=== PATIENT | female | born 1960 | race Caucasian/White ===

== ENCOUNTER 2016-10-09 09:11 | Outpatient (RCR) | payer OTHER | END 2016-11-04 | LOC: M ONCR 09:11 | PROVIDERS: ATTEND Radiology Radiation Oncology | DX: D05.12 Intraductal carcinoma in situ of left breast (principal) ==

== ENCOUNTER → 2016-10-13 | Outpatient (CLI) | payer OTHER | LOC: M RAD 13:42 | PROVIDERS: ATTEND Radiology Radiation Oncology | DX: C50.919 Malignant neoplasm of unspecified site of unspecified female breast (principal) ==

== ENCOUNTER → 2016-11-03 | Outpatient (CLI) | payer OTHER ==
[2016-11-03 12:41] LABS: MEAN CORPUSCULAR HEMOGLOBIN 31.1 pg (27.0-33.0); MEAN CORPUSCULAR HGB CONC 33.7 g/dl (32.0-36.5); MEAN CORPUSCULAR VOLUME 92.4 fl (80.0-96.0); RED CELL DISTRIBUTION WIDTH 13.8 % (11.5-14.5); WHITE BLOOD COUNT 4.6 K/mm3 (4.0-10.0)
--- NOTE | 2016-11-04 07:33 | RADONC ---
RADIATION ONCOLOGY PROGRESS NOTE: DATE: 11/03/2016 Ms. Arzola is presently at a dose of 2403 cGy to her left breast and is tolerating treatments quite well at this point with no significant difficulties related to her radiation therapy. She has no breast or bone pain. REVIEW OF SYSTEMS: The patient's review of systems is noncontributory. Denies nausea, vomiting, fevers, chills, night sweats, diplopia, headaches, anxiety or depression, anorexia, weight loss, visual disturbances, chest pain, urinary or bowel difficulties, bone pain, or neurological problems. PHYSICAL EXAMINATION: The patient's skin is in good condition with no evidence of moist or dry desquamation. The remainder of her physical exam remains unchanged. Ms. Arzola is tolerating treatments quite well and radiation will continue as scheduled.
== END ==
LOC: M ONCR 11:36
PROVIDERS: ATTEND Radiology Radiation Oncology
DX: C50.919 Malignant neoplasm of unspecified site of unspecified female breast (principal)

== ENCOUNTER 2016-11-05 13:28 | Outpatient (RCR) | payer OTHER ==
--- NOTE | 2016-11-08 08:23 | RADONC ---
RADIATION ONCOLOGY SIMULATION NOTE: DATE: 11/07/2016 CHART No: [id number] Ms. Arzola was taken to the linear accelerator today for clinical setup of her electron beam left breast boost field. Setup was accomplished without difficulty or discomfort. Radiation treatment planning is underway and radiation treatments will begin subsequently. An immobilization device was used and will be used throughout the course of this treatment. I was physically present throughout the course of CT simulation.
--- NOTE | 2016-11-11 10:18 | RADONC ---
RADIATION ONCOLOGY PROGRESS NOTE DATE: 11/10/2016 CHART NUMBER: [id number] Ms. Arzola is presently at a dose of 3738 cGy to her left breast and is tolerating treatments quite well at this point with no complaints related to her radiation therapy. She is having no breast or bone pain. The patient's review of systems is noncontributory. She denies nausea, vomiting, fevers, chills, night sweats, diplopia, headaches, anxiety or depression, anorexia, weight loss, visual disturbances, chest pain, urinary or bowel difficulties, bone pain, or neurological problems. PHYSICAL EXAMINATION: The patient's skin is in good condition with no evidence of moist or dry desquamation. The remainder of her physical exam remains unchanged. Ms. Arzola is tolerating her treatments quite well, and radiation will continue as scheduled.
--- NOTE | 2016-11-19 13:08 | RADONC ---
RADIATION ONCOLOGY PROGRESS NOTE DATE: 11/17/2016 CHART NUMBER: [id number] Ms. Arzola is presently at a dose of 4725 cGy to her left breast primary site boost and is tolerating treatments quite well at this point with no significant difficulties related to her radiation therapy other than some tenderness of her left breast. REVIEW OF SYSTEMS: The patient's review of systems is noncontributory. She denies nausea, vomiting, fevers, chills, night sweats, diplopia, headaches, anxiety or depression, anorexia, weight loss, visual disturbances, chest pain, urinary or bowel difficulties, bone pain, or neurological problems. PHYSICAL EXAMINATION: The patient's skin shows some erythema present throughout the treatment field but is overall in good condition with no evidence of moist or dry desquamation. The remainder of her physical exam remains unchanged. Ms. Arzola is tolerating treatments quite well and is scheduled for completion tomorrow. Radiation will continue as scheduled.
--- NOTE | 2016-11-25 13:16 | RADONC ---
RADIATION ONCOLOGY TREATMENT SUMMARY DATE: 11/21/2016 CHART NUMBER: [id number] DIAGNOSIS: Left breast cancer. STAGE: 0, [id number] ECOG PERFORMANCE STATUS: 0 TREATMENT SUMMARY: Ms. 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 We treated the patient to her left breast for a total dose of 4000 cGy delivered in 15 fractions of 266.7 cGy each over 20 elapsed days from 10/22/2016 to 11/11/2016. The patient's left breast was treated on the linear accelerator utilizing 3D conformal technique with anterior and posterior lateral abraham as well as an 18X and 6X combination photon beam. Following completion of 4000 cGy in the entire left breast, the primary site was boosted for an additional 900 cGy delivered in five fractions of 180 cGy each from 11/12/2016 through 11/18/2016. Primary site boost was treated on a linear accelerator utilizing a 9 MeV electron beam prescribed to the 90% isodose line via an en face technique. This brought the primary site to a total dose of 4900 cGy delivered in 20 fractions over 27 elapsed days from 10/22/2016 through 11/18/2016. Ms. Arzola tolerated her treatments quite well with no significant difficulties related to her radiation therapy. She completed therapy as prescribed without interruption. I have scheduled the patient to see me again in 1 month for further followup. She will also continue to be followed by her other physicians as well. Thank you for allowing us to participate in the care of this very pleasant woman. If I could be of any further assistance or provide you with any information, please feel free to contact me at anytime. cc: *Lolly Barksdale MD *Giulia Carvalho MD *JOSUE Sullivan
== END 2016-12-02 ==
LOC: M ONCR 13:28
PROVIDERS: ATTEND Radiology Radiation Oncology
DX: D05.12 Intraductal carcinoma in situ of left breast (principal)

== ENCOUNTER → 2016-12-06 | Outpatient (CLI) | payer MEDICAID, OTHER ==
--- NOTE | 2016-12-06 14:12 | REP ---
LEFT FOOT: Four views of the left foot are performed. There is a comminuted fracture of the distal aspect of the first proximal phalanx. This is not significantly displaced. It extends into the interphalangeal joint. Fracture extends into the proximal medial aspect of the proximal phalanx. No other fracture or dislocation is seen. There is mild calcaneal spurring. There is moderate spurring of the anterior distal tibia which could cause anterior impingement at the ankle. IMPRESSION: Nondisplaced comminuted fracture proximal phalanx extends into the interphalangeal joint. Signed by Fabio Escudero MD 12/06/2016 08:00 P
== END ==
LOC: M LRY 12:32
PROVIDERS: ATTEND Physician Assistant
DX: S92.515A Nondisplaced fracture of proximal phalanx of left lesser toe(s), initial encounter for closed fracture (principal); X58.XXXA Exposure to other specified factors, initial encounter; Y93.9 Activity, unspecified; Y92.9 Unspecified place or not applicable; Y99.8 Other external cause status

== ENCOUNTER → 2016-12-17 | Outpatient (CLI) | payer MEDICAID ==
--- NOTE | 2016-12-17 11:51 | RADONC ---
RADIATION ONCOLOGY FOLLOWUP NOTE: DATE OF SERVICE: 12/17/2016 DIAGNOSIS: Left breast cancer. STAGE:; Stage 0, Ti [id number] ECOG PERFORMANCE STATUS: 0 Ms. 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 The patient presents today reporting that she is doing quite well with no complaints at this time related to her radiation therapy or disease. She has no breast or bone pain. REVIEW OF SYSTEMS: The patient's review of systems is noncontributory. Denies nausea, vomiting, fevers, chills, night sweats, diplopia, headaches, anxiety or depression, anorexia, weight loss, visual disturbances, chest pain, urinary or bowel difficulties, bone pain, or neurological problems. PHYSICAL EXAMINATION: The patient's skin is in good condition with no evidence of radiation change present. There is no moist or dry desquamation. The remainder of her physical exam remains unchanged. Ms. Arzola is clinically YO at this time and will be seen by us again in 6 months for further followup. She will also continue to be followed by her other physicians as well. cc: *Giulia Carvalho MD *JOSUE Sullivan
== END ==
LOC: M ONCR 10:29
PROVIDERS: ATTEND Radiology Radiation Oncology
DX: D05.12 Intraductal carcinoma in situ of left breast (principal)

== ENCOUNTER → 2017-01-28 | Outpatient (REF) | payer OTHER | LOC: M LAB REF 16:15 | PROVIDERS: ATTEND Physician Assistant | DX: N39.0 Urinary tract infection, site not specified (principal) ==

== ENCOUNTER → 2017-04-14 | Outpatient (CLI) | payer OTHER ==
[~2017-04-14] MED LIST: AMIT100TA; LEVO100T5; LISI10TA4; NAPR500T PO; OMEP40CA2; OXYB5TAB10; ROBA500T PO; TAMO20TA4; VENL75CA47
--- NOTE | 2017-04-16 08:40 | DEXA ---
AP SPINE L1 - L4 1.503 2.5 3.2 LT FEMUR TOTAL 1.267 2.1 2.7 RT FEMUR TOTAL 1.248 1.9 2.5 TOTAL BODY TOTAL OTHER DUAL FEMUR FRAX* ASSESSMENT Risk factors: Current smoker, history of adult fracture. 10 year probability of fracture Major osteoporotic fracture 7.5 % Hip fracture 0.1 % COMMENTS: Normal bone densitometry of the spine and hips. FOLLOW-UP: Recommendation for the next bone density exam: 5 years. MTDD
== END ==
LOC: M WHC 14:50
PROVIDERS: ATTEND Physician Assistant
DX: E55.9 Vitamin D deficiency, unspecified (principal)

== ENCOUNTER 2017-06-01 18:30 | Emergency (ER) | payer OTHER ==
[~2017-06-01] VITALS: Ht 162.6 cm; Wt 85.5 kg
[2017-06-01] MEDS ORDERED: OMEP40CA2 (18:46)
[2017-06-01] MEDS ORDERED: VENL75CA47 (18:46)
[2017-06-01] MEDS ORDERED: AMIT100TA (18:46)
[2017-06-01] MEDS ORDERED: LEVO100T5 (18:46)
[2017-06-01] MEDS ORDERED: LISI10TA4 (18:46)
[2017-06-01] MEDS ORDERED: OXYB5TAB10 (18:46)
[2017-06-01] MEDS ORDERED: TAMO20TA4 (18:46)
[2017-06-01] MEDS ORDERED: NAPROXEN 250 MG TAB PO ONE (20:45)
[2017-06-01] MEDS ORDERED: ACETAMINOPHEN TAB 650MG DOSE (2X325MG) PO ONE (20:45)
--- NOTE | 2017-06-01 22:20 | REPUSA ---
Clinical history: Pain, swelling. Findings: The common femoral, superficial femoral, popliteal, and other deep venous structures compre ss normally and demonstrate normal color Doppler flow. Normal venous waveforms with augmentation are seen. There is a fluid collection in the left popliteal fossa measuring 2.9 x 2.0 by 1.2 cm. Impression: No evidence of deep vein thrombosis in either femoral popliteal venous system. Left-sided Weaver cyst.
[2017-06-01] MEDS ORDERED: ROBA500T PO (22:39)
[2017-06-01] MEDS ORDERED: NAPR500T PO (22:39)
[2017-06-01 22:44] VITALS: BP 132/68
== END 2017-06-01 22:44 | disposition home or self-care (01) ==
LOC: M ED 18:30
DX: S39.012A Strain of muscle, fascia and tendon of lower back, initial encounter (principal); M62.838 Other muscle spasm; M71.22 Synovial cyst of popliteal space [Baker], left knee; X58.XXXA Exposure to other specified factors, initial encounter; Y92.9 Unspecified place or not applicable; Y93.H2 Activity, gardening and landscaping; Y99.9 Unspecified external cause status; F17.200 Nicotine dependence, unspecified, uncomplicated; Z79.899 Other long term (current) drug therapy; Z88.1 Allergy status to other antibiotic agents; Z88.2 Allergy status to sulfonamides

== ENCOUNTER → 2017-06-10 | Outpatient (REF) | payer OTHER ==
[2017-06-10 16:42] LABS: ALBUMIN 3.8 GM/DL (3.2-5.2); ALBUMIN/GLOBULIN RATIO 1.12 (1.00-1.93); ALKALINE PHOSPHATASE 56 U/L (45-117); ALT/SGPT 30 U/L (12-78); ANION GAP 9 MEQ/L (8-16); AST/SGOT 24 U/L (15-37); BILIRUBIN,TOTAL 0.6 MG/DL (0.2-1.0); BLOOD UREA NITROGEN 10 MG/DL (7-18); CALCIUM LEVEL 9.3 MG/DL (8.5-10.1); CARBON DIOXIDE LEVEL 30 MEQ/L (21-32); CHLORIDE LEVEL 104 MEQ/L (98-107); CHOLESTEROL LEVEL 184 MG/DL (<200); CREATININE FOR GFR 0.76 MG/DL (0.55-1.02); FERRITIN 102 NG/ML (8-252); GLOMERULAR FILTRATION RATE > 60.0 (>51); GLUCOSE, FASTING 86 MG/DL (70-105); MAGNESIUM LEVEL 2.2 MG/DL (1.8-2.4); PERCENT SATURATION 57.6 % (13.2-45.0); POTASSIUM SERUM 3.9 MEQ/L (3.5-5.1); SODIUM LEVEL 143 MEQ/L (136-145); TOTAL IRON BINDING CAPACITY 262 UG/DL (250-450); TOTAL PROTEIN 7.2 GM/DL (6.4-8.2); TRIGLYCERIDES LEVEL 105 MG/DL (<150)
[2017-06-10 16:45] LABS: VITAMIN B12 LEVEL 863 PG/ML (247-911)
[2017-06-10 17:00] LABS: BASO % 1.1 % (0.0-1.0); EOS # 0.1 K/mm3 (0.0-0.50); EOS % 2.6 % (0.0-3.0); LARGE UNSTAINED CELL # 0.1 K/mm3 (0.0-0.4); LARGE UNSTAINED CELL % 1.3 % (0.0-4.0); LYMPH % 20.5 % (24.0-44.0); MEAN CORPUSCULAR HEMOGLOBIN 31.5 pg (27.0-33.0); MEAN CORPUSCULAR HGB CONC 33.3 g/dl (32.0-36.5); MEAN CORPUSCULAR VOLUME 94.6 fl (80.0-96.0); MONO # 0.3 K/mm3 (0.0-0.8); MONO % 5.2 % (0.0-5.0); NEUTROPHILS # 3.3 K/mm3 (1.8-7.7); NEUTROPHILS % 69.3 % (36.0-66.0); PLATELET COUNT, AUTOMATED 194 k/mm3 (150-450); RED CELL DISTRIBUTION WIDTH 12.7 % (11.5-14.5); WHITE BLOOD COUNT 4.7 K/mm3 (4.0-10.0)
== END ==
LOC: M SFHCCLAY 09:42
PROVIDERS: ATTEND Nurse Practitioner Family
DX: Z98.84 Bariatric surgery status (principal); I10 Essential (primary) hypertension; E78.4 Other hyperlipidemia; E03.9 Hypothyroidism, unspecified; E55.9 Vitamin D deficiency, unspecified; N39.0 Urinary tract infection, site not specified

== ENCOUNTER → 2017-06-24 | Outpatient (CLI) | payer OTHER ==
--- NOTE | 2017-06-24 10:59 | RADONC ---
RADIATION ONCOLOGY FOLLOWUP NOTE DATE: 06/24/2017 CHART NUMBER: [id number]. DIAGNOSIS: Left breast cancer. STAGE: 0, [id number]. ECOG PERFORMANCE STATUS: Zero. FOLLOWUP NOTE: Ms. Arzola is a very pleasant, 56-year-old white female with the diagnosis of a stage 0, [id number] ductal carcinoma in situ of the left breast who is presenting to us today for routine followup visit 7 months post completion of external beam radiation therapy. The patient presents today reporting that she is doing quite well with no complaints at this time related to her radiation therapy or disease. She has no breast or bone pain. REVIEW OF SYSTEMS: The patient's review of systems is noncontributory. Denies nausea, vomiting, fevers, chills, night sweats, diplopia, headaches, anxiety or depression, anorexia, weight loss, visual disturbances, chest pain, urinary or bowel difficulties, bone pain, or neurological problems. PHYSICAL EXAMINATION: The patient is a well-developed, well-nourished,56-year-old white female, in no acute distress. HEENT exam is normocephalic, atraumatic. Extraocular movements are intact. There is no palpable cervical, supraclavicular, infraclavicular, axillary, or inguinal lymphadenopathy present. Lungs are clear to auscultation and percussion. Heart has a regular rate and rhythm. Abdomen is benign with no hepatosplenomegaly, masses, or tenderness. Breast examination reveals no masses or discharge bilaterally. Skeletal examination reveals no tenderness to pressure or percussion of the bony skeleton. Extremities reveal no clubbing, cyanosis, or edema. Neurologic exam is grossly intact, as is the remainder of the physical examination. ASSESSMENT: The patient is clinically YO at this time will be seen by us again in 6 months for further followup. She will also continue to be followed by her other physicians as well.
== END ==
LOC: M ONCR 10:14
PROVIDERS: ATTEND Radiology Radiation Oncology
DX: D05.12 Intraductal carcinoma in situ of left breast (principal)

== ENCOUNTER → 2017-07-17 | Outpatient (REF) | payer OTHER | LOC: M SFHCLERA 14:15 | PROVIDERS: ATTEND Nurse Practitioner Family | DX: R30.0 Dysuria (principal) ==

== ENCOUNTER → 2017-08-18 | Outpatient (CLI) | payer OTHER ==
[2017-08-18 13:32] LABS: ANION GAP 4 MEQ/L (8-16); BLOOD UREA NITROGEN 10 MG/DL (7-18); CARBON DIOXIDE LEVEL 33 MEQ/L (21-32); CHLORIDE LEVEL 105 MEQ/L (98-107); CREATININE FOR GFR 0.72 MG/DL (0.55-1.02); GLOMERULAR FILTRATION RATE > 60.0 (>51); GLUCOSE, FASTING 101 MG/DL (70-105); SODIUM LEVEL 142 MEQ/L (136-145)
== END ==
LOC: M SMT 10:12
PROVIDERS: ATTEND Nurse Practitioner Women's Health
DX: R31.29 Other microscopic hematuria (principal)

== ENCOUNTER → 2017-08-26 | Outpatient (CLI) | payer OTHER ==
[~2017-08-26] MED LIST changes: +ISOVUE-370 76% 100ML VIAL (Q9967) As Ordered ONE
--- NOTE | 2017-08-26 15:38 | REP ---
Clinical: Hematuria. Comparison: 08/13/2015. Technique: Axial precontrast, conscious enhanced, and delayed images of the abdomen and pelvis using 100 ml Isovue 370 intravenous contrast material with coronal and sagittal MIP re-formations. Findings: Moderate medullary nephrocalcinosis is appreciated bilaterally without perinephric stranding, hydroureteronephrosis, or obstructing ureteral calculi. No renal cystic changes or masses are identified. The bilateral ureters and bladder are normal. Liver, spleen, pancreas, and bilateral adrenal glands are normal. The evidence of prior gastric bypass and cholecystectomy with compensatory biliary ductal dilatation noted. The enteric system is without obstruction or acute inflammatory process. Pelvis demonstrates normal bladder and evidence for prior hysterectomy. No pelvic fluid or ascites. No free air. No adenopathy. Abdominal aorta and vasculature appears normal. Fat containing supraumbilical midline ventral hernia is identified measuring roughly 4 cm maximal transverse diameter (images 45 - 64) along with 1 cm fat containing periumbilical hernia. Musculoskeletal structures demonstrate age-related degenerative changes without focal osseous abnormality. Lung bases are clear. Impression: 1. Kidneys demonstrate moderate medullary nephrocalcinosis. No further urinary tract abnormalities are identified by CT. 2. Fat containing supraumbilical and periumbilical hernias. Signed by Randy Ponce MD 08/26/2017 03:29 P
== END ==
LOC: M RAD 14:34
PROVIDERS: ATTEND Nurse Practitioner Women's Health
DX: R31.9 Hematuria, unspecified (principal)
CPT/HCPCS: 74178; Q9967

== ENCOUNTER → 2017-09-01 | Outpatient (REF) | payer OTHER ==
[~2017-09-01] MED LIST changes: -ISOVUE-370 76% 100ML VIAL (Q9967) As Ordered ONE
== END ==
LOC: M SMT 13:11
PROVIDERS: ATTEND Nurse Practitioner Women's Health
DX: R31.9 Hematuria, unspecified (principal)

== ENCOUNTER → 2017-12-16 | Outpatient (CLI) | payer OTHER | LOC: M ONCR 10:11 | DX: D05.12 Intraductal carcinoma in situ of left breast (principal) | CPT/HCPCS: 99211 ==

== ENCOUNTER → 2018-01-01 | Outpatient (REF) | payer OTHER ==
[2018-01-01 16:33] LABS: HEMATOCRIT 40.9 % (36.0-47.0); HEMOGLOBIN 13.9 g/dl (12.0-15.5); MEAN CORPUSCULAR HEMOGLOBIN 31.4 pg (27.0-33.0); MEAN CORPUSCULAR VOLUME 92.3 fl (80.0-96.0); PLATELET COUNT, AUTOMATED 232 10^3/uL (150-450); RED BLOOD COUNT 4.43 10^6/uL (4.00-5.40); RED CELL DISTRIBUTION WIDTH 12.7 % (11.5-14.5); RETIC HEMOGLOBIN EQUIVALENT 36.3 pg (24-36); RETICULOCYTE # 63.8 10^9/L (17-77); RETICULOCYTE % 1.4 % (0.5-1.5); WHITE BLOOD COUNT 5.2 10^3/uL (4.0-10.0)
[2018-01-01 16:38] LABS: TOTAL 25(OH) VITAMIN D 41.6 NG/ML (30.0-100.0)
[2018-01-01 16:40] LABS: VITAMIN B12 LEVEL 546 PG/ML (247-911)
[2018-01-01 16:41] LABS: FOLATE 15.7 NG/ML (>5.4)
[2018-01-01 16:42] LABS: FERRITIN 79 NG/ML (8-252); IRON (FE) 118 UG/DL (50-170); PERCENT SATURATION 43.9 % (13.2-45.0); TOTAL IRON BINDING CAPACITY 269 UG/DL (250-450)
[2018-01-01 17:18] LABS: HIV 1&2 SCREEN CENTAUR NEGATIVE (NEGATIVE)
[2018-01-01 18:02] LABS: CHLAMYDIA DNA AMPLIFICATION NEGATIVE (NEGATIVE); GC DNA AMPLIFICATION NEGATIVE (NEGATIVE)
[2018-01-04 10:40] LABS: HEPATITIS B SURFACE ANTIBODY NEGATIVE (POSITIVE)
[2018-01-04 10:50] LABS: HEPATITIS B SURFACE ANTIGEN NEGATIVE (NEGATIVE)
[2018-01-04 11:18] LABS: HEPATITIS C VIRUS ABY INDEX 0.1 INDEX (<0.8)
== END ==
LOC: M SFHCCLAY 11:42
DX: R53.83 Other fatigue (principal); Z11.3 Encounter for screening for infections with a predominantly sexual mode of transmission

== ENCOUNTER → 2018-02-19 | Outpatient (REF) | payer OTHER ==
[2018-02-19 17:14] LABS: ANION GAP 4 MEQ/L (8-16); BLOOD UREA NITROGEN 10 MG/DL (7-18); CALCIUM LEVEL 8.8 MG/DL (8.5-10.1); CARBON DIOXIDE LEVEL 33 MEQ/L (21-32); CHLORIDE LEVEL 103 MEQ/L (98-107); CREATININE FOR GFR 0.65 MG/DL (0.55-1.30); GLOMERULAR FILTRATION RATE > 60.0 (>51); GLUCOSE, FASTING 93 MG/DL (70-100); POTASSIUM SERUM 3.6 MEQ/L (3.5-5.1); SODIUM LEVEL 140 MEQ/L (136-145)
== END ==
LOC: M SFHCCLAY 10:08
DX: I10 Essential (primary) hypertension (principal)
CPT/HCPCS: 80048

== ENCOUNTER → 2018-02-25 | Outpatient (CLI) | payer OTHER | LOC: M RAD 13:55 | DX: G44.221 Chronic tension-type headache, intractable (principal); G43.719 Chronic migraine without aura, intractable, without status migrainosus; M54.81 Occipital neuralgia | CPT/HCPCS: 70450 ==

== ENCOUNTER → 2018-06-09 | Outpatient (CLI) | payer OTHER | LOC: M ONCR 10:11 | DX: C50.912 Malignant neoplasm of unspecified site of left female breast (principal) | CPT/HCPCS: 99211 ==

== ENCOUNTER → 2018-06-15 | Outpatient (REF) | payer OTHER ==
[2018-06-15 11:51] LABS: BASO % 0.5 % (0.0-1.0); EOS # 0.2 10^3/uL (0.0-0.50); HEMOGLOBIN 12.4 g/dl (12.0-15.5); IMMATURE GRANULOCYTE % 0.3 % (0-3.0); LYMPH % 13.3 % (24.0-44.0); MEAN CORPUSCULAR HEMOGLOBIN 31.9 pg (27.0-33.0); MEAN CORPUSCULAR HGB CONC 34.4 g/dl (32.0-36.5); MEAN CORPUSCULAR VOLUME 92.5 fl (80.0-96.0); MONO # 0.3 10^3/uL (0.0-0.8); MONO % 4.2 % (0.0-5.0); NEUTROPHILS # 6.1 10^3/uL (1.8-7.7); NEUTROPHILS % 79.7 % (36.0-66.0); PLATELET COUNT, AUTOMATED 204 10^3/uL (150-450); RED BLOOD COUNT 3.89 10^6/uL (4.00-5.40); RED CELL DISTRIBUTION WIDTH 12.8 % (11.5-14.5); RETIC HEMOGLOBIN EQUIVALENT 36.6 pg (24-36); RETICULOCYTE # 53.7 10^9/L (17-77); RETICULOCYTE % 1.4 % (0.5-1.5); WHITE BLOOD COUNT 7.6 10^3/uL (4.0-10.0)
[2018-06-15 13:13] LABS: ALBUMIN 3.6 GM/DL (3.2-5.2); ALKALINE PHOSPHATASE 67 U/L (45-117); ALT/SGPT 40 U/L (12-78); ANION GAP 6 MEQ/L (8-16); AST/SGOT 28 U/L (7-37); BILIRUBIN,TOTAL 0.4 MG/DL (0.2-1.0); BLOOD UREA NITROGEN 14 MG/DL (7-18); CALCIUM LEVEL 8.9 MG/DL (8.5-10.1); CARBON DIOXIDE LEVEL 30 MEQ/L (21-32); CHLORIDE LEVEL 105 MEQ/L (98-107); CHOLESTEROL LEVEL 176 MG/DL (<200); CHOLESTEROL RISK RATIO 2.146 (<5); CREATININE FOR GFR 0.58 MG/DL (0.55-1.30); FERRITIN 54 NG/ML (8-252); FOLATE 22.6 NG/ML (>5.4); GLOMERULAR FILTRATION RATE > 60.0 (>51); GLUCOSE, FASTING 84 MG/DL (70-100); HDL CHOLESTEROL 82 MG/DL (>40); IRON (FE) 88 UG/DL (50-170); LDL CHOLESTEROL 84 MG/DL (<100); NON-HDL-C 94 MG/DL; POTASSIUM SERUM 4.1 MEQ/L (3.5-5.1); SODIUM LEVEL 141 MEQ/L (136-145); TOTAL 25(OH) VITAMIN D 33.9 NG/ML (30.0-100.0); TOTAL IRON BINDING CAPACITY 249 UG/DL (250-450); TOTAL PROTEIN 6.8 GM/DL (6.4-8.2); TRIGLYCERIDES LEVEL 49 MG/DL (<150); VITAMIN B12 LEVEL > 2000 PG/ML (247-911)
[2018-06-15 15:54] LABS: ALBUMIN/GLOBULIN RATIO 1.12 (1.00-1.93)
[2018-06-15 15:55] LABS: PERCENT SATURATION 35.3 % (13.2-45.0)
== END ==
LOC: M SFHCCLAY 08:48
DX: Z98.84 Bariatric surgery status (principal); E78.5 Hyperlipidemia, unspecified; E03.9 Hypothyroidism, unspecified
CPT/HCPCS: 82746

== ENCOUNTER → 2018-10-26 | Outpatient (REF) | payer OTHER ==
[~2018-10-26] MED LIST changes: +NAPR-50 PO; -NAPR500T PO; -TAMO20TA4; +TAMO20TA8
[2018-10-26 17:04] LABS: BLOOD UREA NITROGEN 14 MG/DL (7-18); CALCIUM LEVEL 8.5 MG/DL (8.5-10.1); CARBON DIOXIDE LEVEL 32 MEQ/L (21-32); CHLORIDE LEVEL 104 MEQ/L (98-107); CREATININE FOR GFR 0.62 MG/DL (0.55-1.30); GLOMERULAR FILTRATION RATE > 60.0 (>51); GLUCOSE, FASTING 87 MG/DL (70-100); MAGNESIUM LEVEL 2.2 MG/DL (1.8-2.4); POTASSIUM SERUM 4.1 MEQ/L (3.5-5.1); SODIUM LEVEL 141 MEQ/L (136-145)
[2018-10-29 08:36] LABS: VITAMIN B12 LEVEL > 2000 PG/ML (232-1245)
== END ==
LOC: M SFHCCLAY 12:25
PROVIDERS: ATTEND Nurse Practitioner Family
DX: F32.9 Major depressive disorder, single episode, unspecified (principal); Z98.84 Bariatric surgery status; E03.9 Hypothyroidism, unspecified

== ENCOUNTER → 2018-12-08 | Outpatient (CLI) | payer OTHER ==
--- NOTE | 2018-12-08 10:59 | RADONC ---
RADIATION ONCOLOGY FOLLOWUP NOTE DATE: 12/08/2018 CHART NUMBER: [id number] DIAGNOSIS: Left breast cancer STAGE: Stage 0, [id number]. ECOG PERFORMANCE STATUS: 0. FOLLOWUP NOTE: Ms. Arzola is a very pleasant 58-year-old white female with the diagnosis of a Stage 0, [id number] ductal carcinoma in situ of the left breast, who is presenting to us today for routine followup visit 2 years post completion of external beam radiation therapy. The patient presents today reporting that she is doing quite well with no complaints at this time related to her radiation therapy or disease. She has no breast or bone pain. The patient's review of systems is noncontributory. Denies nausea, vomiting, fevers, chills, night sweats, diplopia, headaches, anxiety or depression, anorexia, weight loss, visual disturbances, chest pain, urinary or bowel difficulties, bone pain, or neurological problems. PHYSICAL EXAMINATION: The patient is a well-developed, well-nourished female in no acute distress. HEENT exam is normocephalic, atraumatic. Extraocular movements are intact. There is no palpable cervical, supraclavicular, infraclavicular, axillary, or inguinal lymphadenopathy present. Lungs are clear to auscultation and percussion. Heart has a regular rate and rhythm. Abdomen is benign with no hepatosplenomegaly, masses, or tenderness. Breast examination reveals no masses or discharge bilaterally. Skeletal examination reveals no tenderness to pressure or percussion of the bony skeleton. Extremities reveal no clubbing, cyanosis, or edema. Neurologic exam is grossly intact, as is the remainder of the physical examination. ASSESSMENT: The patient is clinically YO at this time. She is being followed closely by Dr. Oden and Dr. Carvalho, as well as her other physicians. In light of this, I have discharged her from our followup except on an as needed basis. The patient has my office number and cellphone number and we are available to her at any time if I can be of any assistance or provide her with any information whatsoever. cc: BRIELLE Hopkins MD Mijung Lee, MD Sonja Pierce, ARI Barksdale MD
== END ==
LOC: M ONCR 10:20
PROVIDERS: ATTEND Radiology Radiation Oncology
DX: D05.12 Intraductal carcinoma in situ of left breast (principal)

== ENCOUNTER → 2019-01-31 | Outpatient (CLI) | payer OTHER ==
[~2019-01-31] MED LIST changes: -NAPR-50 PO; +NAPR-837 PO
[2019-01-31 17:56] LABS: BASO # 0.1 10^3/uL (0.0-0.2); BASO % 0.8 % (0.0-1.0); EOS # 0.1 10^3/uL (0.0-0.50); EOS % 2.3 % (0.0-3.0); HEMATOCRIT 39.3 % (36.0-47.0); HEMOGLOBIN 13.1 g/dl (12.0-15.5); LYMPH # 1.3 10^3/uL (1.5-4.5); LYMPH % 21.3 % (24.0-44.0); MEAN CORPUSCULAR HEMOGLOBIN 32.3 pg (27.0-33.0); MEAN CORPUSCULAR HGB CONC 33.3 g/dl (32.0-36.5); MEAN CORPUSCULAR VOLUME 96.8 fl (80.0-96.0); MONO # 0.4 10^3/uL (0.0-0.8); MONO % 5.7 % (0.0-5.0); NEUTROPHILS # 4.2 10^3/uL (1.8-7.7); NEUTROPHILS % 69.6 % (36.0-66.0); PLATELET COUNT, AUTOMATED 222 10^3/uL (150-450); RED BLOOD COUNT 4.06 10^6/uL (4.00-5.40); WHITE BLOOD COUNT 6.1 10^3/uL (4.0-10.0)
[2019-01-31 18:02] LABS: ALBUMIN 3.3 GM/DL (3.2-5.2); ALT/SGPT 17 U/L (12-78); BILIRUBIN,TOTAL 0.5 MG/DL (0.2-1.0); BLOOD UREA NITROGEN 11 MG/DL (7-18); CALCIUM LEVEL 8.1 MG/DL (8.5-10.1); CARBON DIOXIDE LEVEL 31 MEQ/L (21-32); CHLORIDE LEVEL 106 MEQ/L (98-107); CPK CREATINE PHOSPHOKINASE 86 U/L (26-192); CREATININE FOR GFR 0.74 MG/DL (0.55-1.30); FOLATE 14.6 NG/ML (>5.4); GLOMERULAR FILTRATION RATE > 60.0 (>51); GLUCOSE, FASTING 106 MG/DL (70-100); POTASSIUM SERUM 4.4 MEQ/L (3.5-5.1); RHEUMATOID FACTOR QUANT < 10.0 IU/ML (<15.0); SODIUM LEVEL 141 MEQ/L (136-145); TOTAL PROTEIN 6.6 GM/DL (6.4-8.2); VITAMIN B12 LEVEL 1131 PG/ML (247-911)
[2019-01-31 18:16] LABS: ERYTHROCYTE SEDIMENTATION RATE 7 mm/hr (0-30)
[2019-01-31 19:12] LABS: HEMOGLOBIN A1c 5.2 %
[2019-02-01 10:56] LABS: ALBUMIN 3.87 GM/DL (3.29-5.55); ALBUMIN % 58.6 % (55.8-66.1); ALPHA-1-GLOBULIN % 5.2 % (2.9-4.9); ALPHA-1-GLOBULINS 0.34 GM/DL (0.17-0.41); ALPHA-2-GLOBULINS % 7.6 % (7.1-11.8); BETA-1-GLOBULINS % 5.5 % (4.7-7.2); BETA-2-GLOBULINS % 5.6 % (3.2-6.5); GAMMA GLOBULIN % 17.5 % (11.1-18.8)
[2019-02-01 10:57] LABS: BETA-1-GLOBULINS 0.36 GM/DL (0.28-0.60); BETA-2-GLOBULINS 0.37 GM/DL (0.19-0.55); GAMMA GLOBULINS 1.16 GM/DL (0.65-1.58)
[2019-02-03 08:07] LABS: ANTINUCLEAR ANTIBODIES DIRECT Negative (Negative); COPPER PLASMA 156 ug/dL (72-166)
[2019-02-04 00:06] LABS: VITAMIN E(ALPHA TOCOPHEROL) 9.2 mg/L (7.0-25.1)
== END ==
LOC: M LRY 13:45
PROVIDERS: ATTEND Psychiatry & Neurology Neurology
DX: R51 Headache (principal); G62.9 Polyneuropathy, unspecified

== ENCOUNTER → 2019-02-04 | Outpatient (CLI) | payer OTHER ==
--- NOTE | 2019-02-04 09:20 | REP ---
CT cervical spine without contrast HISTORY: Cevicalgia COMPARISON: None There is no acute fracture or subluxation. Disc bulges with associated osteophyte formation are present at the C3-4 through C6-7 levels. There is minimal to mild narrowing of the spinal canal. Uncinate process and/or facet hypertrophy are present at the C3-4 through C7-T1 levels. These findings produce minimal to severe narrowing of the neural foramina. The C3-4 through C7-T1 intervertebral discs are decreased in height consistent with disc degeneration. IMPRESSION: 1. There is no acute fracture or subluxation. 2. There is cervical spondylosis at the C3-4 through C7-T1 levels. Electronically Signed by Alfonso Thibodeaux MD 02/04/2019 09:11 A
--- NOTE | 2019-02-04 09:39 | REP ---
CT LUMBAR SPINE WITHOUT CONTRAST: HISTORY: Back pain. A diffuse disc bulge is present at the L1-2 level. There is hypertrophy of the ligamenta flava and posterior articulating facets. These findings produce moderate central canal stenosis. There is compression of the left L1 nerve in the neural foramen. The right L1 nerve exits the neural foramen without compression. A diffuse disc bulge is present at the L2-3 level. There is hypertrophy of the ligamenta flava and posterior articulating facets. These findings produce moderate central canal stenosis. There is compression of the L2 nerves in the neural foramina. A diffuse disc bulge is present at the L3-4 level. There is hypertrophy of the ligamenta flava and posterior articulating facets. These findings produce moderate central canal stenosis. There is compression of the L3 nerves in the neural foramina. A diffuse disc bulge is present at the L4-5 level. There is hypertrophy of the ligamenta flava and posterior articulating facets. These findings produce severe central canal stenosis. There is compression of the L4 nerves in the neural foramina. A diffuse disc bulge with associated osteophyte formation is present at the L5-S1 level. There is hypertrophy of the ligamenta flava and posterior articulating facets. These findings produce less severe central canal stenosis. There is compression of the L5 nerves in the neural foramina. The lumbar intervertebral discs are decreased in height. Vacuum phenomenon is present. These findings are consistent with disc degeneration. There is scoliosis convex to the right. IMPRESSION: 1. Moderate central canal stenosis at the L1-2 through L3-4 levels secondary to disc bulge, ligamentous and facet hypertrophy. 2. Severe central canal stenosis at the L4-5 level secondary to disc bulge, ligamentous and facet hypertrophy. 3. Severe central canal stenosis at the L5-S1 level secondary to disc bulge, ligamentous and facet hypertrophy, and osteophyte formation. Electronically Signed by Alfonso Thibodeaux MD 02/04/2019 09:41 A
== END ==
LOC: M RAD 08:50
PROVIDERS: ATTEND Psychiatry & Neurology Neurology
DX: M25.78 Osteophyte, vertebrae (principal); M50.31 Other cervical disc degeneration, high cervical region; M50.321 Other cervical disc degeneration at C4-C5 level; M50.322 Other cervical disc degeneration at C5-C6 level; M50.323 Other cervical disc degeneration at C6-C7 level; M47.899 Other spondylosis, site unspecified; M51.26 Other intervertebral disc displacement, lumbar region; M51.27 Other intervertebral disc displacement, lumbosacral region; M48.061 Spinal stenosis, lumbar region without neurogenic claudication; M48.07 Spinal stenosis, lumbosacral region

== ENCOUNTER 2019-03-07 21:02 | Emergency (ER) | payer MEDICAID, OTHER ==
[~2019-03-07] VITALS: Ht 162.6 cm; Wt 84.1 kg
[2019-03-07] MEDS ORDERED: OXYB15TA (23:31)
[2019-03-07] MEDS ORDERED: PROP40TA62 (23:31)
[2019-03-07] MEDS ORDERED: ATIV1TAB10 (23:31)
[2019-03-07] MEDS ORDERED: ACET1TAB16 (23:31)
[2019-03-08 00:32] VITALS: BP 138/86
--- NOTE | 2019-03-08 03:50 | REP ---
Clinical: Trauma. Technique: AP, lateral, bilateral oblique views left foot . Findings: The osseous structures and joint spaces are intact and there is no evidence for acute fracture or dislocation. Degenerative changes are appreciated primarily involving the first toe with mild hallux valgus deformity and evidence to suggest old trauma to the proximal phalanx. Impression: Age-related degenerative changes. Evidence to suggest old injuries including old first proximal phalanx fracture and possible prior ankle injuries. Electronically Signed by Randy Ponce MD 03/08/2019 03:41 A
== END 2019-03-08 00:33 | disposition home or self-care (01) ==
LOC: M ED 21:02
DX: S06.0X9A Concussion with loss of consciousness of unspecified duration, initial encounter (principal); S16.1XXA Strain of muscle, fascia and tendon at neck level, initial encounter; S90.812A Abrasion, left foot, initial encounter; S90.32XA Contusion of left foot, initial encounter; W10.9XXA Fall (on) (from) unspecified stairs and steps, initial encounter; Y92.099 Unspecified place in other non-institutional residence as the place of occurrence of the external cause; Y93.9 Activity, unspecified; Y99.9 Unspecified external cause status; I10 Essential (primary) hypertension; Z72.0 Tobacco use; Z79.899 Other long term (current) drug therapy; Z88.2 Allergy status to sulfonamides; Z88.1 Allergy status to other antibiotic agents

== ENCOUNTER → 2019-04-06 | Outpatient (REF) | payer OTHER, MEDICAID ==
[~2019-04-06] MED LIST changes: +ACET1TAB16; +ATIV1TAB10; +OXYB15TA; +PROP40TA62
[2019-04-06 13:38] LABS: APPEARANCE, URINE CLEAR (CLEAR); BACTERIA, URINE AUTO NEGATIVE (NEGATIVE); BILIRUBIN, URINE AUTO NEGATIVE (NEGATIVE); BLOOD, URINE BLOOD NEGATIVE (NEGATIVE); COLOR, URINE YELLOW (YELLOW); GLUCOSE, URINE (UA) AUTO NEGATIVE (NEGATIVE); KETONE, URINE AUTO NEGATIVE (NEGATIVE); LEUKOCYTE ESTERASE, URINE AUTO NEGATIVE (NEGATIVE); MUCUS, URINE SMALL (NEGATIVE); NITRITE, URINE AUTO NEGATIVE (NEGATIVE); PROTEIN, URINE AUTO NEGATIVE (NEGATIVE); RBC, URINE AUTO 0 /HPF (0-3); SPECIFIC GRAVITY URINE AUTO 1.008 (1.002-1.035); SQUAMOUS EPITHELIAL CELL UR AU 1 /HPF (0-6); UROBILINOGEN, URINE AUTO 0.2 mg/dL (0.0-2.0); WBC, URINE AUTO 1 /HPF (0-3)
== END ==
LOC: M SMT 13:01
PROVIDERS: ATTEND Nurse Practitioner Family
DX: R32 Unspecified urinary incontinence (principal)

== ENCOUNTER 2019-04-20 08:45 | Outpatient (RCR) | payer OTHER, MEDICAID | END 2019-05-04 | LOC: M PT 08:45 | PROVIDERS: ATTEND Nurse Practitioner Family | DX: Z51.89 Encounter for other specified aftercare (principal); R32 Unspecified urinary incontinence ==

== ENCOUNTER 2019-06-08 14:02 | Emergency (ER) | payer MEDICAID, OTHER ==
[~2019-06-08] VITALS: Ht 162.6 cm; Wt 89.1 kg
[~2019-06-08 14:02] MED LIST changes: -CYCL10TA; -FETZ1CAP3; -GABA-1171; -KETO10TAB PO; -PROM25TA12; -TOLT4CAP3 PO
[2019-06-08] MEDS ORDERED: PROM25TA12 (14:14)
[2019-06-08] MEDS ORDERED: FETZ1CAP3 (14:14)
[2019-06-08] MEDS ORDERED: CYCL10TA (14:14)
[2019-06-08] MEDS ORDERED: GABA-1171 (14:14)
[2019-06-08] MEDS ORDERED: TOLT4CAP3 PO (14:14)
[2019-06-08] MEDS ORDERED: KETOROLAC TROMETHAMINE 10 MG TAB PO ONE (16:45)
[2019-06-08] MEDS ORDERED: KETO10TAB PO (18:47)
[2019-06-08 18:52] VITALS: BP 134/84
== END 2019-06-08 19:00 | disposition home or self-care (01) ==
LOC: M ED 14:02
DX: S22.49XA Multiple fractures of ribs, unspecified side, initial encounter for closed fracture (principal); W10.8XXA Fall (on) (from) other stairs and steps, initial encounter; Y92.89 Other specified places as the place of occurrence of the external cause; E03.9 Hypothyroidism, unspecified; F33.9 Major depressive disorder, recurrent, unspecified; F41.9 Anxiety disorder, unspecified; Z88.1 Allergy status to other antibiotic agents; Z88.2 Allergy status to sulfonamides; Z87.891 Personal history of nicotine dependence

== ENCOUNTER → 2019-06-08 | Outpatient (CLI) | payer OTHER, MEDICAID ==
[~2019-06-08] MED LIST changes: +CYCL10TA; +FETZ1CAP3; +GABA-1171; +KETO10TAB PO; +PROM25TA12; +TOLT4CAP3 PO
--- NOTE | 2019-06-08 13:03 | REP ---
Clinical: thoracic pain. Technique: AP, lateral, and swimmers views. Findings: Mild age-related degenerative changes are noted. Alignment and kyphosis is maintained. Vertebral bodies intact. No acute fracture / compression injury or subluxation. Mild age-related degenerative changes are noted. Impression: No acute fracture / compression injury or subluxation appreciated. Electronically Signed by Randy Ponce MD 06/08/2019 12:55 P
--- NOTE | 2019-06-08 13:07 | REP ---
Clinical: Trauma. Technique: Frontal view of the chest with five views of the right hemithorax. Findings: Frontal view of the chest demonstrates no acute cardiopulmonary process. Very subtle nondisplaced fracture involving the posterior aspect of the right eighth or ninth ribs cannot be excluded. Impression: Cannot exclude a very subtle nondisplaced posterior right eighth or ninth rib fracture. Electronically Signed by Randy Ponce MD 06/08/2019 12:58 P
== END ==
LOC: M LRY 12:28
PROVIDERS: ATTEND Nurse Practitioner Family
DX: S39.92XA Unspecified injury of lower back, initial encounter (principal); X58.XXXA Exposure to other specified factors, initial encounter; Y92.89 Other specified places as the place of occurrence of the external cause

== ENCOUNTER → 2019-07-01 | Outpatient (CLI) | payer OTHER ==
[~2019-07-01] MED LIST changes: +CYCL10TA; +FETZ1CAP3; +GABA-1171; +KETO10TAB PO; +PROM25TA12; +TOLT4CAP3 PO
--- NOTE | 2019-07-09 01:57 | ECWPNPC ---
PATIENT NAME: CRISTINA LAYNE : 1960 GENDER: FEMALE VISIT DATE: 07/01/2019 DISCHARGE DATE: 07/01/19 1544 VISIT LOCKED DATE TIME: PHYSICIAN: LUTHER ARRIAGA MD RESOURCE: LUTHER ARRIAGA MD REASON FOR APPOINTMENT 1. LS STENOSIS HISTORY OF PRESENT ILLNESS HISTORY OF PRESENT ILLNESS: PAIN THE PATIENT DESCRIBES THE PAIN... 59 YEAR OLD FEMALE PATIENT WITH A HISTORY OF CHRONIC LOW BACK PAIN. THE PATIENT DESCRIBES THE PAIN ACHING, DAILY, AND CONTINUOUS WITH A PAIN SCORE OF 5-10/10 DEPENDING ON PHYSICAL ACTIVITY. THE PATIENT STATES SHE HAS BEEN SUFFERING FROM HER LOW BACK PAIN FOR OVER A YEAR AND AROUND 7 MONTHS AGO SHE BEGAN EXPERIENCING PAIN DOWN HER RIGHT LEG WELL, BUT A COUPLE MONTHS AGO THE LEG PAIN STARTED TO DECREASE. THE PATIENT SAYS HER LEG PAIN IS NOT CONSTANT AND HER MAIN CONCERN IS HER LOW BACK PAIN. THE PATIENT SAYS HER LOW BACK PAIN INCREASES WITH ACTIVITIES AND AFFECTS HER ABILITY TO PERFORM HER DAILY ACTIVITIES SUCH COOKING, CLEANING, AND GROCERY SHOPPING. PATIENT DENIES UNEXPLAINABLE WEIGHT LOSS, FEVER, CHILLS, NEW CHANGES ON HER URINARY OR BOWEL CONTROL. THE PATIENT MENTIONS SHE IS BEING SEEN BY A UROLOGIST FOR URINARY ISSUES AND HAS A STIMULATOR TO HELP WITH BLADDER ISSUES. FALL RISK SCREENING: SCREENING :NO FALLS REPORTED IN THE LAST YEAR NEW PATIENT CONSULT: WHEN DID YOUR PAIN FIRST START? . BRIEFLY DESCRIBE HOW YOUR PAIN STARTED? . HOW DOES YOUR PAIN CHANGE WITH TIME? . DOES YOUR PAIN AWAKEN YOU FROM SLEEP? . HOW MANY HOURS OF SLEEP DO YOU NORMALLY GET? . ANY DIAGNOSTIC TESTING? . FACILITY WHERE TESTS WERE DONE? ____. PAIN TREATMENT TREATMENT YES CANCER HAVE YOU EVER HAD ANY TYPE OF CANCER?NO NO. PAIN SCREENING: PATIENT HAS A COMPLAINT OF ACUTE OR CHRONIC PAIN :YES FALL RISK SCREENING: SCREENING : NO FALLS IN THE PAST YEAR. SPARROW INVENTORY: QUESTIONNAIRE ASSESSEDTBD SCORE VALUE CALCULATED TBD CURRENT MEDICATIONS TAKING GABAPENTIN 100 MG CAPSULE 1 CAPSULE ORALLY THREE TIMES DAILY TAKING CYCLOBENZAPRINE HCL 10 MG TABLET 1 TABLET NEEDED ORALLY THREE TIMES A DAY, NOTES: NEEDED TAKING IMITREX 50 MG TABLET 1 TABLET NEEDED ONE TIME ORALLY ONCE A DAY, NOTES: PRN TAKING EFFEXOR XR 75 MG CAPSULE EXTENDED RELEASE 24 HOUR 2 CAPSULES WITH FOOD ORALLY ONCE A DAY TAKING PROPRANOLOL HCL 40 MG TABLET 1 TABLET ORALLY TWICE DAILY, NOTES: T TAKING PROMETHAZINE HCL 25 MG TABLET 1 TAB(S) ORALLY QID PRN TAKING OMEPRAZOLE 40MG 40GM TABLET 1 TAB(S) ORAL TWICE DAILY PRN TAKING TAMOXIFEN CITRATE 20 MG TABLET 1 TABLET ORALLY ONCE A DAY TAKING LEVOTHYROXINE SODIUM 100 MCG TABLET 1 TABLET ON AN EMPTY STOMACH IN THE MORNING ORALLY ONCE A DAY TAKING CHANTIX STARTER SOCRATES 1 TAB ORAL TAKING QUETIAPINE FUMARATE 50 MG TABLET 1 TABLET AT BEDTIME ORALLY ONCE A DAY TAKING FETZIMA 60MG ORALLY DAILY TAKING TROSPIUM CHLORIDE 20 MG TABLET 1 TABLET AT BEDTIME ON AN EMPTY STOMACH ORALLY ONCE A DAY TAKING TYLENOL WITH CODEINE #3 300-30 MG TABLET 1 TABLET NEEDED ORALLY EVERY 6 HRS PRN. 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 OTHER 2 SISTERS WITH THYROID PROBLEMS BROTHERS HEALTHY SON(S): ALIVE, OLDEST SON KIDNEY STONES 3 BROTHER(S) , 3 SISTER(S) . 2 SON(S) - HEALTHY. THYROID CA - SISTER, NO FAMILY HX OF BLADDER OR KIDNEY CANCER. ---1 SISTER FROM CORONARY PROBLEMS---ANOTHER SISTER (JAZMYN) IS IN [facility] WITH CARDIAC ISSUES CHF. SOCIAL HISTORY GENERAL: TOBACCO USE ARE YOU A:NONSMOKER 2 MONTHS, FORMER SMOKER ADDITIONAL FINDINGS: TOBACCO USERLIGHT CIGARETTE SMOKER ((1-9 CIGS/DAY) VAPORNO E-CIGARETTENO SMOKING CESSATION INFORMATION GIVEN10/26/2018 HIV / HEP-C SCREENING HIV TEST OFFERED TO PATIENT:YES DATE OFFERED:10/26/2018 TEST ACCEPTED:NO HEP-C TEST OFFERED TO PATIENT:YES DATE OFFERED:10/26/2018 REASON:PATIENT DECLINED TEST ACCEPTED:NO REASON:PATIENT DECLINED BROCHURE PROVIDED TO PATIENTNO -DECLINED OTHERS AT HOME: S.O.. EDUCATION LEVEL OF EDUCATION:FINISHED HIGH SCHOOL DIET: REDUCED PORTION SIZE FOR CALORIE CONTROL/S/P GASTRIC BYPASS.. LANGUAGE HEBREW. DOMESTIC VIOLENCE DO YOU FEEL SAFE IN YOUR ENVIRONMENT?YES NEW PATIENT PAIN DIARY FROM 0-10, WHAT LEVEL IS YOUR PAIN TODAY?5 0/10 BMI CARE GOAL FOLLOW-UP ABOVE NORMAL BMI FOLLOW-UPDIETARY MANAGEMENT EDUCATION, GUIDANCE, AND COUNSELING RECREATIONAL DRUG USE DENIES. EXERCISE: NONE. PATIENT: ____. LEARNING BARRIERS / SPECIAL NEEDS CHANGE FROM LAST VISIT?NO 03/30/19 BARRIERS TO LEARNING?NO HEARING IMPAIRED?NO VISION IMPAIRED?YES COGNITIVELY IMPAIRED?NO :CORRECTIVE LENSES READINESS TO LEARN?YES LEARNING PREFERENCES?NO LEARNING CAPABILITIES PRESENT?YES EMOTIONAL BARRIERS?NO SPECIAL DEVICES?NO MIXING PICKER TENDER NEEDED?NO PAIN CLINIC PFS, CLERGY, PUBLIC HEALTH REFERRALS HAS THE PATIENT BEEN EDUCATED REGARDING HIS/HER PLAN OF CARE?YES HAS THE PATIENT BEEN EDUCATED REGARDING PAIN, THE RISK FOR PAIN, THE IMPORTANCE OF EFFECTIVE PAIN MANAGEMENT, AND THE PAIN ASSESSMENT PROCESS?YES CLERGY REFERRAL NEEDED?NO WAS THE PROVIDER NOTIFIED OF ANY PERTINENT INFO?NO PFS REFERRAL NEEDED?NO PUBLIC HEALTH REFERRAL NEEDED?NO LATEX QUESTIONNAIRE LATEX ALLERGY : HAVE YOU EVER DEVELOPED ANY TYPE OF REACTION AFTER HANDLING LATEX PRODUCTS SUCH RUBBER GLOVES, CONDOMS, DIAPHRAGMS, BALLOONS, SOCKS, OR UNDERWEAR?NO LATEX ALLERGY : HAVE YOU EVER DEVELOPED ANY TYPE OF REACTION DURING OR AFTER DENTAL APPOINTMENT, VAGINAL/RECTAL EXAMINATION, SURGICAL PROCEDURE, OR ANY OTHER EXPOSURE?NO LATEX RISK : HAVE YOU EVER HAD ANY DIFFICULTY BREATHING OR HIVES AFTER EATING OR HANDLING ANY FRUITS, OR VEGETABLES; SUCH KIWI, BANANAS, STONE FRUITS, OR CHESTNUTSYES - PLEASE INDICATE : KIWI LATEX RISK : DO YOU HAVE A PREVIOUS PERSONAL HISTORY OF MORE THAN NINE SURGERIES, SPINA BIFIDA, OR REPEATED CATHERIZATIONS? NO LATEX RISK : ARE YOU FREQUENTLY EXPOSED TO LATEX PRODUCTS IN YOUR OCCUPATION?NO DATE ASKED : 07/01/2019 CAFFEINE CAFFEINE USE?YES HOW OFTEN AND HOW MUCH? 3 CUPS DAILY ADVANCE DIRECTIVE ADVANCE DIRECTIVE DISCUSSED WITH PATIENT:YES HCP SHANNON LAYNE SON LIVING WILL AND POA ORTHODOX NO CHRISTIANITY BELIEFS THAT WOULD IMPACT HEALTH CARE. MARITAL STATUS: .. ALCOHOL SCREENING POINTS: 1, INTERPRETATION: NEGATIVE. 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 SEXUAL HX HAD SEX IN THE LAST 12 MONTHS (VAGINAL, ORAL, OR ANAL)?: YES, WITH: MEN ONLY, HAVE YOU EVER HAD AN STD?: NO. HOSPITALIZATION/MAJOR DIAGNOSTIC PROCEDURE SURGICALY RELATED REVIEW OF SYSTEMS REVIEWED BY: PROVIDER: LUTHER ARRIAGA MD . CONSTITUTIONAL: ANY CHANGE IN YOUR MEDICAL CONDITION? NO, NO . CHILLS NO, NO . FEVER NO, NO . INFECTION: DO YOU HAVE NEW INFECTIONS? NO, NO . DO YOU HAVE HISTORY OF MRSA? NO, NO . MUSCULOSKELETAL: ANY NEW PATTERNS OF PAIN OR NUMBNESS? NO, NO . SYTEMIC LUPUS NO . GASTROENTEROLOGY: ANY NEW CHANGE IN BOWEL CONTROL? NO, NO . BARRETTS ESOPHAGUS NO . CIRRHOSIS NO . HEPATITIS NO . LIVER FAILURE NO . ACID REFLUX YES . UNEXPLAINED WEIGHT LOSS NO . GENITOURINARY: ANY NEW CHANGE IN BLADDER CONTROL? NO, NO . IS THERE A CHANCE YOU COULD BE ? NO, NO . HEMATOLOGY/LYMPH: DO YOU TAKE ANY BLOOD THINNERS? (FOR EXAMPLE- COUMADIN, PLAVIX, AGGRENOX, PLATEL, PRADAXA, OR XARELTO) NO, NO . WHEN WAS YOUR LAST DOSE? DATE: TIME: , DATE: TIME: . LOW PLATELET COUNT NO . SICKLE CELL DISEASE NO . VON WILLIEBRANDS NO . FACTOR V LEIDEN NO . THALLASEMIA NO . ANEMIA NO . EASY BRUISING NO . NEUROLOGY: HAVE YOU FALLEN IN THE PAST 12 MONTHS? YES . ANY NEW EXTREMITY NUMBNESS OR WEAKNESS? NO, NO . HEAD INJURY NO . DEMENTIA NO . CEREBRAL PALSY NO . MULTIPLE SCLEROSIS NO . DIZZINESS NO . HEADACHE NO, INTERMITTENT . STROKES NO . VERTIGO NO . CARDIOLOGY: DO YOU HAVE A PACEMAKER OR DEFIBRILLATOR? NO, NO . ANGINA NO . HEART ATTACK NO . HEART SURGERY NO . CONGESTIVE HEART FAILURE/FLUID OVERLOAD NO . CHEST PAIN NO . HIGH BLOOD PRESSURE NO . IRREGULAR HEART BEAT NO . RESPIRATORY: HAVE YOU BEEN SICK IN THE PAST WEEK? NO, NO . FEVER NO, NO . FLU LIKE SYMPTOMS? NO, NO . CPAP NO . BYPAP NO . ASTHMA NO . EMPHYSEMA NO . CHRONIC LUNG DISEASES NO . SHORTNESS OF BREATH ON EXERTION NO . DO YOU USE ANY TYPE OF TOBACCO (SMOKE, SMOKELESS, CHEW)? NO . COUGH NO, NO . SNORING NO . INTEGUMENTARY: DO YOU HAVE ANY RASHES OR OPEN SORES? NO, NO . ALLERGIC/IMMUNO: ARE YOU ALLERGIC TO IV DYE? NO, NO . ANY NEW ALLERGIES? NO, NO . PSYCHIATRIC: DO YOU HAVE THOUGHTS OF HURTING YOURSELF OR SOMEONE ELSE? NO, NO . ARE YOU ABUSED, NEGLECTED, OR IN AN UNSAFE ENVIRONMENT? NO, NO . ENDOCRINOLOGY: ARE YOU DIABETIC? NO, NO . THYROID DISORDER HYPOTHYROID . OTHER: DO YOU NEED ANY PRESCRIPTIONS? NO, NO . IF YES, PLEASE LIST: ____, ____ . ANY NEW PROBLEMS WITH YOUR MEDICATIONS? NO, NO . WHEN DID YOU LAST EAT? ____, ____ . WHEN DID YOU LAST DRINK? ____, ____ . WHAT DID YOU LAST DRINK? ____, ____ . NAME OF PERSON DRIVING YOU HOME? ____, ____ . DO YOU HAVE ANY OTHER QUESTIONS OR CONCERNS NO, NO . VITAL SIGNS WT 189.4 LBS, HT 64.5 IN, BMI 32.00 INDEX, BP 143/96 MM HG, HR 75 /MIN, RR 18 /MIN, TEMP 97.7 F, OXYGEN SAT % 98%, SAFE IN ENV? (Y/N) YES, NA INITIALS [place] 13:52, REVIEWED BY: SUKUMAR. EXAMINATION GENERAL EXAMINATION: PATIENT IS ALERT O X 3 AND COOPERATIVE. ANTALGIC WALK AND UNSTEADY GAIT. PATIENT IS LIMPING FROM THE RIGHT LEG. RIGHT LEG IS WEAKER AT EXTENSION AND FLEXION. PRESENCE OF BANDS OF TISSUE AND TRIGGER POINTS WITH RESTRICTION OF MOVEMENT OF THE LOW BACK. STRAIGHT LEG RAISE OF THE RIGHT LEG IS POSITIVE AT [address] SCAN OF THE LUMBAR SPINE DONE ON 02/04/2019 SHOWS SEVERE CANAL STENOSIS AT L4-L5 AND L5-S1 LEVELS. PATIENT IS UNABLE TO HAVE MRI DONE DUE TO BLADDER STIMULATOR. ASSESSMENTS MYALGIA, OTHER SITE - M79.18 (PRIMARY) SPINAL STENOSIS OF LUMBAR REGION, UNSPECIFIED WHETHER NEUROGENIC CLAUDICATION PRESENT - M48.061 INTERVERTEBRAL DISC DISORDERS WITH RADICULOPATHY, LUMBAR REGION - M51.16 INTERVERTEBRAL DISC DISORDERS WITH RADICULOPATHY, LUMBOSACRAL REGION - M51.17 UNSTEADY GAIT - R26.81 CERVICALGIA - M54.2 TREATMENT MYALGIA, OTHER SITE CLINICAL NOTES: WE DISCUSSED SEVERAL ISSUES WITH MS. LAYNE'S PAIN MANAGEMENT CASE. DUE TO THE TRIGGER POINTS, BANDS OF TISSUE, AND RESTRICTION OF MOVEMENT, I WOULD LIKE TO MOVE FORWARD WITH A TRIGGER POINT INJECTION AT THIS TIME. WE DISCUSSED THE BENEFITS, RISKS, AND ALTERNATIVES OF THE INJECTION AND THE PATIENT WOULD LIKE TO PROCEED. THE PATIENT WILL FOLLOW UP IN SEVERAL WEEKS AFTER THE INJECTION. INSTRUCTIONS WERE GIVEN, QUESTIONS WERE ANSWERED, PATIENT REPORTS UNDERSTANDING AND AGREES WITH THE PLAN. I, ADIEL CROW, DOCUMENTED THE ABOVE INFORMATION ACTING A SCRIBE FOR DR. ARRIAGA. I HAVE REVIEWED THE ABOVE DOCUMENT, WRITTEN BY ADIEL CROW SCRIBSuresh AND I VERIFY THAT IT IS ACCURATE. DEAR MANAN CROCKER MD: THANK YOU FOR YOUR KIND REFERRAL OF CRISTINA LAYNE. IF YOU WANT TO DISCUSS HER CASE WITH ME PLEASE CALL ME AT THE PAIN CENTER AT [phone]. SINCERELY, LUTHER ARRIAGA MD PAIN MEDICINE . OTHERS NOTES: TRIGGER POINT INJECTION MATERIAL WAS PRINTED. PROCEDURE CODES FA211 ESTABILISHED PATIENT [facility] FACILITY CHARGE G8427 CURRENT MEDS W/DOSAGES DOCUMENTED G8730 PAIN ASSESS POS TOOL F/U PLAN DOC DISPOSITION & COMMUNICATION FOLLOW UP REASON: LS TPI ELECTRONICALLY SIGNED BY LUTHER ARRIAGA MD, MD ON 07/08/2019 AT 05:53 PM EDT DISCLAIMER : THIS IS A VISIT SUMMARY EXTRACTED FROM THE [employer] CHART. IT IS NOT A COPY OF THE [employer] PROGRESS NOTE. MTDD
== END ==
LOC: M PAIN 13:30
PROVIDERS: ATTEND Anesthesiology
DX: M79.18 Myalgia, other site (principal); M48.061 Spinal stenosis, lumbar region without neurogenic claudication; M51.16 Intervertebral disc disorders with radiculopathy, lumbar region; M51.17 Intervertebral disc disorders with radiculopathy, lumbosacral region; R26.81 Unsteadiness on feet; M54.2 Cervicalgia; I10 Essential (primary) hypertension; Z86.59 Personal history of other mental and behavioral disorders; G43.909 Migraine, unspecified, not intractable, without status migrainosus; E03.9 Hypothyroidism, unspecified; Z98.84 Bariatric surgery status; F17.210 Nicotine dependence, cigarettes, uncomplicated; Z88.2 Allergy status to sulfonamides; Z91.018 Allergy to other foods; Z79.899 Other long term (current) drug therapy

== ENCOUNTER → 2019-08-19 | Outpatient (CLI) | payer OTHER ==
[~2019-08-19] MED LIST changes: +BUPIVACAINE HCL 0.25% 10 ML VIAL As Ordered ONE; +BUPIVACAINE HCL 0.25% 30 ML VIAL As Ordered ONE; +NORCO, ANEXSIA 5/325MG TABLET (HYDROcodone/ACETAMINOPHEN) As Ordered ONE; -OMEP40CA2; +OMEP40CA97; +TRIAMCINOLONE ACETONIDE SUSP 40 MG/ML VIAL (J3301) As Ordered ONE; +diazePAM 2 MG TAB As Ordered ONE
--- NOTE | 2019-08-30 03:57 | ECWPNPC ---
PATIENT NAME: CRISTINA LAYNE : 1960 GENDER: FEMALE VISIT DATE: 08/19/2019 DISCHARGE DATE: 08/19/19 1240 VISIT LOCKED DATE TIME: PHYSICIAN: LUTHER ARRIAGA MD RESOURCE: LUTHER ARRIAGA MD REASON FOR APPOINTMENT 1. TPI BILAT SHOULDER/BILAT LB HISTORY OF PRESENT ILLNESS HISTORY OF PRESENT ILLNESS: PAIN THE PATIENT DESCRIBES THE PAIN... FALL RISK SCREENING: SCREENING :NO FALLS REPORTED IN THE LAST YEAR CURRENT MEDICATIONS TAKING GABAPENTIN 100 MG CAPSULE 1 CAPSULE ORALLY THREE TIMES DAILY, NOTES: 08/18/19 1300 TAKING CYCLOBENZAPRINE HCL 10 MG TABLET 1 TABLET NEEDED ORALLY THREE TIMES A DAY, NOTES: NEEDED TAKING IMITREX 50 MG TABLET 1 TABLET NEEDED ONE TIME ORALLY ONCE A DAY, NOTES: PRN TAKING EFFEXOR XR 75 MG CAPSULE EXTENDED RELEASE 24 HOUR 2 CAPSULES WITH FOOD ORALLY ONCE A DAY, NOTES: 08/19/19899 TAKING PROPRANOLOL HCL 40 MG TABLET 1 TABLET ORALLY TWICE DAILY, NOTES: 08/19/19899 TAKING PROMETHAZINE HCL 25 MG TABLET 1 TAB(S) ORALLY QID PRN, NOTES: NONE LATELY TAKING OMEPRAZOLE 40MG 40GM TABLET 1 TAB(S) ORAL TWICE DAILY PRN, NOTES: 08/18/192099 TAKING TAMOXIFEN CITRATE 20 MG TABLET 1 TABLET ORALLY ONCE A DAY, NOTES: 08/18/192199 TAKING LEVOTHYROXINE SODIUM 100 MCG TABLET 1 TABLET ON AN EMPTY STOMACH IN THE MORNING ORALLY ONCE A DAY, NOTES: 08/19/19899 TAKING CHANTIX STARTER SOCRATES 1 TAB ORAL , NOTES: 08/19/19899 TAKING QUETIAPINE FUMARATE 50 MG TABLET 1 TABLET AT BEDTIME ORALLY ONCE A DAY, NOTES: 08/18/192099 TAKING FETZIMA 60MG ORALLY DAILY, NOTES: 08/19/19899 TAKING TROSPIUM CHLORIDE 20 MG TABLET 1 TABLET AT BEDTIME ON AN EMPTY STOMACH ORALLY ONCE A DAY, NOTES: 08/18/192099 TAKING TYLENOL WITH CODEINE #3 300-30 MG TABLET 1 TABLET NEEDED ORALLY EVERY 6 HRS PRN. MDD=4, NOTES: 08/18/19 1300 MEDICATION LIST REVIEWED AND RECONCILED WITH THE PATIENT PAST MEDICAL HISTORY HYPERTENSION ANXIETY DEPRESSION MIGRAINES HYPOTHYROID HEART MURMUR (CARDIO) LOW VITAMIN D 01/12 OBESITY HIGH 271 LOW 183 (170) KIDNEY STONES NEUROSTIMULATOR IMPLANT KIDNEY STONES LEFT AND RIGHT 05/19/2015 DUCTAL CARCINOMA LEFT BREAST 09/2016 URINARY INCONTINENCE ALLERGIES SULFA (FOR ALLERGY USE ONLY): RASH - ALLERGY KIWI: DYSPNEA - ALLERGY SURGICAL HISTORY HYSTERECTOMY 03/2002 D&C X2 GALLBLADDER GASTRIC BYPASS 06/25/2011 CYSTOSCOPY, R ESWL(URETERAL STONE) 08/2012 NEOROSTIMULATOR IMPLANT 06/19/14 PELVIC SLING 10/12/14 LEFT ESWL(LEFT SIDE) 06/06/2015 [facility]AN [facility]ASION - [facility] 07/19/2015 LUMPECTOMY LEFT BREAST 09/2016 RIGHT CARPAL TUNNEL 04/22 FAMILY HISTORY FATHER: ALIVE ABOUT 80 YRS, HTN, DM, MURRY MOTHER: 83 YRS, DM, HTN, DJD, DUE TO STROKE SIBLINGS: ALIVE, SISTER FROM CHF. OTHER 2 SISTERS WITH THYROID PROBLEMS BROTHERS HEALTHY SON(S): ALIVE, OLDEST SON KIDNEY STONES 3 BROTHER(S) , 3 SISTER(S) . 2 SON(S) - HEALTHY. THYROID CA - SISTER, NO FAMILY HX OF BLADDER OR KIDNEY CANCER. ---1 SISTER FROM CORONARY PROBLEMS---ANOTHER SISTER (JAZMYN) IS IN [facility] WITH CARDIAC ISSUES CHF. SOCIAL HISTORY GENERAL: TOBACCO USE ARE YOU A:NONSMOKER 2 MONTHS, FORMER SMOKER ADDITIONAL FINDINGS: TOBACCO USERLIGHT CIGARETTE SMOKER ((1-9 CIGS/DAY) VAPORNO E-CIGARETTENO SMOKING CESSATION INFORMATION GIVEN10/26/2018 HIV / HEP-C SCREENING HIV TEST OFFERED TO PATIENT:YES DATE OFFERED:10/26/2018 TEST ACCEPTED:NO HEP-C TEST OFFERED TO PATIENT:YES DATE OFFERED:10/26/2018 REASON:PATIENT DECLINED TEST ACCEPTED:NO REASON:PATIENT DECLINED BROCHURE PROVIDED TO PATIENTNO -DECLINED OTHERS AT HOME: S.O.. EDUCATION LEVEL OF EDUCATION:FINISHED HIGH SCHOOL DIET: REDUCED PORTION SIZE FOR CALORIE CONTROL/S/P GASTRIC BYPASS.. LANGUAGE SLOVENIAN. DOMESTIC VIOLENCE DO YOU FEEL SAFE IN YOUR ENVIRONMENT?YES NEW PATIENT PAIN DIARY FROM 0-10, WHAT LEVEL IS YOUR PAIN TODAY?5 0/10 BMI CARE GOAL FOLLOW-UP ABOVE NORMAL BMI FOLLOW-UPDIETARY MANAGEMENT EDUCATION, GUIDANCE, AND COUNSELING RECREATIONAL DRUG USE DENIES. EXERCISE: NONE. LEARNING BARRIERS / SPECIAL NEEDS CHANGE FROM LAST VISIT?NO 03/30/19 BARRIERS TO LEARNING?NO HEARING IMPAIRED?NO VISION IMPAIRED?YES COGNITIVELY IMPAIRED?NO :CORRECTIVE LENSES READINESS TO LEARN?YES LEARNING PREFERENCES?NO LEARNING CAPABILITIES PRESENT?YES EMOTIONAL BARRIERS?NO SPECIAL DEVICES?NO SAT MATH TUTOR NEEDED?NO PAIN CLINIC PFS, CLERGY, PUBLIC HEALTH REFERRALS HAS THE PATIENT BEEN EDUCATED REGARDING HIS/HER PLAN OF CARE?YES HAS THE PATIENT BEEN EDUCATED REGARDING PAIN, THE RISK FOR PAIN, THE IMPORTANCE OF EFFECTIVE PAIN MANAGEMENT, AND THE PAIN ASSESSMENT PROCESS?YES LATEX QUESTIONNAIRE LATEX ALLERGY : HAVE YOU EVER DEVELOPED ANY TYPE OF REACTION AFTER HANDLING LATEX PRODUCTS SUCH RUBBER GLOVES, CONDOMS, DIAPHRAGMS, BALLOONS, SOCKS, OR UNDERWEAR?NO LATEX ALLERGY : HAVE YOU EVER DEVELOPED ANY TYPE OF REACTION DURING OR AFTER DENTAL APPOINTMENT, VAGINAL/RECTAL EXAMINATION, SURGICAL PROCEDURE, OR ANY OTHER EXPOSURE?NO DATE ASKED : 07/01/2019 LATEX RISK : HAVE YOU EVER HAD ANY DIFFICULTY BREATHING OR HIVES AFTER EATING OR HANDLING ANY FRUITS, OR VEGETABLES; SUCH KIWI, BANANAS, STONE FRUITS, OR CHESTNUTSYES - PLEASE INDICATE : KIWI LATEX RISK : DO YOU HAVE A PREVIOUS PERSONAL HISTORY OF MORE THAN NINE SURGERIES, SPINA BIFIDA, OR REPEATED CATHERIZATIONS? NO LATEX RISK : ARE YOU FREQUENTLY EXPOSED TO LATEX PRODUCTS IN YOUR OCCUPATION?NO CAFFEINE CAFFEINE USE?YES HOW OFTEN AND HOW MUCH? 3 CUPS DAILY ADVANCE DIRECTIVE ADVANCE DIRECTIVE DISCUSSED WITH PATIENT:YES HCP SHANNON LAYNE SON LIVING WILL AND POA NONDENOMINATIONAL NO PENTECOSTALISM BELIEFS THAT WOULD IMPACT HEALTH CARE. MARITAL STATUS: .. ALCOHOL SCREENING POINTS: 1, INTERPRETATION: NEGATIVE. 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 SEXUAL HX HAD SEX IN THE LAST 12 MONTHS (VAGINAL, ORAL, OR ANAL)?: YES, WITH: MEN ONLY, HAVE YOU EVER HAD AN STD?: NO. REVIEWED WITH PATIENT 08/19/19 1123 NL. HOSPITALIZATION/MAJOR DIAGNOSTIC PROCEDURE SURGICALY RELATED REVIEW OF SYSTEMS REVIEWED BY: PROVIDER: . CONSTITUTIONAL: ANY CHANGE IN YOUR MEDICAL CONDITION? NO . CHILLS NO . FEVER NO . INFECTION: DO YOU HAVE NEW INFECTIONS? NO . DO YOU HAVE HISTORY OF MRSA? NO . MUSCULOSKELETAL: ANY NEW PATTERNS OF PAIN OR NUMBNESS? NO . GASTROENTEROLOGY: ANY NEW CHANGE IN BOWEL CONTROL? NO . GENITOURINARY: ANY NEW CHANGE IN BLADDER CONTROL? NO . IS THERE A CHANCE YOU COULD BE ? NO . HEMATOLOGY/LYMPH: DO YOU TAKE ANY BLOOD THINNERS? (FOR EXAMPLE- COUMADIN, PLAVIX, AGGRENOX, PLATEL, PRADAXA, OR XARELTO) NO . WHEN WAS YOUR LAST DOSE? DATE: TIME: . NEUROLOGY: HAVE YOU FALLEN IN THE PAST 12 MONTHS? NO . ANY NEW EXTREMITY NUMBNESS OR WEAKNESS? NO . CARDIOLOGY: DO YOU HAVE A PACEMAKER OR DEFIBRILLATOR? NO . RESPIRATORY: HAVE YOU BEEN SICK IN THE PAST WEEK? NO . FEVER NO . FLU LIKE SYMPTOMS? NO . COUGH NO . INTEGUMENTARY: DO YOU HAVE ANY RASHES OR OPEN SORES? NO . ALLERGIC/IMMUNO: ARE YOU ALLERGIC TO IV DYE? NO . ANY NEW ALLERGIES? NO . PSYCHIATRIC: DO YOU HAVE THOUGHTS OF HURTING YOURSELF OR SOMEONE ELSE? NO . ARE YOU ABUSED, NEGLECTED, OR IN AN UNSAFE ENVIRONMENT? NO . ENDOCRINOLOGY: ARE YOU DIABETIC? NO . OTHER: DO YOU NEED ANY PRESCRIPTIONS? NO . IF YES, PLEASE LIST: ____ . ANY NEW PROBLEMS WITH YOUR MEDICATIONS? NO . WHEN DID YOU LAST EAT? 08/18/19 2200 . WHEN DID YOU LAST DRINK? 08/19/19 0900 . WHAT DID YOU LAST DRINK? WATER . NAME OF PERSON DRIVING YOU HOME? EUSEBIA ORTEGA . DO YOU HAVE ANY OTHER QUESTIONS OR CONCERNS NO . VITAL SIGNS WT 183.2 LBS, HT 64.5 IN, BMI 30.96 INDEX, BP 134/93 MM HG, HR 69 /MIN, RR 18 /MIN, TEMP 98.0 F, OXYGEN SAT % 99%, SAFE IN ENV? (Y/N) YES, NA INITIALS AW 1113, REVIEWED BY: NLJ. ASSESSMENTS MYALGIA, OTHER SITE - M79.18 (PRIMARY) PROCEDURES PN TRIGGER POINT INJECTION WITH STEROIDS PRE PROCEDURE DIAGNOSIS 1. MYALGIA 2. PAIN AT BILATERAL SHOULDER AREA AND BILATERAL LOW BACK AREA. POST PROCEDURE DIAGNOSIS 1. MYALGIA 2. PAIN AT BILATERAL SHOULDER AREA AND BILATERAL LOW BACK AREA. PROCEDURE TRIGGER POINT INJECTION AT RIGHT AND LEFT SHOULDER AREA AND RIGHT AND LEFT LOW BACK AREA. SURGEON DR. LUTHER ARRIAGA TIRE VULCANIZER NONE ANESTHESIA LOCAL PRE PROCEDURE NOTE THE PATIENT HAS A HISTORY OF CHRONIC PAIN AT THE RIGHT AND LEFT SHOULDER AREA AND RIGHT AND LEFT LOW BACK AREA. I EVALUATED THE PATIENT AND REVIEWED THE CHART. THERE IS EVIDENCE OF BANDS OF TISSUE WITH RESTRICTION OF MOVEMENT AND PRESENCE OF TRIGGER POINT AT THE AFFECTED AREA. I WENT OVER THE RISKS, ALTERNATIVES, AND BENEFITS ASSOCIATED WITH THIS PROCEDURE. THE PATIENT WOULD LIKE TO PROCEED AND GIVES CONSENT TO PERFORM THE PROCEDURE. THE PATIENT DENIES UNEXPLAINABLE WEIGHT LOSS, FEVER, CHILLS, OR NEW CHANGES IN URINARY OR BOWEL CONTROL DESCRIPTION OF PROCEDURE THE PATIENT WAS BROUGHT TO THE PROCEDURE ROOM AND PLACED IN THE SITTING POSITION. THE AREA WAS CLEANED WITH ALCOHOL. THE PROCEDURE WAS DONE USING ASEPTIC STERILE TECHNIQUE. I CHECKED LATERALITY AND THE LEVEL WHERE THE PROCEDURE WAS GOING TO BE PERFORMED WITH THE PATIENT AND THE SUPPORTING STAFF AT THE MOMENT OF THE TIME OUT IN THE PROCEDURE ROOM. USING A 25-GAUGE NEEDLE, TRIGGER POINTS WERE INJECTED AT THE RIGHT AND LEFT SHOULDER AREA AND RIGHT AND LEFT LOW BACK AREA WITH A TOTAL OF 40 ML OF BUPIVACAINE 0.25% AND KENALOG 40 MG. THERE WAS NO EVIDENCE OF BLOOD, PARESTHESIA OR CEREBROSPINAL FLUID DURING THE PROCEDURE. THE PATIENT WAS SENT TO THE RECOVERY ROOM. THE PATIENT WAS MOVING THE EXTREMITIES AND DOING WELL. THERE WAS NO COMPLICATION DURING THE PROCEDURE POST PROCEDURE NOTE THE PATIENT WILL BE SEEN IN A FOLLOW UP IN THE NEXT FEW WEEKS. INSTRUCTIONS WERE GIVEN, QUESTIONS WERE ANSWERED, AND THE PATIENT EXPRESSED UNDERSTANDING AND AGREES WITH THE PLAN. I, ADIEL CROW, DOCUMENTED THE ABOVE INFORMATION ACTING A SCRIBE FOR DR. ARRIAGA. I HAVE REVIEWED THE ABOVE DOCUMENT, WRITTEN BY ADIEL STARKEY AND I VERIFY THAT IT IS ACCURATE. PROCEDURE CODES 12669 INJECT TRIGGER POINTS 3/> DISPOSITION & COMMUNICATION FOLLOW UP 3 WEEKS ELECTRONICALLY SIGNED BY LUTHER ARRIAGA MD, MD ON 08/29/2019 AT 12:40 PM EST DISCLAIMER : THIS IS A VISIT SUMMARY EXTRACTED FROM THE [employer] CHART. IT IS NOT A COPY OF THE [employer] PROGRESS NOTE. [place]
== END ==
LOC: M PAIN 11:15
PROVIDERS: ATTEND Anesthesiology
DX: M79.18 Myalgia, other site (principal); I10 Essential (primary) hypertension; Z86.59 Personal history of other mental and behavioral disorders; G43.909 Migraine, unspecified, not intractable, without status migrainosus; E03.9 Hypothyroidism, unspecified; Z98.84 Bariatric surgery status; F17.210 Nicotine dependence, cigarettes, uncomplicated; Z88.2 Allergy status to sulfonamides; Z91.018 Allergy to other foods; Z79.899 Other long term (current) drug therapy
CPT/HCPCS: 20553; J3301

== ENCOUNTER → 2019-08-26 | Outpatient (REF) | payer OTHER ==
[~2019-08-26] MED LIST changes: -BUPIVACAINE HCL 0.25% 10 ML VIAL As Ordered ONE; -BUPIVACAINE HCL 0.25% 30 ML VIAL As Ordered ONE; -NORCO, ANEXSIA 5/325MG TABLET (HYDROcodone/ACETAMINOPHEN) As Ordered ONE; -TRIAMCINOLONE ACETONIDE SUSP 40 MG/ML VIAL (J3301) As Ordered ONE; -diazePAM 2 MG TAB As Ordered ONE
== END ==
LOC: M LAB REF 17:11
PROVIDERS: ATTEND Internal Medicine Nephrology
DX: R30.0 Dysuria (principal)

== ENCOUNTER → 2019-09-09 | Outpatient (CLI) | payer OTHER ==
[~2019-09-09] MED LIST changes: -OXYB15TA; +OXYB1TAB13
--- NOTE | 2019-09-27 04:59 | ECWPNPC ---
PATIENT NAME: CRISTINA LAYNE : 1960 GENDER: FEMALE VISIT DATE: 09/09/2019 DISCHARGE DATE: 09/09/19 1127 VISIT LOCKED DATE TIME: PHYSICIAN: CLARE NOEL RESOURCE: CLARE NOEL REASON FOR APPOINTMENT 1. POST TPI HISTORY OF PRESENT ILLNESS HISTORY OF PRESENT ILLNESS: HER FOR POST PROCEDURE F/U.HAD TPI BILAT SHOULDERS AND LOW BACK ON 08/19/19.REPORTING NO IMPROVEMENT POST PROCEDURE.COMPLAINING OF LOW BACK PAIN R>L.COMPLAING OF GENERALIZED BACK PAIN WHICH HAS BEEN A CHRONIC PROBLEM FOR YEARS.RATING PAIN VAS 0-8/10. PAIN THE PATIENT DESCRIBES THE PAIN... FALL RISK SCREENING: SCREENING :NO FALLS REPORTED IN THE LAST YEAR CURRENT MEDICATIONS TAKING GABAPENTIN 100 MG CAPSULE 1 CAPSULE ORALLY THREE TIMES DAILY TAKING CYCLOBENZAPRINE HCL 10 MG TABLET 1 TABLET NEEDED ORALLY THREE TIMES A DAY, NOTES: NEEDED TAKING IMITREX 50 MG TABLET 1 TABLET NEEDED ONE TIME ORALLY ONCE A DAY, NOTES: PRN TAKING EFFEXOR XR 75 MG CAPSULE EXTENDED RELEASE 24 HOUR 2 CAPSULES WITH FOOD ORALLY ONCE A DAY TAKING PROPRANOLOL HCL 40 MG TABLET 1 TABLET ORALLY TWICE DAILY TAKING PROMETHAZINE HCL 25 MG TABLET 1 TAB(S) ORALLY QID PRN, NOTES: NONE LATELY TAKING OMEPRAZOLE 40MG 40GM TABLET 1 TAB(S) ORAL TWICE DAILY PRN TAKING TAMOXIFEN CITRATE 20 MG TABLET 1 TABLET ORALLY ONCE A DAY TAKING CHANTIX STARTER SOCRATES 1 TAB ORAL TAKING QUETIAPINE FUMARATE 50 MG TABLET 1 TABLET AT BEDTIME ORALLY ONCE A DAY, NOTES: 08/18/19 2100 TAKING FETZIMA 60MG ORALLY DAILY, NOTES: 08/19/19 0900 TAKING TROSPIUM CHLORIDE 20 MG TABLET 1 TABLET AT BEDTIME ON AN EMPTY STOMACH ORALLY ONCE A DAY, NOTES: 08/18/19 2100 TAKING LEVOTHYROXINE SODIUM 100 MCG TABLET 1 TABLET ON AN EMPTY STOMACH IN THE MORNING ORALLY ONCE A DAY, NOTES: 08/19/19 0900 TAKING TYLENOL WITH CODEINE #3 300-30 MG TABLET 1 TABLET NEEDED ORALLY EVERY 6 HRS PRN. 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 07/19/2015 LUMPECTOMY LEFT BREAST 09/2016 RIGHT CARPAL TUNNEL 04/22 FAMILY HISTORY FATHER: ALIVE ABOUT 80 YRS, HTN, DM, MURRY MOTHER: 83 YRS, DM, HTN, DJD, DUE TO STROKE SIBLINGS: ALIVE, SISTER FROM CHF. OTHER 2 SISTERS WITH THYROID PROBLEMS BROTHERS HEALTHY SON(S): ALIVE, OLDEST SON KIDNEY STONES 3 BROTHER(S) , 3 SISTER(S) . 2 SON(S) - HEALTHY. THYROID CA - SISTER, NO FAMILY HX OF BLADDER OR KIDNEY CANCER. ---1 SISTER FROM CORONARY PROBLEMS---ANOTHER SISTER (JAZMYN) IS IN [facility] WITH CARDIAC ISSUES CHF. SOCIAL HISTORY GENERAL: TOBACCO USE ARE YOU A:NONSMOKER 2 MONTHS, FORMER SMOKER ADDITIONAL FINDINGS: TOBACCO USERLIGHT CIGARETTE SMOKER ((1-9 CIGS/DAY) SMOKING CESSATION INFORMATION GIVEN10/26/2018 VAPORNO E-CIGARETTENO HIV / HEP-C SCREENING HIV TEST OFFERED TO PATIENT:YES DATE OFFERED:10/26/2018 TEST ACCEPTED:NO HEP-C TEST OFFERED TO PATIENT:YES DATE OFFERED:10/26/2018 REASON:PATIENT DECLINED TEST ACCEPTED:NO REASON:PATIENT DECLINED BROCHURE PROVIDED TO PATIENTNO -DECLINED OTHERS AT HOME: S.O.. EDUCATION LEVEL OF EDUCATION:FINISHED HIGH SCHOOL DIET: REDUCED PORTION SIZE FOR CALORIE CONTROL/S/P GASTRIC BYPASS.. LANGUAGE WOLOF. DOMESTIC VIOLENCE DO YOU FEEL SAFE IN YOUR ENVIRONMENT?YES NEW PATIENT PAIN DIARY FROM 0-10, WHAT LEVEL IS YOUR PAIN TODAY?5 0/10 BMI CARE GOAL FOLLOW-UP ABOVE NORMAL BMI FOLLOW-UPDIETARY MANAGEMENT EDUCATION, GUIDANCE, AND COUNSELING RECREATIONAL DRUG USE DENIES. EXERCISE: NONE. LEARNING BARRIERS / SPECIAL NEEDS CHANGE FROM LAST VISIT?NO 03/30/19 BARRIERS TO LEARNING?NO HEARING IMPAIRED?NO VISION IMPAIRED?YES COGNITIVELY IMPAIRED?NO :CORRECTIVE LENSES READINESS TO LEARN?YES LEARNING PREFERENCES?NO LEARNING CAPABILITIES PRESENT?YES EMOTIONAL BARRIERS?NO SPECIAL DEVICES?NO BACKHOE OPERATOR NEEDED?NO PAIN CLINIC PFS, CLERGY, PUBLIC HEALTH REFERRALS HAS THE PATIENT BEEN EDUCATED REGARDING HIS/HER PLAN OF CARE?YES HAS THE PATIENT BEEN EDUCATED REGARDING PAIN, THE RISK FOR PAIN, THE IMPORTANCE OF EFFECTIVE PAIN MANAGEMENT, AND THE PAIN ASSESSMENT PROCESS?YES LATEX QUESTIONNAIRE LATEX ALLERGY : HAVE YOU EVER DEVELOPED ANY TYPE OF REACTION AFTER HANDLING LATEX PRODUCTS SUCH RUBBER GLOVES, CONDOMS, DIAPHRAGMS, BALLOONS, SOCKS, OR UNDERWEAR?NO LATEX ALLERGY : HAVE YOU EVER DEVELOPED ANY TYPE OF REACTION DURING OR AFTER DENTAL APPOINTMENT, VAGINAL/RECTAL EXAMINATION, SURGICAL PROCEDURE, OR ANY OTHER EXPOSURE?NO DATE ASKED : 07/01/2019 LATEX RISK : HAVE YOU EVER HAD ANY DIFFICULTY BREATHING OR HIVES AFTER EATING OR HANDLING ANY FRUITS, OR VEGETABLES; SUCH KIWI, BANANAS, STONE FRUITS, OR CHESTNUTSYES - PLEASE INDICATE : KIWI LATEX RISK : DO YOU HAVE A PREVIOUS PERSONAL HISTORY OF MORE THAN NINE SURGERIES, SPINA BIFIDA, OR REPEATED CATHERIZATIONS? NO LATEX RISK : ARE YOU FREQUENTLY EXPOSED TO LATEX PRODUCTS IN YOUR OCCUPATION?NO CAFFEINE CAFFEINE USE?YES HOW OFTEN AND HOW MUCH? 3 CUPS DAILY ADVANCE DIRECTIVE ADVANCE DIRECTIVE DISCUSSED WITH PATIENT:YES HCP SHANNON LAYNE SON LIVING WILL AND POA VOODOO NO HINDUISM BELIEFS THAT WOULD IMPACT HEALTH CARE. MARITAL STATUS: .. ALCOHOL SCREENING POINTS: 1, INTERPRETATION: NEGATIVE. 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 SEXUAL HX HAD SEX IN THE LAST 12 MONTHS (VAGINAL, ORAL, OR ANAL)?: YES, WITH: MEN ONLY, HAVE YOU EVER HAD AN STD?: NO. REVIEWED WITH PATIENT 08/19/19 1123 NLJ. HOSPITALIZATION/MAJOR DIAGNOSTIC PROCEDURE SURGICALY RELATED REVIEW OF SYSTEMS REVIEWED BY: PROVIDER: CLARE SALAS . CONSTITUTIONAL: ANY CHANGE IN YOUR MEDICAL CONDITION? NO . CHILLS NO . FEVER NO . INFECTION: DO YOU HAVE NEW INFECTIONS? NO . DO YOU HAVE HISTORY OF MRSA? NO . MUSCULOSKELETAL: ANY NEW PATTERNS OF PAIN OR NUMBNESS? NO . GASTROENTEROLOGY: ANY NEW CHANGE IN BOWEL CONTROL? NO . GENITOURINARY: ANY NEW CHANGE IN BLADDER CONTROL? NO . IS THERE A CHANCE YOU COULD BE ? NO . HEMATOLOGY/LYMPH: DO YOU TAKE ANY BLOOD THINNERS? (FOR EXAMPLE- COUMADIN, PLAVIX, AGGRENOX, PLATEL, PRADAXA, OR XARELTO) NO . WHEN WAS YOUR LAST DOSE? DATE: TIME: . NEUROLOGY: HAVE YOU FALLEN IN THE PAST 12 MONTHS? NO . ANY NEW EXTREMITY NUMBNESS OR WEAKNESS? NO . CARDIOLOGY: DO YOU HAVE A PACEMAKER OR DEFIBRILLATOR? NO . RESPIRATORY: HAVE YOU BEEN SICK IN THE PAST WEEK? NO . FEVER NO . FLU LIKE SYMPTOMS? NO . COUGH NO . INTEGUMENTARY: DO YOU HAVE ANY RASHES OR OPEN SORES? NO . ALLERGIC/IMMUNO: ARE YOU ALLERGIC TO IV DYE? NO . ANY NEW ALLERGIES? NO . PSYCHIATRIC: DO YOU HAVE THOUGHTS OF HURTING YOURSELF OR SOMEONE ELSE? NO . ARE YOU ABUSED, NEGLECTED, OR IN AN UNSAFE ENVIRONMENT? NO . ENDOCRINOLOGY: ARE YOU DIABETIC? NO . OTHER: DO YOU NEED ANY PRESCRIPTIONS? NO . IF YES, PLEASE LIST: ____ . ANY NEW PROBLEMS WITH YOUR MEDICATIONS? NO . WHEN DID YOU LAST EAT? ____ . WHEN DID YOU LAST DRINK? ____ . WHAT DID YOU LAST DRINK? ____ . NAME OF PERSON DRIVING YOU HOME? ____ . DO YOU HAVE ANY OTHER QUESTIONS OR CONCERNS NO . VITAL SIGNS WT 177.2 LBS, HT 64.5 IN, BMI 29.94 INDEX, BP 136/86 MM HG, HR 74 /MIN, RR 18 /MIN, TEMP 98.2 F, OXYGEN SAT % 97%, SAFE IN ENV? (Y/N) Y, NA INITIALS AW 1007, REVIEWED BY: KG. EXAMINATION GENERAL EXAMINATION: GENERAL ALERT,NO DISTRESS . PSYCH AFFECT NORMAL . LUNGS: LUNG SOUNDS ARE CLEAR . HEART: HEART RATE REGULAR . MUSCULOSKELETAL: MST 5/5 BILAT. LOWER EXTREMITIES . FOR BILAT. SIJ TENDERNESS BILAT. SIJ . DIAGNOSTIC TESTS REVIEWED CT L/S [id number] . ASSESSMENTS SACROILIITIS - M46.1 (PRIMARY) TREATMENT SACROILIITIS NOTES: BILAT. SIJ. PROCEDURE CODES FA211 ESTABILISHED PATIENT [facility] FACILITY CHARGE DISPOSITION & COMMUNICATION FOLLOW UP POST (REASON: BILAT. SIJ) ELECTRONICALLY SIGNED BY JOSUE MORTENSEN ON 09/26/2019 AT 03:10 PM EST DISCLAIMER : THIS IS A VISIT SUMMARY EXTRACTED FROM THE [employer] CHART. IT IS NOT A COPY OF THE [employer] PROGRESS NOTE. LEWIS
== END ==
LOC: M PAIN 10:00
PROVIDERS: ATTEND Nurse Practitioner Family
DX: M46.1 Sacroiliitis, not elsewhere classified (principal); I10 Essential (primary) hypertension; Z86.59 Personal history of other mental and behavioral disorders; G43.909 Migraine, unspecified, not intractable, without status migrainosus; E03.9 Hypothyroidism, unspecified; Z98.84 Bariatric surgery status; F17.210 Nicotine dependence, cigarettes, uncomplicated; Z88.2 Allergy status to sulfonamides; Z91.018 Allergy to other foods; Z79.899 Other long term (current) drug therapy

== ENCOUNTER → 2019-10-06 | Outpatient (CLI) | payer OTHER ==
--- NOTE | 2019-10-06 12:04 | REP ---
Clinical: Medullary cystic kidney disease. Technique: Real time barber scale and color evaluation using curved array transducer. Findings: The bilateral kidneys are normal in reniform shape without hydronephrosis, significant cystic or mass lesion. Bilateral echogenic medullary pyramids consistent with the given history of medullary sponge kidney and small nonobstructing calculi cannot be excluded. Right kidney measures 9.1 x 4.8 x 3.8 cm. Left kidney measures 10.4 x 4.8 x 4.6 cm. Bladder is under distended. Impression: Findings consistent with the given history of medullary sponge kidney disease. Electronically Signed by Randy Ponce MD 10/06/2019 11:56 A
== END ==
LOC: M RAD 10:06
PROVIDERS: ATTEND Internal Medicine Nephrology
DX: Q61.5 Medullary cystic kidney (principal)

== ENCOUNTER → 2019-11-23 | Outpatient (CLI) | payer OTHER ==
[~2019-11-23] MED LIST changes: +OXYB15TA14; -OXYB1TAB13
--- NOTE | 2019-12-13 04:05 | ECWPNPC ---
PATIENT NAME: CRISTINA LAYNE : 1960 GENDER: FEMALE VISIT DATE: 11/23/2019 DISCHARGE DATE: 11/23/19 1039 VISIT LOCKED DATE TIME: PHYSICIAN: CLARE NOEL RESOURCE: CLARE NOEL REASON FOR APPOINTMENT 1. POST PROCDURE FOLLOW UP HISTORY OF PRESENT ILLNESS HISTORY OF PRESENT ILLNESS: HERE FOR POST PROCEDURE FOLLOW-UP. HAD BILATERAL SI J BLOCK ON 10/24/2019. REPORTING SIGNIFICANT REDUCTION IN BUTTOCK, THIGH, AND A BIT OF IMPROVEMENT IN LOW BACK PAIN WHICH CONTINUES TODAY. RATING BACK PAIN A 4 OUT OF 10 VAS. CONTINUES WITH GENERALIZED BACK PAIN AND NECK PAIN. CURRENTLY IN THE PROCESS OF EVALUATING AN ABNORMAL MAMMOGRAM. REVIEWED MRI AND BRIEFLY DISCUSSED TREATMENT OPTIONS. SHE IS ALSO WONDERING ABOUT A REFERRAL TO [facility] TO CONSIDER SURGICAL INTERVENTION. PAIN THE PATIENT DESCRIBES THE PAIN... FALL RISK SCREENING: SCREENING :NO FALLS REPORTED IN THE LAST YEAR CURRENT MEDICATIONS TAKING GABAPENTIN 100 MG CAPSULE 1 CAPSULE ORALLY THREE TIMES DAILY TAKING CYCLOBENZAPRINE HCL 10 MG TABLET 1 TABLET NEEDED ORALLY THREE TIMES A DAY TAKING IMITREX 50 MG TABLET 1 TABLET NEEDED ONE TIME ORALLY ONCE A DAY TAKING EFFEXOR XR 75 MG CAPSULE EXTENDED RELEASE 24 HOUR 2 CAPSULES WITH FOOD ORALLY ONCE A DAY TAKING PROPRANOLOL HCL 40 MG TABLET 1 TABLET ORALLY TWICE DAILY TAKING PROMETHAZINE HCL 25 MG TABLET 1 TAB(S) ORALLY QID PRN TAKING OMEPRAZOLE 40MG 40GM TABLET 1 TAB(S) ORAL TWICE DAILY PRN TAKING TAMOXIFEN CITRATE 20 MG TABLET 1 TABLET ORALLY ONCE A DAY TAKING TROSPIUM CHLORIDE 20 MG TABLET 1 TABLET AT BEDTIME ON AN EMPTY STOMACH ORALLY ONCE A DAY TAKING LEVOTHYROXINE SODIUM 100 MCG TABLET 1 TABLET ON AN EMPTY STOMACH IN THE MORNING ORALLY ONCE A DAY TAKING TRINTELLIX 10 MG TABLET 1 TABLET ORALLY ONCE A DAY TAKING SEROQUEL 100 MG TABLET 1 TABLET AT BEDTIME ORALLY ONCE A DAY TAKING TYLENOL WITH CODEINE #3 300-30 MG TABLET 1 TABLET NEEDED ORALLY EVERY 6 HRS PRN. 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 OTHER 2 SISTERS WITH THYROID PROBLEMS BROTHERS HEALTHY SON(S): ALIVE, OLDEST SON KIDNEY STONES 3 BROTHER(S) , 3 SISTER(S) . 2 SON(S) - HEALTHY. THYROID CA - SISTER, NO FAMILY HX OF BLADDER OR KIDNEY CANCER. ---1 SISTER FROM CORONARY PROBLEMS---ANOTHER SISTER (JAZMYN) IS IN [facility] WITH CARDIAC ISSUES CHF. SOCIAL HISTORY GENERAL: TOBACCO USE ARE YOU A:NONSMOKER 2 MONTHS, FORMER SMOKER ADDITIONAL FINDINGS: TOBACCO USERLIGHT CIGARETTE SMOKER ((1-9 CIGS/DAY) SMOKING CESSATION INFORMATION GIVEN10/26/2018 VAPORNO E-CIGARETTENO HIV / HEP-C SCREENING HIV TEST OFFERED TO PATIENT:YES DATE OFFERED:10/26/2018 TEST ACCEPTED:NO HEP-C TEST OFFERED TO PATIENT:YES DATE OFFERED:10/26/2018 REASON:PATIENT DECLINED TEST ACCEPTED:NO REASON:PATIENT DECLINED BROCHURE PROVIDED TO PATIENTNO -DECLINED OTHERS AT HOME: S.O.. EDUCATION LEVEL OF EDUCATION:FINISHED HIGH SCHOOL DIET: REDUCED PORTION SIZE FOR CALORIE CONTROL/S/P GASTRIC BYPASS.. LANGUAGE VIETNAMESE. DOMESTIC VIOLENCE DO YOU FEEL SAFE IN YOUR ENVIRONMENT?YES NEW PATIENT PAIN DIARY FROM 0-10, WHAT LEVEL IS YOUR PAIN TODAY?5 0/10 BMI CARE GOAL FOLLOW-UP ABOVE NORMAL BMI FOLLOW-UPDIETARY MANAGEMENT EDUCATION, GUIDANCE, AND COUNSELING RECREATIONAL DRUG USE DRUG USE?NO EXERCISE: NONE. LEARNING BARRIERS / SPECIAL NEEDS CHANGE FROM LAST VISIT?NO 10/21/2019 BARRIERS TO LEARNING?NO HEARING IMPAIRED?NO VISION IMPAIRED?YES COGNITIVELY IMPAIRED?NO :CORRECTIVE LENSES READINESS TO LEARN?YES LEARNING PREFERENCES?NO LEARNING CAPABILITIES PRESENT?YES EMOTIONAL BARRIERS?NO SPECIAL DEVICES?NO PATTERN HANGER NEEDED?NO PAIN CLINIC PFS, CLERGY, PUBLIC HEALTH REFERRALS HAS THE PATIENT BEEN EDUCATED REGARDING HIS/HER PLAN OF CARE?YES HAS THE PATIENT BEEN EDUCATED REGARDING PAIN, THE RISK FOR PAIN, THE IMPORTANCE OF EFFECTIVE PAIN MANAGEMENT, AND THE PAIN ASSESSMENT PROCESS?YES LATEX QUESTIONNAIRE LATEX ALLERGY : HAVE YOU EVER DEVELOPED ANY TYPE OF REACTION AFTER HANDLING LATEX PRODUCTS SUCH RUBBER GLOVES, CONDOMS, DIAPHRAGMS, BALLOONS, SOCKS, OR UNDERWEAR?NO LATEX ALLERGY : HAVE YOU EVER DEVELOPED ANY TYPE OF REACTION DURING OR AFTER DENTAL APPOINTMENT, VAGINAL/RECTAL EXAMINATION, SURGICAL PROCEDURE, OR ANY OTHER EXPOSURE?NO LATEX RISK : HAVE YOU EVER HAD ANY DIFFICULTY BREATHING OR HIVES AFTER EATING OR HANDLING ANY FRUITS, OR VEGETABLES; SUCH KIWI, BANANAS, STONE FRUITS, OR CHESTNUTSYES - PLEASE INDICATE : KIWI LATEX RISK : DO YOU HAVE A PREVIOUS PERSONAL HISTORY OF MORE THAN NINE SURGERIES, SPINA BIFIDA, OR REPEATED CATHERIZATIONS? NO LATEX RISK : ARE YOU FREQUENTLY EXPOSED TO LATEX PRODUCTS IN YOUR OCCUPATION?NO DATE ASKED : 07/01/2019 CAFFEINE CAFFEINE USE?YES HOW OFTEN AND HOW MUCH? 2/DAY ADVANCE DIRECTIVE ADVANCE DIRECTIVE DISCUSSED WITH PATIENT:YES HCP SHANNON LAYNE SON LIVING WILL AND POA SIKHISM NO QUAKER BELIEFS THAT WOULD IMPACT HEALTH CARE. MARITAL STATUS: .. 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 SEXUAL HX HAD SEX IN THE LAST 12 MONTHS (VAGINAL, ORAL, OR ANAL)?: YES, WITH: MEN ONLY, HAVE YOU EVER HAD AN STD?: NO. REVIEWED WITH PATIENT 08/19/19 1123 NLJREVIEWED WITH PATIENT 10/24/2019 LASREVIEWED WITH PATIENT 11/23/2019 1003 JS. HOSPITALIZATION/MAJOR DIAGNOSTIC PROCEDURE SURGICALY RELATED REVIEW OF SYSTEMS REVIEWED BY: PROVIDER: CLARE SALAS . CONSTITUTIONAL: ANY CHANGE IN YOUR MEDICAL CONDITION? NO . CHILLS NO . FEVER NO . INFECTION: DO YOU HAVE NEW INFECTIONS? NO . DO YOU HAVE HISTORY OF MRSA? NO . MUSCULOSKELETAL: ANY NEW PATTERNS OF PAIN OR NUMBNESS? NO . GASTROENTEROLOGY: ANY NEW CHANGE IN BOWEL CONTROL? NO . GENITOURINARY: ANY NEW CHANGE IN BLADDER CONTROL? NO . IS THERE A CHANCE YOU COULD BE ? NO . HEMATOLOGY/LYMPH: DO YOU TAKE ANY BLOOD THINNERS? (FOR EXAMPLE- COUMADIN, PLAVIX, AGGRENOX, PLATEL, PRADAXA, OR XARELTO) NO . WHEN WAS YOUR LAST DOSE? DATE: TIME: . NEUROLOGY: HAVE YOU FALLEN IN THE PAST 12 MONTHS? YES, PRIOR TO LAST VISIT, DISCUSSED PREVIOUSLY . ANY NEW EXTREMITY NUMBNESS OR WEAKNESS? NO . CARDIOLOGY: DO YOU HAVE A PACEMAKER OR DEFIBRILLATOR? NO . RESPIRATORY: HAVE YOU BEEN SICK IN THE PAST WEEK? NO . FEVER NO . FLU LIKE SYMPTOMS? NO . COUGH NO . INTEGUMENTARY: DO YOU HAVE ANY RASHES OR OPEN SORES? NO . ALLERGIC/IMMUNO: ARE YOU ALLERGIC TO IV DYE? NO . ANY NEW ALLERGIES? NO . PSYCHIATRIC: DO YOU HAVE THOUGHTS OF HURTING YOURSELF OR SOMEONE ELSE? NO . ARE YOU ABUSED, NEGLECTED, OR IN AN UNSAFE ENVIRONMENT? NO . ENDOCRINOLOGY: ARE YOU DIABETIC? NO . OTHER: DO YOU NEED ANY PRESCRIPTIONS? NO . IF YES, PLEASE LIST: ____ . ANY NEW PROBLEMS WITH YOUR MEDICATIONS? NO . WHEN DID YOU LAST EAT? ____ . WHEN DID YOU LAST DRINK? ____ . WHAT DID YOU LAST DRINK? ____ . NAME OF PERSON DRIVING YOU HOME? ____ . DO YOU HAVE ANY OTHER QUESTIONS OR CONCERNS NO . VITAL SIGNS WT 171.4 LBS, HT 64.5 IN, BMI 28.96 INDEX, BP 130/76 MM HG, HR 59 /MIN, RR 18 /MIN, TEMP 97.4 F, OXYGEN SAT % 100%, SAFE IN ENV? (Y/N) YES, NA INITIALS AW 0958, REVIEWED BY: PARAMJIT. EXAMINATION GENERAL EXAMINATION: GENERALAWAKE,ALERT ,PLEASANT . PSYCHAFFECT NORMAL . LUNGS:LUNG CORRIGAN ARE CLEAR TO AUSCULTATION BILATERALLY. GOOD MOVEMENT OF AIR . HEART:S1, S2 IN A REGULAR RATE AND RHYTHM. NO SIGNIFICANT MURMURS, RUBS OR GALLOPS NOTED . 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 IT IS NOT A COPY OF THE [employer] PROGRESS NOTE. [facility]ORAD
== END ==
LOC: M PAIN 10:00
PROVIDERS: ATTEND Nurse Practitioner Family
DX: M46.1 Sacroiliitis, not elsewhere classified (principal); M51.37 Other intervertebral disc degeneration, lumbosacral region

== ENCOUNTER → 2020-01-26 | Outpatient (CLI) | payer OTHER ==
[~2020-01-26] MED LIST changes: +ARIM1TAB5 PO; +B-12100010 PO; +CYCL-707; -CYCL10TA; +SERO1TAB PO; +[UNRECOGNIZED DRUG - CODE] PO
--- NOTE | 2020-01-27 08:50 | RADONC ---
RADIATION ONCOLOGY CONSULTATION NOTE DATE: 01/26/2020 This is a telemedicine visit. The patient was informed of the risks including security breech, technological failure, inability to perform a comprehensive physical exam which could delay or prevent an accurate diagnosis, and potential complications from treatment decisions rendered over a telemedicine platform. The patient understands and consented to the use of telehealth services phone only. CHART NUMBER: [id number] DIAGNOSIS: Right breast cancer. STAGE: 0, [id number], grade 3, ER positive, [place] positive. ECOG PERFORMANCE STATUS: 0 CONSULTATION NOTE: Ms. 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 HISTORY OF PRESENT ILLNESS: The patient is well-known to us and has been treated by us in October through November 2016 for a stage 0, [id number] ductal carcinoma in situ of the left breast. The patient has been followed and this October was found to have a suspicious area in 10 o'clock position 8 cm from the nipple on mammogram and ultrasound. On 11/30/2019, the patient underwent a biopsy of the lesion at the 10 o'clock position and was found to have a poorly differentiated ductal carcinoma in situ. The tumor was noted to be estrogen receptor positive and progesterone receptor positive. On 12/22/2019, the patient underwent lumpectomy and pathology revealed a poorly differentiated ductal carcinoma in situ measuring 2.4 cm. The closest margin of resection was less than 1 mm. In light of this, she subsequently underwent re-excision on 01/03/2020 and no residual tumor was seen. She is now presenting to me via telephone consultation for consideration of postoperative radiation therapy for conservative breast management. PAST MEDICAL HISTORY: The patient's past medical history as noted above was positive for contralateral left-sided breast cancer, which was also stage 0 and was treated by us in October and November 2016. She has done well with that. The patient also has a history of anxiety and depression. She reports having hypertension and kidney stones as well as migraines, osteoarthritis, osteoporosis, a history of pancreatitis, some thyroid problems, and a heart murmur. She reports that she has undergone a cholecystectomy, a bladder sling and gastric bypass surgery. In addition, she had a neurostimulator implant and a hysterectomy. ALLERGIES: The patient is allergic to SULFA DRUGS and reports having some reaction to some metals. SOCIAL HISTORY: The patient reports that she had smoked cigarettes but has quit smoking. She drinks alcohol socially. FAMILY HISTORY: The patient's family history is positive for a sister with thyroid cancer, a paternal grandmother with cervical cancer, a paternal uncle with prostate cancer, a paternal aunt with breast cancer, a paternal cousin with breast cancer, another cousin with kidney cancer, a maternal aunt with uterine cancer, as well as some cousins with colon cancer and kidney cancer. REVIEW OF SYSTEMS: The patient's review of systems is noncontributory. Denies nausea, vomiting, fevers, chills, night sweats, diplopia, headaches, anxiety or depression, anorexia, weight loss, visual disturbances, chest pain, urinary or bowel difficulties, bone pain, or neurological problems. PHYSICAL EXAMINATION: Physical examination was deferred as per COVID-19 precautions. This was a telephone interview. ASSESSMENT: The patient clearly is a candidate for external beam radiation therapy and I have so informed her. I have discussed with the patient in detail the potential benefits as well as possible acute and chronic sequelae of external beam radiation therapy. We discussed logistics of treatment planning, simulation and subsequent fractionated daily radiation treatments. Indeed this patient has undergone an almost identical treatment just 3 years ago in the contralateral breast. I am scheduling the patient for the next available simulation slot and radiation treatments will begin subsequently. Thank you for allowing us to participate in the care of this very pleasant woman. If I could be of any further assistance, please feel free to contact me anytime. As always, warm regards. cc: MD Yvrose Conrad MD
== END ==
LOC: M ONCR 12:59
PROVIDERS: ATTEND Radiology Radiation Oncology
DX: C50.911 Malignant neoplasm of unspecified site of right female breast (principal); I10 Essential (primary) hypertension; G43.909 Migraine, unspecified, not intractable, without status migrainosus; M81.0 Age-related osteoporosis without current pathological fracture; R01.1 Cardiac murmur, unspecified; Z87.891 Personal history of nicotine dependence; Z88.2 Allergy status to sulfonamides

== ENCOUNTER 2020-01-31 10:42 | Outpatient (RCR) | payer OTHER ==
[2020-01-31 11:26] LABS: BASO # 0.1 10^3/uL (0.0-0.2); BASO % 0.7 % (0.0-1.0); EOS # 0.7 10^3/uL (0.0-0.5); HEMATOCRIT 37.5 % (36.0-47.0); LYMPH # 1.5 10^3/uL (1.5-5.0); LYMPH % 18.5 % (24.0-44.0); MEAN CORPUSCULAR HGB CONC 34.7 g/dl (32.0-36.5); MEAN CORPUSCULAR VOLUME 95.2 fl (80.0-96.0); MONO # 0.6 10^3/uL (0.0-0.8); MONO % 6.9 % (0.0-5.0); NEUTROPHILS # 5.4 10^3/uL (1.5-8.5); NEUTROPHILS % 65.7 % (36.0-66.0); PLATELET COUNT, AUTOMATED 199 10^3/uL (150-450); RED BLOOD COUNT 3.94 10^6/uL (4.00-5.40); WHITE BLOOD COUNT 8.3 10^3/uL (4.0-10.0)
--- NOTE | 2020-02-01 16:11 | RADONC ---
RADIATION ONCOLOGY SIMULATION NOTE DATE: 01/31/2020 CHART NUMBER: [id number] SIMULATION NOTE: Ms. Arzola was taken to the CT scan for CT simulation of her right breast field. Simulation was accomplished without difficulty or discomfort. Radiation treatment planning is underway and radiation treatments will begin subsequently. An immobilization device was created without difficulty or discomfort. It will be used throughout the course of treatment. I was physically present throughout the course of CT simulation.
== END 2020-02-02 ==
LOC: M ONCR 10:42
PROVIDERS: ATTEND Radiology Radiation Oncology
DX: D05.11 Intraductal carcinoma in situ of right breast (principal)

== ENCOUNTER → 2020-03-01 | Outpatient (REF) | payer OTHER ==
[2020-03-01 19:03] LABS: BASO # 0.1 10^3/uL (0.0-0.2); EOS # 0.2 10^3/uL (0.0-0.5); EOS % 3.1 % (0.0-3.0); HEMATOCRIT 36.5 % (36.0-47.0); HEMOGLOBIN 12.2 g/dl (12.0-15.5); LYMPH # 1.7 10^3/uL (1.5-5.0); LYMPH % 32.8 % (24.0-44.0); MEAN CORPUSCULAR HEMOGLOBIN 32.8 pg (27.0-33.0); MEAN CORPUSCULAR HGB CONC 33.4 g/dl (32.0-36.5); MEAN CORPUSCULAR VOLUME 98.1 fl (80.0-96.0); MONO # 0.5 10^3/uL (0.0-0.8); MONO % 8.8 % (0.0-5.0); NEUTROPHILS # 2.8 10^3/uL (1.5-8.5); NEUTROPHILS % 53.9 % (36.0-66.0); PLATELET COUNT, AUTOMATED 208 10^3/uL (150-450); RED BLOOD COUNT 3.72 10^6/uL (4.00-5.40); WHITE BLOOD COUNT 5.2 10^3/uL (4.0-10.0)
[2020-03-01 19:45] LABS: ALBUMIN 3.3 GM/DL (3.2-5.2); ALT/SGPT 19 U/L (12-78); BILIRUBIN,TOTAL 0.4 MG/DL (0.2-1.0); BLOOD UREA NITROGEN 11 MG/DL (7-18); CALCIUM LEVEL 8.5 MG/DL (8.5-10.1); CARBON DIOXIDE LEVEL 32 MEQ/L (21-32); CHLORIDE LEVEL 108 MEQ/L (98-107); CHOLESTEROL LEVEL 183 MG/DL (<200); CHOLESTEROL RISK RATIO 3.101 (<5); CREATININE FOR GFR 0.77 MG/DL (0.55-1.30); FERRITIN 69 NG/ML (8-252); GLOMERULAR FILTRATION RATE > 60.0 (>51); GLUCOSE, FASTING 85 MG/DL (70-100); HDL CHOLESTEROL 59 MG/DL (>40); IRON (FE) 117 UG/DL (50-170); LDL CHOLESTEROL 105 MG/DL (<100); MAGNESIUM LEVEL 2.1 MG/DL (1.8-2.4); NON-HDL-C 124 MG/DL; PERCENT SATURATION 53.7 % (13.2-45.0); SODIUM LEVEL 145 MEQ/L (136-145); TOTAL IRON BINDING CAPACITY 218 UG/DL (250-450); TOTAL PROTEIN 6.2 GM/DL (6.4-8.2); TRIGLYCERIDES LEVEL 94 MG/DL (<150)
[2020-03-01 20:18] LABS: FOLATE 8.8 NG/ML (>5.4); TOTAL 25(OH) VITAMIN D 26.1 NG/ML (30.0-100.0); VITAMIN B12 LEVEL 381 PG/ML (247-911)
== END ==
LOC: M SFHCLERA 10:45
PROVIDERS: ATTEND Nurse Practitioner Family
DX: Z98.84 Bariatric surgery status (principal); E78.5 Hyperlipidemia, unspecified; E03.9 Hypothyroidism, unspecified

== ENCOUNTER 2020-03-02 09:58 | Outpatient (RCR) | payer OTHER ==
--- NOTE | 2020-02-14 16:16 | RADONC ---
RADIATION ONCOLOGY PROGRESS NOTE DATE: 02/13/2020 CHART NUMBER: [id number] PROGRESS NOTE: Ms. Arzola is presently at a dose of 540 cGy to her right breast and is tolerating treatments quite well at this point with no complaints related to her radiation therapy. She has no breast or bone pain. REVIEW OF SYSTEMS: The patient's review of systems is noncontributory. Denies nausea, vomiting, fevers, chills, night sweats, diplopia, headaches, anxiety or depression, anorexia, weight loss, visual disturbances, chest pain, urinary or bowel difficulties, bone pain, or neurological problems. PHYSICAL EXAMINATION: The patient's skin is in good condition with no evidence of radiation change present. There is no moist or dry desquamation. The remainder of physical exam remains unchanged. Ms. Arzola is tolerating treatments quite well and radiation will continue as scheduled.
--- NOTE | 2020-02-22 08:43 | RADONC ---
RADIATION ONCOLOGY PROGRESS NOTE DATE: 02/20/2020 CHART #: [id number] Ms. Arzola is presently at a dose of 1440 cGy to her right breast and is tolerating treatments quite well at this point with no complaints related to her radiation therapy. She has no breast or bone pain. REVIEW OF SYSTEMS: The patient's review of systems is noncontributory. Denies nausea, vomiting, fevers, chills, night sweats, diplopia, headaches, anxiety or depression, anorexia, weight loss, visual disturbances, chest pain, urinary or bowel difficulties, bone pain, or neurological problems. PHYSICAL EXAMINATION: The patient's skin is in good condition with no evidence of moist or dry desquamation. The remainder of her physical exam remains unchanged. Ms. Arzola is tolerating treatments quite well and radiation will continue as scheduled.
== END 2020-03-04 ==
LOC: M ONCR 09:58
PROVIDERS: ATTEND Radiology Radiation Oncology
DX: D05.11 Intraductal carcinoma in situ of right breast (principal)

== ENCOUNTER 2020-03-27 09:56 | Outpatient (RCR) | payer OTHER ==
--- NOTE | 2020-03-06 15:21 | RADONC ---
RADIATION ONCOLOGY PROGRESS NOTE DATE: 02/28/2020 CHART NUMBER: [id number] PROGRESS NOTE: Ms. Arzola is presently at a dose of 2347 cGy to her right breast and is tolerating treatments quite well at this point with no complaints related to her radiation therapy. She has no breast or bone pain. REVIEW OF SYSTEMS: The patient's review of systems is noncontributory. Denies nausea, vomiting, fevers, chills, night sweats, diplopia, headaches, anxiety or depression, anorexia, weight loss, visual disturbances, chest pain, urinary or bowel difficulties, bone pain, or neurological problems. PHYSICAL EXAMINATION: The patient's skin is in good condition with no evidence of moist or dry desquamation. The remainder of her physical exam remains unchanged. Ms. Arzola is tolerating treatment quite well and radiation will continue as scheduled.
--- NOTE | 2020-03-11 09:01 | RADONC ---
RADIATION ONCOLOGY PROGRESS NOTE DATE: 03/05/2020 CHART NUMBER: [id number] PROGRESS NOTE: Ms. Arzola is presently at a dose of 3060 cGy to her right breast and is tolerating treatments quite well at this point with no significant difficulties related to her radiation therapy. She has no significant breast or bone pain. REVIEW OF SYSTEMS: The patient's review of systems is noncontributory. Denies nausea, vomiting, fevers, chills, night sweats, diplopia, headaches, anxiety or depression, anorexia, weight loss, visual disturbances, chest pain, urinary or bowel difficulties, bone pain, or neurological problems. PHYSICAL EXAMINATION: The patient's skin is in good condition with no evidence of moist or dry desquamation. The remainder of her physical exam remains unchanged. Ms. Arzola is tolerating treatments quite well and radiation will continue as scheduled.
--- NOTE | 2020-03-14 08:10 | RADONC ---
RADIATION ONCOLOGY DATE: 03/08/2020 CHART NUMBER: [id number] Ms. rAzola was taken to the linear accelerator today for clinical setup of her right breast electron beam boost field. Setup was accomplished without difficulty or discomfort. Radiation treatment planning is underway and radiation treatments will begin subsequently. An immobilization device was created without difficulty or discomfort. It will be used throughout the course of treatment. I was physically present throughout the course of clinical setup simulation.
--- NOTE | 2020-03-15 23:25 | RADONC ---
RADIATION ONCOLOGY PROGRESS NOTE DATE: 03/12/2020 CHART NUMBER: [id number] Ms. Arzola is presently at a dose of 3960 cGy to her right breast and is tolerating treatments quite well at this point with no complaints related to her radiation therapy. She is having no significant breast or bone pain. The patient's review of systems is noncontributory. She denies nausea, vomiting, fevers, chills, night sweats, diplopia, headaches, anxiety or depression, anorexia, weight loss, visual disturbances, chest pain, urinary or bowel difficulties, bone pain, or neurological problems. PHYSICAL EXAMINATION: The patient's skin is in good condition with some erythema and tanning present but no evidence of moist or dry desquamation. The remainder of her physical exam remains unchanged. Ms. Arzola is tolerating treatments quite well and radiation will continue as scheduled.
--- NOTE | 2020-03-21 10:04 | RADONC ---
RADIATION ONCOLOGY PROGRESS NOTE DATE: 03/20/2020 CHART NUMBER: [id number] PROGRESS NOTE: Ms. Arzola is presently at a dose of 4860 cGy to her right breast and is tolerating treatments quite well at this point with no significant difficulties related to her radiation therapy. She has no significant breast or bone pain. She does have tenderness of the skin. REVIEW OF SYSTEMS: The patient's review of systems is positive for some skin tenderness but is otherwise noncontributory. Denies nausea, vomiting, fevers, chills, night sweats, diplopia, headaches, anxiety or depression, anorexia, weight loss, visual disturbances, chest pain, urinary or bowel difficulties, bone pain, or neurological problems. PHYSICAL EXAMINATION: The patient's skin shows some erythema and tanning present. There is an area of some desquamation in the inframammary region. The remainder of her physical exam remains unchanged. Ms. Arzola has completed radiation to the whole breast and the scar boost will be starting tomorrow. She is allergic to sulfa drugs. So, she has been given alternate skin care instructions since she cannot tolerate Silvadene.
--- NOTE | 2020-03-28 12:38 | RADONC ---
RADIATION ONCOLOGY DATE OF SERVICE: 03/26/2020 Ms. Arzola is a 64-year-old white woman who has history of left breast CA, DCIS grade 3 status post left partial mastectomy and sentinel lymph node biopsy in August 2016; now she has a diagnosis right breast DCIS grade 3, ER/DC positive status post partial mastectomy and re-excision to negative margin on 01/03/2020. She has received dose of 4005 cGy in 15 fractions using 6 MeV photon beams to the right breast from 02/28/2020 through 03/19/2020. The boost was started on 03/20/2020 and received a dose of 900 cGy in 5 fractions using 6 MeV electron beams from 03/20/2020 through 03/26/2020. Her treatment was uneventful. She did not have any discomfort. She developed a moderate degree of skin erythema. Further skin care instruction was given to her. She is going to start tamoxifen and she was advised to continue followup care with the physician involved, then she was also asked to return here in 1 month for a checkup. AURORAD
--- NOTE | 2020-03-28 14:14 | RADONC ---
RADIATION ONCOLOGY PROGRESS NOTE DATE OF SERVICE: 03/26/2020 CHART NUMBER: [id number]. PROGRESS NOTE: Ms. Arzola is a 59-year-old woman who carries the diagnosis of right breast CA, DCIS. She also had the history of DCIS of left breast treated 3 years ago. So far, she has received dose of 5860 cGy to the right breast. There are moderate degree of erythema, most significantly in the inframammary area and right lateral quadrant of the right breast. There are dry desquamatory reaction, and small opening, small area of moist reaction. She is allergic to SULFA. I advised apply hydrocortisone cream. REVIEW OF SYSTEMS: She denies any symptoms other than skin changes and pain related to the skin changes. Denies nausea, vomiting, fever.No , GI symptoms PHYSICAL EXAMINATION: She is in good general condition. As mentioned, there is moderate degree of the skin, erythema, and a small area of opening most significantly in the right inframammary area and right outer quadrant of the right breast. I advised to apply hydrocortisone cream. Otherwise, she is tolerating treatment well, and treatment will be completed tomorrow. LEWIS
--- NOTE | 2020-03-30 10:15 | RADONC ---
RADIATION ONCOLOGY DATE OF SERVICE: 03/27/2020 CHART #: [id number] Mrs. Arzola carries a diagnosis of right breast CA. She started radiation therapy to the right breast on 02/09/2020 and completed her radiation therapy on 03/27/2020,in 47 elapsed days. Initial treatment dose of 4860 cGy to the right breast was delivered using 6 MEV photon beams in 27 fractions, and additional 1200 cGy in 6 fractions was boosted to the tumor bed using 16 MEV electron beams. She tolerated treatment very well without any unusual side effects. She developed a moderate degree of skin erythema and area of desquamation reaction was significantly in the inframammary area. further he skin care, instructions were given to her and she was advised continuous follow up care with the physicians involved and aslo asked to return here in one month for a checkup. AURORAD
== END 2020-04-03 ==
LOC: M ONCR 09:56
PROVIDERS: ATTEND Radiology Radiation Oncology
DX: D05.11 Intraductal carcinoma in situ of right breast (principal)

== ENCOUNTER → 2020-04-16 | Outpatient (CLI) | payer OTHER ==
--- NOTE | 2020-06-05 10:14 | DEXA ---
AP SPINE L2 - L4 1.507 2.3 3.3 LT FEMUR TOTAL 1.133 1.0 1.8 LT NECK 1.071 0.2 1.4 RT FEMUR TOTAL 1.097 0.7 1.5 RT NECK 1.033 0.0 1.1 TOTAL BODY TOTAL OTHER COMMENTS: Normal Bone Densitometry of the spine and hips. The density of the spine as decreased 4.9% since 04/14/2017. The density of the spine has decreased 10.6% since 04/14/2017. The density if the spine has decreased 12.1% since 04/14/2017. The decreased density of the spine does represent a significant change. The decreased density of the left hip does represent a significant change. The decreased density of the right hip does represent a significant change. FOLLOW-UP: Recommendation for the next bone density exam: 5 years. LEWIS
== END ==
LOC: M WHC 13:55
PROVIDERS: ATTEND Internal Medicine Medical Oncology
DX: Z13.820 Encounter for screening for osteoporosis (principal); M81.0 Age-related osteoporosis without current pathological fracture

== ENCOUNTER → 2020-04-25 | Outpatient (CLI) | payer OTHER | LOC: M ONCR 10:10 | PROVIDERS: ATTEND Radiology Radiation Oncology | DX: D05.11 Intraductal carcinoma in situ of right breast (principal) ==

== ENCOUNTER → 2020-07-25 | Outpatient (CLI) | payer OTHER ==
--- NOTE | 2020-07-25 11:27 | RADONC ---
Radiation Oncology Hx/FUP Radiation Oncology Hx/FUP Date of Service: Jul 25, 2020 Pt Identifier Joann Arzola is a 60 year old female seen for a followup visit today at the department of radiation oncology for a history of BL DCIS ER+/ND- HER2-; left breast 2015 s/p lumpectomy and adjuvant RT 40 Gy in 15 fractions WBI and 9 Gy in 6 fraction boost completed 11/21/16, then right breast 2019 s/p lumpectomy and adjuvant RT 48.6 Gy in 27 fraction WBI followed by 12 Gy in 6 fraction boost completed 03/27/20. Diagnosis/Treatment History Oncologic History As above Interval History Feels well no breast complaints. Had skin reaction post RT which resolved entirely. She is taking AI, no side effects reported. Has a mammogram scheduled later this Fall. Follows with medical oncology. Current Therapy Anastrozole Stage pTisNX left (2015) and right (2019) breast Social History: Non-smoker Non-drinker Allergies / Meds Allergies: Coded Allergies: Sulfa (Sulfonamide Antibiotics) (Verified Allergy, Intermediate, HIVES AND RED SKIN LESIONS, 02/02/19) ciprofloxacin (Verified Allergy, Intermediate, CIPRO IV-ITCHING,RED SKIN, 02/02/19) Home Meds Reported Medications Anastrozole (Arimidex) 1 Mg Tablet, 1 MG PO DAILY, TAB 01/26/20 Vit27,Calcium/Iron/FA (Trinatal Rx 1 Tablet) 1 Each Tablet, 1 TAB PO DAILY, TAB 01/26/20 Quetiapine Fumarate (Seroquel) 100 Mg Tablet, 100 MG PO DAILY, TAB 01/26/20 Cyanocobalamin (Vitamin B-12) (Vitamin B-12) 1,000 Mcg Capsule, 1 CAP PO DAILY for 30 Days, #30 CAP 01/26/20 Promethazine HCl (Promethazine HCl) 25 Mg Tablet 06/08/19 Lorazepam (Ativan) 0.5 Mg Tablet 03/07/19 Acetaminophen with Codeine (Acetaminophen-Cod #3 Tablet) 1 Each Tablet 03/07/19 Oxybutynin Chloride (Oxybutynin Chloride ER) 15 Mg Tab.er.24 03/07/19 Propranolol HCl (Propranolol HCl) 40 Mg Tablet 03/07/19 Levothyroxine Sodium (LEVOTHYROXINE SODIUM) 100 Mcg Tab, #30 06/01/17 Amitriptyline HCl (Amitriptyline HCl) 100 Mg Tab, #30 06/01/17 Venlafaxine HCl (Venlafaxine HCl ER) 75 Mg Capcr, #30 06/01/17 Omeprazole (Omeprazole) 40 Mg Cap, #30 06/01/17 Review of Systems Review of Systems Constitutional: Denies: ROS Unabtainable, Chills, Fever, Malaise, Night Sweats, Weakness, Fatigue, Weight Loss, Lethargy, Normal appetite, Other symptoms Eyes: Denies: Pain, Vision change, Conjunctivae inflammation, Eyelid inflammation, Redness, Other HEENT: Denies: Head Aches, Ear Pain, Dysphagia, Sinus Congestion, Post Nasal Drip, Sore Throat, Epistaxis, Other Symptoms Skin: Denies: Rash, Lesions, Jaundice, Bruising, Other Breast: Denies: New Breast Lumps / Masses, Nipple Retraction, Nipple Discharge, Breast Skin Changes, Breast Pain or Tenderness, Other Breast Complaints Pulmonary: Denies: Dyspnea, Cough, Pleuritic Chest Pain, Other Symptoms Gastrointestinal: Denies: Nausea, Vomiting, Abdominal Pain, Diarrhea, Constipation, Melena, Hematochezia, Other Symptoms Genitourinary: Denies: Dysuria, Frequency, Incontinence, Hematuria, Retention, Other Symptoms Hematologic: Denies: Bruising, Bleeding Excessively, Petecchia, Purpura, Enlarged Lymph Nodes, Other Hematologic Endocrine: Denies: Polydipsia, Polyphagia, Polyuria, Heat Intolerance, Cold Intolerance, Other Endocrine Sx Musculoskeletal: Denies: Neck pain, Shoulder pain, Arm pain, Back pain, Hand pain, Leg pain, Foot pain, Joint pain, Muscle pain, Spasms, Gout, Joint sweling, Muscle stiffness, Midthoracic pain, Other Neurological: Denies: Weakness, Numbness, Incoordination, Change in Speech, Confusion, Seizures, Other Symptoms Psych: Denies: Mood Normal, Anxiety, Depression, Memory Issues, Thoughts of Self Harm, Anger, Thoughts of harming Other, Other Psych Physical Examination Vital Signs Wt 159 lb T 97 P 61 RR 16 BP 128/91 P 98% Pain 0 Fatigue 0 General Exam: Positive: Alert, Cooperative, No Acute Distress Eye Exam: Positive: PERRLA, EOMI ENT EXAM: Positive: Atraumatic Neck Exam: Positive: Supple; Negative: Lymphadenopathy Chest Exam: Positive: Clear to auscultation, Normal air movement Heart Exam: Positive: Rate Normal, Regular Rhythm Breast Exam: Positive: Symmetric Bilaterally; Negative: Lumps or Masses, Nipple Retraction, Nipple Discharge, Skin Changes, Other Breast Findings (No axillary lesions palpated. No palpable fibrosis, no s kin sequelae noted) Abdomen Exam: Positive: Normal bowel sounds Extremity Exam: Negative: Edema Skin Exam: Positive: Nl turgor and temperature; Negative: Rash Neuro Exam: Positive: Normal Gait, Cranial Nerves 3-12 NL Psych Exam: Positive: Mental status NL, Mood NL, Anxiety Diagnostic and Laboratory Diagnostic Review Radiologic images, relevant labs and pathology reports were personally reviewed and discussed with Ms. Arzola. Assessment and Plan Impression Assessment Ms. Arzola is a 60 year old female with a history of BL DCIS ER+/ND- HER2-; left breast 2015 s/p lumpectomy and adjuvant RT 40 Gy in 15 fractions WBI and 9 Gy in 6 fraction boost completed 11/21/16, then right breast 2019 s/p lumpectomy and adjuvant RT 48.6 Gy in 27 fraction WBI followed by 12 Gy in 6 fraction boost completed 03/27/20. Doing well. YO on exam today. No sequelae of RT discernible. She has appropriate medical oncology and mammographic follow up scheduled. Therefore I will see her annually from this point onward. Performance Status ECOG 0 Plan Follow up in 1 year Ms. Arzola was encouraged to call with questions or concerns in the interim period. FOUZIA CORREA MD Jul 25, 2020 11:26
== END ==
LOC: M ONCR 10:12
PROVIDERS: ATTEND General Practice
DX: D05.11 Intraductal carcinoma in situ of right breast (principal)

== ENCOUNTER → 2020-08-27 | Outpatient (REF) | payer OTHER, MEDICAID ==
[2020-08-27 18:13] LABS: BACTERIA, URINE AUTO 1+ (NEGATIVE); CALCIUM OXALATE CRYSTALS SMALL; MUCUS, URINE SMALL (NEGATIVE); RBC, URINE AUTO 2 /HPF (0-3); SQUAMOUS EPITHELIAL CELL UR AU 3 /HPF (0-6); WBC, URINE AUTO 131 /HPF (0-3)
== END ==
LOC: M LAB REF 16:48
PROVIDERS: ATTEND Internal Medicine Nephrology
DX: R31.9 Hematuria, unspecified (principal); N39.0 Urinary tract infection, site not specified

== ENCOUNTER → 2021-01-08 | Outpatient (REF) | payer OTHER, MEDICAID ==
[~2021-01-08] MED LIST changes: +LISI10TA22; -LISI10TA4
[2021-01-08 18:25] LABS: BACTERIA, URINE AUTO 3+ (NEGATIVE); MUCUS, URINE SMALL (NEGATIVE); RBC, URINE AUTO 7 /HPF (0-3); SQUAMOUS EPITHELIAL CELL UR AU 0 /HPF (0-6); WBC, URINE AUTO TNTC /HPF (0-3)
== END ==
LOC: M SMT 16:50
PROVIDERS: ATTEND Specialist
DX: R32 Unspecified urinary incontinence (principal); R69 Illness, unspecified; M54.5 Low back pain; N20.0 Calculus of kidney

== ENCOUNTER → 2021-02-12 | Outpatient (CLI) | payer OTHER, MEDICAID ==
[2021-02-12 16:14] LABS: ALBUMIN 3.4 GM/DL (3.2-5.2); ALT/SGPT 15 U/L (12-78); BILIRUBIN,TOTAL 0.4 MG/DL (0.2-1.0); BLOOD UREA NITROGEN 9 MG/DL (7-18); CALCIUM LEVEL 9.1 MG/DL (8.5-10.1); CARBON DIOXIDE LEVEL 32 MEQ/L (21-32); CHLORIDE LEVEL 103 MEQ/L (98-107); CREATININE FOR GFR 0.72 MG/DL (0.55-1.30); GLOMERULAR FILTRATION RATE > 60.0 (>51); GLUCOSE, FASTING 82 MG/DL (70-100); SODIUM LEVEL 136 MEQ/L (136-145); TOTAL PROTEIN 6.8 GM/DL (6.4-8.2)
== END ==
LOC: M WUC 14:36
PROVIDERS: ATTEND Nurse Practitioner Family
DX: D05.12 Intraductal carcinoma in situ of left breast (principal)

== ENCOUNTER → 2021-06-14 | Outpatient (REF) | payer OTHER, MEDICAID ==
[~2021-06-14] MED LIST changes: +OMEP40CA4; -OMEP40CA97
[2021-06-14 17:39] LABS: AMORPHOUS SEDIMENT SMALL (NEGATIVE); BACTERIA, URINE AUTO 2+ (NEGATIVE); MUCUS, URINE SMALL (NEGATIVE); RBC, URINE AUTO 3 /HPF (0-3); SQUAMOUS EPITHELIAL CELL UR AU 0 /HPF (0-6); WBC, URINE AUTO 98 /HPF (0-3)
== END ==
LOC: M SMT 16:49
PROVIDERS: ATTEND Specialist
DX: N20.1 Calculus of ureter (principal)

== ENCOUNTER → 2021-07-08 | Outpatient (CLI) | payer OTHER, MEDICAID ==
[2021-07-08 13:28] LABS: BASO # 0.1 10^3/uL (0.0-0.2); BASO % 1.1 % (0.0-1.0); EOS # 0.3 10^3/uL (0.0-0.5); EOS % 6.6 % (0.0-3.0); HEMATOCRIT 42.4 % (36.0-47.0); LYMPH # 0.9 10^3/uL (1.5-5.0); LYMPH % 21.2 % (24.0-44.0); MEAN CORPUSCULAR HEMOGLOBIN 31.2 pg (27.0-33.0); MEAN CORPUSCULAR VOLUME 94.4 fl (80.0-96.0); MONO # 0.3 10^3/uL (0.0-0.8); MONO % 7.7 % (2.0-8.0); NEUTROPHILS # 2.8 10^3/uL (1.5-8.5); NEUTROPHILS % 62.9 % (36.0-66.0); PLATELET COUNT, AUTOMATED 292 10^3/uL (150-450); RED BLOOD COUNT 4.49 10^6/uL (4.00-5.40); WHITE BLOOD COUNT 4.4 10^3/uL (4.0-10.0)
[2021-07-08 13:53] LABS: ALBUMIN 3.4 GM/DL (3.2-5.2); ALT/SGPT 13 U/L (12-78); BILIRUBIN,TOTAL 0.4 MG/DL (0.2-1.0); BLOOD UREA NITROGEN 12 MG/DL (7-18); CALCIUM LEVEL 9.1 MG/DL (8.5-10.1); CARBON DIOXIDE LEVEL 32 MEQ/L (21-32); CHLORIDE LEVEL 105 MEQ/L (98-107); CHOLESTEROL LEVEL 201 MG/DL (<200); CHOLESTEROL RISK RATIO 3.092 (<5); CREATININE FOR GFR 0.82 MG/DL (0.55-1.30); FERRITIN 25 NG/ML (8-252); FOLATE 6.7 NG/ML (>5.4); GLOMERULAR FILTRATION RATE > 60.0 (>51); GLUCOSE, FASTING 89 MG/DL (70-100); HDL CHOLESTEROL 65 MG/DL (>40); IRON (FE) 111 UG/DL (50-170); LDL CHOLESTEROL 114 MG/DL (<100); MAGNESIUM LEVEL 2.3 MG/DL (1.8-2.4); NON-HDL-C 136 MG/DL; PERCENT SATURATION 40.5 % (13.2-45.0); POTASSIUM SERUM 4.3 MEQ/L (3.5-5.1); SODIUM LEVEL 140 MEQ/L (136-145); TOTAL 25(OH) VITAMIN D 30.8 NG/ML (30.0-100.0); TOTAL IRON BINDING CAPACITY 274 UG/DL (250-450); TRIGLYCERIDES LEVEL 109 MG/DL (<150); VITAMIN B12 LEVEL 419 PG/ML (247-911)
[2021-07-10 08:35] LABS: FREE T4 1.21 NG/DL (0.76-1.46)
== END ==
LOC: M WUC 10:35
PROVIDERS: ATTEND Nurse Practitioner Family
DX: E78.5 Hyperlipidemia, unspecified (principal); E03.9 Hypothyroidism, unspecified; Z98.84 Bariatric surgery status

== ENCOUNTER → 2021-07-19 | Outpatient (CLI) | payer OTHER ==
[2021-07-19 11:05] LABS: HEMATOCRIT 41.2 % (36.0-47.0); HEMOGLOBIN 13.8 g/dl (12.0-15.5); MEAN CORPUSCULAR HEMOGLOBIN 31.5 pg (27.0-33.0); MEAN CORPUSCULAR HGB CONC 33.5 g/dl (32.0-36.5); MEAN CORPUSCULAR VOLUME 94.1 fl (80.0-96.0); PLATELET COUNT, AUTOMATED 275 10^3/uL (150-450); RED BLOOD COUNT 4.38 10^6/uL (4.00-5.40); WHITE BLOOD COUNT 6.5 10^3/uL (4.0-10.0)
[2021-07-19 11:07] LABS: BACTERIA, URINE AUTO 2+ (NEGATIVE); CALCIUM OXALATE CRYSTALS SMALL; MUCUS, URINE SMALL (NEGATIVE); RBC, URINE AUTO 3 /HPF (0-3); SQUAMOUS EPITHELIAL CELL UR AU 0 /HPF (0-6); WBC, URINE AUTO 57 /HPF (0-3)
[2021-07-19 11:30] LABS: BLOOD UREA NITROGEN 8 MG/DL (7-18); CARBON DIOXIDE LEVEL 31 MEQ/L (21-32); CHLORIDE LEVEL 104 MEQ/L (98-107); CREATININE FOR GFR 0.85 MG/DL (0.55-1.30); GLOMERULAR FILTRATION RATE > 60.0 (>51); GLUCOSE, FASTING 95 MG/DL (70-100); POTASSIUM SERUM 4.4 MEQ/L (3.5-5.1); SODIUM LEVEL 138 MEQ/L (136-145)
--- NOTE | 2021-07-21 08:30 | ECGEPIP ---
[facility] Test Date: 2021-07-19 Pat Name: CRISTINA LAYNE Department: Room: - Gender: Female Bar Examiner: rf : 1960 Requested By: EDVIN Lerner Order Number: [id number] Reading MD: Harrison Gonzales Measurements Intervals Victor Rate: 53 P: 33 WY: 136 QRS: -44 QRSD: 110 T: 43 QT: 412 QTc: 386 Interpretive Statements Sinus bradycardia Left axis deviation Delayed anterior R wave progression Rate decreased from tracing done 10-10-14 Electronically Signed on 07-21-2021 8:30:29 EDT by Harrison Gonzales
== END ==
LOC: M LAB 09:46
PROVIDERS: ATTEND Specialist
DX: Z01.818 Encounter for other preprocedural examination (principal)

== ENCOUNTER → 2021-07-24 | Outpatient (CLI) | payer OTHER, MEDICAID ==
[~2021-07-24] MED LIST changes: +BOTO10VL IM; +BUSP10TA PO; +CLON1TAB8 PO; +DESV50TA PO; +ESKE84SP NS; +LEVO50TA5 PO; -OMEP40CA4; +OMEP40CA4 PO; -PROM25TA12; +PROM25TA12 PO; -PROP40TA62; +PROP40TA62 PO; +QUET50TA4 PO; +RITA30CA PO; +SUMA100T2 PO; +TIZA4TAB4 PO; +[UNRECOGNIZED DRUG - REMARK]
== END ==
LOC: M LABSMTC 10:57
PROVIDERS: ATTEND Anesthesiology
DX: Z01.812 Encounter for preprocedural laboratory examination (principal); Z20.822 Contact with and (suspected) exposure to COVID-19

== ENCOUNTER 2021-07-29 09:35 | Day surgery (SDC) | payer OTHER ==
[~2021-07-29] VITALS: Ht 162.6 cm; Wt 81.2 kg
[~2021-07-29 09:35] MED LIST changes: +LIDOCAINE 1% MDV 20ML VIAL SQ PRN; +LR 1,000 ML IV ONE; +ceFAZolin SOD 2 GM in IV 1 EA IV ONE
--- OUTSIDE RECORDS SUMMARY | 2021-07-29 09:40 | CCD ---
Author Author [facility] Organization [facility] Address Unknown Phone Unavailable Care Team Providers Care Dermatology Physician Name Role Phone Natali Silver Unavailable PROBLEMS Type Condition ICD9-CM Code [id number] Code Onset Dates Condition S tatus W/U Status Risk SNOMED Code Notes Problem Migraine G43.909 Active confirmed 55156320 Problem Abnormal mammogram R92.8 Active confirmed 1 80941506 Problem Atrophic vaginitis N95.2 Active confirmed 5 4101553 Problem Reactive depression F32.9 Active confirmed 37883599 Problem 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 Active confirmed 632505932 Problem Balance disorder R26.89 Active confirmed 387 163112 Problem Allergic rhinitis, unspecified J30.9 Active confir med 93532811 Problem Carpal tunnel syndrome of right wrist G56.01 Ac tive confirmed 84435022 Problem Malignant neoplasm of unspecified site of left female breast C50.912 Active confirmed 265773734 Problem Carpal tunnel syndrome G56.00 Active confirmed 82452799 Problem Sacroiliitis M46.1 Active confirmed 0880375 9 Problem Bariatric surgery status Z98.84 Active confirmed 921950351 Problem Hyperlipidemia E78.5 Active confirmed 33482 004 Problem Multiple chronic diseases R69 Active confirmed 2960468451657 Problem Unsteady gait R26.81 Active confirmed 617445 008 Problem Urgency incontinence N39.41 Active confirmed 50497396 Problem Intervertebral disc disorders with radiculopathy , lumbar region M51.16 Active confirmed 458410662407794 Problem Calculus, ureteral N20.1 Active confirmed 3 1498369 Problem Intervertebral disc disorders with radiculopathy , lumbosacral region M51.17 Active confirmed 726322737723365 Problem Hematuria, unspecified R31.9 Active confirmed 30739207 Problem Spinal stenosis of lumbar re gion, unspecified whether neurogenic claudication present M48.061 Active confirmed 29213829 Problem Hidradenitis suppurativa L73.2 Active confirmed 43695153 Problem Cervicalgia M54.2 Active confirmed 38838542 Problem Cystocele, unspecified cystocele location N81.10 Active confirmed 768343545 Problem Incontinence of urine in female R32 Active confi rmed 541709851 Problem Other hyperlipidemia E78.4 Active confirmed 02782160 Problem Myalgia, other site M79.18 Active confirmed 55729636 Problem Other dorsalgia M54.89 Active confirmed 1618 72744 Problem Malignant neoplasm of unspecified site of right female breast C50.911 Active confirmed 308451771 Problem Calculus of kidney N20.0 Active confirmed 9 5954782 Problem Urinary incontinence R32 Active confirmed 769310772 Problem Vitamin D deficiency E55.9 Active confirmed 35745781 Problem Other disorders of calcium metabolism E83.59 Ac tive confirmed 55522244 Problem Essential (primary) hypertension I10 Active conf irmed 80171583 Problem Hypertensive heart disease without heart failure I 11.9 Active confirmed 40205053 Problem Dysphagia, unspecified type R13.10 Active confirmed 03821918 Problem Morbid (severe) obesity due to excess calories E66 .01 Active confirmed 385539042 Problem Nicotine dependence, unspecified, uncomplicated F1 7.200 Active confirmed 696917379 Problem Kidney stones N20.0 Active confirmed 395932 07 Problem Anxiety disorder, unspecified F41.9 Active confirm ed 575682591 Problem Urge incontinence of urine N39.41 Active confirmed 64161686 Problem History of gastric bypass Z98.84 Active confirmed 839762810 Problem Other intervertebral disc degeneration, lumbosacral region M51.37 Active confirmed 81504992 Problem Cigarette nicotine dependence, uncomplicated F17.2 10 Active confirmed 39822758 Problem Acquired hypothyroidism E03.9 Active confirmed 295443469 ALLERGIES Allergen (clinical drug ingredient) Drug/Non Drug Allergy do cumented on EMR Reaction Allergy Type Onset Date Status Sulfa (for allergy use only) Rash Drug Allergy Active kiwi Dyspnea Non Drug Allergy Active ENCOUNTERS from 1962 to 2021-07-14 Encounter Location Date Provider Diagnosis [facility] [address] [phone] [place] [phone] 06 Jul, 2021 Natali Silver Cigarette nicotine dependence, uncomplic ated F17.210 ; Acquired hypothyroidism E03.9 ; Hypertensive heart disease without heart failure I11.9 ; History of gastric bypass Z98.84 ; Vitamin D deficiency E55.9 and Encounter for immunization Z23 IMMUNIZATIONS Vaccine Route Administration Date Status COVID-19 dose #1 given elsewhere Unspecified Unknown [facility] 2020 Administered Influenza 18 yrs & older Flublok IM Intramuscular Jul 10, 2021 Administered Influenza 18 yrs & older Flublok IM Intramuscular Jul 11, 2020 Administered Influenza 18 yrs & older Flublok IM Intramuscular Jul 14, 2018 Administered TDAP 0.5mL (Boostrix) IM Intramuscular December 03, 2010 Administe red Influenza 6mo & up Fluzone IM Intramuscular Sep 02, 2016 Admi nistered COVID-19 dose #2 given elsewhere Unspecified Unknown [facility] 2020 Administered Influenza 6mo & up Fluzone Unknown Aug 09, 2015 Refus ed Influenza 6mo & up Fluzone IM Intramuscular Jul 13, 2014 Admi nistered Influenza 6mo & up Fluzone IM Intramuscular Oct 21, 2012 Admi nistered SOCIAL HISTORY Tobacco Use: Social History Observation Description Date Details (start date - stop date) Never Smoker Sex Assigned At : Social History Observation Description Sex Assigned At Unknown Education: Question Answer Notes Level of Education: Finished High School Audit Question Answer Notes Total Score: 1 Interpretation: Alcohol Education Drug and Alcohol Question Answer Notes Total Score: 0 Interpretation: No problems reported Alcohol Screening: Question Answer Notes Did you have a drink containing alcohol in the past year? Ye s Points 1 Interpretation Negative How often did you have six or more drinks on one occas ion in the past year? Never (0 points) How many drinks did you have on a typica l day when you were drinking in the past year? 1 or 2 (0 points) How often did you have a drink containing alcohol in t he past year? Monthly or less (1 point) BMI Care Goal Follow-Up Question Answer Notes Above Normal BMI Follow-Up Dietary management educatio n, guidance, and counseling Tobacco Use: Question Answer Notes Are you a: never smoker 2 months, former smo ker Additional Findings: Tobacco User Light cigarette smoker ((1 -9 cigs/day) Smoking Cessation Information Given 10/26/2018 REASON FOR REFERRAL No Information VITAL SIGNS Weight 174 lbs Jul, Height 64.5 in Jul, BMI 29.40 kg/m2 Jul, Heart Rate 77 /min Jul, Respiratory Rate 18 /min Jul, Temperature 98.2 degrees Fahrenheit Jul, Oximetry 93%RA Jul, Blood pressure systolic 128 mm Hg Jul, Blood pressure diastolic 90 mm Hg Jul, MEDICATIONS Medication SIG (Take, Route, Frequency, Duration) Notes Start Da te End Date Status Tolterodine Tartrate ER 4 MG TAKE ONE CAPSULE BY MOUTH EVERY DAY Active Imitrex 50 mg 1 tablet as needed one time Orally Once a day Active Omeprazole 40 MG TAKE ONE CAPSULE BY MOUTH TWICE A DAY NEEDED Active tiZANidine HCl 4 MG 1 tablet as needed Orally Daily Active Methylphenidate HCl 20 MG 1 tablet on an empty stomach Orally Twice a day Active Melatonin 5 MG 1 tablet in the evening Orally Once a day Active Lorazepam 0.5 MG 1 tab Orally four times daily as needed MDD=4 for 30 Days Jul, Active Cetirizine HCl 10 MG 1 tablet Orally Once a day Active Methenamine Hippurate 1 GM 1 tablet Orally Twice a day for 9 0 days Pt to start the Methenamine when Macrobid completed Jun, Active SEROquel 25 MG 1 tablet at bedtime Orally Once a day for 30 day(s) Active Effexor XR 75 MG 1 capsules with food Orally Once a day Active KlonoPIN 1 MG 1/2 tablet Orally bid Active SEROquel 50 MG 1 tablet at bedtime Orally Once a day for 30 day(s) Active Macrobid 100 MG 1 capsule with food Orally take one tabl et BID for 7 day(s) Pt to start the Methenamine when Macrobid completed Jun, Not-Taking Pristiq 50 MG 1 tablet Orally Once a day for 30 day(s) Active Promethazine HCl 25 MG 1 tab(s) Orally qid prn Oct, Active Spravato (84 MG Dose) 28 MG/DEVICE 3 sprays in each no stril Nasally twice weekly Active Chantix Starting Month Bonifacio 0.5 MG X 11 & 1 MG X 42 as directed Orally for 30 days Jul, Active Levothyroxine Sodium 100 MCG 1 tablet on an empty stom ach in the morning Orally Once a day Active Trospium Chloride 20 MG 1 tablet at bedtime on an em pty stomach Orally Once a day Active Anastrozole 1 MG 1 tablet Orally Once a day Active Acetaminophen-Codeine #3 300-30 MG 1 tablet as needed Orally every 6 hrs PRN MDD=4 for 30 Days Jun, Active Propranolol HCl 40 MG 1 tablet Orally twice daily Active Methylphenidate HCl 10 MG 1 tablet on empty stomach Orally Twice a da y Active Trintellix 20 MG 1 tablet Orally Once a day Not-Taking busPIRone HCl 10 MG 2 tablets Orally Twice a day Active PROCEDURES from 1962 to 2021-07-14 Procedure Date Ordered Result Body Site Imm: Flublok Quadrivalent 18 years & older 0.5mL IM Influenza 25-07-06 N/A RESULTS No Results REASON FOR VISIT transfer from [facility] MEDICAL (GENERAL) HISTORY Type Description Date Medical History HYPERTENSION Medical History ANXIETY Medical History DEPRESSION Medical History MIGRAINES Medical History HYPOTHYROID Medical History HEART MURMUR (CARDIO) Medical History LOW VITAMIN D 01/12 Medical History OBESITY HIGH 271 LOW 183 (170) Medical History kidney stones Medical History neurostimulator implant Medical History kidney stones left and right 05/19/2015 Medical History DUCTAL CARCINOMA LEFT BREAST 09/2016 Medical History urinary incontinence Surgical History HYSTERECTOMY 03/2002 Surgical History D&C X2 Surgical History GALLBLADDER Surgical History gastric bypass 2011 Surgical History CYSTOSCOPY, R ESWL(URETERAL STONE) 08/24 12 Surgical History neorostimulator implant 06/19/14 Surgical History pelvic sling 10/12/14 Surgical History left eswl(left side) 06/06/2015 Surgical History sosa kidney ablasion - [facility] 07/19/2015 Surgical History LUMPECTOMY LEFT BREAST 09/2016 Surgical History right carpal tunnel 04/22 Surgical History Partial mastectomy right side 12/2019 Hospitalization History Surgicaly related Goals Section No Information Health Concerns No Information MEDICAL EQUIPMENT No Information MENTAL STATUS No Information FUNCTIONAL STATUS No Information ASSESSMENTS Encounter Date Diagnosis Assessment Notes Treatment Notes Treatm ent Clinical Notes Jul, Cigarette nicotine dependence, uncomplicated (IC D-10 - F17.210) Patient Educated with: Flu Recombinant [id number] (Flu Recombinant [id number]) Patient will be started on Chantix. Patient sent in a starting dose pack. Patient was counseled that when medication starts to run out she should call our office and a continuing dose pack will be sent. Jul, Acquired hypothyroidism (ICD-10 - E03.9) Stable, continue current medication Jul, Hypertensive heart disease without heart failure (ICD-10 - I11.9) Stable, continue current medication Jul, History of gastric bypass (ICD-10 - Z98.84) Vitamin, mineral levels normal. Continue to monitor on a yearly basis Jul, Vitamin D deficiency (ICD-10 - E55.9) Stable, monitor on a yearly basis Jul, Encounter for immunization (ICD-10 - Z23) PLAN OF TREATMENT Medication Medication Name Sig Start Date Stop Date Levothyroxine Sodium 100 MCG 1 tablet on an empty stom ach in the morning Orally Once a day Propranolol HCl 40 MG 1 tablet Orally twice daily Chantix Starting Month Bonifacio 0.5 MG X 11 & 1 MG X 42 as directed Orally for 30 days Jul, Treatment Notes Assessment Notes Clinical Notes Cigarette nicotine dependence, uncomplicated Patient E ducated with: Flu Recombinant [id number] (Flu Recombinant [id number]) Patient will be started on Chantix. Patient sent in a starting dose pack. Patient was counseled that when medication starts to run out she should call our office and a continuing dose pack will be sent. 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 Continue to monitor on a yearly basis Vitamin D deficiency Stable, monitor on a yearly basis Treatment Notes Test Name Order Date FREE T4 2021-07-10 Next Appt Details 6 weeks: follow up smoking Reason: Provider Name:Mihaela Morales, 1 01:45:00 PM, [id number], , [place], [address], Provider Name:Natali Silver, 2021-08 01:45:00 PM, [address], , [place], [address], Provider Name:Jeremiah Camargo, 2021-08-06 3 11:00:00 AM, [id number], , [place], [address], Insurance Providers Payer Name Payer Address Payer Phone Insured Name Patient Relati onship to Insured Coverage Start Date Coverage End Date [facility] COMM[facility] PLAN [facility] [address] [facility] [phone] [phone] CRISTINA LAYNE self
--- OUTSIDE RECORDS SUMMARY | 2021-07-29 09:40 | CCD ---
Author Author [facility] Organization [facility] Address Unknown Phone Unavailable Care Team Providers Care Brush Maker Machine Name Role Phone NemesioNatali rivera Unavailable PROBLEMS Type Condition ICD9-CM Code [id number] Code Onset Dates Condition S tatus W/U Status Risk SNOMED Code Notes Problem Hypothyroidism, unspecified E03.9 Active confirmed 52992169 Problem Bariatric surgery status Z98.84 Active confirmed 733593222 Problem Carpal tunnel syndrome G56.00 Active confirmed 98531710 Problem Hyperlipidemia E78.5 Active confirmed 12474 004 Problem Multiple chronic diseases R69 Active confirmed 5586592176166 Problem Atrophic vaginitis N95.2 Active confirmed 5 3680640 Problem Migraine G43.909 Active confirmed 95521997 Problem Intervertebral disc disorders with radiculopathy , lumbar region M51.16 Active confirmed 444201399501024 Problem Other dorsalgia M54.89 Active confirmed 1618 19885 Problem Intervertebral disc disorders with radiculopathy , lumbosacral region M51.17 Active confirmed 205569598003573 Problem Hidradenitis suppurativa L73.2 Active confirmed 99799138 Problem Vitamin D deficiency, unspecified E55.9 Active con firmed 23253897 Problem Other hyperlipidemia E78.4 Active confirmed 98364920 Problem Balance disorder R26.89 Active confirmed 387 153554 Problem Carpal tunnel syndrome of right wrist G56.01 Ac tive confirmed 18995784 Problem Kidney stones N20.0 Active confirmed 316016 07 Problem Morbid (severe) obesity due to excess calories E66 .01 Active confirmed 867201042 Problem Dysphagia, unspecified type R13.10 Active confirmed 92163104 Problem Nicotine dependence, unspecified, uncomplicated F1 7.200 Active confirmed 062034805 Problem Other disorders of calcium metabolism E83.59 Ac tive confirmed 49370455 Problem Hematuria, unspecified R31.9 Active confirmed 24768496 Problem Urgency incontinence N39.41 Active confirmed 45806014 Problem Other intervertebral disc degeneration, lumbosacral region M51.37 Active confirmed 98171726 Problem Spinal stenosis of lumbar re gion, unspecified whether neurogenic claudication present M48.061 Active confirmed 36261744 Problem Cystocele, unspecified cystocele location N81.10 Active confirmed 376640432 Problem Myalgia, other site M79.18 Active confirmed 10963793 Problem Calculus, ureteral N20.1 Active confirmed 3 3741503 Problem Cervicalgia M54.2 Active confirmed 15369328 Problem Unsteady gait R26.81 Active confirmed 716413 008 Problem Incontinence of urine in female R32 Active confi rmed 853177779 Problem Urinary incontinence R32 Active confirmed 454320621 Problem 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 Active confirmed 896189275 Problem Calculus of kidney N20.0 Active confirmed 9 0619462 Problem Abnormal mammogram R92.8 Active confirmed 1 38983618 Problem Essential (primary) hypertension I10 Active conf irmed 64484207 Problem Reactive depression F32.9 Active confirmed 63830212 Problem Allergic rhinitis, unspecified J30.9 Active confir med 11760109 Problem Sacroiliitis M46.1 Active confirmed 4157206 9 Problem Malignant neoplasm of unspecified site of left female breast C50.912 Active confirmed 296100039 Problem Anxiety disorder, unspecified F41.9 Active confirm ed 205110214 Problem Malignant neoplasm of unspecified site of right female breast C50.911 Active confirmed 941200401 Problem Urge incontinence of urine N39.41 Active confirmed 48614463 ALLERGIES Allergen (clinical drug ingredient) Drug/Non Drug Allergy do cumented on EMR Reaction Allergy Type Onset Date Status Sulfa (for allergy use only) Rash Drug Allergy Active kiwi Dyspnea Non Drug Allergy Active ENCOUNTERS from 1962 to 2021-06-18 Encounter Location Date Provider Diagnosis [facility] Hung Jose NICHELLERASHAD [phone] [place] [address] Jun, Natali Schoeneman IMMUNIZATIONS Vaccine Route Administration Date Status Influenza 18 yrs & older Flublok IM Intramuscular Jul 11, 2020 Administered Influenza 18 yrs & older Flublok IM Intramuscular Jul 14, 2018 Administered COVID-19 dose #2 given elsewhere Unspecified Unknown [facility] 2020 Administered COVID-19 dose #1 given elsewhere Unspecified Unknown [facility] 2020 Administered TDAP 0.5mL (Boostrix) IM Intramuscular December 03, 2010 Administe red Influenza 6mo & up Fluzone IM Intramuscular Sep 02, 2016 Admi nistered Influenza 6mo & up Fluzone Unknown Aug [...] REASON FOR REFERRAL No Information VITAL SIGNS No information MEDICATIONS Medication SIG (Take, Route, Frequency, Duration) Notes Start Da te End Date Status Macrobid 100 MG 1 capsule with food Orally take one tabl et BID for 7 day(s) Pt to start the Methenamine when Macrobid completed Jun, Active Cetirizine HCl 10 MG 1 tablet Orally Once a day Active Melatonin 5 MG 1 tablet in the evening Orally Once a day Active Tolterodine Tartrate ER 4 MG TAKE ONE CAPSULE BY MOUTH EVERY DAY Active Promethazine HCl 25 MG 1 tab(s) Orally qid prn 25 Oct, Active Propranolol HCl 40 MG 1 tablet Orally twice daily Active Lorazepam 0.5 MG 1 tab Orally four times daily as needed MDD=4 for 30 Days Jul, Active Effexor XR 75 MG 1 capsules with food Orally Once a day Active SEROquel 100 MG 1 tablet at bedtime Orally Once a day Active tiZANidine HCl 4 MG 1 tablet as needed Orally Daily Active Trospium Chloride 20 MG 1 tablet at bedtime on an em pty stomach Orally Once a day Active Levothyroxine Sodium 100 MCG 1 tablet on an empty stom ach in the morning Orally Once a day for 90 day(s) Active Methenamine Hippurate 1 GM 1 tablet Orally Twice a day for 9 0 days Pt to start the Methenamine when Macrobid completed Jun, Active Omeprazole 40 MG TAKE ONE CAPSULE BY MOUTH TWICE A DAY NEEDED Active Imitrex 50 mg 1 tablet as needed one time Orally Once a day Active Trintellix 20 MG 1 tablet Orally Once a day Not-Taking Acetaminophen-Codeine #3 300-30 MG 1 tablet as needed Orally every 6 hrs PRN MDD=4 for 30 Days Jun, Active Anastrozole 1 MG 1 tablet Orally Once a day Active PROCEDURES No Information RESULTS No Results REASON FOR VISIT med refill MEDICAL (GENERAL) HISTORY Type Description Date Medical [...] 06/06/2015 Surgical History sosa kidney ablasion - [facility] 07/19/2015 Surgical History LUMPECTOMY LEFT BREAST 09/2016 Surgical History right carpal tunnel 04/22 Surgical History Partial mastectomy right side 12/2019 Hospitalization History Surgicaly related Goals Section No Information Health Concerns No Information MEDICAL EQUIPMENT No Information MENTAL STATUS No Information FUNCTIONAL STATUS No Information ASSESSMENTS No Information PLAN OF TREATMENT Medication Medication Name Sig Start Date Stop Date Methenamine Hippurate 1 GM 1 tablet Orally Twice a day for 90 da ys 12 Jun, 2021 Acetaminophen-Codeine #3 300-30 MG 1 tablet as needed Orally every 6 hrs PRN MDD=4 for 30 Days Jun, Macrobid 100 MG 1 capsule with food Orally take one tabl et BID for 7 day(s) Jun, Next Appt Details Provider Name:Natali Nadeem, 2021-07 03:30:00 PM, [address] , , [place], [address], Insurance Providers Payer Name Payer Address Payer Phone Insured Name Patient Relati onship to Insured Coverage Start Date Coverage End Date [employer] [facility] [address] [facility] [phone] CRISTINA LAYNE self
--- OUTSIDE RECORDS SUMMARY | 2021-07-29 09:40 | CCD | Continuity of Care Document ---
Author Author Joann KUO M.D. Organization Unknown Address [address] [place] [address] Phone [phone] Care Team Providers Care Finishing Machine Operator Name Role Phone Spencer Rekha Westfall AUTM [phone] Problems Active Problems Provider Date Cervico-occipital neuralgia Benedict Kuo M.D. Onset: 02/09 Chronic tension-type headache Benedict Kuo M.D. Onset: 05/2018 Chronic intractable migraine without aura Benedict Kuo M.D. Onset: 02/09/2018 Low back pain Benedict Kuo M.D. Onset: 02/09/2018 Myalgia, other site Benedict Kuo M.D. Onset: 01/26/2019 Abnormal gait Benedict Kuo M.D. Onset: 01/26/2019 Malaise and fatigue Benedict Kuo M.D. 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 Onset: 1 11/16/2018 Spondylolysis Benedict Kuo M.D. Onset: 09/15/2019 Social History Type Date Description Comments Sex Unknown Tobacco Use Start: Unknown Light tobacco smoker (10 or fewe r cigarettes/day) Allergies and adverse reactions Active Allergies Criticality Reaction | Severity Comments Date Sulfa Antibiotics Unable to assess criticality 02/09/2018 Medications Active Medications SIG Qnty Indications Ordering Provide r Date Sumatriptan Succinate 100mg Tablet s half or 1 tab by mouth onset of headache, may repeat once after 2 hrs. 9tabs Benedict Kuo M.D. 02/08/2021 Tizanidine HCL 4mg Tablets take half or 1 tablets by mouth three times a day as needed for neck & back pain 90tabs Benedict Kuo M.D. 04/18/2019 Propranolol HCL 40mg Tablets take one tablet by mouth twice a day 60tabs Benedict Kuo M.D. 11/2017 Botox 200Unit Solution Rec inject 155 units intramuscularly into the head, neck, and shoulders every 3 months for migranes, given at prescribers office 1units Benedict Kuo M.D. 02/15/2018 Immunizations Description No Information Available Vital Signs Date Vital Result Comment 02/09/2018 8:27am BP Systolic 125 mmHg BP Diastolic 75 mmHg Heart Rate 74 /min Respiratory Rate 14 /min Height 64 inches 5'4" Weight 170.00 lb BMI (Body Mass Index) 29.2 kg/m2 [place] Body Weight 120 lb Results Description No Information Available Procedures Date Code Description Status 07/24/2021 71136 [place] Muscles Inn ervated By Facial, Trigeminal, Cerv And Acces Completed 07/22/2021 37502 Injection For Nerve Block, Other Peripheral Nerve Or Branch Completed 07/22/202183317 Injection, Single Or Multiple trigger points one or two muscles Completed 03/21/2021 43985 Injection For Nerve Block, Other Peripheral Nerve Or Branch Completed 03/21/2021 29231 Injection, Single Or Multiple trigger points one or two muscles Completed 02/08/2021 87828 Office/Outpatient Established Mo d MDM 30-39 Min Completed Medical Devices Description No Information Available Encounters Type Date Location Provider Dx Diagnosis Office Visit 02/08/2021 10:45a Main office - [place] [facility] G43.719 Chronic migraine w/o aura, intractable, w/o stat migr M54.81 Occipital neuralgia G44.221 Chronic tension-type headach e, intractable M54.2 Cervicalgia M54.5 Low back pain R26.81 Unsteadiness on feet R53.1 Weakness M43.02 Spondylolysis, cervical katheryn on M43.06 Spondylolysis, lumbar region Assessments Date Code Description Provider 07/24/2021 G43.719 Chronic migraine wit hout aura, intractable, without status migrainosus Benedict Kuo M.D. 07/22/2021 M54.81 Occipital neuralgia Benedict Kuo M.D. 07/22/2021 M79.18 Myalgia, other site Benedict Kuo M.D. 03/21/2021 M54.81 Occipital neuralgia Benedict Kuo M.D. 03/21/2021 M79.18 Myalgia, other site Benedict Kuo M.D. 02/08/2021 G43.719 Chronic migraine wit hout aura, intractable, without status migrainosus Benedict Kuo M.D. 02/08/2021 M54.81 Occipital neuralgia Benedict Kuo M.D. 02/08/2021 G44.221 Chronic tension-type headache, i ntractable Benedict Kuo M.D. 02/08/2021 M54.2 Cervicalgia Benedict Kuo M.D. 02/08/2021 M54.5 Low back pain Benedict Kuo M.D. 02/08/2021 R26.81 Unsteadiness on feet Benedict Kuo M.D. 02/08/2021 R53.1 Weakness Benedict Kuo M.D. 02/08/2021 M43.02 Spondylolysis, cervical region zay Kuo M.D. 02/08/2021 M43.06 Spondylolysis, lumbar region Joe Kuo M.D. Plan of Treatment Future Appointment(s):* 09/24/2021 3:15 pm - Benedict Kuo M.D. at [facility] * 08/15/2021 10:30 am - Benedict Kuo M.D. at [facility] Functional Status Description No Information Available Mental Status Description No Information Available Referrals Refer to Dr Reason for Referral Status Appt Date Benedict Kuo M.D. Created [facility] [address] [place] [address] [phone]
--- OUTSIDE RECORDS SUMMARY | 2021-07-29 09:40 | CCD ---
Author Author [facility] Organization [facility] Address Unknown Phone Unavailable Care Team Providers Care Mechanical Product Design Engineer Name Role Phone Natali Silver Unavailable PROBLEMS Type Condition ICD9-CM Code ERP72-QD Code Onset Dates Condition S tatus W/U Status Risk SNOMED Code Notes Problem Migraine G43.909 Active confirmed 56792960 Problem Abnormal mammogram R92.8 Active confirmed 1 52882987 Problem Atrophic vaginitis N95.2 Active confirmed 5 1850049 Problem Reactive depression F32.9 Active confirmed 63143454 Problem 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 Active confirmed 300316163 Problem Balance disorder R26.89 Active confirmed 387 479599 Problem Allergic rhinitis, unspecified J30.9 Active confir med 43825193 Problem Carpal tunnel syndrome of right wrist G56.01 Ac tive confirmed 82634417 Problem Malignant neoplasm of unspecified site of left female breast C50.912 Active confirmed 664188206 Problem Carpal tunnel syndrome G56.00 Active confirmed 37804335 Problem Sacroiliitis M46.1 Active confirmed 5729692 9 Problem Bariatric surgery status Z98.84 Active confirmed 378222263 Problem Hyperlipidemia E78.5 Active confirmed 69264 004 Problem Multiple chronic diseases R69 Active confirmed 3284075783392 Problem Unsteady gait R26.81 Active confirmed 846031 008 Problem Urgency incontinence N39.41 Active confirmed 19783158 Problem Intervertebral disc disorders with radiculopathy , lumbar region M51.16 Active confirmed 463934564524218 Problem Calculus, ureteral N20.1 Active confirmed 3 5457616 Problem Intervertebral disc disorders with radiculopathy , lumbosacral region M51.17 Active confirmed 694780775178583 Problem Hematuria, unspecified R31.9 Active confirmed 76548701 Problem Spinal stenosis of lumbar re gion, unspecified whether neurogenic claudication present M48.061 Active confirmed 44696640 Problem Hidradenitis suppurativa L73.2 Active confirmed 17558017 Problem Cervicalgia M54.2 Active confirmed 64592660 Problem Cystocele, unspecified cystocele location N81.10 Active confirmed 389734980 Problem Incontinence of urine in female R32 Active confi rmed 051326667 Problem Other hyperlipidemia E78.4 Active confirmed 68694512 Problem Myalgia, other site M79.18 Active confirmed 89301181 Problem Other dorsalgia M54.89 Active confirmed 1618 52487 Problem Malignant neoplasm of unspecified site of right female breast C50.911 Active confirmed 532091848 Problem Calculus of kidney N20.0 Active confirmed 9 4686599 Problem Urinary incontinence R32 Active confirmed 931194159 Problem Vitamin D deficiency E55.9 Active confirmed 71486917 Problem Other disorders of calcium metabolism E83.59 Ac tive confirmed 81148434 Problem Essential (primary) hypertension I10 Active conf irmed 97459553 Problem Hypertensive heart disease without heart failure I 11.9 Active confirmed 76797762 Problem Dysphagia, unspecified type R13.10 Active confirmed 84539919 Problem Morbid (severe) obesity due to excess calories E66 .01 Active confirmed 266136061 Problem Nicotine dependence, unspecified, uncomplicated F1 7.200 Active confirmed 416026084 Problem Kidney stones N20.0 Active confirmed 354952 07 Problem Anxiety disorder, unspecified F41.9 Active confirm ed 444313118 Problem Urge incontinence of urine N39.41 Active confirmed 23048271 Problem History of gastric bypass Z98.84 Active confirmed 701556815 Problem Other intervertebral disc degeneration, lumbosacral region M51.37 Active confirmed 36007159 Problem Cigarette nicotine dependence, uncomplicated F17.2 10 Active confirmed 09547441 Problem Acquired hypothyroidism E03.9 Active confirmed 288374921 ALLERGIES Allergen (clinical drug ingredient) Drug/Non Drug Allergy do cumented on EMR Reaction Allergy Type Onset Date Status Sulfa (for allergy use only) Rash Drug Allergy Active kiwi Dyspnea Non Drug Allergy Active ENCOUNTERS from 1962 to 2021-07-17 Encounter Location Date Provider Diagnosis [facility] [phone] [place] [address] Jul, 2021 Natali Silver IMMUNIZATIONS Vaccine Route Administration Date Status Influenza 18 yrs & older Flublok IM Intramuscular Jul 11, 2020 Administered Influenza 18 yrs & older Flublok IM Intramuscular Jul 14, 2018 Administered COVID-19 dose #2 given elsewhere Unspecified Unknown [facility] 2020 Administered COVID-19 dose #1 given elsewhere Unspecified Unknown [facility] 2020 Administered TDAP 0.5mL (Boostrix) IM Intramuscular December 03, 2010 Administe red Influenza 6mo & up Fluzone IM Intramuscular Sep 02, 2016 Admi nistered Influenza 18 yrs & older Flublok IM Intramuscular Jul 10, 2021 Administered Influenza 6mo & up Fluzone Unknown [...] the Methenamine when Macrobid completed Jun, Active Promethazine HCl 25 MG 1 tab(s) Orally qid prn Oct, Active SEROquel 25 MG 1 tablet at bedtime Orally Once a day for 30 day(s) Active Levothyroxine Sodium 100 MCG 1 tablet on an empty stom ach in the morning Orally Once a day Active SEROquel 50 MG 1 tablet at bedtime Orally Once a day for 30 day(s) Active Macrobid 100 MG 1 capsule with food Orally take one tabl et BID for 7 day(s) Pt to start the Methenamine when Macrobid completed Jun, Not-Taking Anastrozole 1 MG 1 tablet Orally Once a day Active Acetaminophen-Codeine #3 300-30 MG 1 tablet as needed Orally every 6 hrs PRN MDD=4 for 30 Days Jul, Active Spravato (84 MG Dose) 28 MG/DEVICE 3 sprays in each no stril Nasally twice weekly Active Chantix Starting Month [place] 0.5 MG X 11 & 1 MG X 42 as directed Orally for 30 days Jul, Active Pristiq 50 MG 1 tablet Orally Once a day for 30 day(s) Active Trospium Chloride 20 MG 1 tablet at bedtime on an em pty stomach Orally Once a day Active Effexor XR 75 MG 1 capsules with food Orally Once a day Active KlonoPIN 1 MG 1/2 tablet Orally bid Active Propranolol HCl 40 MG 1 tablet Orally twice daily Active Methylphenidate HCl 10 MG 1 tablet on empty stomach Orally Twice a da y Active Trintellix 20 MG 1 tablet Orally Once a day Not-Taking busPIRone HCl 10 MG 2 tablets Orally Twice a day Active PROCEDURES No Information RESULTS [...] 06/06/2015 [facility] History [facility] Surgical History LUMPECTOMY LEFT BREAST [...] as directed Orally for 30 days Jul, Acetaminophen-Codeine #3 300-30 MG 1 tablet as needed Orally every 6 hrs PRN MDD=4 for 30 Days Jul, Next Appt Details Provider Name:Mihaela Morales, 1 01:45:00 PM, [address], , [place], [address], Provider Name:Natali Silver, 2021-08 01:45:00 PM, [address], , [place], [address], Provider Name:Jeremiah Camargo, 2021-08-06 3 11:00:00 AM, [address], , [place], [address], Insurance Providers Payer Name Payer Address Payer Phone Insured Name Patient Relati onship to Insured Coverage Start Date Coverage End Date [facility] PLAN [facility] [address] [facility] [phone] CRISTINA LAYNE self
--- OUTSIDE RECORDS SUMMARY | 2021-07-29 09:40 | CCD | Continuity of Care Document ---
Author Author Joann KUO M.D. Organization Unknown Address [address] [place] [address] Phone [phone] Care Team Providers Care Car Dumper Operator Name Role Phone Spencer Rekha Westfall AUTM [phone] Problems Active Problems Provider Date Cervico-occipital neuralgia [...] lb BMI (Body Mass Index) 29.2 kg/m2 [place] Body Weight 120 lb Results Description No Information Available Procedures Date Code Description Status 07/22/2021 42643 Injection For Nerve Block, Other Peripheral Nerve Or Branch Completed 07/22/2021 85974 Injection, Single Or Multiple trigger points one or two muscles Completed 03/21/2021 57535 Injection For Nerve Block, Other Peripheral Nerve Or Branch Completed 03/21/2021 54744 Injection, Single Or Multiple trigger points one or two muscles Completed 02/08/2021 94234 Office/Outpatient Established Mo d MDM 30-39 Min Completed Medical Devices Description No Information Available Encounters Type Date Location Provider Dx Diagnosis Office Visit 02/08/2021 10:45a Main office - [place] G43.719 Chronic migraine w/o aura, intractable, w/o stat migr M54.81 Occipital neuralgia G44.221 Chronic tension-type headach e, intractable M54.2 Cervicalgia M54.5 Low back pain R26.81 Unsteadiness on feet R53.1 Weakness M43.02 Spondylolysis, cervical katheryn on M43.06 Spondylolysis, lumbar region Assessments Date Code Description Provider 07/22/2021 M54.81 Occipital neuralgia Benedict Kuo M.D. [...] Kuo M.D. 02/08/2021 M43.02 Spondylolysis, cervical region Jessie Kuo M.D. 02/08/2021 M43.06 Spondylolysis, lumbar region Joe Kuo M.D. Plan of Treatment Future Appointment(s):* 09/24/2021 3:15 pm - eBnedict Kuo M.D. at [facility] * 08/15/2021 10:30 am - Benedict Kuo M.D. at [facility] Functional Status Description No Information Available Mental Status Description No Information Available Referrals Refer to Reason for Referral Status Appt Date Benedict Kuo M.D. Created [facility] [address] [place] [address] [phone]
--- OUTSIDE RECORDS SUMMARY | 2021-07-29 09:40 | CCD | Continuity of Care Document ---
Author Author Joann KUO M.D. Organization Unknown Address [address] [place] [address] Phone [phone] Care Team Providers Care Sales Attendant Building Materials Name Role Phone Spencer Rekha Westfall AUTM [phone] Problems Active Problems Provider Date Cervico-occipital neuralgia [...] lb BMI (Body Mass Index) 29.2 kg/m2 [place] Body Weight 120 lb Results Description No Information Available Procedures Date Code Description Status 03/21/2021 62655 Injection For Nerve Block, Other Peripheral Nerve Or Branch Completed 03/21/2021 97821 Injection, Single Or Multiple trigger points one or two muscles Completed 02/08/2021 53383 Office/Outpatient Established Mo d MDM 30-39 Min Completed 01/21/2021 52148 [place] Muscles Inn ervated By Facial, Trigeminal, Cerv And Acces Completed Medical Devices Description No Information Available Encounters Type Date Location Provider Dx Diagnosis Office Visit 02/08/2021 10:45a Main office - [place] G43.719 Chronic migraine w/o aura, intractable, w/o stat migr M54.81 Occipital neuralgia G44.221 Chronic tension-type headach e, intractable M54.2 Cervicalgia M54.5 Low back pain R26.81 Unsteadiness on feet R53.1 Weakness M43.02 Spondylolysis, cervical katheryn on M43.06 Spondylolysis, lumbar region Assessments Date Code Description Provider 03/21/2021 M54.81 Occipital neuralgia Benedict Kuo M.D. [...] M43.06 Spondylolysis, lumbar region Joe Kuo M.D. 01/21/2021 G43.719 Chronic migraine wit hout aura, intractable, without status migrainosus Benedict Kuo M.D. Plan of Treatment Future Appointment(s):* 07/24/2021 3:15 pm - Benedict Kuo M.D. at [facility] * 08/15/2021 10:30 am - Benedict Kuo M.D. at [facility] Functional Status Description No Information Available Mental Status Description No Information Available Referrals Refer to Reason for Referral Status Appt Date Benedict Kuo M.D. Created [facility] [address] [place] [address] [phone]
--- OUTSIDE RECORDS SUMMARY | 2021-07-29 09:40 | CCD ---
Author Author [facility] Organization [facility] Address Unknown Phone Unavailable Care Team Providers Care Child Care Education Coordinator Name Role Phone Caro Montague Unavailable PROBLEMS Type Condition ICD9-CM Code RRL21-OS Code Onset Dates Condition S tatus W/U Status Risk SNOMED Code Notes Problem Hypothyroidism, unspecified E03.9 Active confirmed 00905211 Problem Bariatric surgery status Z98.84 Active confirmed 779207046 Problem Carpal tunnel syndrome G56.00 Active confirmed 91912264 Problem Hyperlipidemia E78.5 Active confirmed 45276 004 Problem Multiple chronic diseases R69 Active confirmed 1111666631310 Problem Atrophic vaginitis N95.2 Active confirmed 5 0431901 Problem Migraine G43.909 Active confirmed 76726696 Problem Intervertebral disc disorders with radiculopathy , lumbar region M51.16 Active confirmed 461393101682847 Problem Other dorsalgia M54.89 Active confirmed 1618 17595 Problem Intervertebral disc disorders with radiculopathy , lumbosacral region M51.17 Active confirmed 375046720610901 Problem Hidradenitis suppurativa L73.2 Active confirmed 01372179 Problem Vitamin D deficiency, unspecified E55.9 Active con firmed 24087813 Problem Other hyperlipidemia E78.4 Active confirmed 02108674 Problem Balance disorder R26.89 Active confirmed 387 627737 Problem Carpal tunnel syndrome of right wrist G56.01 Ac tive confirmed 89594846 Problem Kidney stones N20.0 Active confirmed 941113 07 Problem Morbid (severe) obesity due to excess calories E66 .01 Active confirmed 071889077 Problem Dysphagia, unspecified type R13.10 Active confirmed 11874878 Problem Nicotine dependence, unspecified, uncomplicated F1 7.200 Active confirmed 488653433 Problem Other disorders of calcium metabolism E83.59 Ac tive confirmed 27784197 Problem Hematuria, unspecified R31.9 Active confirmed 89861540 Problem Urgency incontinence N39.41 Active confirmed 34877354 Problem Other intervertebral disc degeneration, lumbosacral region M51.37 Active confirmed 20353803 Problem Spinal stenosis of lumbar re gion, unspecified whether neurogenic claudication present M48.061 Active confirmed 49824440 Problem Cystocele, unspecified cystocele location N81.10 Active confirmed 528170450 Problem Myalgia, other site M79.18 Active confirmed 42854002 Problem Calculus, ureteral N20.1 Active confirmed 3 2683715 Problem Cervicalgia M54.2 Active confirmed 52665869 Problem Unsteady gait R26.81 Active confirmed 575610 008 Problem Incontinence of urine in female R32 Active confi rmed 657059821 Problem Urinary incontinence R32 Active confirmed 832094562 Problem 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 Active confirmed 419658370 Problem Calculus of kidney N20.0 Active confirmed 9 4313923 Problem Abnormal mammogram R92.8 Active confirmed 1 19444527 Problem Essential (primary) hypertension I10 Active conf irmed 15556760 Problem Reactive depression F32.9 Active confirmed 01707602 Problem Allergic rhinitis, unspecified J30.9 Active confir med 10181089 Problem Sacroiliitis M46.1 Active confirmed 9363556 9 Problem Malignant neoplasm of unspecified site of left female breast C50.912 Active confirmed 792104217 Problem Anxiety disorder, unspecified F41.9 Active confirm ed 505754998 Problem Malignant neoplasm of unspecified site of right female breast C50.911 Active confirmed 256217551 Problem Urge incontinence of urine N39.41 Active confirmed 96061505 ALLERGIES Allergen (clinical drug ingredient) Drug/Non Drug Allergy do cumented on EMR Reaction Allergy Type Onset Date Status Sulfa (for allergy use only) Rash Drug Allergy Active kiwi Dyspnea Non Drug Allergy Active ENCOUNTERS from 1962 to 2021-06-16 Encounter Location Date Provider Diagnosis [facility] [address] [phone] [place] [address] Jun, Caro Montague IMMUNIZATIONS Vaccine Route Administration Date Status COVID-19 dose #2 given elsewhere Unspecified Unknown [facility] 2020 Administered COVID-19 dose #1 given elsewhere Unspecified Unknown [facility] 2020 Administered Influenza 18 yrs & older [...] 1 tab(s) Orally qid prn Oct, Active Effexor XR 75 MG 1 capsules with food Orally Once a day Active SEROquel 100 MG 1 tablet at bedtime Orally Once a day Active Lorazepam 0.5 MG 1 tab Orally four times daily as needed MDD=4 for 30 Days Jul, Active Acetaminophen-Codeine #3 300-30 MG 1 tablet as needed Orally every 6 hrs PRN MDD=4 for 15 days May, Active tiZANidine HCl 4 MG 1 tablet as needed Orally Daily Active Trospium Chloride 20 MG 1 tablet at bedtime on an em pty stomach Orally Once a day Active Propranolol HCl 40 MG 1 tablet Orally twice daily Active Methenamine Hippurate 1 GM 1 tablet Orally Twice a day for 9 0 days Pt to start the Methenamine when Macrobid completed Jun, Active Omeprazole 40 MG TAKE ONE CAPSULE BY MOUTH TWICE A DAY NEEDED Active Imitrex 50 mg 1 tablet as needed one time Orally Once a day Active Trintellix 20 MG 1 tablet Orally Once a day Not-Taking Levothyroxine Sodium 100 MCG 1 tablet on an empty stom ach in the morning Orally Once a day for 90 day(s) Active Anastrozole 1 MG 1 tablet Orally Once a day Active PROCEDURES No Information RESULTS No Results REASON FOR VISIT urine MEDICAL (GENERAL) HISTORY Type Description Date Medical [...] 06/06/2015 Surgical History sosa kidney ablasion - [facility] 07/19/2015 Surgical History LUMPECTOMY LEFT BREAST 09/2016 Surgical History right carpal tunnel 04/22 Surgical History Partial mastectomy right side 12/2019 Hospitalization History Surgicaly related Goals Section No Information Health Concerns No Information MEDICAL EQUIPMENT No Information MENTAL STATUS No Information FUNCTIONAL STATUS No Information ASSESSMENTS No Information PLAN OF TREATMENT Medication Medication Name Sig Start Date Stop Date Macrobid 100 MG 1 capsule with food Orally take one tabl et BID for 7 day(s) Jun, Methenamine Hippurate 1 GM 1 tablet Orally Twice a day for 90 da ys Jun, Next Appt Details Provider Name:Natali Silver, 2021-07 03:30:00 PM, [address] , , [place], [address], Insurance Providers Payer Name Payer Address Payer Phone Insured Name Patient Relati onship to Insured Coverage Start Date Coverage End Date [facility] PLAN [facility] [address] [facility] [phone] CRISTINA LAYNE self
--- OUTSIDE RECORDS SUMMARY | 2021-07-29 09:41 | CCD ---
Author Author [facility] Organization [facility] Address Unknown Phone Unavailable Care Team Providers Care Health Information Technician Name Role Phone NemesioNatali rivera Unavailable PROBLEMS Type Condition ICD9-CM Code [id number] Code Onset Dates Condition S tatus W/U Status Risk SNOMED Code Notes Problem Hypothyroidism, unspecified E03.9 Active confirmed 50622844 Problem Bariatric surgery status Z98.84 Active confirmed 346685428 Problem Carpal tunnel syndrome G56.00 Active confirmed 63803789 Problem Hyperlipidemia E78.5 Active confirmed 74841 004 Problem Multiple chronic diseases R69 Active confirmed 0441562787832 Problem Atrophic vaginitis N95.2 Active confirmed 5 1910319 Problem Migraine G43.909 Active confirmed 37021598 Problem Intervertebral disc disorders with radiculopathy , lumbar region M51.16 Active confirmed 060914513885292 Problem Other dorsalgia M54.89 Active confirmed 1618 84484 Problem Intervertebral disc disorders with radiculopathy , lumbosacral region M51.17 Active confirmed 761414798377385 Problem Hidradenitis suppurativa L73.2 Active confirmed 32722771 Problem Vitamin D deficiency, unspecified E55.9 Active con firmed 82747371 Problem Other hyperlipidemia E78.4 Active confirmed 76380871 Problem Balance disorder R26.89 Active confirmed 387 098005 Problem Carpal tunnel syndrome of right wrist G56.01 Ac tive confirmed 52795999 Problem Kidney stones N20.0 Active confirmed 445007 07 Problem Morbid (severe) obesity due to excess calories E66 .01 Active confirmed 809214171 Problem Dysphagia, unspecified type R13.10 Active confirmed 00485013 Problem Nicotine dependence, unspecified, uncomplicated F1 7.200 Active confirmed 650938521 Problem Other disorders of calcium metabolism E83.59 Ac tive confirmed 55532852 Problem Hematuria, unspecified R31.9 Active confirmed 65420751 Problem Urgency incontinence N39.41 Active confirmed 94535403 Problem Other intervertebral disc degeneration, lumbosacral region M51.37 Active confirmed 36451229 Problem Spinal stenosis of lumbar re gion, unspecified whether neurogenic claudication present M48.061 Active confirmed 37498072 Problem Cystocele, unspecified cystocele location N81.10 Active confirmed 533575567 Problem Myalgia, other site M79.18 Active confirmed 13492488 Problem Calculus, ureteral N20.1 Active confirmed 3 1357863 Problem Cervicalgia M54.2 Active confirmed 79596182 Problem Unsteady gait R26.81 Active confirmed 295856 008 Problem Incontinence of urine in female R32 Active confi rmed 881435095 Problem Urinary incontinence R32 Active confirmed 395093238 Problem 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 Active confirmed 519476130 Problem Calculus of kidney N20.0 Active confirmed 9 2385519 Problem Abnormal mammogram R92.8 Active confirmed 1 70779624 Problem Essential (primary) hypertension I10 Active conf irmed 24718808 Problem Reactive depression F32.9 Active confirmed 74312390 Problem Allergic rhinitis, unspecified J30.9 Active confir med 99006456 Problem Sacroiliitis M46.1 Active confirmed 0978627 9 Problem Malignant neoplasm of unspecified site of left female breast C50.912 Active confirmed 210443906 Problem Anxiety disorder, unspecified F41.9 Active confirm ed 500605479 Problem Malignant neoplasm of unspecified site of right female breast C50.911 Active confirmed 054534507 Problem Urge incontinence of urine N39.41 Active confirmed 17944987 ALLERGIES Allergen (clinical drug ingredient) Drug/Non Drug Allergy do cumented on EMR Reaction Allergy Type Onset Date Status Sulfa (for allergy use only) Rash Drug Allergy Active kiwi Dyspnea Non Drug Allergy Active ENCOUNTERS from 1962 to 2021-06-07 Encounter Location Date Provider Diagnosis [facility] Hung Jose NICHELLERASHAD STACEY [phone] [place] [address] Jun, Natali Schoenemjessa IMMUNIZATIONS Vaccine Route Administration Date Status COVID-19 dose #2 given elsewhere Unspecified Unknown [facility] 2020 Administered COVID-19 dose #1 given elsewhere Unspecified Unknown [facility] 2020 Administered Influenza 18 yrs & older [...] Notes Start Da te End Date Status Melatonin 5 MG 1 tablet in the evening Orally Once a day Active Promethazine HCl 25 MG 1 tab(s) Orally qid prn 25 Oct, 7 Active Tolterodine Tartrate ER 4 MG TAKE ONE CAPSULE BY MOUTH EVERY DAY Active Effexor XR 75 MG 1 capsules [...] MG 1 tablet Orally twice daily Active Anastrozole 1 MG 1 tablet Orally Once a day Active Omeprazole 40 [...] Once a day for 90 day(s) Active Cetirizine HCl 10 MG 1 tablet [...] 06/06/2015 Surgical History sosa kidney ablasion - [facility] 07/19/2015 Surgical History LUMPECTOMY LEFT BREAST 09/2016 Surgical History right carpal tunnel 04/22 Surgical History Partial mastectomy right side 12/2019 Hospitalization History Surgicaly related Goals Section No Information Health Concerns No Information MEDICAL EQUIPMENT No Information MENTAL STATUS No Information FUNCTIONAL STATUS No Information ASSESSMENTS No Information PLAN OF TREATMENT Next Appt Details Provider Name:Natali Silver 2020-10 - 03:30:00 PM, [address], , [place], [address], Insurance Providers Payer Name Payer Address Payer Phone Insured Name Patient Relati onship to Insured Coverage Start Date Coverage End Date [facility] [employer] [facility] [address] [facility] [phone] CRISTINA LAYNE self
--- OUTSIDE RECORDS SUMMARY | 2021-07-29 09:41 | CCD ---
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 [employer] Name Role Phone Gordy Loja Unavailable PROBLEMS Type Condition ICD9-CM Code [id number]-OB Code Onset Dates Condition S tatus W/U Status Risk SNOMED Code Notes Problem Hypothyroidism, unspecified E03.9 Active confirmed 19057623 Problem Bariatric surgery status Z98.84 Active confirmed 405192785 Problem Carpal tunnel syndrome G56.00 Active confirmed 46897751 Problem Hyperlipidemia E78.5 Active confirmed 38385 004 Problem Multiple chronic diseases R69 Active confirmed 0926023213171 Problem Atrophic vaginitis N95.2 Active confirmed 5 2244466 Problem Migraine G43.909 Active confirmed 26566829 Problem Intervertebral disc disorders with radiculopathy , lumbar region M51.16 Active confirmed 770992861927970 Problem Other dorsalgia M54.89 Active confirmed 1618 30067 Problem Intervertebral disc disorders with radiculopathy , lumbosacral region M51.17 Active confirmed 507514537614148 Problem Hidradenitis suppurativa L73.2 Active confirmed 06461960 Problem Vitamin D deficiency, unspecified E55.9 Active con firmed 09432114 Problem Other hyperlipidemia E78.4 Active confirmed 79847703 Problem Balance disorder R26.89 Active confirmed 387 656921 Problem Carpal tunnel syndrome of right wrist G56.01 Ac tive confirmed 99163086 Problem Kidney stones N20.0 Active confirmed 430299 07 Problem Morbid (severe) obesity due to excess calories E66 .01 Active confirmed 566442300 Problem Dysphagia, unspecified type R13.10 Active confirmed 25462967 Problem Nicotine dependence, unspecified, uncomplicated F1 7.200 Active confirmed 673730023 Problem Other disorders of calcium metabolism E83.59 Ac tive confirmed 75860693 Problem Hematuria, unspecified R31.9 Active confirmed 52115665 Problem Urgency incontinence N39.41 Active confirmed 44004745 Problem Other intervertebral disc degeneration, lumbosacral region M51.37 Active confirmed 13506580 Problem Spinal stenosis of lumbar re gion, unspecified whether neurogenic claudication present M48.061 Active confirmed 12598734 Problem Cystocele, unspecified cystocele location N81.10 Active confirmed 449441615 Problem Myalgia, other site M79.18 Active confirmed 22452813 Problem Calculus, ureteral N20.1 Active confirmed 3 1741169 Problem Cervicalgia M54.2 Active confirmed 03372597 Problem Unsteady gait R26.81 Active confirmed 216786 008 Problem Incontinence of urine in female R32 Active confi rmed 881255393 Problem Urinary incontinence R32 Active confirmed 651867653 Problem 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 Active confirmed 692352142 Problem Calculus of kidney N20.0 Active confirmed 9 2589544 Problem Abnormal mammogram R92.8 Active confirmed 1 45217813 Problem Essential (primary) hypertension I10 Active conf irmed 56474308 Problem Reactive depression F32.9 Active confirmed 36039415 Problem Allergic rhinitis, unspecified J30.9 Active confir med 07827167 Problem Sacroiliitis M46.1 Active confirmed 4941187 9 Problem Malignant neoplasm of unspecified site of left female breast C50.912 Active confirmed 253838956 Problem Anxiety disorder, unspecified F41.9 Active confirm ed 296436684 Problem Malignant neoplasm of unspecified site of right female breast C50.911 Active confirmed 396385316 Problem Urge incontinence of urine N39.41 Active confirmed 13326990 ALLERGIES Allergen (clinical drug ingredient) Drug/Non Drug Allergy do cumented on EMR Reaction Allergy Type Onset Date Status Sulfa (for allergy use only) Rash Drug Allergy Active kiwi Dyspnea Non Drug Allergy Active ENCOUNTERS from 1960 to 2021-05-11 Encounter Location Date Provider Diagnosis [facility] Hung SHIRLEY STACEY [phone] [place] [address] May, Gordy Loja IMMUNIZATIONS Vaccine Route Administration Date Status COVID-19 dose #2 given elsewhere Unspecified Unknown [facility] 2020 Administered COVID-19 dose #1 given elsewhere Unspecified Unknown [facility] 2020 Administered Influenza 18 yrs & older [...] Notes Start Da te End Date Status Acetaminophen-Codeine #3 300-30 MG 1 tablet as needed Orally every 6 hrs PRN MDD=4 for 15 days May, Active Tolterodine Tartrate ER 4 MG TAKE ONE CAPSULE BY MOUTH EVERY DAY Active Melatonin 5 MG 1 tablet in the evening Orally Once a day Active SEROquel 100 MG 1 tablet at bedtime Orally Once a day Active Promethazine HCl 25 MG 1 tab(s) Orally qid prn 25 Oct, Active Anastrozole 1 MG 1 tablet Orally Once a day Active Imitrex 50 mg 1 tablet as needed one time Orally Once a day Active Cetirizine HCl 10 MG 1 tablet Orally Once a day Active Effexor XR 75 MG 1 capsules with food Orally Once a day Active Trintellix 20 MG 1 tablet Orally Once a day Active Levothyroxine Sodium 100 MCG 1 tablet on an empty stom ach in the morning Orally Once a day Active Propranolol HCl 40 MG 1 tablet Orally twice daily Active Omeprazole 40 MG TAKE ONE CAPSULE BY MOUTH TWICE A DAY NEEDED Active Lorazepam 0.5 MG 1 tab Orally four times daily as needed MDD=4 for 30 Days Jul, Active tiZANidine HCl 4 MG 1 tablet as needed Orally Daily Active Trospium Chloride 20 MG 1 tablet at bedtime on an em pty stomach Orally Once a day Active PROCEDURES No Information RESULTS No Results REASON FOR VISIT refill tylenol # 3 MEDICAL (GENERAL) HISTORY Type Description Date Medical [...] 06/06/2015 Surgical History sosa kidney ablasion - [facility] 07/19/2015 Surgical History LUMPECTOMY LEFT BREAST 09/2016 Surgical History right carpal tunnel 04/22 Surgical History Partial mastectomy right side 12/2019 Hospitalization History Surgicaly related Goals Section No Information Health Concerns No Information MEDICAL EQUIPMENT No Information MENTAL STATUS No Information FUNCTIONAL STATUS No Information ASSESSMENTS No Information PLAN OF TREATMENT Medication Medication Name Sig Start Date Stop Date Imitrex 50 mg 1 tablet as needed one time Orally Once a day Lorazepam 0.5 MG 1 tab Orally four times daily as needed MDD=4 for 30 Days Jul, Anastrozole 1 MG 1 tablet Orally Once a day Promethazine HCl 25 MG 1 tab(s) Orally qid prn Oct, Effexor XR 75 MG 1 capsules with food Orally Once a day Melatonin 5 MG 1 tablet in the evening Orally Once a day Acetaminophen-Codeine #3 300-30 MG 1 tablet as needed Orally every 6 hrs PRN MDD=4 for 15 days May, Trintellix 20 MG 1 tablet Orally Once a day SEROquel 100 MG 1 tablet at bedtime Orally Once a day Propranolol HCl 40 MG 1 tablet Orally twice daily tiZANidine HCl 4 MG 1 tablet as needed Orally Daily Cetirizine HCl 10 MG 1 tablet Orally Once a day Levothyroxine Sodium 100 MCG 1 tablet on an empty stom ach in the morning Orally Once a day Omeprazole 40 MG TAKE ONE CAPSULE BY MOUTH TWICE A DAY NEEDED Tolterodine Tartrate ER 4 MG TAKE ONE CAPSULE BY MOUTH EVERY DAY Trospium Chloride 20 MG 1 tablet at bedtime on an em pty stomach Orally Once a day Next Appt Details Provider Name:Natali Silver, 2021-07 03:30:00 PM, [address] , , [place], [address], Insurance Providers Payer Name Payer Address Payer Phone Insured Name Patient Relati onship to Insured Coverage Start Date Coverage End Date [facility] [employer] [facility] [address] [facility] [phone] CRISTINA LAYEN self
--- OUTSIDE RECORDS SUMMARY | 2021-07-29 09:41 | CCD | Summary of Care ---
Author Author [facility] Organization [facility] Address Unknown Phone Unavailable Care Team Providers Care Cruise Coordinator Name Role Phone Rekha Palmer ART PROFESSOR PCP Reason for Referral * Diagnostic Radiology (Routine) Referred By Contact Referred To Contact Status Reason Specialty Diagnoses / Procedures Muna Wagner NP [address] [place] [address] Email: [email or web address] Authorized Radiology Diagnoses Dense breasts P rocedures US Breast Including Axilla Complete Bilateral Electronically signed by Muna Wagner NP at * Diagnostic Radiology (Routine) Referred By Contact Referred To Contact Status Reason Specialty Diagnoses / Procedures Muna Wagner NP [address] [place] [address] Email: [email or web address] Authorized Radiology Diagnoses Screening mammogram, encounter for P rocedures Mammo Digital Screen Bilateral Electronically signed by Muna Wagner NP at Reason for Visit * Reason Comments Follow-up breast fol Encounter Details Care Team Description Date Type Department Muna Wagner NP [address] [place] [address] [phone] Screening mammogram, encounter for (Prim teresita Dx); Dense breasts; Ductal carcinoma in situ (DCIS) of right breast; Ductal carcinoma in situ (DCIS) of left breast 06/14/2021 Office Visit [facility] [address] [place] [address] Allergies Comments Active Allergy Reactions Severity Noted Date Adhesive Tape Rash Low 12/19/2019 Nickel Rash Low 12/19/2019 Kiwiberry- farr the back of her throat Metal-itching Other Other (See 08/08/2016 Comments) Sulfa Antibiotics Rash Low 08/08/2016 documented as of this encounter (statuses as of 06/14/2021) Medications End Date Status Medication Sig Dispensed Refills Start Date Active levothyroxine (SYNTHROID, TAKE ONE 1 07/05 LEVOTHROID) 100 MCG TABLET BY 6 tablet MOUTH EVERY MORNING ON AN EMPTY STOMACH Active sumatriptan (IMITREX) 50 TAKE ONE 2 07/05 MG tablet TABLET BY 6 MOUTH ONE TIME NEEDED Active promethazine (PHENERGAN) TAKE ONE 1 06/25 25 MG tablet TABLET BY 6 MOUTH FOUR TIMES A DAY NEEDED Active oxybutynin (DITROPAN) 5 takes 3 tabs 3 MG tablet daily 8 Active venlafaxine (EFFEXOR-XR) Take 75 mg by 1 03/17 150 MG 24 hr capsule mouth daily 8 Active omeprazole (PRILOSEC) 40 Take 1 3 03/18 MG capsule capsule by 8 mouth Two Times Daily Active lorazepam (ATIVAN) 2 MG Take 0.5 mg 0 tablet by mouth Four 8 times daily as needed Active propranolol (INDERAL) 40 40 mg Two 0 03/08 MG tablet Times Daily 9 Active QUEtiapine Fumarate 100 Take 100 mg 0 MG Oral Tablet (SEROQUEL) by mouth nightly Active Esketamine HCl (84 MG by Nasal 0 Dose) 28 MG/DEVICE Nasal route once Solution Therapy Pack Once a week (SPRAVATO) 06/24/2021 Active Anastrozole 1 MG Oral Take 1 tablet 90 tablet 3 Tablet by mouth 1 (ARIMIDEX)Indications: daily Ductal carcinoma in situ (DCIS) of right breast 06/14/2021 Discontinued (No longer need ed) Vortioxetine HBr Take by mouth 0 (TRINTELLIX PO) daily documented as of this encounter (statuses as of 06/14/2021) Active Problems Problem Noted Date History of left breast cancer 12/08/2019 Malignant neoplasm of upper-outer quadrant of right b reast in female, 12/08/2019 estrogen receptor positive Cancer Staging: Clinical stage from 12/07: Stage 0 (cTis (DCIS), cN0, cM0, G3, ER+, LA+) - Signed by Giulia duncan MD on 12/08/2019 Pathologic stage from 01/03/2020: Stage Unknown (pTis (DCIS), pNX, cM0, G3, ER+, LA+, HER2: Not Assessed) - Signed by Giulia Carvalho MD on 01/10/2020 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 Added automatically from request for ford [facility] [id number] Left breast mass 09/24/2017 Breast fibroadenoma, right 09/24/2017 Dense breast 03/24/2017 Encounter for smoking cessation counseling 7 Encounter for monitoring tamoxifen therapy 7 Ductal carcinoma in situ (DCIS) of left breast 08/09 Cancer Staging: Pathologic stage from 11/20/2015: Stage 0 (Tis (DCIS), N0, cM0) - Signed by Giulia Carvalho MD on 09/04 Pathologic: Unsigned Family history of breast cancer 08/09/2016 Depression 08/09/2016 HTN (hypertension) 08/09/2016 Migraine 08/09/2016 Anxiety 08/09/2016 Obesity (BMI 30.0-34.9) 08/09/2016 Tobacco abuse 08/09/2016 documented as of this encounter (statuses as of 06/14/2021) Social History Date Tobacco Use Types Packs/Day Years Used Quit: 03/05/2019 Light Tobacco Smoker Cigarettes 0 10 Smokeless Tobacco: Current User Comments Alcohol Use Standard Drinks/Week No 0 (1 standard drink = 0.6 o z pure alcohol) Sex Assigned at Date Recorded Female 03/30/2018 1:03 PM EDT Date Recorded COVID-19 Exposure Response 06/14/2021 9:22 AM EDT In the last month, have you been in contact with No / Unsure someone who was confirmed or suspected to have Coronavirus / COVID-19? documented as of this encounter Last Filed Vital Signs Reading Time Taken Comments Vital Sign 110/78 06/14/2021 10:38 AM EDT Blood Pressure 58 06/14/2021 10:38 AM EDT Pulse 36.9 C (98.4 F) 06/14/2021 10:38 AM EDT Temperature - - Respiratory Rate - - Oxygen Saturation - - Inhaled Oxygen Concentration 79.8 kg (176 lb) 06/14/2021 10:38 AM EDT Weight 162.6 cm (5' 4.02") 06/14/2021 10:38 AM EDT Height 30.2 06/14/2021 10:38 AM EDT Body Mass Index documented in this encounter Progress Notes * Muna Wagner NP - 06/14/2021 11:00 AM EDT DIAGNOSIS: August 2016 - LEFT breast DCIS, ER positive, LA negative September 2017 - Right breast fibroadenoma October 2019 - RIGHT breast DCIS, ER/LA positive HISTORY: Joann Arzola is a 60 y.o. woman with a history of left breast DCIS in 2015 who is seen in the office today for routine follow up. She has a history of left breast DCIS, ER positive and LA negative, and underwen t a lumpectomy in August 2016. This is followed by adjuvant radiation therapy in [place]. She started Tamoxifen in November 2016 and seems to tolerate this well. She also underwent a right breast biopsy in September 2017 and was found to have a fibroadenoma. She presented in October 2019 and was found to have abnormal breast imaging. Sh e underwent a 2 site breast biopsy. In the right breast at the 10 o'clock posit ion, pathology showed DCIS, grade 3, ER/LA positive. At the 1:00 location in th e right breast she was found to have a biopsy-proven fibroadenoma. She underwen t a lumpectomy with Dr. Carvalho in December 2019 and was found to have positive margins , she required reexcision with further pathology showed no evidence of further D CIS. Her tamoxifen was changed to anastrozole. She underwent adjuvant RT viraj t completed in March 2020. [facility] genetic testing negative for pathologically significant mutation. Family history of breast cancer in 2 aunts and 4 cousins Age of menarche was 14. Age of menopause was 42 when had hysterectomy but still has ovaries, so true date of menopause unknown. She admits to previous hormonal therapy. She has 2 children. Age of first live was 23. She barely breast f eed. Overall she feels well and denies any complaints. She perform routine self-breas t exam and denies noting any palpable or visual changes. She denies any nipple discharge. MEDICATIONS: Prior to Admission medications Medication Sig Start Date End Date Taking? Authorizing Provider Anastrozole 1 MG Oral Tablet (ARIMIDEX) Take 1 tablet by mouth daily 03/26/21 9/2 Yes Carol Ann Knox, ARI Esketamine HCl (84 MG Dose) 28 MG/DEVICE Nasal Solution Therapy Pack (SPRAVATO) by Nasal route once Once a week Yes Historical Provider, levothyroxine (SYNTHROID, LEVOTHROID) 100 MCG tablet TAKE ONE TABLET BY MOUTH EV LORRIE MORNING ON AN EMPTY STOMACH 07/22/16 Yes Historical Provider, lorazepam (ATIVAN) 2 MG tablet Take 0.5 mg by mouth Four times daily as needed 02/22/18 Yes Historical Provider, omeprazole (PRILOSEC) 40 MG capsule Take 1 capsule by mouth Two Times Daily 03/18 Yes Historical Provider, oxybutynin (DITROPAN) 5 MG tablet takes 3 tabs daily 01/26/18 Yes Historical Pro viderMD promethazine (PHENERGAN) 25 MG tablet TAKE ONE TABLET BY MOUTH FOUR TIMES A DAY NEEDED 06/25/16 Yes Historical Provider, propranolol (INDERAL) 40 MG tablet 40 mg Two Times Daily 03/08/19 Yes Historical Provider, QUEtiapine Fumarate 100 MG Oral Tablet (SEROQUEL) Take 100 mg by mouth nightly Yes Historical Provider, sumatriptan (IMITREX) 50 MG tablet TAKE ONE TABLET BY MOUTH ONE TIME NEEDED 1 Yes Historical Provider, venlafaxine (EFFEXOR-XR) 150 MG 24 hr capsule Take 75 mg by mouth daily 03/17/18 Yes Historical Provider, PHYSICAL EXAMINATION: Physical exam reveals a comfortable woman who appears her stated age and chats freely. Blood pressure 110/78, pulse (!) 58, temperature 36.9 C (98.4 F), height 1.626 m (5' 4.02"), weight 79.8 kg (176 lb), not currently . Breasts are relatively symmetric. Nipples are everted. There is no evident spont aneous nipple discharge. Breast tissue is overal nodular and dense without joaquin s. She has a well healed surgical scar in the right upper outer quadrant and lef t breast around the areola and in the lower inner quadrant. There eis no sign of recurrent disease. There is no asymmetric skin dimpling or retraction. There a re no suspicious skin lesions. There are no palpable axillary adenopathy RADIOGRAPHIC DATA: Right mammogram was performed in the office today and showed FINDINGS: The breasts are extremely dense, which lowers the sensitivity of mammography (ca tegory D). Post lumpectomy changes are seen in the upper breast posteriorly. Biopsy clip markers are seen in the breast. No abnormal mass, suspicious calcifications, or new architectural distortion is identified. IMPRESSION: 1. Benign right mammogram. 2. No evidence for malignancy. 3. Recommend right mammogram in 6 months for postlumpectomy surveillance, at wh ich point the patient will be due for screening left mammogram. BI-RADS 2 - BENIGN FINDINGS ASSESSMENT AND PLAN: This is a 60 y.o. woman with history of left breast DCIS, status post lumpectomy and radiation therapy in August 2016 and right breast fibroadenoma that was b iopsied in September 2017. She was found to have a right DCIS in October 2019, s tatus post lumpectomy with reexcision, radiation, and currently on anastrozole. Based on today's clinical breast exam and breast imaging, there is no overt sign of malignancy. We reviewed NCCN recommended follow up guidelines. She will be due for annual b ilateral mammogram. At the same time we will plan for complete bilateral breat u ltrasound due to her category D breast density. She will return to the office in 6 months for clinical breast exam and breast i maging. She will contact us should any problems or questions relating to her cholo ast health arise in the interim. documented in this encounter Plan of Treatment Care Team Description Date Type Specialty Yvrose Oden MD [address] [place] [address] 08/14/2021 Office Visit Hematology and Onco logy 12/05/2021 Appointment Radiology 12/05/2021 Appointment Radiology Gwendolyn Blanchard NP [address] [place] [address] 12/05/2021 Office Visit Breast Surgery Order Schedule Name Type Priority Associated Diag noses Expected: 06/14/2021, Expires: 2 Mammo Digital Screen Imaging Routine Screening mammogram, Bilateral encounter for Expected: 06/14/2021, Expires: 2 US Breast Including Imaging Routine Dense michael sts Axilla Complete Bilateral Health Maintenance Due Date Last Done Comments Hepatitis C Screening (B. 1960 [id number]) MMR Vaccines (1 of 1 - 1961 Standard series) Varicella Vaccines (1 of 1961 2 - 2-dose childhood series) Pneumococcal Vaccine: 65+ 1968 Years (1 of 4 - PCV13) Pneumococcal Vaccine: 1968 Pediatrics (0 to 5 Years) and At-Risk Patients (6 to 64 Years) (1 of 4 - PCV13) HIV Screening 1975 Cervical Cancer Screening 1983 5 years DTaP,Tdap,and Td Vaccines 12/31/2010 12/03/2010 (2 - Td or Tdap) Colon Cancer Screening 10 2012 yrs Influenza Vaccine 07/05/2021 07/11/2020, 07/14/2018, 09/02/2016, Additional history exists Breast Cancer Screening 2 06/14/2023 06/14/2021, years 06/14/2021, 12/11/2020, Additional history exists HIB Vaccines Aged Out No longer eligible based on patient's age to complete this topic Hepatitis A Vaccines Aged Out No longer eligibl e based on patient's age to complete this topic Hepatitis B Vaccines Aged Out No longer eligibl e based on patient's age to complete this topic IPV Vaccines Aged Out No longer eligible based on patient's age to complete this topic documented as of this encounter Implants Device Identifier Shelf Expiration Date Model / Serial / L ot Implanted Type Area Manufactur er 06/08/2018 [id number] / / [id number] [facility] [place] - [id number] HOLOGIC Implanted: Qty: 1 on 09/30/2017 by Padilla Stern MD at [facility] INPATIENT Description:10:00 06/01/2022 [id number] / / [id number] Kami- Heart Marker Clip-Us - Right: Breast BARD [id number] MEDICAL Implanted: Qty: 1 on 11/30/2019 by Padilla Stern MD at [facility] INPATIENT Description:10:00 8CMFN 04/20/2020 [id number] / / [id number] [employer]- S-Randy- 2s - [id number] Right: Breast HOLO GIC Implanted: Qty: 1 on 11/30/2019 by Padilla Stern MD at [facility] INPATIENT Description:1:00 3 CMFN 03/07/2020 [id number] / / [id number] [employer] 7.5cm Del Ndl Reflect - MERIT [id number] MEDICAL Implanted: Qty: 1 on 12/22/2019 by Zunilda Stack MD at [facility] INPATIENT Description:Right breast 10 oclock 8 cmfn documented as of this encounter Results Not on filedocumented in this encounter Visit Diagnoses Diagnosis Screening mammogram, encounter for - Pr imary Dense breasts Inconclusive mammogram Ductal carcinoma in situ (DCIS) of righ t breast Ductal carcinoma in situ (DCIS) of left breast documented in this encounter
--- OUTSIDE RECORDS SUMMARY | 2021-07-29 09:41 | CCD ---
Author Author [facility] Organization [facility] Address Unknown Phone Unavailable Care Team Providers Care Boilerhouse Mechanic Name Role Phone NemesioNatali rivera Unavailable PROBLEMS Type Condition ICD9-CM Code [id number] Code Onset Dates Condition S tatus W/U Status Risk SNOMED Code Notes Problem Hypothyroidism, unspecified E03.9 Active confirmed 30004499 Problem Bariatric surgery status Z98.84 Active confirmed 162765748 Problem Carpal tunnel syndrome G56.00 Active confirmed 26080455 Problem Hyperlipidemia E78.5 Active confirmed 51599 004 Problem Multiple chronic diseases R69 Active confirmed 6977306075926 Problem Atrophic vaginitis N95.2 Active confirmed 5 5904231 Problem Migraine G43.909 Active confirmed 09645045 Problem Intervertebral disc disorders with radiculopathy , lumbar region M51.16 Active confirmed 760008607751030 Problem Other dorsalgia M54.89 Active confirmed 1618 31609 Problem Intervertebral disc disorders with radiculopathy , lumbosacral region M51.17 Active confirmed 472144771052312 Problem Hidradenitis suppurativa L73.2 Active confirmed 16944488 Problem Vitamin D deficiency, unspecified E55.9 Active con firmed 31462669 Problem Other hyperlipidemia E78.4 Active confirmed 53316148 Problem Balance disorder R26.89 Active confirmed 387 808226 Problem Carpal tunnel syndrome of right wrist G56.01 Ac tive confirmed 03019444 Problem Kidney stones N20.0 Active confirmed 739008 07 Problem Morbid (severe) obesity due to excess calories E66 .01 Active confirmed 605750400 Problem Dysphagia, unspecified type R13.10 Active confirmed 35215746 Problem Nicotine dependence, unspecified, uncomplicated F1 7.200 Active confirmed 393246948 Problem Other disorders of calcium metabolism E83.59 Ac tive confirmed 00633077 Problem Hematuria, unspecified R31.9 Active confirmed 77917809 Problem Urgency incontinence N39.41 Active confirmed 82202579 Problem Other intervertebral disc degeneration, lumbosacral region M51.37 Active confirmed 81693014 Problem Spinal stenosis of lumbar re gion, unspecified whether neurogenic claudication present M48.061 Active confirmed 80344767 Problem Cystocele, unspecified cystocele location N81.10 Active confirmed 795087936 Problem Myalgia, other site M79.18 Active confirmed 74790622 Problem Calculus, ureteral N20.1 Active confirmed 3 6057037 Problem Cervicalgia M54.2 Active confirmed 97279082 Problem Unsteady gait R26.81 Active confirmed 386779 008 Problem Incontinence of urine in female R32 Active confi rmed 741315929 Problem Urinary incontinence R32 Active confirmed 527011734 Problem 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 Active confirmed 366265906 Problem Calculus of kidney N20.0 Active confirmed 9 2232770 Problem Abnormal mammogram R92.8 Active confirmed 1 58280754 Problem Essential (primary) hypertension I10 Active conf irmed 62935694 Problem Reactive depression F32.9 Active confirmed 14927573 Problem Allergic rhinitis, unspecified J30.9 Active confir med 26027437 Problem Sacroiliitis M46.1 Active confirmed 8886139 9 Problem Malignant neoplasm of unspecified site of left female breast C50.912 Active confirmed 719503440 Problem Anxiety disorder, unspecified F41.9 Active confirm ed 669554966 Problem Malignant neoplasm of unspecified site of right female breast C50.911 Active confirmed 551308580 Problem Urge incontinence of urine N39.41 Active confirmed 99761525 ALLERGIES Allergen (clinical drug ingredient) Drug/Non Drug Allergy do cumented on EMR Reaction Allergy Type Onset Date Status Sulfa (for allergy use only) Rash Drug Allergy Active kiwi Dyspnea Non Drug Allergy Active ENCOUNTERS from 1960 to 2021-05-29 Encounter Location Date Provider Diagnosis [facility] Hung Jose NICHELLERASHAD STACEY [phone] [place] [address] May, Natali Silver IMMUNIZATIONS Vaccine Route Administration Date Status COVID-19 dose #2 given elsewhere Unspecified Unknown [facility] 2020 Administered COVID-19 dose #1 given elsewhere Unspecified Unknown [facility] 2020 Administered Influenza 18 yrs & [...] Information RESULTS No Results REASON FOR VISIT script MEDICAL (GENERAL) HISTORY Type Description Date Medical [...] Surgical History sosa kidney ablasion - [facility] 07/19/2015 Surgical History LUMPECTOMY LEFT [...] Once a day Next Appt Details Provider Name:Caro Montague, 02:30:00 PM, [address], , [place], [address], Provider Name:Natali Silver, 2021-07 03:30:00 PM, [address], , [place], [address], Insurance Providers Payer Name Payer Address Payer Phone Insured Name Patient Relati onship to Insured Coverage Start Date Coverage End Date [facility] [facility] [address] [facility] [id number] CRISTINA LAYNE self
--- OUTSIDE RECORDS SUMMARY | 2021-07-29 09:41 | CCD ---
Author Author [facility] Organization [facility] Address Unknown Phone Unavailable Care Team Providers Care Head Bone Grinder Name Role Phone Caro Montague Unavailable PROBLEMS Type Condition ICD9-CM Code PQE77-DN Code Onset Dates Condition S tatus W/U Status Risk SNOMED Code Notes Problem Hypothyroidism, unspecified E03.9 Active confirmed 88790206 Problem Bariatric surgery status Z98.84 Active confirmed 141509329 Problem Carpal tunnel syndrome G56.00 Active confirmed 17240860 Problem Hyperlipidemia E78.5 Active confirmed 90886 004 Problem Multiple chronic diseases R69 Active confirmed 7792355886016 Problem Atrophic vaginitis N95.2 Active confirmed 5 3292728 Problem Migraine G43.909 Active confirmed 54101057 Problem Intervertebral disc disorders with radiculopathy , lumbar region M51.16 Active confirmed 435521658482242 Problem Other dorsalgia M54.89 Active confirmed 1618 56851 Problem Intervertebral disc disorders with radiculopathy , lumbosacral region M51.17 Active confirmed 798836556273289 Problem Hidradenitis suppurativa L73.2 Active confirmed 14050183 Problem Vitamin D deficiency, unspecified E55.9 Active con firmed 56947124 Problem Other hyperlipidemia E78.4 Active confirmed 67543202 Problem Balance disorder R26.89 Active confirmed 387 484872 Problem Carpal tunnel syndrome of right wrist G56.01 Ac tive confirmed 89964791 Problem Kidney stones N20.0 Active confirmed 210022 07 Problem Morbid (severe) obesity due to excess calories E66 .01 Active confirmed 156624566 Problem Dysphagia, unspecified type R13.10 Active confirmed 36541877 Problem Nicotine dependence, unspecified, uncomplicated F1 7.200 Active confirmed 464891019 Problem Other disorders of calcium metabolism E83.59 Ac tive confirmed 79793349 Problem Hematuria, unspecified R31.9 Active confirmed 89828228 Problem Urgency incontinence N39.41 Active confirmed 37277874 Problem Other intervertebral disc degeneration, lumbosacral region M51.37 Active confirmed 33840744 Problem Spinal stenosis of lumbar re gion, unspecified whether neurogenic claudication present M48.061 Active confirmed 47742511 Problem Cystocele, unspecified cystocele location N81.10 Active confirmed 096133003 Problem Myalgia, other site M79.18 Active confirmed 80752726 Problem Calculus, ureteral N20.1 Active confirmed 3 8706185 Problem Cervicalgia M54.2 Active confirmed 54317370 Problem Unsteady gait R26.81 Active confirmed 586343 008 Problem Incontinence of urine in female R32 Active confi rmed 625901335 Problem Urinary incontinence R32 Active confirmed 382945690 Problem 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 Active confirmed 314051709 Problem Calculus of kidney N20.0 Active confirmed 9 4918479 Problem Abnormal mammogram R92.8 Active confirmed 1 53842333 Problem Essential (primary) hypertension I10 Active conf irmed 14679369 Problem Reactive depression F32.9 Active confirmed 59802177 Problem Allergic rhinitis, unspecified J30.9 Active confir med 37475749 Problem Sacroiliitis M46.1 Active confirmed 3003169 9 Problem Malignant neoplasm of unspecified site of left female breast C50.912 Active confirmed 417644315 Problem Anxiety disorder, unspecified F41.9 Active confirm ed 612348449 Problem Malignant neoplasm of unspecified site of right female breast C50.911 Active confirmed 165596940 Problem Urge incontinence of urine N39.41 Active confirmed 57180394 ALLERGIES Allergen (clinical drug ingredient) Drug/Non Drug Allergy do cumented on EMR Reaction Allergy Type Onset Date Status Sulfa (for allergy use only) Rash Drug Allergy Active kiwi Dyspnea Non Drug Allergy Active ENCOUNTERS from 1960 to 2021-06-11 Encounter Location Date Provider Diagnosis [facility] [phone] [place] [address] Jun, Caro Montague Ureteral Stone 592.1 ; Hematuria, unspec ified R31.9 ; Incontinence of urine in female R32 ; Kidney stone 592.0 and Pre-op exam Z01.818 IMMUNIZATIONS Vaccine Route Administration Date Status Influenza 18 yrs & older Flublok IM Intramuscular Jul 11, 2020 Administered Influenza 18 yrs & older Flublok IM Intramuscular Jul 14, 2018 Administered TDAP 0.5mL (Boostrix) IM Intramuscular December 03, 2010 Administe red COVID-19 dose #2 given elsewhere Unspecified Unknown [facility] 2020 Administered COVID-19 dose #1 given elsewhere Unspecified Unknown [facility] 2020 Administered Influenza 6mo & up Fluzone IM Intramuscular [...] MG 1 tab(s) Orally qid prn Oct, 7 Active Tolterodine Tartrate ER 4 [...] Information RESULTS No Results REASON FOR VISIT discuss treatment with [facility]. MEDICAL (GENERAL) HISTORY Type Description Date Medical [...] 06/06/2015 Surgical History sosa kidney ablasion - [facility] 07/19/2015 Surgical History LUMPECTOMY LEFT BREAST 09/2016 Surgical History right carpal tunnel 04/22 Surgical History Partial mastectomy right side 12/2019 Hospitalization History Surgicaly related Goals Section No Information Health Concerns No Information MEDICAL EQUIPMENT No Information MENTAL STATUS No Information FUNCTIONAL STATUS No Information ASSESSMENTS Encounter Date Diagnosis Assessment Notes Treatment Notes Treatm ent Clinical Notes Jun, Ureteral Stone (ICD9-CM - 592.1) Plan -After discussing all different options, alternatives, risk, benefits it was decided to remove her left neurostimulator electrode and neurostimulator device and replaced these with a InterStim mini rechargeable battery. Informed consent was obtained and surgical consent was signed. Preoperative labs were ordered. -Send urine for microscopic urinalysis and culture and sensitivity and if she does have another infection consider methenamine At least 40 minutes was spent today with greater than 50% of this in gnyg-cc-hclj consultation Jun, Hematuria, unspecified (ICD-10 - R31.9) Jun, Incontinence of urine in female (ICD-10 - R32) Jun, Kidney stone (ICD9-CM - 592.0) Jun, Pre-op exam (ICD-10 - Z01.818) PLAN OF TREATMENT Treatment Notes Assessment Notes Clinical Notes Ureteral Stone Plan-After discussin g all different options, alternatives, risk, benefits it was decided to remove her left neurostimulator electrode and neurostimulator device and replaced these with a InterStim mini rechargeable battery. Informed consent was obtained and surgical consent was signed. Preoperative labs were ordered.-Send urine for microscopic urinalysis and culture and sensitivity and if she does have another infection consider methenamineAt least 40 minutes was spent today with greater than 50% of this in njlm-cc-[id number] consultation Treatment Notes Test Name Order Date URINE CULTURE 2021-06-07 Microscopic Only Urine (Auto) 2021-06-07 uro PVR (Post Voiding Residual) Bladder Scan 3 CBC - Complete Blood Count 2021-06-07 Basic Metabolic Profile (BMP) 2021-06-07 Electrocardiogram (EKG) 2021-06-07 Next Appt Details Provider Name:Natali Silver, 2021-07 03:30:00 PM, SarahPaula IBARRA, , [place], [address], Insurance Providers Payer Name Payer Address Payer Phone Insured Name Patient Relati onship to Insured Coverage Start Date Coverage End Date [facility] [address] [facility] [phone] CRISTINA LAYNE self
--- OUTSIDE RECORDS SUMMARY | 2021-07-29 09:41 | CCD | Summary of Care ---
Author Author [facility] Organization [facility] Address Unknown Phone Unavailable Care Team Providers Care Quality Control Tester Name Role Phone Rekha Palmer COUNTER CHECKER PCP Reason for Referral * Diagnostic Radiology (Routine) Referred By Contact Referred To Contact Status Reason Specialty Diagnoses / Procedures Muna Wagner NP [address] [place] [address] Email: [email or web address] Authorized Radiology Diagnoses Malignant neoplasm of upper-outer quadrant of right breast in female, estrogen receptor positive P rocedures Mammo Digital Diagnostic Right Electronically signed by Muna Wagner NP at Reason for Visit * Diagnostic Radiology (Routine) Referred By Contact Referred To Contact Status Reason Specialty Diagnoses / Procedures Muna Wagner NP [address] [place] [address] Email: [email or web address] Authorized Radiology Diagnoses Malignant neoplasm of upper-outer quadrant of right breast in female, estrogen receptor positive P rocedures Mammo Digital Diagnostic Right Encounter Details Care Team Description Date Type Department Malignant neoplasm of upper- outer quadrant of right breast in female, estrogen receptor positive 06/14/2021 [facility] Radiology Women's [facility] maging Encounter [address] [place] [address] Allergies Comments Active Allergy Reactions Severity Noted Date Adhesive Tape Rash Low 12/19/2019 Nickel Rash Low 12/19/2019 Kiwiberry- farr the back of her throat Metal-itching Other Other (See 08/08/2016 Comments) Sulfa Antibiotics Rash Low 08/08/2016 documented as of this encounter (statuses as of 06/15/2021) Medications End Date Status Medication Sig Dispensed [...] carcinoma in situ (DCIS) of right breast documented as of this encounter (statuses as of 06/15/2021) Active Problems Problem Noted Date History of left breast cancer 12/08/2019 Malignant neoplasm of upper-outer quadrant of right b reast in female, 12/08/2019 estrogen receptor positive Cancer Staging: Clinical stage from 12/07: Stage 0 (cTis (DCIS), cN0, cM0, G3, ER+, MT+) - Signed by Giulia duncan MD on 12/08/2019 Pathologic stage from 01/03/2020: Stage Unknown (pTis (DCIS), pNX, cM0, G3, ER+, MT+, HER2: Not Assessed) - Signed by Giulia Carvalho MD on 01/10/2020 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 Added automatically from request for logan geller [id number] Left breast mass 09/24/2017 Breast fibroadenoma, right [...] as of this encounter (statuses as of 06/15/2021) Social History Date Tobacco Use Types Packs/Day [...] of this encounter Last Filed Vital Signs Not on filedocumented in this encounter Plan of Treatment Care Team Description Date Type Specialty Yvrose Oden MD [address] [place] [address] [phone] 08/14/2021 Office Visit Hematology and Onco logy 12/05/2021 Appointment Radiology 12/05/2021 Appointment Radiology Gwendolyn Blanchard NP [address] [place], [place] [id number] 12/05/2021 Office Visit Breast Surgery Health Maintenance Due Date Last Done Comments Hepatitis C Screening (B. 1960 9919-3749) MMR Vaccines (1 of 1 - 1961 [...] ot Implanted Type Area Manufactur er 06/08/2018 [id number] / / [id number] [facility]- [employer] - [id number] HOLOGIC Implanted: Qty: 1 on 09/30/2017 by Padilla Stern MD at [facility] INPATIENT Description:10:00 06/01/2022 [id number] / / [id number] [facility]- Heart Marker Clip-Us - Right: Breast BARD [id number] MEDICAL Implanted: Qty: 1 on 11/30/2019 by Padilla Stern MD at [facility] INPATIENT Description:10:00 8CMFN 04/20/2020 [id number] / / [id number] [employer]- S-Randy- 2s - [id number] Right: Breast HOLO GIC Implanted: Qty: 1 on 11/30/2019 by Padilla Stern MD at [facility] INPATIENT Description:1:00 3 CMFN 03/07/2020 [id number] / / [id number] [employer] Training Manager 7.5cm Del Ndl Reflect - MERIT [id number] MEDICAL Implanted: Qty: 1 on 12/22/2019 by Zunilda Stack MD at [facility] INPATIENT Description:Right breast 10 oclock 8 cmfn documented as of this encounter Procedures Comments Procedure Name Priority Date/Time Associated Diag nosis MAMMO DIGITAL DIAGNOSTIC Routine 06/14/2021 Malig nant neoplasm of RIGHT G0206 9:43 AM EDT upper-outer quadran t of right breast in female, estrogen receptor positive documented in this encounter Results * Mammo Digital Diagnostic Right (06/14/2021 9:43 AM EDT) Specimen Impressions Performed At IMPRESSION: [facility] 1. Benign right mammogram. 2. No evidence for malignancy. 3. Recommend right mammogram in 6 months for postlumpectomy surveillance, at which point the patient will be due for scree edmundo left mammogram. BI-RADS 2 - BENIGN FINDINGS Narrative Performed At [facility] RIGHT DIGITAL MAMMOGRAM WITH COMPUTER-A IDED DETECTION HISTORY: Diagnostic exam. Post lumpecto my surveillance; the patient had a right lumpectomy 12/2019. The patient also has a history of left lumpectomy in 2015. COMPARISON: Mammograms dating back to 1 Last Reported Clinical Breast Exam: Today TECHNIQUE: Craniocaudal and mediolatera l oblique digital mammograms were obtained with tomosynthesis. Computer-a ided detection was utilized. FINDINGS: The breasts are extremely dense, which lowers the sensitivity of mammography (category D). Post lumpectomy changes are seen in the upper breast posteriorly. Biopsy clip markers are seen in the cholo ast. No abnormal mass, suspicious calcificat ions, or new architectural distortion is identified. Performing Organization Address City/State/ZIP Code P dionicio Number [facility] [address] [place] [address] documented in this encounter Visit Diagnoses Diagnosis Malignant neoplasm of upper-outer quadr ant of right breast in female, estrogen receptor positive documented in this encounter
--- OUTSIDE RECORDS SUMMARY | 2021-07-29 09:42 | CCD ---
Author Author [facility] Organization [facility] Address Unknown Phone Unavailable Care Team Providers Care Research Associate Policy Name Role Phone Jessi Carvalho MD Unavailable Unavailable Jessi Carvalho MD Unavailable Unavailable Jessi Carvalho MD Unavailable Unavailable Jessi Carvalho MD Unavailable Unavailable Jessi Carvalho MD Unavailable Unavailable Jessi Carvalho MD Unavailable Unavailable Jessi Carvalho MD Unavailable Unavailable Jessi Carvalho MD Unavailable Unavailable Jessi Carvalho MD Unavailable Unavailable Jessi Carvaloh MD Unavailable Unavailable Jessi Carvalho MD Unavailable Unavailable Jessi Carvalho MD Unavailable Unavailable Jessi Carvalho MD Unavailable Unavailable Jessi Carvalho MD Unavailable Unavailable Jessi Carvalho MD Unavailable Unavailable Jessi Carvalho MD Unavailable Unavailable Carvalho , Jessi Platt Unavailable Unavailable Carvalho , Jessi Platt Unavailable Unavailable Carvalho , Jessi Platt Unavailable Unavailable Carvalho , Jessi Platt Unavailable Unavailable Carvalho , Jessi Platt Unavailable Unavailable Carvalho , Jessi Platt Unavailable Unavailable Carvalho , Jessi Platt Unavailable Unavailable Carvalho , Jessi Platt Unavailable Unavailable Carvalho , Jessi Platt Unavailable Unavailable Carvaloh , Jessi Platt Unavailable Unavailable Carvalho , Jessi Platt Unavailable Unavailable Carvalho , Jessi Platt Unavailable Unavailable Carvalho , Jessi Platt Unavailable Unavailable Carvalho , Jessi Platt Unavailable Unavailable Carvalho , Jessi Platt Unavailable Unavailable Carvalho , Jessi Platt Unavailable Unavailable Carvalho , Jessi Platt Unavailable Unavailable Carvalho , Jessi Platt Unavailable Unavailable Carvalho , Jessi Platt Unavailable Unavailable Carvalho , Jessi Platt Unavailable Unavailable Carvalho , Jessi Platt Unavailable Unavailable Carvalho , Jessi Platt Unavailable Unavailable Carvalho , Jessi Platt Unavailable Unavailable Carvalho , Jessi Platt Unavailable Unavailable Fahsel COMPUTER SYSTEMS TECHNICIAN, COMPUTER SYSTEMS TECHNICIAN L Marlen COMPUTER SYSTEMS TECHNICIAN Unavailable + 24 Fahsel COMPUTER SYSTEMS TECHNICIAN, COMPUTER SYSTEMS TECHNICIAN L Marlen COMPUTER SYSTEMS TECHNICIAN Unavailable + 24 Fahsel COMPUTER SYSTEMS TECHNICIAN, COMPUTER SYSTEMS TECHNICIAN L Marlen COMPUTER SYSTEMS TECHNICIAN Unavailable + 24 Fahsel COMPUTER SYSTEMS TECHNICIAN, COMPUTER SYSTEMS TECHNICIAN L Marlen COMPUTER SYSTEMS TECHNICIAN Unavailable + 24 Fahsel COMPUTER SYSTEMS TECHNICIAN, COMPUTER SYSTEMS TECHNICIAN L Marlen COMPUTER SYSTEMS TECHNICIAN Unavailable + 24 Fahsel COMPUTER SYSTEMS TECHNICIAN, COMPUTER SYSTEMS TECHNICIAN L Marlen COMPUTER SYSTEMS TECHNICIAN Unavailable + 24 Fahsel COMPUTER SYSTEMS TECHNICIAN, COMPUTER SYSTEMS TECHNICIAN L Marlen COMPUTER SYSTEMS TECHNICIAN Unavailable + 24 Fahsel COMPUTER SYSTEMS TECHNICIAN, COMPUTER SYSTEMS TECHNICIAN L Marlen COMPUTER SYSTEMS TECHNICIAN Unavailable + 24 Fahsel COMPUTER SYSTEMS TECHNICIAN, COMPUTER SYSTEMS TECHNICIAN L Marlen COMPUTER SYSTEMS TECHNICIAN Unavailable + 24 Fahsel COMPUTER SYSTEMS TECHNICIAN, COMPUTER SYSTEMS TECHNICIAN L Marlen COMPUTER SYSTEMS TECHNICIAN Unavailable + 24 Fahsel COMPUTER SYSTEMS TECHNICIAN, COMPUTER SYSTEMS TECHNICIAN L Marlen COMPUTER SYSTEMS TECHNICIAN Unavailable + 24 Fahsel COMPUTER SYSTEMS TECHNICIAN, COMPUTER SYSTEMS TECHNICIAN L Marlen COMPUTER SYSTEMS TECHNICIAN Unavailable + 24 Fahsel COMPUTER SYSTEMS TECHNICIAN, COMPUTER SYSTEMS TECHNICIAN L Marlen COMPUTER SYSTEMS TECHNICIAN Unavailable + 24 Fahsel COMPUTER SYSTEMS TECHNICIAN, COMPUTER SYSTEMS TECHNICIAN L Marlen COMPUTER SYSTEMS TECHNICIAN Unavailable +-[phone] 24 Fahsel COMPUTER SYSTEMS TECHNICIAN, COMPUTER SYSTEMS TECHNICIAN L Marlen COMPUTER SYSTEMS TECHNICIAN Unavailable + 24 Fahsel COMPUTER SYSTEMS TECHNICIAN, COMPUTER SYSTEMS TECHNICIAN L Marlen COMPUTER SYSTEMS TECHNICIAN Unavailable 24 Fahsel COMPUTER SYSTEMS TECHNICIAN, COMPUTER SYSTEMS TECHNICIAN L Marlen COMPUTER SYSTEMS TECHNICIAN Unavailable 24 Fahsel COMPUTER SYSTEMS TECHNICIAN, COMPUTER SYSTEMS TECHNICIAN L Marlen COMPUTER SYSTEMS TECHNICIAN Unavailable + 24 Fahsel COMPUTER SYSTEMS TECHNICIAN, COMPUTER SYSTEMS TECHNICIAN L Marlen COMPUTER SYSTEMS TECHNICIAN Unavailable + 24 Fahsel COMPUTER SYSTEMS TECHNICIAN, COMPUTER SYSTEMS TECHNICIAN L Marlen COMPUTER SYSTEMS TECHNICIAN Unavailable + 24 Fahsel COMPUTER SYSTEMS TECHNICIAN, COMPUTER SYSTEMS TECHNICIAN L Marlen COMPUTER SYSTEMS TECHNICIAN Unavailable + 24 Fahsel COMPUTER SYSTEMS TECHNICIAN, COMPUTER SYSTEMS TECHNICIAN L Marlen COMPUTER SYSTEMS TECHNICIAN Unavailable + 24 Fahsel COMPUTER SYSTEMS TECHNICIAN, COMPUTER SYSTEMS TECHNICIAN L Marlen COMPUTER SYSTEMS TECHNICIAN Unavailable 24 Benedict Kuo MD Unavailable Unavailable Benedict Kuo MD Unavailable Unavailable Benedict Kuo MD Unavailable Unavailable Benedict Kuo MD Unavailable Unavailable Benedict Kuo MD Unavailable Unavailable Benedict Kuo MD Unavailable Unavailable Benedict Kuo MD Unavailable Unavailable Benedict Kuo MD Unavailable Unavailable Benedict Kuo MD Unavailable Unavailable Benedict Kuo MD Unavailable Unavailable Bendeict Kuo MD Unavailable Unavailable Benedict Kuo MD Unavailable Unavailable Benedict Kuo MD Unavailable Unavailable Benedict Kuo MD Unavailable Unavailable Benedict Kuo MD Unavailable Unavailable Benedict Kuo MD Unavailable Unavailable Benedict Kuo MD Unavailable Unavailable Benedict Kuo MD Unavailable Unavailable Benedict Kuo MD Unavailable Unavailable Benedict Kuo MD Unavailable Unavailable Benedict Kuo MD Unavailable Unavailable Benedict Kuo MD Unavailable Unavailable Benedict Kuo MD Unavailable Unavailable Benedict Kuo MD Unavailable Unavailable Benedict Kuo MD Unavailable Unavailable Benedict Kuo MD Unavailable Unavailable Benedict Kuo MD Unavailable Unavailable Benedict Kuo MD Unavailable Unavailable Benedict Kuo MD Unavailable Unavailable Benedict Kuo MD Unavailable Unavailable Benedict Kuo MD Unavailable Unavailable Benedict Kuo MD Unavailable Unavailable Benedict Kuo MD Unavailable Unavailable Benedict Kuo MD Unavailable Unavailable Benedict Kuo MD Unavailable Unavailable Benedict Kuo MD Unavailable Unavailable Benedict Kuo MD Unavailable Unavailable Benedict Kuo MD Unavailable Unavailable Benedict Kuo MD Unavailable Unavailable Benedict Kuo MD Unavailable Unavailable Benedict Kuo MD Unavailable Unavailable Benedict Kuo MD Unavailable Unavailable Ali, Benedict MD Unavailable Unavailable Ali, Benedict MD Unavailable Unavailable Ali, Benedict MD Unavailable Unavailable Ali, Benedict MD Unavailable Unavailable Ali, Benedict MD Unavailable Unavailable Ali, Benedict MD Unavailable Unavailable Ali, Benedict MD Unavailable Unavailable Ali, Benedict MD Unavailable Unavailable JERO, MIJUNG MD Unavailable Unavailable JERO, MIJUNG MD Unavailable Unavailable JERO, MIJUNG MD Unavailable Unavailable JERO, MIJUNG MD Unavailable Unavailable JERO, MIJUNG MD Unavailable Unavailable JERO, MIJUNG MD Unavailable Unavailable JERO, MIJUNG MD Unavailable Unavailable JERO, MIJUNG MD Unavailable Unavailable JERO, MIJUNG MD Unavailable Unavailable JERO, MIJUNG MD Unavailable Unavailable JERO, MIJUNG MD Unavailable Unavailable JERO, MIJUNG MD Unavailable Unavailable JERO, MIJUNG MD Unavailable Unavailable JERO, MIJUNG MD Unavailable Unavailable JERO, MIJUNG MD Unavailable Unavailable JERO, MIJUNG MD Unavailable Unavailable JERO, MIJUNG MD Unavailable Unavailable JERO, MIJUNG MD Unavailable Unavailable JERO, MIJUNG MD Unavailable Unavailable JERO, MIJUNG MD Unavailable Unavailable JERO, MIJUNG MD Unavailable Unavailable JERO, MIJUNG MD Unavailable Unavailable JERO, MIJUNG MD Unavailable Unavailable JERO, MIJUNG MD Unavailable Unavailable JERO, MIJUNG MD Unavailable Unavailable JERO, MIJUNG MD Unavailable Unavailable JERO, MIJUNG MD Unavailable Unavailable JERO, MIJUNG MD Unavailable Unavailable JERO, MIJUNG MD Unavailable Unavailable JERO, MIJUNG MD Unavailable Unavailable JERO, MIJUNG MD Unavailable Unavailable JERO, MIJUNG MD Unavailable Unavailable JERO, MIJUNG MD Unavailable Unavailable JERO, MIJUNG MD Unavailable Unavailable JERO, MIJUNG MD Unavailable Unavailable JERO, MIJUNG MD Unavailable Unavailable JERO, MIJUNG MD Unavailable Unavailable JERO, MIJUNG MD Unavailable Unavailable JERO, MIJUNG MD Unavailable Unavailable JERO, MIJUNG MD Unavailable Unavailable JERO, MIJUNG MD Unavailable Unavailable JERO, MIJUNG MD Unavailable Unavailable JERO, MIJUNG MD Unavailable Unavailable JERO, MIJUNG MD Unavailable Unavailable JERO, MIJUNG MD Unavailable Unavailable JERO, MIJUNG MD Unavailable Unavailable JERO, MIJUNG MD Unavailable Unavailable JERO, MIJUNG MD Unavailable Unavailable JERO, MIJUNG MD Unavailable Unavailable JERO, MIJUNG MD Unavailable Unavailable JERO, MIJUNG MD Unavailable Unavailable JERO, MIJUNG MD Unavailable Unavailable JERO, MIJUNG MD Unavailable Unavailable JERO, MIJUNG MD Unavailable Unavailable JERO, MIJUNG MD Unavailable Unavailable JERO, MIJUNG MD Unavailable Unavailable JERO, MIJUNG MD Unavailable Unavailable JERO, MIJUNG MD Unavailable Unavailable FAHSEL, L MARLEN Unavailable Unavailable Duca, A Gwendolyn COMPUTER SYSTEMS TECHNICIAN-C Unavailable Unavailable Duca, A Gwendolyn COMPUTER SYSTEMS TECHNICIAN-C Unavailable Unavailable Duca, A Gwendolyn COMPUTER SYSTEMS TECHNICIAN-C Unavailable Unavailable Duca, A Gwendolyn COMPUTER SYSTEMS TECHNICIAN-C Unavailable Unavailable Duca, A Gwendolyn COMPUTER SYSTEMS TECHNICIAN-C Unavailable Unavailable Duca, A Gwendolyn COMPUTER SYSTEMS TECHNICIAN-C Unavailable Unavailable Duca, A Gwendolyn COMPUTER SYSTEMS TECHNICIAN-C Unavailable Unavailable Duca, A Gwendolyn COMPUTER SYSTEMS TECHNICIAN-C Unavailable Unavailable Duca, A Gwendolyn COMPUTER SYSTEMS TECHNICIAN-C Unavailable Unavailable Duca, A Gwendolyn COMPUTER SYSTEMS TECHNICIAN-C Unavailable Unavailable Duca, A Gwendolyn COMPUTER SYSTEMS TECHNICIAN-C Unavailable Unavailable Duca, A Gwendolyn COMPUTER SYSTEMS TECHNICIAN-C Unavailable Unavailable Duca, A Gwendolyn COMPUTER SYSTEMS TECHNICIAN-C Unavailable Unavailable Duca, A Gwendolyn COMPUTER SYSTEMS TECHNICIAN-C Unavailable Unavailable Duca, A Gwendolyn COMPUTER SYSTEMS TECHNICIAN-C Unavailable Unavailable Duca, A Gwendolyn COMPUTER SYSTEMS TECHNICIAN-C Unavailable Unavailable Duca, A Gwendolyn COMPUTER SYSTEMS TECHNICIAN-C Unavailable Unavailable Duca, A Gwendolyn COMPUTER SYSTEMS TECHNICIAN-C Unavailable Unavailable Duca, A Gwendolyn COMPUTER SYSTEMS TECHNICIAN-C Unavailable Unavailable Duca, A Gwendolyn COMPUTER SYSTEMS TECHNICIAN-C Unavailable Unavailable Duca, A Gwendolyn COMPUTER SYSTEMS TECHNICIAN-C Unavailable Unavailable Duca, A Gwendolyn COMPUTER SYSTEMS TECHNICIAN-C Unavailable Unavailable Duca, A Gwendolyn COMPUTER SYSTEMS TECHNICIAN-C Unavailable Unavailable Duca, A Gwendolyn COMPUTER SYSTEMS TECHNICIAN-C Unavailable Unavailable Duca, A Gwenodlyn COMPUTER SYSTEMS TECHNICIAN-C Unavailable Unavailable Duca, A Gwendolyn COMPUTER SYSTEMS TECHNICIAN-C Unavailable Unavailable Duca, A Gwendolyn COMPUTER SYSTEMS TECHNICIAN-C Unavailable Unavailable Duca, A Gwendolyn COMPUTER SYSTEMS TECHNICIAN-C Unavailable Unavailable Duca, A Gwendolyn COMPUTER SYSTEMS TECHNICIAN-C Unavailable Unavailable Duca, A Gwendolyn COMPUTER SYSTEMS TECHNICIAN-C Unavailable Unavailable Duca, A Gwendolyn COMPUTER SYSTEMS TECHNICIAN-C Unavailable Unavailable Duca, A Gwendolyn COMPUTER SYSTEMS TECHNICIAN-C Unavailable Unavailable Duca, A Gwendolyn COMPUTER SYSTEMS TECHNICIAN-C Unavailable Unavailable Duca, A Gwendolyn COMPUTER SYSTEMS TECHNICIAN-C Unavailable Unavailable Duca, A Gwendolyn COMPUTER SYSTEMS TECHNICIAN-C Unavailable Unavailable Duca, A Gwendolyn COMPUTER SYSTEMS TECHNICIAN-C Unavailable Unavailable Duca, A Gwendolyn COMPUTER SYSTEMS TECHNICIAN-C Unavailable Unavailable Re-disclosure Warning The records that you are about to access may contain information from federally-assisted alcohol or drug abuse programs. If such information is present, then the following federally mandated warning applies: This information has been disclosed to you from records protected by federal confidentiality rules (42 CFR part 2). The federal rules prohibit you from making any further disclosure of this information unless further disclosure is expressly permitted by the written consent of the person to whom it pertains or as otherwise permitted by 42 CFR part 2. A general authorization for the release of medical or other information is NOT sufficient for this purpose. The Federal rules restrict any use of the information to criminally investigate or prosecute any alcohol or drug abuse patient.The records that you are about to access may contain highly sensitive health information, the redisclosure of which is protected by Article 27-F of the [facility] Public Health law. If you continue you may have access to information: Regarding HIV / AIDS; Provided by facilities licensed or operated by the [facility] Office of Mental Health; or Provided by the [facility] Office for People With Developmental Disabilities. If such information is present, then the following [facility] mandated warning applies: This information has been disclosed to you from confidential records which are protected by state law. State law prohibits you from making any further disclosure of this information without the specific written consent of the person to whom it pertains, or as otherwise permitted by law. Any unauthorized further disclosure in violation of state law may result in a fine or care home sentence or both. A general authorization for the release of medical or other information is NOT sufficient authorization for further disc losure. Family History Family Member Name Family Member Gender Family Member Status Date o f Status Description Data Source(s) Unknown Male Problem MEDENT ([facility]) Unknown Unknown Problem [facility] ([facility]) Encounters Encounter Providers Location Date Indications Data Source(s ) Outpatient Attender: Gwendolyn Blanchard COMPUTER SYSTEMS TECHNICIAN-CReferrer: MARLEN MENDOZA 12/05/2021 12:00:00 AM [facility] Outpatient Referrer: MARLEN DEWEY 12/05/2021 12:00:00 AM [facility] Outpatient Referrer: MARLEN DEWEY 12/05/2021 12:00:00 AM [facility] Outpatient Attender: GARRETT NOGUEIRA MD 08/14/2021 12:00:00 AM [facility] [place] [address] [facility] [address] 07/17/2021 12:00:00 AM EDT eCW1 ([facility] hospital[facility] [place] [address] [facility] [address] 07/10/2021 12:00:00 AM EDT eCW1 ([facility]) [place] [address] [facility] [facility] [address] 06/18/2021 12:00:00 AM EDT [facility] Outpatient Attender: ARI Dewey NPAttender: MARLEN DEWEYReferrer: MARLEN DEWEY [id number] 06/14/2021 12:00:00 AM EDT - 06/14/2021 11:15:14 AM EDT [facility] Outpatient Referrer: MARLEN DEWEY 06/14/2021 12:00 :00 AM EDT Malignant neoplasm of upper-outer quadrant of right female breast [facility] Malignant neoplasm of upper-outer quadra nt of right female breast Unknown [address] [facility] [address] [address] 06/14/2021 12:00:00 AM EDT eCW1 ([facility]) [place] [address] [facility] [address] 06/07/2021 12:00:00 AM EDT [facility] [place] [address] [facility] [address] 06/07/2021 12:00:00 AM EDT [facility] [place] [address] [facility] [address] 05/29/2021 12:00:00 AM EDT eCW1 ([facility]) [place] [address] [facility] [address] 05/10/2021 12:00:00 AM EDT [facility] [place] [address] [facility] [address] 04/22/2021 12:00:00 AM EDT [facility]CW1 [facility] [place] [address] [facility] [address] 04/05/2021 12:00:00 AM EDT eCW1 ([facility]) [place] [address] [facility] [address] 03/22/2021 12:00:00 AM EDT eCW1 ([facility]) [place] [address] [facility] [address] 03/08/2021 12:00:00 AM EDT eCW1 ([facility]) [place] [address] [facility] [address] 03/07/2021 12:00:00 AM EDT eCW1 ([facility]) [place] [address] [facility] [address] 02/22/2021 12:00:00 AM EDT eCW1 ([facility]) Outpatient Attender: GARRETT NOGUEIRA MD [id number] 02/14/20 12:00:00 AM EDT - 02/13/2021 02:15:40 PM [facility] Outpatient Attender: Benedict Kuo MD Main office - [place] 02/08/2021 10:45:00 AM EDT MEDENT ([facility], ) Unknown [address] [facility] [place] [address] 01/25/2021 12:00:00 AM EDT eCW1 ([facility]) [place] [address] [facility] [place] [address] 01/23/2021 12:00:00 AM EDT eCW1 ([facility]) [place] [address] [facility] [address] 01/11/2021 12:00:00 AM EDT eCW1 ([facility]) [place] [address] [facility] [address] 01/10/2021 12:00:00 AM EDT eCW1 ([facility]) [place] [address] [facility] [address] 01/08/2021 12:00:00 AM EDT eCW1 ([facility]) [place] [address] [facility] [address] 01/08/2021 12:00:00 AM EDT [facility]CW[facility] [place] [address] [facility] [address] 12/28/2020 12:00:00 AM EDT [facility]CW1 ([facility]) [place] [address] [facility] [address] 12/14/2020 12:00:00 AM EST [facility]CW1 [facility] Outpatient Attender: MARLEN Moraender: Giulia duncan MDReferrer: Giulia Carvalho MD [id number] 12/11/2020 12:00:00 AM EST - 12/11/2020 03:44:05 PM ES T Intraductal carcinoma in situ of left breast [facility] Intraductal carcinoma in situ of left br east Outpatient Attender: Giulia Carvalho MDReferrer: Giulia Carvalho MD 12/11/2020 12:00:00 AM EST Personal history of malignant neoplasm of breast [facility] Personal history of malignant neoplasm o f breast Outpatient Attender: Giulia Carvalho MDReferrer: Giulia Carvalho MD 12/11/2020 12:00:00 AM EST Personal history of malignant neoplasm of breast [facility] Personal history of malignant neoplasm o f breast Unknown [address] [facility] [address] 12/03/2020 12:00:00 AM EST eCW1 (Critical access hospital) [place] [address] [facility] [address] 11/20/2020 12:00:00 AM EST [facility]CW1 ([facility]) [place] [address] [facility] [address] 11/19/2020 12:00:00 AM EST [facility]CW1 [facility] [place] [address] [facility] [address] 11/05/2020 12:00:00 AM EST [facility]CW1 [facility]) [place] [address] [facility] [address] 10/23/2020 12:00:00 AM EST eCW1 ([facility]) Outpatient Attender: Giulia Carvalho MD 10/23/2020 12:00:00 AM [facility] Outpatient Attender: Giulia Carvalho MDReferrer: Giulia Carvalho MD 10/23/2020 12:00:00 AM [facility] Outpatient Attender: Giulia Carvalho MDReferrer: Giulia Carvalho MD 10/23/2020 12:00:00 AM [facility] Unknown [address] [facility] [place] [address] 10/08/2020 12:00:00 AM EST eCW1 ([facility]) Unknown [address] [facility] [place] [address] 09/25/2020 12:00:00 AM EST eCW1 ([facility]) Unknown [address] [facility] [place] [address] 09/11/2020 12:00:00 AM EST eCW1 ([facility]) Unknown [address] [facility] [place] [address] 08/28/2020 12:00:00 AM EST eCW1 ([facility]) Outpatient Attender: Benedict Kuo MD Main office - [place] 08/17/2020 09:30:00 AM EST [facility]ENT ([facility]) Unknown [address] [facility] [address] 08/14/2020 12:00:00 AM EST [facility]CW1 [facility] Outpatient Attender: GARRETT NOGUEIRA MD [id number] 08/13/20 12:00:00 AM EST - 08/17/2020 09:41:58 AM [facility] Unknown [address] [facility] [address] 08/01/2020 12:00:00 AM EDT eCW1 ([facility]) Unknown [address] [facility] [place] [address] 07/19/2020 12:00:00 AM EDT eCW1 ([facility]) Unknown [address] [facility] [place] [address] 07/19/2020 12:00:00 AM EDT eCW1 (Critical [facility] hospital) [place] [address] [facility] [address] 07/17/2020 12:00:00 AM EDT eCW1 (Critical [facility] hospital) [place] [address] [facility] [address] 07/11/2020 12:00:00 AM EDT eCW1 (Critical access hospital) Immunizations Vaccine Date Status Description Data Source(s) influenza, recombinant, quadrIvalent,injectable, prese rvative free 07/10/2021 04:21:00 PM EDT completed eCW1 ([facility]) influenza, recombinant, quadrIvalent,injectable, prese rvative free 07/10/2021 04:21:00 PM EDT completed eCW1 ([facility]) COVID-19 dose #2 given elsewhere Unspecified 01/02/2021 10:4 5:00 AM EDT completed eCW1 (Critical access hospital) COVID-19 dose #2 given elsewhere Unspecified 01/02/2021 10:4 5:00 AM EDT completed eCW1 (Critical access hospital) COVID-19 dose #2 given elsewhere Unspecified 01/02/2021 10:4 5:00 AM EDT completed eCW1 (Critical access hospital) COVID-19 dose #2 given elsewhere Unspecified 01/02/2021 10:4 5:00 AM EDT completed eCW1 (Critical access hospital) COVID-19 dose #2 given elsewhere Unspecified 01/02/2021 10:4 5:00 AM EDT completed eCW1 (Critical access hospital) COVID-19 dose #2 given elsewhere Unspecified 01/02/2021 10:4 5:00 AM EDT completed eCW1 (Critical access hospital) COVID-19 dose #2 given elsewhere Unspecified 01/02/2021 10:4 5:00 AM EDT completed eCW1 (Critical access hospital) COVID-19 dose #2 given elsewhere Unspecified 01/02/2021 10:4 5:00 AM EDT completed eCW1 (Critical access hospital) COVID-19 dose #2 given elsewhere Unspecified 01/02/2021 10:4 5:00 AM EDT completed eCW1 (Critical access hospital) COVID-19 dose #2 given elsewhere Unspecified 01/02/2021 10:4 5:00 AM EDT completed eCW1 (Critical access hospital) COVID-19 dose #2 given elsewhere Unspecified 01/02/2021 10:4 5:00 AM EDT completed eCW1 (Critical access hospital) COVID-19 dose #2 given elsewhere Unspecified 01/02/2021 10:4 5:00 AM EDT completed eCW1 (Critical access hospital) COVID-19 dose #2 given elsewhere Unspecified 01/02/2021 10:4 5:00 AM EDT completed eCW1 (Critical access hospital) COVID-19 dose #2 given elsewhere Unspecified 01/02/2021 10:4 5:00 AM EDT completed eCW1 (Critical access hospital) COVID-19 dose #2 given elsewhere Unspecified 01/02/2021 10:4 5:00 AM EDT completed eCW1 (Critical access hospital) COVID-19 VACCINE Pfizer 01/02/2021 12:00:00 AM EDT completed [employer] Vaccine Series Complete: YESThis Data wa s [facility] [employer]. COVID-19 dose #1 given elsewhere Unspecified 12/12/2020 10:4 4:00 AM EST completed eCW1 (Critical access hospital) COVID-19 dose #1 given elsewhere Unspecified 12/12/2020 10:4 4:00 AM EST completed eCW1 (Critical access hospital) COVID-19 dose #1 given elsewhere Unspecified 12/12/2020 10:4 4:00 AM EST completed eCW1 (Critical access hospital) COVID-19 dose #1 given elsewhere Unspecified 12/12/2020 10:4 4:00 AM EST completed eCW1 (Critical access hospital) COVID-19 dose #1 given elsewhere Unspecified 12/12/2020 10:4 4:00 AM EST completed eCW1 (Critical access hospital) COVID-19 dose #1 given elsewhere Unspecified 12/12/2020 10:4 4:00 AM EST completed eCW1 (Critical access hospital) COVID-19 dose #1 given elsewhere Unspecified 12/12/2020 10:4 4:00 AM EST completed eCW1 (Critical access hospital) COVID-19 dose #1 given elsewhere Unspecified 12/12/2020 10:4 4:00 AM EST completed [facility] COVID-19 dose #1 given elsewhere Unspecified 12/12/2020 10:4 4:00 AM EST completed e[facility]1 ([facility]) COVID-19 dose #1 given elsewhere Unspecified 12/12/2020 10:4 4:00 AM EST completed eCW1 ([facility]) COVID-19 dose #1 given elsewhere Unspecified 12/12/2020 10:4 4:00 AM EST completed eCW1 ([facility]) COVID-19 dose #1 given elsewhere Unspecified 12/12/2020 10:4 4:00 AM EST completed eCW1 ([facility]) COVID-19 dose #1 given elsewhere Unspecified 12/12/2020 10:4 4:00 AM EST completed eCW1 ([facility]) COVID-19 dose #1 given elsewhere Unspecified 12/12/2020 10:4 4:00 AM EST completed eCW1 ([facility]) COVID-19 dose #1 given elsewhere Unspecified 12/12/2020 10:4 4:00 AM EST completed eCW1 ([facility]) COVID-19 VACCINE Pfizer 12/12/2020 12:00:00 AM EST completed [facility] Vaccine Series Complete: NOThis Data [facility] [employer]. influenza, recombinant, quadrIvalent,injectable, prese rvative free 07/11/2020 12:27:00 PM EDT completed eCW1 ([facility]) influenza, recombinant, quadrIvalent,injectable, prese rvative free 07/11/2020 12:27:00 PM EDT completed eCW1 ([facility]) influenza, recombinant, quadrIvalent,injectable, prese rvative free 07/11/2020 12:27:00 PM EDT completed eCW1 ([facility]) influenza, recombinant, quadrIvalent,injectable, prese rvative free 07/11/2020 12:27:00 PM EDT completed eCW1 ([facility]) influenza, recombinant, quadrIvalent,injectable, prese rvative free 07/11/2020 12:27:00 PM EDT completed eCW1 ([facility]) influenza, recombinant, quadrIvalent,injectable, prese rvative free 07/11/2020 12:27:00 PM EDT completed eCW1 ([facility]) influenza, recombinant, quadrIvalent,injectable, prese rvative free 07/11/2020 12:27:00 PM EDT completed eCW1 ([facility]) influenza, recombinant, quadrIvalent,injectable, prese rvative free 07/11/2020 12:27:00 PM EDT completed eCW1 ([facility]) influenza, recombinant, quadrIvalent,injectable, prese rvative free 07/11/2020 12:27:00 PM EDT completed eCW1 ([facility]) influenza, recombinant, quadrIvalent,injectable, prese rvative free 07/11/2020 12:27:00 PM EDT completed eCW1 ([facility]) influenza, recombinant, quadrIvalent,injectable, prese rvative free 07/11/2020 12:27:00 PM EDT completed eCW1 ([facility]) influenza, recombinant, quadrIvalent,injectable, prese rvative free 07/11/2020 12:27:00 PM EDT completed eCW1 ([facility]) influenza, recombinant, quadrIvalent,injectable, prese rvative free 07/11/2020 12:27:00 PM EDT completed eCW1 ([facility]) influenza, recombinant, quadrIvalent,injectable, prese rvative free 07/11/2020 12:27:00 PM EDT completed eCW1 ([facility]) influenza, recombinant, quadrIvalent,injectable, prese rvative free 07/11/2020 12:27:00 PM EDT completed eCW1 ([facility]) influenza, recombinant, quadrIvalent,injectable, prese rvative free 07/11/2020 12:27:00 PM EDT completed eCW1 ([facility]) influenza, recombinant, quadrIvalent,injectable, prese rvative free 07/11/2020 12:27:00 PM EDT completed eCW1 ([facility]) influenza, recombinant, quadrIvalent,injectable, prese rvative free 07/11/2020 12:27:00 PM EDT completed eCW1 ([facility]) influenza, recombinant, quadrIvalent,injectable, prese rvative free 07/11/2020 12:27:00 PM EDT completed eCW1 ([facility]) influenza, recombinant, quadrIvalent,injectable, prese rvative free 07/11/2020 12:27:00 PM EDT completed eCW1 ([facility]) influenza, recombinant, quadrIvalent,injectable, prese rvative free 07/11/2020 12:27:00 PM EDT completed eCW1 ([facility]) influenza, recombinant, quadrIvalent,injectable, prese rvative free 07/11/2020 12:27:00 PM EDT completed eCW1 ([facility]) influenza, recombinant, quadrIvalent,injectable, prese rvative free 07/11/2020 12:27:00 PM EDT completed eCW1 ([facility]) influenza, recombinant, quadrIvalent,injectable, prese rvative free 07/11/2020 12:27:00 PM EDT completed eCW1 ([facility]) influenza, recombinant, quadrIvalent,injectable, prese rvative free 07/11/2020 12:27:00 PM EDT completed eCW1 ([facility]) influenza, recombinant, quadrIvalent,injectable, prese rvative free 07/11/2020 12:27:00 PM EDT completed eCW1 ([facility]) influenza, recombinant, quadrIvalent,injectable, prese rvative free 07/11/2020 12:27:00 PM EDT completed eCW1 ([facility]) influenza, recombinant, quadrIvalent,injectable, prese rvative free 07/11/2020 12:27:00 PM EDT completed eCW1 ([facility]) influenza, recombinant, quadrIvalent,injectable, prese rvative free 07/11/2020 12:27:00 PM EDT completed eCW1 ([facility]) influenza, recombinant, quadrIvalent,injectable, prese rvative free 07/11/2020 12:27:00 PM EDT completed eCW1 ([facility]) influenza, recombinant, quadrIvalent,injectable, prese rvative free 07/11/2020 12:27:00 PM EDT completed eCW1 ([facility]) influenza, recombinant, quadrIvalent,injectable, prese rvative free 07/11/2020 12:27:00 PM EDT completed eCW1 ([facility]) influenza, recombinant, quadrIvalent,injectable, prese rvative free 07/11/2020 12:27:00 PM EDT completed eCW1 ([facility]) influenza, recombinant, quadrIvalent,injectable, prese rvative free 07/11/2020 12:27:00 PM EDT completed eCW1 ([facility]) influenza, recombinant, quadrIvalent,injectable, prese rvative free 07/11/2020 12:27:00 PM EDT completed eCW1 ([facility]) influenza, recombinant, quadrIvalent,injectable, prese rvative free 07/11/2020 12:27:00 PM EDT completed eCW1 ([facility]) influenza, recombinant, quadrIvalent,injectable, prese rvative free 07/11/2020 12:27:00 PM EDT completed eCW1 ([facility]) Medications Medication Brand Name Start Date Product Form Dose Route Admi nistrative Instructions Pharmacy Instructions Status Indications Reaction Description Data Source(s) 10 mg 07/23/2021 12:00:00 AM EDT tablet 60 TAKE ONE TABLET BY MOUTH TWICE A DAY, MAXIMUM DAILY DOSE = 2 TABLETS TAKE ONE TABLET BY MOUTH TWICE A DAY, MAXIMUM DAILY DOSE = 2 TABLETS SOLD: 07/24/2021 [facility] 500 mg 07/22/2021 12:00:00 AM EDT tablet 10 TAKE ONE TABLET BY MOUTH EVERY DAY FOR 10 DAYS TAKE ONE TABLET BY MOUTH EVERY DAY FOR 10 DAYS SOLD: 021 [facility] 1 mg 07/17/2021 12:00:00 AM EDT tablet 60 TAKE ONE TABLET BY MOUTH TWICE A DAY, MAXIMUM DAILY DOSE = TWO TABLETS TAKE ONE TABLET BY MOUTH TWICE A DAY, MAXIMUM DAILY DOSE = TWO TABLETS SOLD: 07/17/2021 [facility] buspirone hydrochloride 10 MG Oral Tablet BUSPIRONE HCL 07/17/2021 12:00:00 AM EDT tablet 120 TAKE TWO TABLETS BY MOUTH TW ICE A DAY TAKE TWO TABLETS BY MOUTH TWICE A DAY SOLD: 07/18/2021 [facility] Acetaminophen 300 MG / Codeine Phosphate 30 MG Oral Tablet Acetaminophen-Codeine #3 300-30 MG Acetaminophen-Codeine #3 300-30 MG 07/17/2021 12:00:00 AM EDT 1.0 {tablet_as_needed} active Acetaminophen -Codeine #3 300-30 MG eCW1 ([facility]) Acetaminophen 300 MG / Codeine Phosphate 30 MG Oral Ta blet 300-30 mg ACETAMINOPHEN WITH CODEINE 07/17/2021 12:00:00 AM EDT tablet 120 TAKE ONE TABLET BY MOUTH EVERY 6 HOURS NEEDED MAXIMUM DAILY DOSE = FOUR TABLETS TAKE ONE TABLET BY MOUTH EVERY 6 HOURS NEEDED MAXIMUM DAILY DOSE = FOUR TABLETS SOLD: 07/18/2021 [facility] quetiapine 50 MG Oral Tablet QUETIAPINE FUMARATE 07/10/2021 12:0 0:00 AM EDT tablet 45 TAKE 1 & 1/2 TABLETS BY MOUTH AT BEDTIME TAKE 1 & 1/2 TABLETS BY MOUTH AT BEDTIME SOLD: 07/11/2021 [facility] 50 mg 07/10/2021 12:00:00 AM EDT tablet extended release 24 hr 30 TAKE ONE TABLET BY MOUTH EVERY DAY TAKE ONE TABLET BY MOUTH EVERY DAY SOLD: 07/11/2021 [facility] Chantix Starting Month Bonifacio 0.5 MG X 11 & 1 MG X 42 Adeline ntix Starting Month Bonifacio 0.5 MG X 11 & 1 MG X 42 07/10/2021 12:00:00 AM EDT active Chantix Starting Month Bonifacio 0.5 MG X 11 & 1 MG X 42 eCW1 ([facility]) Chantix Starting Month Bonifacio 0.5 MG X 11 & 1 MG X 42 Adeline ntix Starting Month Bonifacio 0.5 MG X 11 & 1 MG X 42 07/10/2021 12:00:00 AM EDT active Chantix Starting Month Bonifacio 0.5 MG X 11 & 1 MG X 42 eCW1 ([facility]) 20 mg 06/27/2021 12:00:00 AM EDT tablet 60 TAKE ONE TABLET BY MOUTH TWO TIMES A DAY ALONG WITH 10MG TABLET MAXIMUM DAILY DOSE = 2 TAKE ONE TABLET BY MOUTH TWO TIMES A DAY ALONG WITH 10MG TABLET MAXIMUM DAILY DOSE = 2 SOLD: 06/28/2021 [facility] 1 mg 06/24/2021 12:00:00 AM EDT tablet 30 TAKE ONE TABLET BY MOUTH EVERY DAY TAKE ONE TABLET BY MOUTH EVERY DAY SOLD: 06/24/2021 [facility] 1 mg 06/24/2021 12:00:00 AM EDT tablet 30 TAKE ONE TABLET BY MOUTH EVERY DAY TAKE ONE TABLET BY MOUTH EVERY DAY SOLD: 07/22/2021 [facility] 10 mg 06/18/2021 12:00:00 AM EDT tablet 60 TAKE ONE TABLET BY MOUTH TWO TIMES A DAY MAXIMUM DAILY DOSE = 2 TAKE ONE TABLET BY MOUTH TWO TIMES A DAY MAXIMUM DAILY DOSE = 2 SOLD: 06/18/2021 [facility] Acetaminophen 300 MG / Codeine Phosphate 30 MG Oral Ta blet 300-30 mg ACETAMINOPHEN WITH CODEINE 06/18/2021 12:00:00 AM EDT tablet 120 TAKE ONE TABLET BY MOUTH EVERY 6 HOURS NEEDED MAXIMUM DAILY DOSE = 4 TAKE ONE TABLET BY MOUTH EVERY 6 HOURS NEEDED MAXIMUM DAILY DOSE = 4 SOLD: 06/18/2021 [facility] Acetaminophen 300 MG / Codeine Phosphate 30 MG Oral Tablet Acetaminophen-Codeine #3 300-30 MG Acetaminophen-Codeine #3 300-30 MG 06/18/2021 12:00:00 AM EDT 1.0 {tablet_as_needed} active Acetaminophen -Codeine #3 300-30 MG eCW1 ([facility]) Acetaminophen 300 MG / Codeine Phosphate 30 MG Oral Tablet Acetaminophen-Codeine #3 300-30 MG Acetaminophen-Codeine #3 300-30 MG 06/18/2021 12:00:00 AM EDT 1.0 {tablet_as_needed} active Acetaminophen -Codeine #3 300-30 MG eCW1 ([facility]) 1 gram 06/17/2021 12:00:00 AM EDT tablet 60 TAKE ONE TABLET BY MOUTH TWICE A DAY TAKE ONE TABLET BY MOUTH TWICE A DAY SOLD: 07/21/2021 [facility] 1 gram 06/17/2021 12:00:00 AM EDT tablet 60 TAKE ONE TABLET BY MOUTH TWICE A DAY TAKE ONE TABLET BY MOUTH TWICE A DAY SOLD: 06/18/2021 [facility] NITROFURANTOIN, MACROCRYSTALS 25 MG / Ni trofurantoin, Monohydrate 75 MG Oral Capsule 100 mg NITROFURANTOIN [id number] 06/17/2021 12:00:00 AM EDT ca psule 14 TAKE ONE CAPSULE BY MOUTH TWICE A DAY WITH FOOD FOR 7 DAYS - START METHENAMINE WHEN NITROFURANTOIN IS COMPLETED TAKE ONE CAPSULE BY MOUTH TWICE A DAY WITH FOOD FOR 7 DAYS - START METHENAMINE WHEN NITROFURANTOIN IS COMPLETED SOLD: 06/17/2021 [facility] methenamine hippurate 1000 MG Oral Tablet Methenamine Hippurate 1 GM Methenamine Hippurate 1 GM 06/16/2021 12:00:00 AM EDT 1.0 {tablet} active Methenamine Hippurate 1 GM eCW1 ([facility]) NITROFURANTOIN, MACROCRYSTALS 25 MG / Ni trofurantoin, Monohydrate 75 MG Oral Capsule [Macrobid] Macrobid 100 MG Macrobid 100 MG 06/16/2021 12:00:00 AM EDT 1.0 {capsule_with_food} suspended Macrob id 100 MG eCW1 ([facility]) NITROFURANTOIN, MACROCRYSTALS 25 MG / Ni trofurantoin, Monohydrate 75 MG Oral Capsule [Macrobid] Macrobid 100 MG Macrobid 100 MG 06/16/2021 12:00:00 AM EDT 1.0 {capsule_with_food} suspended Macrob id 100 MG eCW1 ([facility]) NITROFURANTOIN, MACROCRYSTALS 25 MG / Ni trofurantoin, Monohydrate 75 MG Oral Capsule [Macrobid] Macrobid 100 MG Macrobid 100 MG 06/16/2021 12:00:00 AM EDT 1.0 {capsule_with_food} active Macrobid 100 MG eCW1 ([facility]) methenamine hippurate 1000 MG Oral Tablet Methenamine Hippurate 1 GM Methenamine Hippurate 1 GM 06/16/2021 12:00:00 AM EDT 1.0 {tablet} active Methenamine Hippurate 1 GM eCW1 ([facility]) methenamine hippurate 1000 MG Oral Tablet Methenamine Hippurate 1 GM Methenamine Hippurate 1 GM 06/16/2021 12:00:00 AM EDT 1.0 {tablet} active Methenamine Hippurate 1 GM eCW1 ([facility]) NITROFURANTOIN, MACROCRYSTALS 25 MG / Ni trofurantoin, Monohydrate 75 MG Oral Capsule [Macrobid] Macrobid 100 MG Macrobid 100 MG 06/16/2021 12:00:00 AM EDT 1.0 {capsule_with_food} active Macrobid 100 MG eCW1 ([facility]) methenamine hippurate 1000 MG Oral Tablet Methenamine Hippurate 1 GM Methenamine Hippurate 1 GM 06/16/2021 12:00:00 AM EDT 1.0 {tablet} active Methenamine Hippurate 1 GM eCW1 ([facility]) buspirone hydrochloride 10 MG Oral Tablet BUSPIRONE HCL 06/15/2021 12:00:00 AM EDT tablet 120 TAKE TWO TABLETS BY MOUTH TW O TIMES A DAY TAKE TWO TABLETS BY MOUTH TWO TIMES A DAY SOLD: 06/15/2021 [facility] 50 mg 06/12/2021 12:00:00 AM EDT tablet extended release 24 hr 30 TAKE ONE TABLET BY MOUTH EVERY DAY TAKE ONE TABLET BY MOUTH EVERY DAY SOLD: 06/12/2021 [facility] 1 mg 06/12/2021 12:00:00 AM EDT tablet 60 TAKE ONE TABLET BY MOUTH TWO TIMES A DAY MAXIMUM DAILY DOSE = 2 TAKE ONE TABLET BY MOUTH TWO TIMES A DAY MAXIMUM DAILY DOSE = 2 SOLD: 06/12/2021 [facility] 100 mcg 06/08/2021 12:00:00 AM EDT tablet 30 TAKE ONE TABLET BY MOUTH EVERY MORNING ON AN EMPTY STOMACH TAKE ONE TABLET BY MOUTH EVERY MORNING O N AN EMPTY STOMACH SOLD: 06/09/2021 [facility] 100 mcg 06/08/2021 12:00:00 AM EDT tablet 30 TAKE ONE TABLET BY MOUTH EVERY MORNING ON AN EMPTY STOMACH TAKE ONE TABLET BY MOUTH EVERY MORNING O N AN EMPTY STOMACH SOLD: 07/09/2021 [facility] quetiapine 100 MG Oral Tablet QUETIAPINE FUMARATE 05/31/2021 12: 00:00 AM EDT tablet 30 TAKE ONE TABLET BY MOUTH AT BEDT JANN TAKE ONE TABLET BY MOUTH AT BEDTIME SOLD: 07/09/2021 [facility] quetiapine 100 MG Oral Tablet QUETIAPINE FUMARATE 05/31/2021 12: 00:00 AM EDT tablet 30 TAKE ONE TABLET BY MOUTH AT BEDT JANN TAKE ONE TABLET BY MOUTH AT BEDTIME SOLD: 06/02/2021 [facility] Acetaminophen 300 MG / Codeine Phosphate 30 MG Oral Tablet Acetaminophen-Codeine #3 300-30 MG Acetaminophen-Codeine #3 300-30 MG 05/29/2021 12:00:00 AM EDT 1.0 {tablet_as_needed} active Acetamino phen-Codeine #3 300-30 MG eCW1 ([facility]) Acetaminophen 300 MG / Codeine Phosphate 30 MG Oral Tablet Acetaminophen-Codeine #3 300-30 MG Acetaminophen-Codeine #3 300-30 MG 05/29/2021 12:00:00 AM EDT 1.0 {tablet_as_needed} active Acetamino phen-Codeine #3 300-30 MG eCW1 ([facility]) Acetaminophen 300 MG / Codeine Phosphate 30 MG Oral Tablet Acetaminophen-Codeine #3 300-30 MG Acetaminophen-Codeine #3 300-30 MG 05/29/2021 12:00:00 AM EDT 1.0 {tablet_as_needed} active Acetamino phen-Codeine #3 300-30 MG eCW1 ([facility]) Acetaminophen 300 MG / Codeine Phosphate 30 MG Oral Tablet Acetaminophen-Codeine #3 300-30 MG Acetaminophen-Codeine #3 300-30 MG 05/29/2021 12:00:00 AM EDT 1.0 {tablet_as_needed} active Acetamino phen-Codeine #3 300-30 MG eCW1 ([facility]) Acetaminophen 300 MG / Codeine Phosphate 30 MG Oral Ta blet 300-30 mg ACETAMINOPHEN WITH CODEINE 05/29/2021 12:00:00 AM EDT tablet 60 TAKE ONE TABLET BY MOUTH EVERY 6 HOURS NEEDED MAXIMUM DAILY DOSE = 4 TAKE ONE TABLET BY MOUTH EVERY 6 HOURS NEEDED MAXIMUM DAILY DOSE = 4 SOLD: 05/29/2021 [facility] 20 mg 05/28/2021 12:00:00 AM EDT tablet 60 TAKE ONE TABLET BY MOUTH TWO TIMES A DAY MAXIMUM DAILY DOSE = 2 TAKE ONE TABLET BY MOUTH TWO TIMES A DAY MAXIMUM DAILY DOSE = 2 SOLD: 05/29/2021 [facility] 10 mg 05/20/2021 12:00:00 AM EDT tablet 60 TAKE ONE TABLET BY MOUTH TWICE A DAY WITH 5MG TO EQUAL 15MG TWO TIMES A DAY , MAXIMUM DAILY DOSE = 2 TABLETS TAKE ONE TABLET BY MOUTH TWICE A DAY WITH 5MG TO EQUAL 15MG TWO TIMES A DAY , MAXIMUM DAILY DOSE = 2 TABLETS SOLD: 05/20/2021 [facility] 50 mg 05/14/2021 12:00:00 AM EDT tablet extended release 24 hr 30 TAKE ONE TABLET BY MOUTH ONCE A DAY TAKE ONE TABLET BY MOUTH ONCE A DAY SOLD: 05/14/2021 [facility] buspirone hydrochloride 10 MG Oral Tablet BUSPIRONE HCL 05/13/2021 12:00:00 AM EDT tablet 120 TAKE TWO TABLETS BY MOUTH TW ICE A DAY TAKE TWO TABLETS BY MOUTH TWICE A DAY SOLD: 05/14/2021 [facility] Acetaminophen 300 MG / Codeine Phosphate 30 MG Oral Ta blet 300-30 mg ACETAMINOPHEN WITH CODEINE 05/11/2021 12:00:00 AM EDT tablet 60 TAKE ONE TABLET BY MOUTH EVERY 6 HOURS NEEDED MAXIMUM DAILY DOSE = 4 TAKE ONE TABLET BY MOUTH EVERY 6 HOURS NEEDED MAXIMUM DAILY DOSE = 4 SOLD: 05/12/2021 [facility] Acetaminophen 300 MG / Codeine Phosphate 30 MG Oral Tablet Acetaminophen-Codeine #3 300-30 MG Acetaminophen-Codeine #3 300-30 MG 05/10/2021 12:00:00 AM EDT 1.0 {tablet_as_needed} active Acetamino phen-Codeine #3 300-30 MG eCW1 ([facility]) 75 mg 05/08/2021 12:00:00 AM EDT capsule,extended releas e 24hr 30 TAKE ONE CAPSULE BY MOUTH EVERY DAY TAKE ONE CAPSULE BY MOUTH EVERY DAY SOLD: 07/09/2021 [facility] 75 mg 05/08/2021 12:00:00 AM EDT capsule,extended releas e 24hr 30 TAKE ONE CAPSULE BY MOUTH EVERY DAY TAKE ONE CAPSULE BY MOUTH EVERY DAY SOLD: 05/10/2021 [facility] 75 mg 05/08/2021 12:00:00 AM EDT capsule,extended releas e 24hr 30 TAKE ONE CAPSULE BY MOUTH EVERY DAY TAKE ONE CAPSULE BY MOUTH EVERY DAY SOLD: 06/10/2021 [facility] 5 mg 05/07/2021 12:00:00 AM EDT tablet 60 TAKE ONE TABLET BY MOUTH TWICE A DAY , MAXIMUM DAILY DOSE = 2 TABLETS TAKE ONE TABLET BY MOUTH TWICE A DAY , MAXIMUM DAILY DOSE = 2 TABLETS SOLD: 05/07/2021 [facility] 1 mg 04/24/2021 12:00:00 AM EDT tablet 60 TAKE ONE TABLET BY MOUTH TWICE A DAY MAXIMUM DAILY DOSE = TWO TABLETS TAKE ONE TABLET BY MOUTH TWICE A DAY MAXIMUM DAILY DOSE = TWO TABLETS SOLD: 04/24/2021 [facility] Acetaminophen 300 MG / Codeine Phosphate 30 MG Oral Ta blet 300-30 mg ACETAMINOPHEN WITH CODEINE 04/22/2021 12:00:00 AM EDT tablet 60 TAKE ONE TABLET BY MOUTH EVERY 6 HOURS NEEDED FOR PAIN MAXIMUM DAILY DOSE = FOUR TABLETS TAKE ONE TABLET BY MOUTH EVERY 6 HOURS A S NEEDED FOR PAIN MAXIMUM DAILY DOSE = FOUR TABLETS SOLD: 04/23/2021 [facility] buspirone hydrochloride 10 MG Oral Tablet BUSPIRONE HCL 04/17/2021 12:00:00 AM EDT tablet 120 TAKE TWO TABLETS BY MOUTH TW O TIMES A DAY TAKE TWO TABLETS BY MOUTH TWO TIMES A DAY SOLD: 04/17/2021 [facility] Acetaminophen 300 MG / Codeine Phosphate 30 MG Oral Ta blet 300-30 mg ACETAMINOPHEN WITH CODEINE 04/09/2021 12:00:00 AM EDT tablet 60 TAKE ONE TABLET BY MOUTH EVERY 6 HOURS NEEDED MAXIMUM DAILY DOSE = FOUR TABLETS TAKE ONE TABLET BY MOUTH EVERY 6 HOURS NEEDED MAXIMUM DAILY DOSE = FOUR TABLETS SOLD: 04/09/2021 [facility] 1 mg 03/27/2021 12:00:00 AM EDT tablet 30 TAKE ONE TABLET BY MOUTH EVERY DAY TAKE ONE TABLET BY MOUTH EVERY DAY SOLD: 05/25/2021 [facility] 1 mg 03/27/2021 12:00:00 AM EDT tablet 30 TAKE ONE TABLET BY MOUTH EVERY DAY TAKE ONE TABLET BY MOUTH EVERY DAY SOLD: 04/24/2021 [facility] 20 mg 03/27/2021 12:00:00 AM EDT tablet 30 TAKE ONE TABLET BY MOUTH EVERY DAY TAKE ONE TABLET BY MOUTH EVERY DAY SOLD: 03/27/2021 [facility] 1 mg 03/27/2021 12:00:00 AM EDT tablet 30 TAKE ONE TABLET BY MOUTH EVERY DAY TAKE ONE TABLET BY MOUTH EVERY DAY SOLD: 03/27/2021 [facility] 20 mg 03/27/2021 12:00:00 AM EDT tablet 30 TAKE ONE TABLET BY MOUTH EVERY DAY TAKE ONE TABLET BY MOUTH EVERY DAY SOLD: 05/06/2021 [facility] anastrozole 1 MG Oral Tablet Anastrozole 1 MG Oral Tab let (ARIMIDEX) Anastrozole 1 MG Oral Tablet (ARIMIDEX) 03/26/2021 12:00:00 AM EDT 1 mg Oral active Ductal carcinoma in situ (DCIS) of right breast Take 1 table t by mouth daily [facility] Ductal carcinoma in situ (DCIS) of right breast Acetaminophen 300 MG / Codeine Phosphate 30 MG Oral Ta blet 300-30 mg ACETAMINOPHEN WITH CODEINE 03/26/2021 12:00:00 AM EDT tablet 60 TAKE ONE TABLET BY MOUTH EVERY 6 HOURS NEEDED MAXIMUM DAILY DOSE = 4 TABLETS TAKE ONE TABLET BY MOUTH EVERY 6 HOURS NEEDED MAXIMUM DAILY DOSE = 4 TABLETS SOLD: 03/26/2021 [facility] buspirone hydrochloride 10 MG Oral Tablet BUSPIRONE HCL 03/15/2021 12:00:00 AM EDT tablet 120 TAKE TWO TABLETS BY MOUTH TW ICE A DAY TAKE TWO TABLETS BY MOUTH TWICE A DAY SOLD: 03/15/2021 [facility] Acetaminophen 300 MG / Codeine Phosphate 30 MG Oral Ta blet 300-30 mg ACETAMINOPHEN WITH CODEINE 03/12/2021 12:00:00 AM EDT tablet 60 TAKE ONE TABLET BY MOUTH EVERY 6 HOURS NEEDED, MAXIMUM DAILY DOSE = FOUR TABLETS TAKE ONE TABLET BY MOUTH EVERY 6 HOURS NEEDED, MAXIMUM DAILY DOSE = FOUR TABLETS SOLD: 03/12/2021 [facility] 0.5 mg 03/07/2021 12:00:00 AM EDT tablet 120 TAKE ONE TABLET BY MOUTH FOUR TIMES A DAY NEEDED MAXIMUM DAILY DOSE = FOUR TABLETS TAKE ONE TABLET BY MOUTH FOUR TIMES A DAY NEEDED MAXIMUM DAILY DOSE = FOUR TABLETS SOLD: 03/07/2021 [facility] 40 mg 03/02/2021 12:00:00 AM EDT tablet 60 TAKE ONE TABLET BY MOUTH TWO TIMES A DAY, MAXIMUM DAILY DOSE = 2 TABLETS TAKE ONE TABLET BY MOUTH TWO TIMES A DAY, MAXIMUM DAILY DOSE = 2 TABLETS SOLD: 05/29/2021 [facility] 40 mg 03/02/2021 12:00:00 AM EDT tablet 60 TAKE ONE TABLET BY MOUTH TWO TIMES A DAY, MAXIMUM DAILY DOSE = 2 TABLETS TAKE ONE TABLET BY MOUTH TWO TIMES A DAY, MAXIMUM DAILY DOSE = 2 TABLETS SOLD: 06/24/2021 [facility] quetiapine 100 MG Oral Tablet QUETIAPINE FUMARATE 03/02/2021 12: 00:00 AM EDT tablet 45 TAKE 1 & 1/2 TABLETS BY MOUTH AT BEDTIME TAKE 1 & 1/2 TABLETS BY MOUTH AT BEDTIME SOLD: 04/01/2021 [facility] quetiapine 100 MG Oral Tablet QUETIAPINE FUMARATE 03/02/2021 12: 00:00 AM EDT tablet 45 TAKE 1 & 1/2 TABLETS BY MOUTH AT BEDTIME TAKE 1 & 1/2 TABLETS BY MOUTH AT BEDTIME SOLD: 03/02/2021 [facility] quetiapine 100 MG Oral Tablet QUETIAPINE FUMARATE 03/02/2021 12: 00:00 AM EDT tablet 45 TAKE 1 & 1/2 TABLETS BY MOUTH AT BEDTIME TAKE 1 & 1/2 TABLETS BY MOUTH AT BEDTIME SOLD: 05/06/2021 [facility] 40 mg 03/02/2021 12:00:00 AM EDT tablet 60 TAKE ONE TABLET BY MOUTH TWO TIMES A DAY, MAXIMUM DAILY DOSE = 2 TABLETS TAKE ONE TABLET BY MOUTH TWO TIMES A DAY, MAXIMUM DAILY DOSE = 2 TABLETS SOLD: 03/02/2021 [facility] 40 mg 03/02/2021 12:00:00 AM EDT tablet 60 TAKE ONE TABLET BY MOUTH TWO TIMES A DAY, MAXIMUM DAILY DOSE = 2 TABLETS TAKE ONE TABLET BY MOUTH TWO TIMES A DAY, MAXIMUM DAILY DOSE = 2 TABLETS SOLD: 04/01/2021 [facility] 40 mg 03/02/2021 12:00:00 AM EDT tablet 60 TAKE ONE TABLET BY MOUTH TWO TIMES A DAY, MAXIMUM DAILY DOSE = 2 TABLETS TAKE ONE TABLET BY MOUTH TWO TIMES A DAY, MAXIMUM DAILY DOSE = 2 TABLETS SOLD: 07/22/2021 [facility] 40 mg 03/02/2021 12:00:00 AM EDT tablet 60 TAKE ONE TABLET BY MOUTH TWO TIMES A DAY, MAXIMUM DAILY DOSE = 2 TABLETS TAKE ONE TABLET BY MOUTH TWO TIMES A DAY, MAXIMUM DAILY DOSE = 2 TABLETS SOLD: 05/01/2021 [facility] Acetaminophen 300 MG / Codeine Phosphate 30 MG Oral Ta blet 300-30 mg ACETAMINOPHEN WITH CODEINE 02/26/2021 12:00:00 AM EDT tablet 60 TAKE ONE TABLET BY MOUTH EVERY 6 HOURS NEEDED MAXIMUM DAILY DOSE = FOUR TABLETS TAKE ONE TABLET BY MOUTH EVERY 6 HOURS NEEDED MAXIMUM DAILY DOSE = FOUR TABLETS SOLD: 02/26/2021 [facility] buspirone hydrochloride 10 MG Oral Tablet BUSPIRONE HCL 02/19/2021 12:00:00 AM EDT tablet 60 TAKE ONE TABLET BY MOUTH TWI CE A DAY TAKE ONE TABLET BY MOUTH TWICE A DAY SOLD: 02/19/2021 [facility] Acetaminophen 300 MG / Codeine Phosphate 30 MG Oral Ta blet 300-30 mg ACETAMINOPHEN WITH CODEINE 02/11/2021 12:00:00 AM EDT tablet 60 TAKE ONE TABLET BY MOUTH EVERY 6 HOURS NEEDED, MAXIMUM DAILY DOSE = FOUR TABLETS TAKE ONE TABLET BY MOUTH EVERY 6 HOURS NEEDED, MAXIMUM DAILY DOSE = FOUR TABLETS SOLD: 02/12/2021 [facility] 100 mg 02/09/2021 12:00:00 AM EDT tablet 9 TAKE 1/2 TO 1 TABLET BY MOUTH AT ONSET OF HEADACHE, MAY REPEAT ONCE AFTER 2 HOURS MAXIMUM DAILY DOSE = 2 TAKE 1/2 TO 1 TABLET BY MOUTH AT ONSET OF HEADACHE, MAY REPEAT ONCE AFTER 2 HOURS MAXIMUM DAILY DOSE = 2 SOLD: 03/30/2021 [facility] 100 mg 02/09/2021 12:00:00 AM EDT tablet 9 TAKE 1/2 TO 1 TABLET BY MOUTH AT ONSET OF HEADACHE, MAY REPEAT ONCE AFTER 2 HOURS MAXIMUM DAILY DOSE = 2 TAKE 1/2 TO 1 TABLET BY MOUTH AT ONSET OF HEADACHE, MAY REPEAT ONCE AFTER 2 HOURS MAXIMUM DAILY DOSE = 2 SOLD: 02/10/2021 [facility] Sumatriptan 100 MG Oral Tablet Sumatriptan Succinate 02/08/2021 12:00:00 AM EDT ORAL active MEDENT ( [facility], ) 75 mg 02/06/2021 12:00:00 AM EDT capsule,extended releas e 24hr 30 TAKE ONE CAPSULE BY MOUTH EVERY DAY TAKE ONE CAPSULE BY MOUTH EVERY DAY SOLD: 04/10/2021 [facility] 75 mg 02/06/2021 12:00:00 AM EDT capsule,extended releas e 24hr 30 TAKE ONE CAPSULE BY MOUTH EVERY DAY TAKE ONE CAPSULE BY MOUTH EVERY DAY SOLD: 02/06/2021 [facility] 75 mg 02/06/2021 12:00:00 AM EDT capsule,extended releas e 24hr 30 TAKE ONE CAPSULE BY MOUTH EVERY DAY TAKE ONE CAPSULE BY MOUTH EVERY DAY SOLD: 03/10/2021 [facility] Acetaminophen 300 MG / Codeine Phosphate 30 MG Oral Ta blet 300-30 mg ACETAMINOPHEN WITH CODEINE 01/28/2021 12:00:00 AM EDT tablet 60 TAKE ONE TABLET BY MOUTH EVERY 6 HOURS NEEDED, MAXIMUM DAILY DOSE = FOUR TABLETS TAKE ONE TABLET BY MOUTH EVERY 6 HOURS NEEDED, MAXIMUM DAILY DOSE = FOUR TABLETS SOLD: 01/28/2021 [facility] 300-30 mg 01/14/2021 12:00:00 AM EDT tablet 60 TAKE ONE TABLET BY MOUTH EVERY 6 HOURS NEEDED MAXIMUM DAILY DOSE = 4 TABLETS TAKE ONE TABLET BY MOUTH EVERY 6 HOURS NEEDED MAXIMUM DAILY DOSE = 4 TABLETS SOLD: 01/14/2021 [facility] Levofloxacin 500 MG Oral Tablet Levaquin 500 MG Levaquin 500 MG 01/10/2021 12:00:00 AM EDT 1.0 {tablet} active Le vaquin 500 MG eCW1 ([facility]) 500 mg 01/10/2021 12:00:00 AM EDT tablet 5 TAKE ONE TABLET BY MOUTH EVERY DAY FOR 5 DAYS TAKE ONE TABLET BY MOUTH EVERY DAY FOR 5 DAYS SOLD: 01/10/2021 [facility] Levofloxacin 500 MG Oral Tablet Levaquin 500 MG Levaquin 500 MG 01/10/2021 12:00:00 AM EDT 1.0 {tablet} active Le vaquin 500 MG eCW1 ([facility]) Levofloxacin 500 MG Oral Tablet Levaquin 500 MG Levaquin 500 MG 01/10/2021 12:00:00 AM EDT 1.0 {tablet} active Le vaquin 500 MG eCW1 ([facility]) Levofloxacin 500 MG Oral Tablet Levaquin 500 MG Levaquin 500 MG 01/10/2021 12:00:00 AM EDT 1.0 {tablet} active Le vaquin 500 MG eCW1 ([facility]) Levofloxacin 500 MG Oral Tablet Levaquin 500 MG Levaquin 500 MG 01/10/2021 12:00:00 AM EDT 1.0 {tablet} active Le vaquin 500 MG eCW1 ([facility]) 24 HR tolterodine tartrate 4 MG Extended Release Oral Capsule [Detrol] Detrol LA 4 MG Detrol LA 4 MG 01/08/2021 12:00:00 AM EDT 1.0 {capsule} active Detrol LA 4 MG eCW1 ([facility]) 24 HR tolterodine tartrate 4 MG Extended Release Oral Capsule [Detrol] Detrol LA 4 MG Detrol LA 4 MG 01/08/2021 12:00:00 AM EDT 1.0 {capsule} active Detrol LA 4 MG eCW1 ([facility]) 24 HR tolterodine tartrate 4 MG Extended Release Oral Capsule [Detrol] Detrol LA 4 MG Detrol LA 4 MG 01/08/2021 12:00:00 AM EDT 1.0 {capsule} active Detrol LA 4 MG eCW1 ([facility]) 24 HR tolterodine tartrate 4 MG Extended Release Oral Capsule [Detrol] Detrol LA 4 MG Detrol LA 4 MG 01/08/2021 12:00:00 AM EDT 1.0 {capsule} active Detrol LA 4 MG eCW1 ([facility]) 24 HR tolterodine tartrate 4 MG Extended Release Oral Capsule [Detrol] Detrol LA 4 MG Detrol LA 4 MG 01/08/2021 12:00:00 AM EDT 1.0 {capsule} active Detrol LA 4 MG [facility] (Critical access hospital) 300-30 mg 01/01/2021 12:00:00 AM EDT tablet 60 TAKE ONE TABLET BY MOUTH NEEDED EVERY 6 HOURS, MAXIMUM DAILY DOSE = 4 TABLETS TAKE ONE TABLET BY MOUTH NEEDED EVERY 6 HOURS, MAXIMUM DAILY DOSE = 4 TABLETS SOLD: 01/01/2021 [facility] 20 mg 01/01/2021 12:00:00 AM EDT tablet 30 TAKE ONE TABLET BY MOUTH EVERY DAY TAKE ONE TABLET BY MOUTH EVERY DAY SOLD: 02/03/2021 [facility] 20 mg 01/01/2021 12:00:00 AM EDT tablet 30 TAKE ONE TABLET BY MOUTH EVERY DAY TAKE ONE TABLET BY MOUTH EVERY DAY SOLD: 03/02/2021 [facility] 20 mg 01/01/2021 12:00:00 AM EDT tablet 30 TAKE ONE TABLET BY MOUTH EVERY DAY TAKE ONE TABLET BY MOUTH EVERY DAY SOLD: 01/02/2021 [facility] 0.5 mg 12/29/2020 12:00:00 AM EDT tablet 120 TAKE ONE TABLET BY MOUTH FOUR TIMES A DAY NEEDED, MAXIMUM DAILY DOSE = 4 TABLETS TAKE ONE TABLET BY MOUTH FOUR TIMES A DAY NEEDED, MAXIMUM DAILY DOSE = 4 TABLETS SOLD: 12/30/2020 [facility] 300-30 mg 12/18/2020 12:00:00 AM EDT tablet 60 TAKE ONE TABLET BY MOUTH EVERY 6 HOURS NEEDED MAXIMUM DAILY DOSE = 4 TABLETS TAKE ONE TABLET BY MOUTH EVERY 6 HOURS NEEDED MAXIMUM DAILY DOSE = 4 TABLETS SOLD: 12/18/2020 [facility] 50 mg 12/17/2020 12:00:00 AM EDT tablet 9 TAKE ONE TABLET BY MOUTH ONE TIME NEEDED TAKE ONE TABLET BY MOUTH ONE TIME NEEDED SOLD: 01/14/2021 [facility] 50 mg 12/17/2020 12:00:00 AM EDT tablet 9 TAKE ONE TABLET BY MOUTH ONE TIME NEEDED TAKE ONE TABLET BY MOUTH ONE TIME NEEDED SOLD: 12/18/2020 [facility] quetiapine 100 MG Oral Tablet QUETIAPINE FUMARATE 12/06/2020 12: 00:00 AM EST tablet 45 TAKE ONE AND ONE-HALF TABLETS BY MOUTH EVERY DAY AT BEDTIME TAKE ONE AND ONE-HALF TABLETS BY MOUTH EVERY DAY AT BEDTIME SOLD: 02/03/2021 [facility] quetiapine 100 MG Oral Tablet QUETIAPINE FUMARATE 12/06/2020 12: 00:00 AM EST tablet 45 TAKE ONE AND ONE-HALF TABLETS BY MOUTH EVERY DAY AT BEDTIME TAKE ONE AND ONE-HALF TABLETS BY MOUTH EVERY DAY AT BEDTIME SOLD: 01/07/2021 [facility] quetiapine 100 MG Oral Tablet QUETIAPINE FUMARATE 12/06/2020 12: 00:00 AM EST tablet 45 TAKE ONE AND ONE-HALF TABLETS BY MOUTH EVERY DAY AT BEDTIME TAKE ONE AND ONE-HALF TABLETS BY MOUTH EVERY DAY AT BEDTIME SOLD: 12/06/2020 [facility] 300-30 mg 12/04/2020 12:00:00 AM EST tablet 60 TAKE ONE TABLET BY MOUTH EVERY 6 HOURS NEEDED MAXIMUM DAILY DOSE = 4 TABLETS TAKE ONE TABLET BY MOUTH EVERY 6 HOURS NEEDED MAXIMUM DAILY DOSE = 4 TABLETS SOLD: 12/04/2020 [facility] 4 mg 11/20/2020 12:00:00 AM EST capsule,extended releas e 24hr 30 TAKE ONE CAPSULE BY MOUTH EVERY DAY TAKE ONE CAPSULE BY MOUTH EVERY DAY SOLD: 03/30/2021 [facility] 4 mg 11/20/2020 12:00:00 AM EST capsule,extended releas e 24hr 30 TAKE ONE CAPSULE BY MOUTH EVERY DAY TAKE ONE CAPSULE BY MOUTH EVERY DAY SOLD: 02/21/2021 [facility] 4 mg 11/20/2020 12:00:00 AM EST capsule,extended releas e 24hr 30 TAKE ONE CAPSULE BY MOUTH EVERY DAY TAKE ONE CAPSULE BY MOUTH EVERY DAY SOLD: 01/21/2021 [facility] 300-30 mg 11/20/2020 12:00:00 AM EST tablet 60 TAKE ONE TABLET BY MOUTH EVERY 6 HOURS NEEDED MAXIMUM DAILY DOSE = 4 TABLETS TAKE ONE TABLET BY MOUTH EVERY 6 HOURS NEEDED MAXIMUM DAILY DOSE = 4 TABLETS SOLD: 11/21/2020 [facility] 4 mg 11/20/2020 12:00:00 AM EST capsule,extended releas e 24hr 30 TAKE ONE CAPSULE BY MOUTH EVERY DAY TAKE ONE CAPSULE BY MOUTH EVERY DAY SOLD: 12/19/2020 [facility] 4 mg 11/20/2020 12:00:00 AM EST capsule,extended releas e 24hr 30 TAKE ONE CAPSULE BY MOUTH EVERY DAY TAKE ONE CAPSULE BY MOUTH EVERY DAY SOLD: 11/20/2020 [facility] 75 mg 11/09/2020 12:00:00 AM EST capsule,extended releas e 24hr 30 TAKE ONE CAPSULE BY MOUTH EVERY DAY TAKE ONE CAPSULE BY MOUTH EVERY DAY SOLD: 01/07/2021 [facility] 75 mg 11/09/2020 12:00:00 AM EST capsule,extended releas e 24hr 30 TAKE ONE CAPSULE BY MOUTH EVERY DAY TAKE ONE CAPSULE BY MOUTH EVERY DAY SOLD: 11/09/2020 [facility] 24 HR venlafaxine 75 MG Extended Release Oral Capsule VENLAF AXINE HCL 11/09/2020 12:00:00 AM EST capsule,extended release 24hr 30 T COREY ONE CAPSULE BY MOUTH EVERY DAY TAKE ONE CAPSULE BY MOUTH EVERY DAY SOLD: 12/06/2020 [facility] 300-30 mg 11/06/2020 12:00:00 AM EST tablet 60 TAKE ONE TABLET BY MOUTH EVERY 6 HOURS NEEDED , MAXIMUM DAILY DOSE = 4 TABLETS TAKE ONE TABLET BY MOUTH EVERY 6 HOURS NEEDED , MAXIMUM DAILY DOSE = 4 TABLETS SOLD: 11/06/2020 [facility] 300-30 mg 10/23/2020 12:00:00 AM EST tablet 60 TAKE ONE TABLET BY MOUTH EVERY 6 HOURS NEEDED MAXIMUM DAILY DOSE = 4 TABLETS TAKE ONE TABLET BY MOUTH EVERY 6 HOURS NEEDED MAXIMUM DAILY DOSE = 4 TABLETS SOLD: 10/23/2020 [facility] 50 mg 10/23/2020 12:00:00 AM EST tablet 9 TAKE 1 TABLET BY MOUTH ONE TIME ONCE DAILY NEEDED TAKE 1 TABLET BY MOUTH ONE TIME ONCE DAILY NEEDED S OLD: 10/23/2020 [facility] 300-30 mg 10/10/2020 12:00:00 AM EST tablet 60 TAKE ONE TABLET BY MOUTH EVERY 6 HOURS NEEDED MAXIMUM DAILY DOSE = 4 TAKE ONE TABLET BY MOUTH EVERY 6 HOURS NEEDED MAXIMUM DAILY DOSE = 4 SOLD: 10/10/2020 [facility] 300-30 mg 09/26/2020 12:00:00 AM EST tablet 60 TAKE ONE TABLET BY MOUTH EVERY 6 HOURS NEEDED , MAXIMUM DAILY DOSE = 4 TABLETS TAKE ONE TABLET BY MOUTH EVERY 6 HOURS NEEDED , MAXIMUM DAILY DOSE = 4 TABLETS SOLD: 09/26/2020 [facility] 50 mg 09/25/2020 12:00:00 AM EST tablet 9 TAKE ONE TABLET BY MOUTH EVERY DAY NEEDED TAKE ONE TABLET BY MOUTH EVERY DAY NEEDED SOLD: 09/25/2020 [facility] 20 mg 09/22/2020 12:00:00 AM EST tablet 30 TAKE ONE TABLET BY MOUTH EVERY DAY TAKE ONE TABLET BY MOUTH EVERY DAY SOLD: 10/22/2020 [facility] 20 mg 09/22/2020 12:00:00 AM EST tablet 30 TAKE ONE TABLET BY MOUTH EVERY DAY TAKE ONE TABLET BY MOUTH EVERY DAY SOLD: 11/20/2020 [facility] 20 mg 09/22/2020 12:00:00 AM EST tablet 30 TAKE ONE TABLET BY MOUTH EVERY DAY TAKE ONE TABLET BY MOUTH EVERY DAY SOLD: 09/24/2020 [facility] 300-30 mg 09/12/2020 12:00:00 AM EST tablet 60 TAKE ONE TABLET BY MOUTH EVERY 6 HOURS NEEDED MAXIMUM DAILY DOSE = FOUR TABLETS TAKE ONE TABLET BY MOUTH EVERY 6 HOURS NEEDED MAXIMUM DAILY DOSE = FOUR TABLETS SOLD: 09/12/2020 [facility] 40 mg 09/10/2020 12:00:00 AM EST tablet 60 TAKE ONE TABLET BY MOUTH TWICE A DAY, MAXIMUM DAILY DOSE = 2 TAKE ONE TABLET BY MOUTH TWICE A DAY, MA XIMUM DAILY DOSE = 2 SOLD: 01/07/2021 [facility] 40 mg 09/10/2020 12:00:00 AM EST tablet 60 TAKE ONE TABLET BY MOUTH TWICE A DAY, MAXIMUM DAILY DOSE = 2 TAKE ONE TABLET BY MOUTH TWICE A DAY, MA XIMUM DAILY DOSE = 2 SOLD: 02/03/2021 [facility] 40 mg 09/10/2020 12:00:00 AM EST tablet 60 TAKE ONE TABLET BY MOUTH TWICE A DAY, MAXIMUM DAILY DOSE = 2 TAKE ONE TABLET BY MOUTH TWICE A DAY, MA XIMUM DAILY DOSE = 2 SOLD: 09/10/2020 [facility] 40 mg 09/10/2020 12:00:00 AM EST tablet 60 TAKE ONE TABLET BY MOUTH TWICE A DAY, MAXIMUM DAILY DOSE = 2 TAKE ONE TABLET BY MOUTH TWICE A DAY, MA XIMUM DAILY DOSE = 2 SOLD: 10/10/2020 [facility] 40 mg 09/10/2020 12:00:00 AM EST tablet 60 TAKE ONE TABLET BY MOUTH TWICE A DAY, MAXIMUM DAILY DOSE = 2 TAKE ONE TABLET BY MOUTH TWICE A DAY, MA XIMUM DAILY DOSE = 2 SOLD: 11/06/2020 [facility] 40 mg 09/10/2020 12:00:00 AM EST tablet 60 TAKE ONE TABLET BY MOUTH TWICE A DAY, MAXIMUM DAILY DOSE = 2 TAKE ONE TABLET BY MOUTH TWICE A DAY, FIONA MACIAS DAILY DOSE = 2 SOLD: 12/06/2020 [facility] 100 mcg 09/06/2020 12:00:00 AM EST tablet 30 TAKE ONE TABLET BY MOUTH EVERY MORNING ON AN EMPTY STOMACH TAKE ONE TABLET BY MOUTH EVERY MORNING O N AN EMPTY STOMACH SOLD: 11/06/2020 [facility] 100 mcg 09/06/2020 12:00:00 AM EST tablet 30 TAKE ONE TABLET BY MOUTH EVERY MORNING ON AN EMPTY STOMACH TAKE ONE TABLET BY MOUTH EVERY MORNING O N AN EMPTY STOMACH SOLD: 04/10/2021 [facility] 100 mcg 09/06/2020 12:00:00 AM EST tablet 30 TAKE ONE TABLET BY MOUTH EVERY MORNING ON AN EMPTY STOMACH TAKE ONE TABLET BY MOUTH EVERY MORNING O N AN EMPTY STOMACH SOLD: 09/06/2020 [facility] 100 mcg 09/06/2020 12:00:00 AM EST tablet 30 TAKE ONE TABLET BY MOUTH EVERY MORNING ON AN EMPTY STOMACH TAKE ONE TABLET BY MOUTH EVERY MORNING O N AN EMPTY STOMACH SOLD: 05/06/2021 [facility] 100 mcg 09/06/2020 12:00:00 AM EST tablet 30 TAKE ONE TABLET BY MOUTH EVERY MORNING ON AN EMPTY STOMACH TAKE ONE TABLET BY MOUTH EVERY MORNING O N AN EMPTY STOMACH SOLD: 10/07/2020 [facility] 100 mcg 09/06/2020 12:00:00 AM EST tablet 30 TAKE ONE TABLET BY MOUTH EVERY MORNING ON AN EMPTY STOMACH TAKE ONE TABLET BY MOUTH EVERY MORNING O N AN EMPTY STOMACH SOLD: 02/03/2021 [facility] 100 mcg 09/06/2020 12:00:00 AM EST tablet 30 TAKE ONE TABLET BY MOUTH EVERY MORNING ON AN EMPTY STOMACH TAKE ONE TABLET BY MOUTH EVERY MORNING O N AN EMPTY STOMACH SOLD: 03/10/2021 [facility] 100 mcg 09/06/2020 12:00:00 AM EST tablet 30 TAKE ONE TABLET BY MOUTH EVERY MORNING ON AN EMPTY STOMACH TAKE ONE TABLET BY MOUTH EVERY MORNING O N AN EMPTY STOMACH SOLD: 12/06/2020 [facility] 100 mcg 09/06/2020 12:00:00 AM EST tablet 30 TAKE ONE TABLET BY MOUTH EVERY MORNING ON AN EMPTY STOMACH TAKE ONE TABLET BY MOUTH EVERY MORNING O N AN EMPTY STOMACH SOLD: 01/07/2021 [facility] 300-30 mg 08/29/2020 12:00:00 AM EST tablet 60 TAKE ONE TABLET BY MOUTH EVERY 6 HOURS NEEDED , MAXIMUM DAILY DOSE = 4 TABLETS TAKE ONE TABLET BY MOUTH EVERY 6 HOURS NEEDED , MAXIMUM DAILY DOSE = 4 TABLETS SOLD: 08/29/2020 [facility] tizanidine 4 MG Oral Tablet TIZANIDINE HCL 08/17/2020 12:00:00 AM EST tablet 90 TAKE 1/2 OR 1 TABLET BY MOUTH THREE TIME S A DAY NEEDED FOR NECK AND BACK PAIN, MAXIMUM DAILY DOSE = THREE TABLETS TAKE 1/2 OR 1 TABLET BY MOUTH THREE TIMES A DAY NEEDED FOR NECK AND BACK PAIN, MAXIMUM DAILY DOSE = THREE TABLETS SOLD: 08/21/2020 [facility] tizanidine 4 MG Oral Tablet TIZANIDINE HCL 08/17/2020 12:00:00 AM EST tablet 90 TAKE 1/2 OR 1 TABLET BY MOUTH THREE TIME S A DAY NEEDED FOR NECK AND BACK PAIN, MAXIMUM DAILY DOSE = THREE TABLETS TAKE 1/2 OR 1 TABLET BY MOUTH THREE TIMES A DAY NEEDED FOR NECK AND BACK PAIN, MAXIMUM DAILY DOSE = THREE TABLETS SOLD: 01/21/2021 [facility] tizanidine 4 MG Oral Tablet TIZANIDINE HCL 08/17/2020 12:00:00 AM EST tablet 90 TAKE 1/2 OR 1 TABLET BY MOUTH THREE TIME S A DAY NEEDED FOR NECK AND BACK PAIN, MAXIMUM DAILY DOSE = THREE TABLETS TAKE 1/2 OR 1 TABLET BY MOUTH THREE TIMES A DAY NEEDED FOR NECK AND BACK PAIN, MAXIMUM DAILY DOSE = THREE TABLETS SOLD: 04/24/2021 [facility] 300-30 mg 08/16/2020 12:00:00 AM EST tablet 60 TAKE ONE TABLET BY MOUTH EVERY 6 HOURS NEEDED , MAXIMUM DAILY DOSE = 4 TABLETS TAKE ONE TABLET BY MOUTH EVERY 6 HOURS NEEDED , MAXIMUM DAILY DOSE = 4 TABLETS SOLD: 08/16/2020 [facility] 1 mg 08/14/2020 12:00:00 AM EST tablet 30 TAKE ONE TABLET BY MOUTH EVERY DAY TAKE ONE TABLET BY MOUTH EVERY DAY SOLD: 01/21/2021 [facility] 1 mg 08/14/2020 12:00:00 AM EST tablet 30 TAKE ONE TABLET BY MOUTH EVERY DAY TAKE ONE TABLET BY MOUTH EVERY DAY SOLD: 12/19/2020 [facility] 1 mg 08/14/2020 12:00:00 AM EST tablet 30 TAKE ONE TABLET BY MOUTH EVERY DAY TAKE ONE TABLET BY MOUTH EVERY DAY SOLD: 10/18/2020 [facility] 1 mg 08/14/2020 12:00:00 AM EST tablet 30 TAKE ONE TABLET BY MOUTH EVERY DAY TAKE ONE TABLET BY MOUTH EVERY DAY SOLD: 11/20/2020 [facility] 1 mg 08/14/2020 12:00:00 AM EST tablet 30 TAKE ONE TABLET BY MOUTH EVERY DAY TAKE ONE TABLET BY MOUTH EVERY DAY SOLD: 09/19/2020 [facility] 1 mg 08/14/2020 12:00:00 AM EST tablet 30 TAKE ONE TABLET BY MOUTH EVERY DAY TAKE ONE TABLET BY MOUTH EVERY DAY SOLD: 08/16/2020 [facility] anastrozole 1 MG Oral Tablet Anastrozole 1 MG Oral Tab let (ARIMIDEX) Anastrozole 1 MG Oral Tablet (ARIMIDEX) 08/13/2020 12:00:00 AM EST 1 mg Oral active Take 1 tablet by mouth daily [facility] 75 mg 08/10/2020 12:00:00 AM EST capsule,extended releas e 24hr 30 TAKE ONE CAPSULE BY MOUTH EVERY DAY TAKE ONE CAPSULE BY MOUTH EVERY DAY SOLD: 08/10/2020 [facility] 75 mg 08/10/2020 12:00:00 AM EST capsule,extended releas e 24hr 30 TAKE ONE CAPSULE BY MOUTH EVERY DAY TAKE ONE CAPSULE BY MOUTH EVERY DAY SOLD: 09/06/2020 [facility] 75 mg 08/10/2020 12:00:00 AM EST capsule,extended releas e 24hr 30 TAKE ONE CAPSULE BY MOUTH EVERY DAY TAKE ONE CAPSULE BY MOUTH EVERY DAY SOLD: 10/07/2020 [facility] 300-30 mg 08/02/2020 12:00:00 AM EDT tablet 60 TAKE 1 TABLET BY MOUTH EVERY 6 HOURS NEEDED MAXIMUM DAILY DOSE = 4 TABLETS TAKE 1 TABLET BY MOUTH EVERY 6 HOURS NEEDED MAXIMUM DAILY DOSE = 4 TABLETS SOLD: 08/02/2020 [facility] 40 mg 07/23/2020 12:00:00 AM EDT capsule,delayed release (DR/EC) 60 TAKE ONE CAPSULE BY MOUTH TWO TIMES A DAY NEEDED TAKE ONE CAPSULE BY MOUTH TWO TIMES A DAY NEEDED SOLD: 03/10/2021 [facility] 40 mg 07/23/2020 12:00:00 AM EDT capsule,delayed release (DR/EC) 60 TAKE ONE CAPSULE BY MOUTH TWO TIMES A DAY NEEDED TAKE ONE CAPSULE BY MOUTH TWO TIMES A DAY NEEDED SOLD: 04/20/2021 [facility] 40 mg 07/23/2020 12:00:00 AM EDT capsule,delayed release (DR/EC) 60 TAKE ONE CAPSULE BY MOUTH TWO TIMES A DAY NEEDED TAKE ONE CAPSULE BY MOUTH TWO TIMES A DAY NEEDED SOLD: 07/24/2020 [facility] Acetaminophen 300 MG / Codeine Phosphate 30 MG Oral Tablet Acetaminophen-Codeine #3 300-30 MG Acetaminophen-Codeine #3 300-30 MG 07/19/2020 12:00:00 AM EDT 1.0 {tablet_as_needed} active Acetamino phen-Codeine #3 300-30 MG eCW1 ([facility]) Acetaminophen 300 MG / Codeine Phosphate 30 MG Oral Tablet Acetaminophen-Codeine #3 300-30 MG Acetaminophen-Codeine #3 300-30 MG 07/19/2020 12:00:00 AM EDT 1.0 {tablet_as_needed} active Acetamino phen-Codeine #3 300-30 MG eCW1 ([facility]) Acetaminophen 300 MG / Codeine Phosphate 30 MG Oral Tablet Acetaminophen-Codeine #3 300-30 MG Acetaminophen-Codeine #3 300-30 MG 07/19/2020 12:00:00 AM EDT 1.0 {tablet_as_needed} active Acetamino phen-Codeine #3 300-30 MG eCW1 ([facility]) Acetaminophen 300 MG / Codeine Phosphate 30 MG Oral Tablet Acetaminophen-Codeine #3 300-30 MG Acetaminophen-Codeine #3 300-30 MG 07/19/2020 12:00:00 AM EDT 1.0 {tablet_as_needed} active Acetamino phen-Codeine #3 300-30 MG eCW1 ([facility]) Acetaminophen 300 MG / Codeine Phosphate 30 MG Oral Tablet Acetaminophen-Codeine #3 300-30 MG Acetaminophen-Codeine #3 300-30 MG 07/19/2020 12:00:00 AM EDT 1.0 {tablet_as_needed} active Acetamino phen-Codeine #3 300-30 MG eCW1 ([facility]) Acetaminophen 300 MG / Codeine Phosphate 30 MG Oral Tablet Acetaminophen-Codeine #3 300-30 MG Acetaminophen-Codeine #3 300-30 MG 07/19/2020 12:00:00 AM EDT 1.0 {tablet_as_needed} active Acetamino phen-Codeine #3 300-30 MG eCW1 ([facility]) Acetaminophen 300 MG / Codeine Phosphate 30 MG Oral Tablet Acetaminophen-Codeine #3 300-30 MG Acetaminophen-Codeine #3 300-30 MG 07/19/2020 12:00:00 AM EDT 1.0 {tablet_as_needed} active Acetamino phen-Codeine #3 300-30 MG eCW1 ([facility]) Acetaminophen 300 MG / Codeine Phosphate 30 MG Oral Tablet Acetaminophen-Codeine #3 300-30 MG Acetaminophen-Codeine #3 300-30 MG 07/19/2020 12:00:00 AM EDT 1.0 {tablet_as_needed} active Acetamino phen-Codeine #3 300-30 MG eCW1 ([facility]) Acetaminophen 300 MG / Codeine Phosphate 30 MG Oral Tablet Acetaminophen-Codeine #3 300-30 MG Acetaminophen-Codeine #3 300-30 MG 07/19/2020 12:00:00 AM EDT 1.0 {tablet_as_needed} active Acetamino phen-Codeine #3 300-30 MG eCW1 ([facility]) Acetaminophen 300 MG / Codeine Phosphate 30 MG Oral Tablet Acetaminophen-Codeine #3 300-30 MG Acetaminophen-Codeine #3 300-30 MG 07/19/2020 12:00:00 AM EDT 1.0 {tablet_as_needed} active Acetamino phen-Codeine #3 300-30 MG eCW1 ([facility]) Acetaminophen 300 MG / Codeine Phosphate 30 MG Oral Tablet Acetaminophen-Codeine #3 300-30 MG Acetaminophen-Codeine #3 300-30 MG 07/19/2020 12:00:00 AM EDT 1.0 {tablet_as_needed} active Acetamino phen-Codeine #3 300-30 MG eCW1 ([facility]) Acetaminophen 300 MG / Codeine Phosphate 30 MG Oral Tablet Acetaminophen-Codeine #3 300-30 MG Acetaminophen-Codeine #3 300-30 MG 07/19/2020 12:00:00 AM EDT 1.0 {tablet_as_needed} active Acetamino phen-Codeine #3 300-30 MG eCW1 ([facility]) Acetaminophen 300 MG / Codeine Phosphate 30 MG Oral Tablet Acetaminophen-Codeine #3 300-30 MG Acetaminophen-Codeine #3 300-30 MG 07/19/2020 12:00:00 AM EDT 1.0 {tablet_as_needed} active Acetamino phen-Codeine #3 300-30 MG eCW1 ([facility]) Acetaminophen 300 MG / Codeine Phosphate 30 MG Oral Tablet Acetaminophen-Codeine #3 300-30 MG Acetaminophen-Codeine #3 300-30 MG 07/19/2020 12:00:00 AM EDT 1.0 {tablet_as_needed} active Acetamino phen-Codeine #3 300-30 MG eCW1 ([facility]) Acetaminophen 300 MG / Codeine Phosphate 30 MG Oral Tablet Acetaminophen-Codeine #3 300-30 MG Acetaminophen-Codeine #3 300-30 MG 07/19/2020 12:00:00 AM EDT 1.0 {tablet_as_needed} active Acetamino phen-Codeine #3 300-30 MG eCW1 ([facility]) Acetaminophen 300 MG / Codeine Phosphate 30 MG Oral Tablet Acetaminophen-Codeine #3 300-30 MG Acetaminophen-Codeine #3 300-30 MG 07/19/2020 12:00:00 AM EDT 1.0 {tablet_as_needed} active Acetamino phen-Codeine #3 300-30 MG eCW1 ([facility]) Acetaminophen 300 MG / Codeine Phosphate 30 MG Oral Tablet Acetaminophen-Codeine #3 300-30 MG Acetaminophen-Codeine #3 300-30 MG 07/19/2020 12:00:00 AM EDT 1.0 {tablet_as_needed} active Acetamino phen-Codeine #3 300-30 MG eCW1 ([facility]) Acetaminophen 300 MG / Codeine Phosphate 30 MG Oral Tablet Acetaminophen-Codeine #3 300-30 MG Acetaminophen-Codeine #3 300-30 MG 07/19/2020 12:00:00 AM EDT 1.0 {tablet_as_needed} active Acetamino phen-Codeine #3 300-30 MG eCW1 ([facility]) Acetaminophen 300 MG / Codeine Phosphate 30 MG Oral Tablet Acetaminophen-Codeine #3 300-30 MG Acetaminophen-Codeine #3 300-30 MG 07/19/2020 12:00:00 AM EDT 1.0 {tablet_as_needed} active Acetamino phen-Codeine #3 300-30 MG eCW1 ([facility]) Acetaminophen 300 MG / Codeine Phosphate 30 MG Oral Tablet Acetaminophen-Codeine #3 300-30 MG Acetaminophen-Codeine #3 300-30 MG 07/19/2020 12:00:00 AM EDT 1.0 {tablet_as_needed} active Acetamino phen-Codeine #3 300-30 MG eCW1 ([facility]) Acetaminophen 300 MG / Codeine Phosphate 30 MG Oral Tablet Acetaminophen-Codeine #3 300-30 MG Acetaminophen-Codeine #3 300-30 MG 07/19/2020 12:00:00 AM EDT 1.0 {tablet_as_needed} active Acetamino phen-Codeine #3 300-30 MG eCW1 ([facility]) Acetaminophen 300 MG / Codeine Phosphate 30 MG Oral Tablet Acetaminophen-Codeine #3 300-30 MG Acetaminophen-Codeine #3 300-30 MG 07/19/2020 12:00:00 AM EDT 1.0 {tablet_as_needed} active Acetamino phen-Codeine #3 300-30 MG eCW1 ([facility]) 300-30 mg 07/19/2020 12:00:00 AM EDT tablet 60 TAKE ONE TABLET BY MOUTH EVERY 6 HOURS NEEDED , MAXIMUM DAILY DOSE = 4 TABLETS TAKE ONE TABLET BY MOUTH EVERY 6 HOURS NEEDED , MAXIMUM DAILY DOSE = 4 TABLETS SOLD: 07/19/2020 [facility] Acetaminophen 300 MG / Codeine Phosphate 30 MG Oral Tablet Acetaminophen-Codeine #3 300-30 MG Acetaminophen-Codeine #3 300-30 MG 07/19/2020 12:00:00 AM EDT 1.0 {tablet_as_needed} active Acetamino phen-Codeine #3 300-30 MG eCW1 ([facility]) Acetaminophen 300 MG / Codeine Phosphate 30 MG Oral Tablet Acetaminophen-Codeine #3 300-30 MG Acetaminophen-Codeine #3 300-30 MG 07/19/2020 12:00:00 AM EDT 1.0 {tablet_as_needed} active Acetamino phen-Codeine #3 300-30 MG eCW1 ([facility]) Acetaminophen 300 MG / Codeine Phosphate 30 MG Oral Tablet Acetaminophen-Codeine #3 300-30 MG Acetaminophen-Codeine #3 300-30 MG 07/19/2020 12:00:00 AM EDT 1.0 {tablet_as_needed} active Acetamino phen-Codeine #3 300-30 MG eCW1 ([facility]) Acetaminophen 300 MG / Codeine Phosphate 30 MG Oral Tablet Acetaminophen-Codeine #3 300-30 MG Acetaminophen-Codeine #3 300-30 MG 07/19/2020 12:00:00 AM EDT 1.0 {tablet_as_needed} active Acetamino phen-Codeine #3 300-30 MG eCW1 ([facility]) Acetaminophen 300 MG / Codeine Phosphate 30 MG Oral Tablet Acetaminophen-Codeine #3 300-30 MG Acetaminophen-Codeine #3 300-30 MG 07/19/2020 12:00:00 AM EDT 1.0 {tablet_as_needed} active Acetamino phen-Codeine #3 300-30 MG eCW1 ([facility]) Acetaminophen 300 MG / Codeine Phosphate 30 MG Oral Tablet Acetaminophen-Codeine #3 300-30 MG Acetaminophen-Codeine #3 300-30 MG 07/19/2020 12:00:00 AM EDT 1.0 {tablet_as_needed} active Acetamino phen-Codeine #3 300-30 MG eCW1 ([facility]) Lorazepam 0.5 MG Oral Tablet Lorazepam 0.5 MG 07/11/2020 12:00:00 AM E DT active Lorazepam 0.5 MG eCW1 ([facility]ly [facility], [facility]) Lorazepam 0.5 MG Oral Tablet Lorazepam 0.5 MG 07/11/2020 12:00:00 AM E DT active Lorazepam 0.5 MG eCW1 ([facility]ly [facility], [facility]) 20 mg 07/11/2020 12:00:00 AM EDT tablet 30 TAKE ONE TABLET BY MOUTH AT BEDTIME ON AN EMPTY STOMACH TAKE ONE TABLET BY MOUTH AT BEDTIME ON A N EMPTY STOMACH SOLD: 10/22/2020 [facility] Lorazepam 0.5 MG Oral Tablet Lorazepam 0.5 MG 07/11/2020 12:00:00 AM E DT active Lorazepam 0.5 MG eCW1 (Formerly [facility], [facility]) trospium chloride 20 MG Oral Tablet Trospium Chloride 20 MG Trospium Chloride 20 MG 07/11/2020 12:00:00 AM EDT 1.0 {tablet_at_bedtime_on_a n_empty_stomach} active Trospium Chloride 20 MG e CW1 ([facility]) Lorazepam 0.5 MG Oral Tablet Lorazepam 0.5 MG 07/11/2020 12:00:00 AM E DT active Lorazepam 0.5 MG eCW1 (Formerly [facility], [facility]) Lorazepam 0.5 MG Oral Tablet Lorazepam 0.5 MG 07/11/2020 12:00:00 AM E DT active Lorazepam 0.5 MG eCW1 (Formerly [facility], [facility]) Lorazepam 0.5 MG Oral Tablet Lorazepam 0.5 MG 07/11/2020 12:00:00 AM E DT active Lorazepam 0.5 MG eCW1 (Formerly [facility], [facility]) Promethazine Hydrochloride 25 MG Oral Tablet PROMETHAZINE HC L 07/11/2020 12:00:00 AM EDT tablet 100 TAKE ONE TABLET BY MOUTH FOUR TIMES A DAY NEEDED TAKE ONE TABLET BY MOUTH FOUR TIMES A DAY NEEDED SOLD: 07/11/2020 [facility] Lorazepam 0.5 MG Oral Tablet Lorazepam 0.5 MG 07/11/2020 12:00:00 AM E DT active Lorazepam 0.5 MG eCW1 (Formerly [facility], [facility]) Lorazepam 0.5 MG Oral Tablet Lorazepam 0.5 MG 07/11/2020 12:00:00 AM E DT active Lorazepam 0.5 MG eCW1 (Formerly [facility], [facility]) Lorazepam 0.5 MG Oral Tablet Lorazepam 0.5 MG 07/11/2020 12:00:00 AM E DT active Lorazepam 0.5 MG eCW1 (Formerly [facility], [facility]) trospium chloride 20 MG Oral Tablet Trospium Chloride 20 MG Trospium Chloride 20 MG 07/11/2020 12:00:00 AM EDT 1.0 {tablet_at_bedtime_on_a n_empty_stomach} active Trospium Chloride 20 MG e CW1 ([facility]) Lorazepam 0.5 MG Oral Tablet Lorazepam 0.5 MG 07/11/2020 12:00:00 AM E DT active Lorazepam 0.5 MG eCW1 ([facility]ly [facility]) Lorazepam 0.5 MG Oral Tablet Lorazepam 0.5 MG 07/11/2020 12:00:00 AM E DT active Lorazepam 0.5 MG eCW1 ([facility]ly [facility]) 20 mg 07/11/2020 12:00:00 AM EDT tablet 30 TAKE ONE TABLET BY MOUTH AT BEDTIME ON AN EMPTY STOMACH TAKE ONE TABLET BY MOUTH AT BEDTIME ON A N EMPTY STOMACH SOLD: 12/14/2020 [facility] Lorazepam 0.5 MG Oral Tablet Lorazepam 0.5 MG 07/11/2020 12:00:00 AM E DT active Lorazepam 0.5 MG eCW1 ([facility]ly [facility]) 0.5 mg 07/11/2020 12:00:00 AM EDT tablet 120 TAKE ONE TABLET BY MOUTH FOUR TIMES A DAY NEEDED , MAXIMUM DAILY DOSE = 4 TABLETS TAKE ONE TABLET BY MOUTH FOUR TIMES A DAY NEEDED , MAXIMUM DAILY DOSE = 4 TABLETS SOLD: 07/11/2020 [facility] Lorazepam 0.5 MG Oral Tablet Lorazepam 0.5 MG 07/11/2020 12:00:00 AM E DT active Lorazepam 0.5 MG eCW1 ([facility]ly [facility]) Lorazepam 0.5 MG Oral Tablet Lorazepam 0.5 MG 07/11/2020 12:00:00 AM E DT active Lorazepam 0.5 MG eCW1 ([facility]ly [facility]) Lorazepam 0.5 MG Oral Tablet Lorazepam 0.5 MG 07/11/2020 12:00:00 AM E DT active Lorazepam 0.5 MG eCW1 ([facility]ly [facility]) Lorazepam 0.5 MG Oral Tablet Lorazepam 0.5 MG 07/11/2020 12:00:00 AM E DT active Lorazepam 0.5 MG eCW1 ([facility]ly [facility]) Lorazepam 0.5 MG Oral Tablet Lorazepam 0.5 MG 07/11/2020 12:00:00 AM E DT active Lorazepam 0.5 MG eCW1 ([facility]ly [facility]) Lorazepam 0.5 MG Oral Tablet Lorazepam 0.5 MG 07/11/2020 12:00:00 AM E DT active Lorazepam 0.5 MG eCW1 ([facility]ly [facility], [facility]) Promethazine Hydrochloride 25 MG Oral Tablet PROMETHAZINE HC L 07/11/2020 12:00:00 AM EDT tablet 100 TAKE ONE TABLET BY MOUTH FOUR TIMES A DAY NEEDED TAKE ONE TABLET BY MOUTH FOUR TIMES A DAY NEEDED SOLD: 04/20/2021 [facility] 20 mg 07/11/2020 12:00:00 AM EDT tablet 30 TAKE ONE TABLET BY MOUTH AT BEDTIME ON AN EMPTY STOMACH TAKE ONE TABLET BY MOUTH AT BEDTIME ON A N EMPTY STOMACH SOLD: 07/11/2020 [facility] Lorazepam 0.5 MG Oral Tablet Lorazepam 0.5 MG 07/11/2020 12:00:00 AM E DT active Lorazepam 0.5 MG eCW1 ([facility]ly [facility]) 20 mg 07/11/2020 12:00:00 AM EDT tablet 30 TAKE ONE TABLET BY MOUTH AT BEDTIME ON AN EMPTY STOMACH TAKE ONE TABLET BY MOUTH AT BEDTIME ON A N EMPTY STOMACH SOLD: 02/21/2021 [facility] Lorazepam 0.5 MG Oral Tablet Lorazepam 0.5 MG 07/11/2020 12:00:00 AM E DT active Lorazepam 0.5 MG eCW1 ([facility]ly [facility]) Lorazepam 0.5 MG Oral Tablet Lorazepam 0.5 MG 07/11/2020 12:00:00 AM E DT active Lorazepam 0.5 MG eCW1 ([facility]ly [facility], [facility]) Lorazepam 0.5 MG Oral Tablet Lorazepam 0.5 MG 07/11/2020 12:00:00 AM E DT active Lorazepam 0.5 MG eCW1 ([facility]ly [facility], [facility]) Lorazepam 0.5 MG Oral Tablet Lorazepam 0.5 MG 07/11/2020 12:00:00 AM E DT active Lorazepam 0.5 MG eCW1 ([facility]ly [facility], [facility]) trospium chloride 20 MG Oral Tablet Trospium Chloride 20 MG Trospium Chloride 20 MG 07/11/2020 12:00:00 AM EDT 1.0 {tablet_at_bedtime_on_a n_empty_stomach} active Trospium Chloride 20 MG e CW1 ([facility]) Lorazepam 0.5 MG Oral Tablet Lorazepam 0.5 MG 07/11/2020 12:00:00 AM E DT active Lorazepam 0.5 MG eCW1 ([facility]ly [facility]) Lorazepam 0.5 MG Oral Tablet Lorazepam 0.5 MG 07/11/2020 12:00:00 AM E DT active Lorazepam 0.5 MG eCW1 ([facility]ly [facility], [facility]) Lorazepam 0.5 MG Oral Tablet Lorazepam 0.5 MG 07/11/2020 12:00:00 AM E DT active Lorazepam 0.5 MG eCW1 ([facility]ly [facility], [facility]) Lorazepam 0.5 MG Oral Tablet Lorazepam 0.5 MG 07/11/2020 12:00:00 AM E DT active Lorazepam 0.5 MG eCW1 ([facility]ly [facility]) Lorazepam 0.5 MG Oral Tablet Lorazepam 0.5 MG 07/11/2020 12:00:00 AM E DT active Lorazepam 0.5 MG eCW1 ([facility]ly [facility]) Lorazepam 0.5 MG Oral Tablet Lorazepam 0.5 MG 07/11/2020 12:00:00 AM E DT active Lorazepam 0.5 MG eCW1 ([facility]ly [facility], [facility]) Lorazepam 0.5 MG Oral Tablet Lorazepam 0.5 MG 07/11/2020 12:00:00 AM E DT active Lorazepam 0.5 MG eCW1 ([facility]ly [facility], [facility]) Lorazepam 0.5 MG Oral Tablet Lorazepam 0.5 MG 07/11/2020 12:00:00 AM E DT active Lorazepam 0.5 MG eCW1 ([facility]ly [facility]) 20 mg 07/11/2020 12:00:00 AM EDT tablet 30 TAKE ONE TABLET BY MOUTH AT BEDTIME ON AN EMPTY STOMACH TAKE ONE TABLET BY MOUTH AT BEDTIME ON A N EMPTY STOMACH SOLD: 04/10/2021 [facility] Lorazepam 0.5 MG Oral Tablet Lorazepam 0.5 MG 07/11/2020 12:00:00 AM E DT active Lorazepam 0.5 MG eCW1 ([facility]ly [facility]) Lorazepam 0.5 MG Oral Tablet Lorazepam 0.5 MG 07/11/2020 12:00:00 AM E DT active Lorazepam 0.5 MG eCW1 ([facility]ly [facility]) Lorazepam 0.5 MG Oral Tablet Lorazepam 0.5 MG 07/11/2020 12:00:00 AM E DT active Lorazepam 0.5 MG eCW1 ([facility]ly [facility], [facility]) Lorazepam 0.5 MG Oral Tablet Lorazepam 0.5 MG 07/11/2020 12:00:00 AM E DT active Lorazepam 0.5 MG eCW1 ([facility]) Lorazepam 0.5 MG Oral Tablet Lorazepam 0.5 MG 07/11/2020 12:00:00 AM E DT active Lorazepam 0.5 MG eCW1 ([facility]) Lorazepam 0.5 MG Oral Tablet Lorazepam 0.5 MG 07/11/2020 12:00:00 AM E DT active Lorazepam 0.5 MG eCW1 ([facility]) trospium chloride 20 MG Oral Tablet Trospium Chloride 20 MG Trospium Chloride 20 MG 07/11/2020 12:00:00 AM EDT 1.0 {tablet_at_bedtime_on_a n_empty_stomach} active Trospium Chloride 20 MG e CW1 ([facility]) 20 mg 06/18/2020 12:00:00 AM EDT tablet 30 TAKE ONE TABLET BY MOUTH EVERY DAY TAKE ONE TABLET BY MOUTH EVERY DAY SOLD: 06/19/2020 [facility] 20 mg 06/18/2020 12:00:00 AM EDT tablet 30 TAKE ONE TABLET BY MOUTH EVERY DAY TAKE ONE TABLET BY MOUTH EVERY DAY SOLD: 07/19/2020 [facility] 20 mg 06/18/2020 12:00:00 AM EDT tablet 30 TAKE ONE TABLET BY MOUTH EVERY DAY TAKE ONE TABLET BY MOUTH EVERY DAY SOLD: 08/16/2020 [facility] 300-30 mg 06/05/2020 12:00:00 AM EDT tablet 60 TAKE ONE TABLET BY MOUTH FOUR TIMES A DAY NEEDED, MAXIMUM DAILY DOSE = FOUR TABLETS TAKE ONE TABLET BY MOUTH FOUR TIMES A DAY NEEDED, MAXIMUM DAILY DOSE = FOUR TABLETS SOLD: 06/05/2020 [facility] quetiapine 100 MG Oral Tablet QUETIAPINE FUMARATE 05/29/2020 12: 00:00 AM EDT tablet 45 TAKE 1 & 1/2 TABLETS BY MOUTH ON CE DAILY AT BEDTIME TAKE 1 & 1/2 TABLETS BY MOUTH ONCE DAILY AT BEDTIME SOLD: 11/06/2020 [facility] venlafaxine 75 MG Oral Tablet VENLAFAXINE HCL 05/29/2020 12:00:00 A M EDT tablet 30 TAKE ONE TABLET BY MOUTH EVERY DAY TAKE ONE TABL ET BY MOUTH EVERY DAY SOLD: 05/29/2020 [facility] venlafaxine 75 MG Oral Tablet VENLAFAXINE HCL 05/29/2020 12:00:00 A M EDT tablet 30 TAKE ONE TABLET BY MOUTH EVERY DAY TAKE ONE TABL ET BY MOUTH EVERY DAY SOLD: 06/28/2020 [facility] quetiapine 100 MG Oral Tablet QUETIAPINE FUMARATE 05/29/2020 12: 00:00 AM EDT tablet 45 TAKE 1 & 1/2 TABLETS BY MOUTH ON CE DAILY AT BEDTIME TAKE 1 & 1/2 TABLETS BY MOUTH ONCE DAILY AT BEDTIME SOLD: 07/26/2020 [facility] quetiapine 100 MG Oral Tablet QUETIAPINE FUMARATE 05/29/2020 12: 00:00 AM EDT tablet 45 TAKE 1 & 1/2 TABLETS BY MOUTH ON CE DAILY AT BEDTIME TAKE 1 & 1/2 TABLETS BY MOUTH ONCE DAILY AT BEDTIME SOLD: 05/29/2020 [facility] quetiapine 100 MG Oral Tablet QUETIAPINE FUMARATE 05/29/2020 12: 00:00 AM EDT tablet 45 TAKE 1 & 1/2 TABLETS BY MOUTH ON CE DAILY AT BEDTIME TAKE 1 & 1/2 TABLETS BY MOUTH ONCE DAILY AT BEDTIME SOLD: 08/29/2020 [facility] quetiapine 100 MG Oral Tablet QUETIAPINE FUMARATE 05/29/2020 12: 00:00 AM EDT tablet 45 TAKE 1 & 1/2 TABLETS BY MOUTH ON CE DAILY AT BEDTIME TAKE 1 & 1/2 TABLETS BY MOUTH ONCE DAILY AT BEDTIME SOLD: 10/07/2020 [facility] quetiapine 100 MG Oral Tablet QUETIAPINE FUMARATE 05/29/2020 12: 00:00 AM EDT tablet 45 TAKE 1 & 1/2 TABLETS BY MOUTH ON CE DAILY AT BEDTIME TAKE 1 & 1/2 TABLETS BY MOUTH ONCE DAILY AT BEDTIME SOLD: 06/28/2020 [facility] 4 mg 05/26/2020 12:00:00 AM EDT capsule,extended releas e 24hr 30 TAKE ONE CAPSULE BY MOUTH EVERY DAY TAKE ONE CAPSULE BY MOUTH EVERY DAY SOLD: 07/26/2020 [facility] 4 mg 05/26/2020 12:00:00 AM EDT capsule,extended releas e 24hr 30 TAKE ONE CAPSULE BY MOUTH EVERY DAY TAKE ONE CAPSULE BY MOUTH EVERY DAY SOLD: 08/21/2020 [facility] 4 mg 05/26/2020 12:00:00 AM EDT capsule,extended releas e 24hr 30 TAKE ONE CAPSULE BY MOUTH EVERY DAY TAKE ONE CAPSULE BY MOUTH EVERY DAY SOLD: 09/19/2020 [facility] 4 mg 05/26/2020 12:00:00 AM EDT capsule,extended releas e 24hr 30 TAKE ONE CAPSULE BY MOUTH EVERY DAY TAKE ONE CAPSULE BY MOUTH EVERY DAY SOLD: 06/24/2020 [facility] 4 mg 05/26/2020 12:00:00 AM EDT capsule,extended releas e 24hr 30 TAKE ONE CAPSULE BY MOUTH EVERY DAY TAKE ONE CAPSULE BY MOUTH EVERY DAY SOLD: 10/18/2020 [facility] 1 mg 05/16/2020 12:00:00 AM EDT tablet 30 TAKE ONE TABLET BY MOUTH EVERY DAY TAKE ONE TABLET BY MOUTH EVERY DAY SOLD: 06/17/2020 [facility] 1 mg 05/16/2020 12:00:00 AM EDT tablet 30 TAKE ONE TABLET BY MOUTH EVERY DAY TAKE ONE TABLET BY MOUTH EVERY DAY SOLD: 07/19/2020 [facility] 1 mg 05/16/2020 12:00:00 AM EDT tablet 30 TAKE ONE TABLET BY MOUTH EVERY DAY TAKE ONE TABLET BY MOUTH EVERY DAY SOLD: 02/21/2021 [facility] anastrozole 1 MG Oral Tablet Anastrozole 1 MG Oral Tab let (Arimidex) Anastrozole 1 MG Oral Tablet (Arimidex) 04/16/2020 12:00:00 AM EDT 1 mg Oral completed Take 1 tablet by mouth daily [facility] 40 mg 03/03/2020 12:00:00 AM EDT tablet 60 TAKE ONE TABLET BY MOUTH TWICE A DAY TAKE ONE TABLET BY MOUTH TWICE A DAY SOLD: 06/07/2020 [facility] 40 mg 03/03/2020 12:00:00 AM EDT tablet 60 TAKE ONE TABLET BY MOUTH TWICE A DAY TAKE ONE TABLET BY MOUTH TWICE A DAY SOLD: 08/06/2020 [facility] 40 mg 03/03/2020 12:00:00 AM EDT tablet 60 TAKE ONE TABLET BY MOUTH TWICE A DAY TAKE ONE TABLET BY MOUTH TWICE A DAY SOLD: 07/08/2020 [facility] 50 mg 02/13/2020 12:00:00 AM EDT tablet 9 TAKE ONE TABLET BY MOUTH EVERY DAY NEEDED TAKE ONE TABLET BY MOUTH EVERY DAY NEEDED SOLD: 07/13/2020 [facility] 50 mg 02/13/2020 12:00:00 AM EDT tablet 9 TAKE ONE TABLET BY MOUTH EVERY DAY NEEDED TAKE ONE TABLET BY MOUTH EVERY DAY NEEDED SOLD: 06/04/2020 [facility] 100 mcg 08/23/2019 12:00:00 AM EST tablet 30 TAKE ONE TABLET BY MOUTH EVERY MORNING ON AN EMPTY STOMACH TAKE ONE TABLET BY MOUTH EVERY MORNING O N AN EMPTY STOMACH SOLD: 06/07/2020 [facility] 100 mcg 08/23/2019 12:00:00 AM EST tablet 30 TAKE ONE TABLET BY MOUTH EVERY MORNING ON AN EMPTY STOMACH TAKE ONE TABLET BY MOUTH EVERY MORNING O N AN EMPTY STOMACH SOLD: 07/08/2020 [facility] 100 mcg 08/23/2019 12:00:00 AM EST tablet 30 TAKE ONE TABLET BY MOUTH EVERY MORNING ON AN EMPTY STOMACH TAKE ONE TABLET BY MOUTH EVERY MORNING O N AN EMPTY STOMACH SOLD: 08/06/2020 [facility] anastrozole 1 MG Oral Tablet Anastrozole 1 MG Oral Tab let (ARIMIDEX) Anastrozole 1 MG Oral Tablet (ARIMIDEX) 1 mg Oral aborted Take 1 mg by mouth daily [facility] Vortioxetine HBr (TRINTELLIX PO) Oral aborted Take by mouth daily [facility] Insurance Providers Payer name Policy type / Coverage type Policy ID Covered constitution party ID Covered constitution party's relationship to gallego Policy Gal[place]o Plan Information [facility] Medigap Part B [id number] Self [id number] [employer] Medigap Part B [id number] Self [id number] [employer] Medigap Part B [id number] Self [id number] [employer] Medigap Part B [id number] Self [id number] [employer] Medigap Part B [id number] Self [id number] UHC UNITED MEDICARE COMPLETE G [id number] Self [id number] [facility] U [id number] Self [id number] UN COMMUNITY PLAN MCDO [id number] SP [id number] Medicaid [place] Medig[place] Part B [id number] Self [id number] Medicaid [place] [id number] [id number] [id number] Self [id number] [place] Medig[place] Part B [id number] Self [id number] [facility] Community Plan Commercial [id number] Self [id number] [facility] I [id number] Self [id number] [facility] COMMUNITY PLAN MCDO [id number] SP [id number] [facility] Comm Plan Medicaid F [id number] SELF [id number] [facility] [id number] SP [id number] [facility] U [id number] Self [id number] [facility] U [id number] [facility] [id number] [facility] [id number] ANSI-Medicaid [id number] ANSI-Medicaid [id number] ANSI-Medicaid [id number] ANSI-Medicaid [id number] ANSI-Medicaid [id number] ANSI-Medicaid [id number] ANSI-Medicaid [id number] ANSI-Medicaid [id number] ANSI-Medicaid [id number] ANSI-Medicaid [id number] ANSI-Medicaid [id number] ANSI-Medicaid [id number] ANSI-Medicaid [id number] ANSI-Medicaid [id number] ANSI-Medicaid [id number] ANSI-Medicaid [id number] ANSI-Medicaid [id number] ANSI-Medicaid [id number] ANSI-Medicaid [id number] ANSI-Medicaid [id number] ANSI-Medicaid [id number] ANSI-Medicaid [id number] [facility] COMMUNITY PLAN [facility] [id number] SP [id number] ANSI-Medicaid [id number] ANSI-Medicaid [id number] ANSI-Medicaid [id number] ANSI-Medicaid [id number] [facility] -O [id number] 18 [id number] [facility] COMMUNITY [facility] [id number] SP [id number] [facility] O [id number] S [id number] BS [place] Medigap Part B [id number] Family Dependent Y [id number] [facility] [id number] Self [id number] BS [place] Medigap Part B [id number] Family Dependent Y [id number] MEDICAID [id number] SP [id number] BS [place] Medigap Part B [id number] Family Dependent Y [id number] [facility]) O [id number] S [id number] SELF PAY ONLY [id number] SP [id number] [employer] COMMUNITY PLAN MCDO [id number] SP [id number] Replaced By [facility] Part B [id number] Self [employer] Commercial [id number] Self [facility] [id number] SP [id number] ANSI-Medicaid [id number] [facility] [id number] SP [id number] UNHC COMMUNITY PLAN MCDO [id number] SP [id number] [facility] [id number] SP [id number] [facility]) O [id number] S [id number] [employer] COMMUNITY PLAN MCDO [id number] SP [id number] [facility] COMMUNITY PLAN MCDO [id number] SP [id number] [facility] COMMUNITY PLAN MCDO [id number] SP [id number] [facility]) O [id number] S [id number] [facility] Part B [id number] Family Dependent [id number] Replaced By [facility] Part B [id number] Self [id number] ANSI-Medicaid [id number] ANSI-Medicaid [id number] ANSI-Medicaid [id number] ANSI-Medicaid [id number] [facility]-Medicaid [id number] ANSI-Medicaid [id number] ANSI-Medicaid [id number] ANSI-Medicaid [id number] Problems, Conditions, and Diagnoses Code Display Name Description Problem Type Effective Dates Data Source(s) E03.9 [id number] Acquired hypothyroidism Problem 07/10/2021 1 2:00:00 AM EDT eCW1 ([facility]) F17.210 [id number] Cigarette nicotine dependence, uncomplica belkys Problem 07/10/2021 12:00:00 AM EDT eCW1 ([facility]) Z98.84 [id number] History of gastric bypass Problem 07/10/2021 12:00:00 AM EDT eCW1 ([facility]) I11.9 [id number] Hypertensive heart disease without heart failure Problem 07/10/2021 12:00:00 AM EDT eCW1 ([facility]) E55.9 [id number] Vitamin D deficiency Problem 07/10/2021 12:0 0:00 AM EDT eCW1 ([facility]) N39.41 Urge incontinence of urine Urge incontinence of urine Problem 01/08/2021 12:00:00 AM EDT eCW1 ([facility]) R32 Urinary incontinence Urinary incontinence Problem 01/08/2021 12:00:00 AM EDT eCW1 ([facility]) N20.0 Kidney stone Calculus of kidney Problem 01/08/2021 12:0 0:00 AM EDT eCW1 ([facility]) Surgeries/Procedures Procedure Description Date Indications Data Source(s) CHEMODNRVTJ [facility] INNERVATED FACIAL NRV 07/24/2021 12:00:00 AM EDT MEDENT ([facility]) Injection, Single Or Multiple trigger points one or two [facility] 07/22/2021 12:00:00 AM EDT MEDENT ([facility]) INJECTION ANES OTHER PERIPHERAL NERVE/BRANCH 12:00:00 AM EDT MEDENT ([facility]) Imm: Flublok Quadrivalent 18 years & older 0.5mL IM Influenz a 07/10/2021 12:00:00 AM EDT eCW1 ([facility]) MAMMO DIGITAL DIAGNOSTIC RIGHT G0206 <td>MAMMO DIGITAL DIAGNOSTIC RIGHT G0206</td><td>Routine</td><td>06/14/2021 9:43 AM EDT</td><td> Malignant neoplasm of upper-outer quadrant of right breast in female, estrogen receptor positive</td><td> </td> 06/14/2021 09:43:00 AM EDT Malignant neoplasm of upper-outer quadra nt of right breast in female, estrogen receptor positive [facility] Malignant neoplasm of upper-outer quadra nt of right breast in female, estrogen receptor positive Injection, Single Or Multiple trigger points one or two [facility] 03/21/2021 12:00:00 AM EDT MEDENT ([facility]) INJECTION ANES OTHER PERIPHERAL NERVE/BRANCH 12:00:00 AM EDT MEDENT ([facility]) OFFICE OUTPATIENT VISIT 25 MINUTES 02/08/2021 12:00:00 AM EDT MEDENT ([facility]) CHEMODNRVTJ [facility] INNERVATED FACIAL NRV 01/21/2021 12:00:00 AM EDT MEDENT ([facility]) Injection, Single Or Multiple trigger points one or two musc les 01/14/2021 12:00:00 AM EDT MEDENT ([facility]) INJECTION ANES OTHER PERIPHERAL NERVE/BRANCH 1 12:00:00 AM EDT MEDENT ([facility]) Injection, Single Or Multiple trigger points one or two musc les 11/12/2020 12:00:00 AM EST MEDENT ([facility]) INJECTION ANES OTHER PERIPHERAL NERVE/BRANCH 1 12:00:00 AM EST MEDENT ([facility]) Injection, Single Or Multiple trigger points one or two musc les 09/10/2020 12:00:00 AM EST [facility] ([facility]) INJECTION ANES OTHER PERIPHERAL NERVE/BRANCH 0 12:00:00 AM EST [facility] ([facility]) Injection, Single Or Multiple trigger points one or two musc les 07/10/2020 12:00:00 AM EDT [facility] ([facility]) INJECTION ANES OTHER PERIPHERAL NERVE/BRANCH 0 12:00:00 AM EDT [facility] ([facility]) [facility] INNERV[facility] FACIAL NRV 07/09/2020 12:00:00 AM EDT [facility] ([facility]) Results ID Date Data Source [id number] 07/11/2021 12:00:00 AM EDT [facility] Name Value Range Interpretation Code Description Data Juliette rce(s) Supporting Document(s) SARS-CoV-2 (COVID-19) RNA [Presence] in Respiratory specimen by CARYN with probe detection Not detected [facility] This lab was ordered by [employer] and r eported by [employer]. ID Date Data Source [id number] 07/11/2021 12:00:00 AM EDT [facility] Name Value Range Interpretation Code Description Data Juliette rce(s) Supporting Document(s) SARS-COV 2 PCR NEGATIVE [facility] This lab was ordered by [id number] and reported by [facility]. ID Date Data Source [id number] 06/14/2021 11:24:06 AM EDT [facility] Name Value Range Interpretation Code Description Data Juliette rce(s) Supporting Document(s) Progress Note [facility] SQICPk5jUkOFDqDy72/LDLpfNHEgs5YyFAtjNTu4DJexMAViI4MjKFM0wR8kDQB9CIoECpQsLlIpWJZu lbm [file] EzHeMZItNAC6CpJ9YQ3xPVMYTk1+PVdixFDaqSsyFFKATgY7RvX3PWffESIHAd4Q ID Date Data Source [id number] 06/14/2021 10:35:47 AM EDT [facility] MAMMO DIGITAL DIAGNOSTIC RIGHT [id number] L RESULTInterpreted by:KENROY Pleitez DIGITAL MAMMOGRAM WITH COMPUTER-AIDED DETECTIONHISTORY: Diagnostic exam. Post lumpectomy surveillance; the patient had a right lumpectomy 12/2019. The patient also has a history of left lumpectomy in 2015.COMPARISON: Mammograms dating back to 07/14/2016Last Reported Clinical Breast Exam: TodayTECHNIQUE: Craniocaudal and mediolateral oblique digital mammograms were obtained with tomosynthesis. Computer-aided detection was utilized.FINDINGS:The breasts are extremely dense, which lowers the sensitivity of mammography (category D).Post lumpectomy changes are seen in the upper breast posteriorly. Biopsy clip markers are seen in the breast.No abnormal mass, suspicious calcifications, or new architectural distortion is identified.IMPRESSION: 1. Benign right mammogram. 2. No evidence for malignancy. 3. Recommend right mammogram in 6 months for postlumpectomy surveillance, at which point the patient will be due for screening left mammogram. BI-RADS 2 - BENIGN FINDINGSThis document has been electronically signed by Padilla Stern MD on 06/14/2021 10:33 AM Name Value Range Interpretation Code Description Data Juliette rce(s) Supporting Document(s) ID Date Data Source [id number] 03/04/2021 10:18:05 PM EDT [facility] Name Value Range Interpretation Code Description Data Juliette rce(s) Supporting Document(s) Progress Note [facility] ZUNXSi4xKbINHxNz12/YZKnpBVGua3ArKBgjOAn7MQdrCRPeC8SwODM7qK2hPTO6CPoCVgEbPbDrKYPc lbm [file] DQo= ID Date Data Source [id number] 03/04/2021 10:18:[address] [facility] Name Value Range Interpretation Code Description Data Juliette rce(s) Supporting Document(s) Progress Note [facility] NYWOZm0aLmDRYbGy93/ODHdzRNNuf3LrFDefRKw7SBvpVNPjM4BsQVB1kZ7iBIM0JMvMOtRfQjGdXINf lbm [file] ICAgICAgICAgICAgICAgICAgICAgICAgICAgICAgIC AgICAgICAgICAgICAgICAgICAgICAgICAgICAgICAgICAgICAgICAgICAgICAgICAgICAgDQogICAgIC AgICAgICAgICAgICAgICAgICAgICAgICAgICAgICAgICAgICAgICAgICAgICAgICAgICAgICAgICAgIC AgICAgICAgICAgICAgICAgICAgICAgICAgICAgICAg ICAgDQogICAgICAgICAgICAgICAgICAgICAgICAgICAgICAgICAgICAgICAgICAgICAgICAgICAgICAg ICAgICAgICAgICAgICAgICAgICAgICAgICAgICAgICAgICAgICAgICAgICAgDQogICAgICAgICAgICAg ICAgICAgICAgICAgICAgICAgICAgICAgICAgICAgIC AgICAgICAgICAgICAgICAgICAgICAgICAgICAgICAgICAgICAgICAgICAgICAgICAgICAgICAgDQogIC AgICAgICAgICAgICAgICAgICAgICAgICAgICAgICAgICAgICAgICAgICAgICAgICAgICAgICAgICAgIC AgICAgICAgICAgICAgICAgICAgICAgICAgICAgICAg ICAgICAgDQogICAgICAgICAgICAgICAgICAgICAgICAgICAgICAgICAgICAgICAgICAgICAgICAgICAg ICAgICAgICAgICAgICAgICAgICAgICAgICAgICAgICAgICAgICAgICAgICAgICAgDQogICAgICAgICAg ICAgICAgICAgICAgICAgICAgICAgICAgICAgICAgIC AgICAgICAgICAgICAgICAgICAgICAgICAgICAgICAgICAgICAgICAgICAgICAgICAgICAgICAgICAgDQ ogICAgICAgICAgICAgICAgICAgICAgICAgICAgICAgICAgICAgICAgICAgICAgICAgICAgICAgICAgIC AgICAgICAgICAgICAgICAgICAgICAgICAgICAgICAg ICAgICAgICAgDQogICAgICAgICAgICAgICAgICAgICAgICAgICAgICAgICAgICAgICAgICAgICAgICAg ICAgICAgICAgICAgICAgICAgICAgICAgICAgICAgICAgICAgICAgICAgICAgICAgICAgDQogICAgICAg ICAgICAgICAgICAgICAgICAgICAgICAgICAgICAgIC AgICAgICAgICAgICAgICAgICAgICAgICAgICAgICAgICAgICAgICAgICAgICAgICAgICAgICAgICAgIC BuJPv2M9qrPVDdADLsOT4hLPl1Tq3+HKiHMeGoCMZ4wbSdiB2LXP0nc9WjUFdbAQQld9VqTRh1BG9JFQ IvPTbjUZ6HYRpgtz0SMSOtXFRlnTNCz8etDeSzBRT5 WENwVdnsAD8IMBUzX5knbnTiJPLvDJKQXWgmVXZJMHDrQYFpUvQzJbUbARSwFEXbLSFGUWS2NLOhRlWh MBbnZR3Xs9IzqLY7XQb+Yw8MPC3mi1JiKFktWcPeJV6ivw0CWExWDwOdP7WbjvR4VOO0BTWnSm7HLYBn PCDjxHWmMNWbABZVXqRlU0XxaN13GZESLl9+DQplbm CcUyrJZwU1XEQxn1WoUTa9QW9YVWXdEZg3wUMmGDQeJ5Lqu2TkBu30UPPeIsqtFQNtlO5mEkMMoL6nyO Pfs0EsNW0OPXG9VOKtNJTiLcXaJANyNIosMEBRUInBLeCbX3Snj1QpLzZ1BNUqHnWsAZheZLRlEpM1FH 84rGjwGS7SPKKoIVThSM32PZFsWVCqAm0SMn1RHjZc DW1blf8TZgNyFS6tkn4YKXaXXqVuR9N9xGQcH2Rsls33UF8WbGI6hGOjVA4BwH7vSP5Xd1ZgVONwBpZj MXQaVFDhPADxVEOqDsTeWW8NEAXjRlCueIJjTQZkPSNpVUUhDzW6NoxxFY3LJZAgUMP5CT5IRL4DEoge S8IUOOckxLsbQfVHEUV/PERNKEAOKHacDGPtU58QP8 LDASkQMhyiDMkOCibqMa4xXMk+Xa6BXH7vb2XmPZywETCuZJ5lji3ABOhGDlYlZ8B1gNRhX0E3PYtdJc 6FUEAqMFXjBmPtDWLVPRniHB3UWH3dfiR0YK0DsRDzUNKsQMGhjYWgOSi8B18cjCJnCMkeZO2ONZA+Pi A+Tb1AXJPrODJlANTdYrFxPQEDVfQeW1KkK4YKk9Qh W5BuAQ40kDkusvSwPDcnPQ2UDY2fYPOzURUFTM9QmIWvyE4gdkPjWxXvBVSHNuYxD18zdHElOMMuVXHa FKSrSg8SDCYjW2WlijMdlThqtgFbCYRxWUJDJF0AHCcqfqZhcSGouDuvYU30nFtcIR2AIs4NVeAlMZ7k mw6MyCUeBb9IKYJdJt8KSSRtFNZhMVCuCHS4LDAzVe NuLHmkMBVpSAAhCSG2ZNXfPNBlBZ9IYeTiOWCdSdu3KTYeSCIiJIKdcp1BCGLkVUVzBLA4PmBoQZGnOX RlBBvrMYJfEPNkKGB4PRTpQWPrQU6ABzZoMGDaZZQoJnLhKMYmQLRvid5BFJLdVTQ2ZLEiOqLoOPVeRV PwBMowGOSxRZC1NRDtQICeMMBqBK1SCbLdGFGvHAl2 CYztLSObIMTnxa6PGZBcMTErZWr8AuKoGRXmGFZtEQhiOIKwNHXfOOpkPUGbGTGjVX4GInEvHQCwNUXl LZrcMXJcXTPlry8UJGKoHTJlMnHlQACvRSThELBoCEhuWGJdLWL8RgP8JHFoFWUcRQ4WDvMgPRTwVuWx YCXjBGOqDPHccp8GEMXgTGSuJKC6NDJuHLBnRSNiSX yvTCVrBAWuIjA9FRAtQLItLL5YNjQkBXPkUgN6VxVhWTVgSFNnyc5IALEhJPYsGcY7CXZbQDZhAYHqQZ luMZYlWUQmHvs4PZQsCCJvDR7JUhWlDTHyLeX6RbPxCUEcHAWvpv8QRVIjUPOjCaxjQOMzTOEzQRZtDD hxQZHwYUC5PCWeGJDjDSBtQK6XVnUtWOZpGaHjGhHf FJMhIVJjlx7ABHDaJFKrTQV9WWEkHQPrAUWqSZsiAIPuGHQ1QJv6UWPuIEAhGA7SPzMnHUIwCnQbTCMe SVRuBVNkio5PQBIlGUXbHeFuVLVnZNEqIRGtCRrjGPKoQLM3NRgzHERiQDWyKA7EKkRpOFUlNbe6LsIa RKXjYHRmgw3SDLUsKWJlVgwvUsIxVERzONNqDBvxHH ZiQPK1DFlzDCLwWEXdPG8CRaPvTLKiZmegQOboIFTdFFIgas4QMVMqPZCxRTb6BRZbHAKgTVBdJVodID JtNGV4AKHzPRWxDUVvNT7YWlZlDJPrUSSxQzrmPPHsWHOlee4IeSNrzAsejh3TLPeJNy4FkOlaKSB8UF fpOk5qjJNnPNJdVAFKBs6LblXpFMVcQUTRSGwkWRIr LTP9NjqmZHZ1BTrxE6IvXXW3OOYcH4KvGGUxPEM3IVNdXuB4OFPdApGfRFi6W3CrWKT1WauqVJI4GtMo FlDxByk2DRI+TZ7kGGd+Yr1Ig5McmnM3ppOpBWk3KJCvRe6NVKRRO2NOQv== ID Date Data Source Microscopic Only Urine (Auto) 01/08/2021 12:00:00 AM EDT eCW 1 ([facility]) Name Value Range Interpretation Code Description Data Juliette rce(s) Supporting Document(s) 7 0-3 RBC, URINE AUTO eCW1 ([facility]) TNTC 0-3 WBC, URINE AUTO eCW1 ([facility]) SMALL NEGATIVE MUCUS, URINE eCW1 ([facility]) 0 0-1 HYALINE CAST, URINE AUTO eCW1 ([facility]) 3+ NEGATIVE BACTERIA, URINE AUTO eCW1 ([facility]) 0 0-6 SQUAMOUS EPITHELIAL CELL UR AU eCW1 ([facility]) ID Date Data Source URINE CULTURE 01/08/2021 12:00:00 AM EDT eCW1 ([facility]) Name Value Range Interpretation Code Description Data Juliette rce(s) Supporting Document(s) Laboratory studies (set) URINE CULTU RE eCW1 ([facility]) ID Date Data Source [id number] 12/17/2020 04:12:06 PM EDT [facility] Name Value Range Interpretation Code Description Data Juliette rce(s) Supporting Document(s) Progress Note [facility] FATGQj2rAqWUThUp65/THVqiKYUqi9RdGIsiXGf7NZsrKEDuW9BxCFI9oR5yDPH3MBrWRgKsHtQjSlL1 lbm [file] ICAgICAgICAgICAgICAgICAgICAgICAgICAgICAgIC AgICAgICAgICAgICAgICAgICAgICAgICAgICAgICAgICAgICAgICAgICAgICAgICAgICAgICAgICAgIC ANCiAgICAgICAgICAgICAgICAgICAgICAgICAgICAgICAgICAgICAgICAgICAgICAgICAgICAgICAgIC AgICAgICAgICAgICAgICAgICAgICAgICAgICAgICAg ICAgICAgICAgICANCiAgICAgICAgICAgICAgICAgICAgICAgICAgICAgICAgICAgICAgICAgICAgICAg ICAgICAgICAgICAgICAgICAgICAgICAgICAgICAgICAgICAgICAgICAgICAgICAgICAgICANCiAgICAg ICAgICAgICAgICAgICAgICAgICAgICAgICAgICAgIC AgICAgICAgICAgICAgICAgICAgICAgICAgICAgICAgICAgICAgICAgICAgICAgICAgICAgICAgICAgIC AgICANCiAgICAgICAgICAgICAgICAgICAgICAgICAgICAgICAgICAgICAgICAgICAgICAgICAgICAgIC AgICAgICAgICAgICAgICAgICAgICAgICAgICAgICAg ICAgICAgICAgICAgICANCiAgICAgICAgICAgICAgICAgICAgICAgICAgICAgICAgICAgICAgICAgICAg ICAgICAgICAgICAgICAgICAgICAgICAgICAgICAgICAgICAgICAgICAgICAgICAgICAgICAgICANCiAg ICAgICAgICAgICAgICAgICAgICAgICAgICAgICAgIC AgICAgICAgICAgICAgICAgICAgICAgICAgICAgICAgICAgICAgICAgICAgICAgICAgICAgICAgICAgIC AgICAgICANCiAgICAgICAgICAgICAgICAgICAgICAgICAgICAgICAgICAgICAgICAgICAgICAgICAgIC AgICAgICAgICAgICAgICAgICAgICAgICAgICAgICAg ICAgICAgICAgICAgICAgICANCiAgICAgICAgICAgICAgICAgICAgICAgICAgICAgICAgICAgICAgICAg ICAgICAgICAgICAgICAgICAgICAgICAgICAgICAgICAgICAgICAgICAgICAgICAgICAgICAgICAgICAN CiAgICAgICAgICAgICAgICAgICAgICAgICAgICAgIC AgICAgICAgICAgICAgICAgICAgICAgICAgICAgICAgICAgICAgICAgICAgICAgICAgICAgICAgICAgIC AgICAgICAgICANCjw/pNRbS7erfMFdclP8A7ryUo7GLr9JSL2bd0SqUQGvAPgeehHdYakFJgAkJRRkSo ePAiy7VBmqXF8MeCEgS9UrE9BcEKskMY9YIQVrPTYi qXXxYXYdVPPkObM1FEUkRKtbUS7WwFScMBzjPHXyILLvPwXtDJXlCNNmCGWiLO6DVYVyR786cbEnVs1T Dr7ONwHfUU5ela2JBvDmAZTvKpsYRze9XPcvYR7RmWFtyCVpHOUqLRJNCdMdO2guk2SyFvDlXOWUPYek ZI5Eb7XyqVDhTCr+Hm8JXI2va6XeWMxuUAUvBL7com 8SNPjURuPnT3JvtHhcDOOls5ixWTSxMZ7cjAGpCCN2TErzlTP8rF1yLVBCMHigFFbjNV6EUWA3YRJiKD 2oCSFzNLQdLpV8NXXIMA7PWXOgARTyhDIiWHEqEBTRSP7GZQwoIHB7AMVpsuXqvSFjATjtBA8MJQRknn QgMjMgMCBSDQo+Bg1CGQ4ng1BtWCxwWRIaKD2vmy7X PHgMWxLeY8A6aBCjQ4V7TNpoMz0IPJZxQXWhNqQnOJUPHVxxDU5KUQ4tujY6RF2EdFVsLMLtJEVwdVJk OTu7D09qtZVmKEruRN4NEYE+Susan+Io4AHTDrNCOyCFOlWsNqZDJMUxTfP9TnD7OVp5EnB9SzCU74eUrm opGxPTqcOR7YWJ1nMKRaCTKRRD4TiNZmrV8fiuMiTi QoGNLEBsJnQ62iaWUkGZTcQGObNMMnQu0FVVLvC8KdbnCcpKjmtnZjOWAgXLDBVM4XSBerwuArtDCqbW xpOU90dAdfWC1IZs7RVoWkAD0heu5MaNFeAt0WDOQjJf9COSRpQATtHANiSCH4DBVeEdYoNKywTECpJX JmAXV4SMGrCUBxJP3QBpNuRDFgZeM9MAVsGROvGMOy je7PIHZyMXIuSmBiBwRpUTQzCZVuYAvxXARpQDHzHFL5QJKbKGDkQA4EFfUvMODlSLS9OMcbFHKqWPEh jh4OKBZcJCGjTWCkOAJcNSQbFODyQCbbWJMlUBX4GVz5YPQrUUHfYN9JOfKsTBJxFUotKPAhCQHdLPLk sh4DMNVcTDBnYKUzRyIzLBVsJXEaYQnwMOYeLCL6Hp P9IPOfLFQoZI5LZhKlAOIzPJL8VKyvTUCsIWTqug4RPGIhNSWkQGc1HRWeJLYtQEQaPBxwFXZuEHQtVD O3GHBoFRMcMU6MIaJlVBYcHYF7ZqJnJBYsNOXjrh4BKPWaPJNtAaYbQGHcNGIzSCQfDFrfETJkUJZfSl J7CWAlVBLbDK9OHqTjDHRaKiF9CgPvOBBrGBTkqs6Q XPQqEQKrVex2JpLcCJNeBSEqTXzsMKPzSAQ2EQc2IQHlQLXmHV5ICxHkUXOmQkT3VrBnLHOnYWLqyq3T DXVnEVOyTEP4DxUdKFGyVIClWBqeGKSqRYE1YLqrTTBaZMZhWR6KLjFsICHxAyY0GkNvSHXlELErdm6Q PQLoRQWmTvVfZXSkQJItUVZiAUtjKMFjUZG1BzT3BT MsFKIhAE9ABgEnGMusUJGURhc5SLasH6e4MNMlMw7ZO5Hrr7SmCjQfMMBKUSgcAZ5ajxYkGFFnFc1GR8 rRMamxPGH6FzPoVTW1LTG4DVCfREIjEOHsRZvdZZFnXwLzQY8rPOL5MqttG1C5Ihc4UQCgDsFuOWB1SY UfUAM8DHX4WEFqAjVgBA5DGe4SUaQ0AUI8iMOsSk2HRrZ3KYpQVlByEA1YHZh= ID Date Data Source [id number] 12/17/2020 04:07:29 PM EDT [facility] MAMMO DIGITAL DIAGNOSTIC BILATERAL [id number] FINAL RESULTInterpreted by:Padilla Stern MDBILATERAL DIGITAL MAMMOGRAM WITH COMPUTER-AIDED DETECTION and BILATERAL COMPLETE BREAST ULTRASOUNDHISTORY: The patient has a history of right lumpectomy 12/2019. The patient had a left lumpectomy in 2015.COMPARISON: Mammograms dating back to 07/14/2016; breast ultrasound 10/28/2019Last Reported Clinical Breast Exam: UnknownTECHNIQUE: Craniocaudal and mediolateral oblique digital mammograms were obtained with tomosynthesis. Computer-aided detection was utilized. Ultrasound of all four quadrants and the retroareolar region of both breasts was performed. FINDINGS:The breasts are extremely dense, which lowers the sensitivity of mammography (category D).On mammogram, post lumpectomy changes are seen in the upper right breast posteriorly and lower left breast posteriorly.On bilateral complete breast ultrasound, a 0.9 x 0.4 x 1.1 cm hypoechoic mass in the right breast at 1:00, representing benign biopsied lesion. Postsurgical changes with fluid is seen in the upper outer right breast. Mildly distended ducts are seen behind right nipple. Similar appearance of multiple hypoechoic masses left breast. Postsurgical scarring is seen in the lower inner left breast. No left axillary lymphadenopathy. IMPRESSION: 1. Benign bilateral mammogram and bilateral complete breast ultrasound. 2. No evidence for malignancy. 3. Recommend right mammogram in 6 months for postlumpectomy surveillance. BI-RADS 2 - BENIGN FINDINGSThis document has been electronically signed by Padilla Stern MD on 12/17/2020 4:05 PM Name Value Range Interpretation Code Description Data Juliette rce(s) Supporting Document(s) ID Date Data Source [id number] 12/17/2020 04:07:29 PM EDT [facility] US BREAST INCLUDING AXILLA COMPLETE BILA TERAL [id number] RESULTInterpreted by:Padilla Stern MDBILATERAL DIGITAL MAMMOGRAM WITH COMPUTER-AIDED DETECTION and BILATERAL COMPLETE BREAST ULTRASOUNDHISTORY: The patient has a history of right lumpectomy 12/2019. The patient had a left lumpectomy in 2015.COMPARISON: Mammograms dating back to 07/14/2016; breast ultrasound 10/28/2019Last Reported Clinical Breast Exam: UnknownTECHNIQUE: Craniocaudal and mediolateral oblique digital mammograms were obtained with tomosynthesis. Computer-aided detection was utilized. Ultrasound of all four quadrants and the retroareolar region of both breasts was performed. FINDINGS:The breasts are extremely dense, which lowers the sensitivity of mammography (category D).On mammogram, post lumpectomy changes are seen in the upper right breast posteriorly and lower left breast posteriorly.On bilateral complete breast ultrasound, a 0.9 x 0.4 x 1.1 cm hypoechoic mass in the right breast at 1:00, representing benign biopsied lesi on. Postsurgical changes with fluid is seen in the upper outer right breast. Mildly distended ducts are seen behind right nipple. Similar appearance of multiple hypoechoic masses left breast. Postsurgical scarring is seen in the lower inner left breast. No left axillary lymphadenopathy. IMPRESSION: 1. Benign bilateral mammogram and bilateral complete breast ultrasound. 2. No evidence for malignancy. 3. Recommend right mammogram in 6 months for postlumpectomy surveillance. BI-RADS 2 - BENIGN FINDINGSThis document has been electronically signed by Padilla Stern MD on 12/17/2020 4:05 PM Name Value Range Interpretation Code Description Data Juliette rce(s) Supporting Document(s) ID Date Data Source [id number] 09/02/2020 09:04:32 PM EST [facility] Name Value Range Interpretation Code Description Data Juliette rce(s) Supporting Document(s) Progress Note [facility] WTJABm8nOqJBPeHo65/LNNdjRHSjt8XwBAlaKKp8EFesAOOzE3OvSDD0pS8uSUA0EKtFKnTaMbWkQKP4 lbm EoIagHEjJdJUZoXseOZkAkCKvlEnxlmYDuHV4FgZK1JEFeS83gKWKtBNKkP7DhETI5Jxa+Iz3ITGRigQ TtIW5VTtgE8Q0sgam4Wo0zqO+TPHEuq0TcBVQgjdPR9jpoGRsH0Gd3mSxDbcjMbdqjG8xA/O+53zuFC8 Vel3vmEEQ0xxZgkU8rd/NvmKl5LsE48o/YQL1QjsEt 3/9cYEaF4Fz3+D1fFIxH+9ICE8kb6hQ3UjkhAmh+We5UR19csL2WG3IWfSM46dbCTrNK06TUrOofg/Ph 6HY6Ge+Laquita+232Arz5puK3iqXNOVwENH+/lINfPgo3xjGm064bv8ctpu1R2s1FSdy8hxMhmba8bJxc0M4 [file] AgICAgICAgICAgICAgICAgICAgICAgICAgICAgICAgICAgICAgICAgICAgICAgICAgICAgICAgICAgIC AgICAgICAgDQogICAgICAgICAgICAgICAgICAgICAg ICAgICAgICAgICAgICAgICAgICAgICAgICAgICAgICAgICAgICAgICAgICAgICAgICAgICAgICAgICAg ICAgICAgICAgICAgICAgICAgDQogICAgICAgICAgICAgICAgICAgICAgICAgICAgICAgICAgICAgICAg ICAgICAgICAgICAgICAgICAgICAgICAgICAgICAgIC AgICAgICAgICAgICAgICAgICAgICAgICAgICAgDQogICAgICAgICAgICAgICAgICAgICAgICAgICAgIC AgICAgICAgICAgICAgICAgICAgICAgICAgICAgICAgICAgICAgICAgICAgICAgICAgICAgICAgICAgIC AgICAgICAgICAgDQogICAgICAgICAgICAgICAgICAg ICAgICAgICAgICAgICAgICAgICAgICAgICAgICAgICAgICAgICAgICAgICAgICAgICAgICAgICAgICAg ICAgICAgICAgICAgICAgICAgICAgDQogICAgICAgICAgICAgICAgICAgICAgICAgICAgICAgICAgICAg ICAgICAgICAgICAgICAgICAgICAgICAgICAgICAgIC AgICAgICAgICAgICAgICAgICAgICAgICAgICAgICAgDQogICAgICAgICAgICAgICAgICAgICAgICAgIC AgICAgICAgICAgICAgICAgICAgICAgICAgICAgICAgICAgICAgICAgICAgICAgICAgICAgICAgICAgIC AgICAgICAgICAgICAgDQogICAgICAgICAgICAgICAg ICAgICAgICAgICAgICAgICAgICAgICAgICAgICAgICAgICAgICAgICAgICAgICAgICAgICAgICAgICAg ICAgICAgICAgICAgICAgICAgICAgICAgDQogICAgICAgICAgICAgICAgICAgICAgICAgICAgICAgICAg ICAgICAgICAgICAgICAgICAgICAgICAgICAgICAgIC AgICAgICAgICAgICAgICAgICAgICAgICAgICAgICAgICAgDQogICAgICAgICAgICAgICAgICAgICAgIC AgICAgICAgICAgICAgICAgICAgICAgICAgICAgICAgICAgICAgICAgICAgICAgICAgICAgICAgICAgIC ZmUFLdVARhZHVfYNAlRNAgZSv9N1saZNZmEETmSX7p OVi7Qc4+XQlQJeDtJZG5xoHnuT3WMX8tm5UoSDjwITUlz3KnTHe9KF6DTEBwDQbdKQ7MAKusrc2JVZNc YLVrtJYVs0rwUqKjDUK6KAIkDljtEX5NEHOfV8lmteVkGNIiEYMQKWfmDBRFMFHmMVGsTbZeZiHqESEc RNLjDZPUOFS7VGBiXjNxENWyKCCfBV7FOHPpM923hm PyUd0ZOj3YBcUxBH6abq3NCeflIUBjUziVTwi3WXrvQX3TdTZfpWHhTKJpCFMMClAeE9qxm1IrYqclVC NSMFkdFU5Ul4YwlJTdTDr+Mj4VQV6qb8WqHHhaSGCbGQ5aac2MWIgXFwKrC6CxmVfrEQEsj3lbVTRiXY 1vyLIgZXB4IW1kgkEtUtPRTDDgPC9QLFF5JSOiOojh HcZbXIGzAgdzJWMNNQwJRmLuT3Saw2BwQtO3UEBuHgMgCOroKBDwAiJ0DV66wEvtUR7FGVToAXWpDY44 XLW9GSYmBt3QAi1SMxEdHW5sgp7XKmAnSD8kes9JBMrTExEwA2Q9fVTgJ9Mrjw52DJ3YaLP0zXSfMB5N wQ2eQV8Ag2EhXPKeMoVxCYRuJOWeKGHoPSTxTsHtNV 2QOGJuVqSpwUYqVBOzEIqmWASkZeK1EeVmKG1UBBQvCYE0YY8LRK1KAetqL3FYCOijyOuwAqDXRRR/QU XQHMOYWXbhUUZeQ20RF0XXEJhIDrslCAgDXepaCw6iOHb+By6HRB0fd1PpZYw7WPBzVP7yqo2ZKEoEGr BrB9N4pXTjT3G6TVrsWa4NVSVwKXHbUsAcHHBEAYmd NG4QPS8ewyA2RX8YdXEaHWWvEQAuuBVwRDk9A65kfHArOTalZF7WGOU+Susan+Zi3OAXIbHRRdDNTcIqWo DYXZMhKxU4QuF4OKd0VsG9YnTS89sKqfnuJcWFqlKJ5MGK1wOSNrUUDXLA0UuUMirG2xkpPyJEHbIPJH PeJjK52aeBHqFSLlWEF4WJRqKr7ZDCAqR6McjcIoaX aoeeWdRUDpXMROTS3YBUrmvgFjqQUxbSxwGG86sMhfZN3DWf6VAzIrYQ8cxf7DdKJxSi7NRXW1NS2NNU EuEAJrDCQtVZG9IFZcSbNxPZbpKVUmRWMxYHM0ORNnNUUuMP2PFrXeWTMrGfyqHMSsQQZePVZfgo1BWO JmNRK6FIcnEVLpQJPqQCWwYZysXTGyVAKnEIW7KZLt KROwWF3VXjSyISKmGLO9SRruMJQyTHXzvf8GBBNpDOY6GKM6ZKUbOEGjLPAgOMdoGUFvSDE7GQO0TYJu ZSZxAN3IUeTyJQBcNIfvHtDwHVWqUGPely3GJJZsDPMvAgUvZuAwUECwEOZeONpeBTPxNRVdVFX1ZWIi XXLuZW9OXyErRHMjKJQ2FTYwENHcPEPhxg5CCGLkGL TaNlS6AmNbYJXuRQIeMRrxHHKtUYTdMth4THZeKMXwRW7LGxItNMFcCRZoEGPoONMnRPAmjc0MVIHfVL VbYhW5BBAjSHXwIDWbQJdhMEBuFDB1ZSa1YNCkCEOkXB7TRnRyZAScYAloEQJyUQPoUUOpfr9MLYTtZJ LiPJRyKOCjKCUhJZSyYNseFSYeBZIhWEO2ZLBeCEKz PR4SBeEaDXVqKcM5RxbkBRAfHBPnkg0FXAXmWYKnGzM0EZZeMXImLUMxPOrqWFUdMEQfLRB2LFKvTVCu QG2FOzWmMXUlTbI4ZJUlKFUkIEDmjf5JVUFxRTXfPCSzNIBzUFJzCLEkYOdcMLOgGSJ7TUx2IHPqHZFb GK1CPiFdJQLxRrU3RyKvHDOuKYZlcm8TXSOhRHGpDD f9JJApVEUaHLCcGCmmDAZvKGU0EFRlLIFgZOSuHY4AXyLtNOVpIiY5MEOwLXWwZFVrnj4WAMLkCBDaKw O2YzCiCERjRGPpVKanDQAxNDS9AHd9ERMcNKFeUM4IMvVnCYPyAlh7HGYhZCVvGWCirb2FVLAtSJRrWz s2IYZeDPEdFEPxNKrgUPNoHRR1Lbc0RBHjGASeIN1M MaWgYHInMcb3VREyGPJoBGGpnm9WBCVaBEZnXES6KLZfKESnGWUwAMtgVWSbTNY8DAi6CQKnZTBqWV6J UdFwLKZiPLEwVdUjFVKnBUSqdq0ZHEMmIGH5BRG3NNQwJVAvQWYdPJvjNJMhZPByKQA6CKGkFXInMJ6Q JbSxBCdiWAROZyp9ULhhA1r0PIR4NE1GQ5Sdh8WsEO HfEDOGOWwzAC7pwrPuANGrPk6XJ0yGAjebVBA3KPS5O2T7IvTjXnDdLQM9IDX0FQMyO9HsWTXaWP1uEX EuXNHvRCitRgq9VoNdEMQ4Kxz0ZOA8SgWyVfR3LaPxIrCmLW1IXk1DPeK1LJE0hWViKi7SHUT9VMkTGi [id number]= Procedure Social History Code Duration Value Status Description Data Source(s ) Smoking 07/10/2021 12:00:00 AM EDT Never Smoker completed Never S moker eCW1 ([facility]) Smoking 07/10/2021 12:00:00 AM EDT Never Smoker completed Never S moker eCW1 ([facility]) Alcohol intake 06/14/2021 12:00:00 AM EDT Current non-d love of alcohol (finding) completed Current non-drinker of alcohol (finding) [facility] Tobacco use and exposure 06/14/2021 12:00:00 AM EDT Current user co mpleted Current user [facility] Smoking 06/14/2021 12:00:00 AM EDT Light tobacco smoker comple bel[facility] Light tobacco smoker [facility] Smoking 06/07/2021 12:00:00 AM EDT Never Smoker completed Never S moker eCW1 ([facility]) Smoking 06/07/2021 12:00:00 AM EDT Never Smoker completed Never S moker eCW1 ([facility]) Smoking 06/07/2021 12:00:00 AM EDT Never Smoker completed Never S moker eCW1 ([facility]) Smoking 06/07/2021 12:00:00 AM EDT Never Smoker completed Never S moker eCW1 ([facility]) Alcohol intake 02/13/2021 12:00:00 AM EDT Current non-d love of alcohol (finding) completed Current non-drinker of alcohol (finding) [facility] Smoking 02/07/2021 12:00:00 AM EDT Never Smoker completed Never S moker eCW1 ([facility]) Smoking 02/07/2021 12:00:00 AM EDT Never Smoker completed Never S moker eCW1 ([facility]) Smoking 02/07/2021 12:00:00 AM EDT Never Smoker completed Never S moker eCW1 ([facility]) Smoking 02/07/2021 12:00:00 AM EDT Never Smoker completed Never S moker eCW1 ([facility]) Smoking 02/07/2021 12:00:00 AM EDT Never Smoker completed Never S moker eCW1 ([facility]) Smoking 02/07/2021 12:00:00 AM EDT Never Smoker completed Never S moker eCW1 ([facility]) Smoking 02/07/2021 12:00:00 AM EDT Never Smoker completed Never S moker eCW1 ([facility]) Smoking 02/07/2021 12:00:00 AM EDT Never Smoker completed Never S moker eCW1 ([facility]) Smoking 02/07/2021 12:00:00 AM EDT Never Smoker completed Never S moker eCW1 ([facility]) Smoking 01/08/2021 12:00:00 AM EDT Never Smoker completed Never S moker eCW1 ([facility]) Smoking 01/08/2021 12:00:00 AM EDT Never Smoker completed Never S moker eCW1 ([facility]) Smoking 01/08/2021 12:00:00 AM EDT Never Smoker completed Never S moker eCW1 ([facility]) Smoking 01/08/2021 12:00:00 AM EDT Never Smoker completed Never S moker eCW1 ([facility]) Smoking 01/08/2021 12:00:00 AM EDT Never Smoker completed Never S moker eCW1 ([facility]) Alcohol intake 12/11/2020 12:00:00 AM EST Current non-d love of alcohol (finding) completed Current non-drinker of alcohol (finding) [facility] Alcohol intake 08/13/2020 12:00:00 AM EST Current non-d love of alcohol (finding) completed Current non-drinker of alcohol (finding) [facility] Smoking 07/11/2020 12:00:00 AM EDT Never Smoker completed Never S moker eCW1 ([facility]) Smoking 07/11/2020 12:00:00 AM EDT Never Smoker completed Never S moker eCW1 ([facility]) Smoking 07/11/2020 12:00:00 AM EDT Never Smoker completed Never S moker eCW1 ([facility]) Smoking 07/11/2020 12:00:00 AM EDT Never Smoker completed Never S moker eCW1 ([facility]) Smoking 07/11/2020 12:00:00 AM EDT Never Smoker completed Never S moker eCW1 ([facility]) Smoking 07/11/2020 12:00:00 AM EDT Never Smoker completed Never S moker eCW1 ([facility]) Smoking 07/11/2020 12:00:00 AM EDT Never Smoker completed Never S moker eCW1 ([facility]) Smoking 07/11/2020 12:00:00 AM EDT Never Smoker completed Never S moker eCW1 ([facility]) Smoking 07/11/2020 12:00:00 AM EDT Never Smoker completed Never S moker eCW1 ([facility]) Smoking 07/11/2020 12:00:00 AM EDT Never Smoker completed Never S moker eCW1 ([facility]) Smoking 07/11/2020 12:00:00 AM EDT Never Smoker completed Never S moker eCW1 ([facility]) Smoking 07/11/2020 12:00:00 AM EDT Never Smoker completed Never S moker eCW1 ([facility]) Smoking 07/11/2020 12:00:00 AM EDT Never Smoker completed Never S moker eCW1 ([facility]) Smoking 07/11/2020 12:00:00 AM EDT Never Smoker completed Never S moker eCW1 ([facility]) Smoking 07/11/2020 12:00:00 AM EDT Never Smoker completed Never S moker eCW1 ([facility]) Smoking 07/11/2020 12:00:00 AM EDT Never Smoker completed Never S moker eCW1 ([facility]) Smoking 07/11/2020 12:00:00 AM EDT Never Smoker completed Never S moker eCW1 ([facility]) Vital Signs ID Date Data Source UNK Name Value Range Interpretation Code Description Data Source(s) Body weight 174 [lb_av] 174 [lb_av] eCW1 ([facility]) Body height 64.5 [in_i] 64.5 [in_i] eCW1 ([facility]) Body mass index (BMI) [Ratio] 29.40 kg/m2 29.40 kg/m2 W1 ([facility]) Heart rate 77 /min 77 /min eCW1 ([facility]) Respiratory rate 18 /min 18 /min eCW1 ([facility]) Body temperature 98.2 [degF] 98.2 [degF] eCW1 ( [facility]) Systolic blood pressure 128 mm[Hg] 128 mm[Hg] e CW1 ([facility]) Diastolic blood pressure 90 mm[Hg] 90 mm[Hg] eCW1 ([facility]) Body weight 166 [lb_av] 166 [lb_av] eCW1 ([facility]) Body height 64.5 [in_i] 64.5 [in_i] eCW1 ([facility]) Body mass index (BMI) [Ratio] 28.05 kg/m2 28.05 kg/m2 eCW1 ([facility]) Heart rate 65 /min 65 /min eCW1 ([facility]) Respiratory rate 18 /min 18 /min eCW1 ([facility]) Body temperature 98.0 [degF] 98.0 [degF] eCW1 ( [facility]) Systolic blood pressure 118 mm[Hg] 118 mm[Hg] e CW1 ([facility]) Diastolic blood pressure 68 mm[Hg] 68 mm[Hg] eCW1 ([facility]) Body temperature 98.7 [degF] 98.7 [degF] eCW1 ( [facility]) Body weight [lb_av] eCW1 ([facility]) Systolic blood pressure 145 mm[Hg] 145 mm[Hg] e CW1 ([facility]) Diastolic blood pressure 89 mm[Hg] 89 mm[Hg] eCW1 ([facility]) Body height 64.5 [in_i] 64.5 [in_i] eCW1 ([facility]) Body mass index (BMI) [Ratio] 26.87 kg/m2 26.87 kg/m2 eCW1 ([facility]) Heart rate 64 /min 64 /min eCW1 ([facility]) Respiratory rate 16 /min 16 /min eCW1 ([facility]) ID Date Data Source [id number] 03/04/2021 10:18:05 PM [facility] Name Value Range Interpretation Code Description Data Source(s) WEIGHT RECORDED 165 lb 165 lb [facility] ID Date Data Source [id number] 12/17/2020 04:12:06 PM [facility] Value Range Interpretation Code Description Data Source(s) WEIGHT RECORDED 165 lb 165 lb [facility] Body height Measured [address] [facility] ID Date Data Source [id number] 09/02/2020 09:04:32 PM [facility] Value Range Interpretation Code Description Data Source(s) WEIGHT RECORDED 155 lb 155 lb [facility] Patient Treatment Plan of Care Planned Activity Planned Date Details Description Data Source (s) Acetaminophen 300 MG / Codeine Phosphate 30 MG Oral Ta blet 07/17/2021 12:00:00 AM EDT eCW1 ([facility]) Chantix Starting Month Bonifacio 0.5 MG X 11 & 1 MG X 42 07/10/2021 12 :00:00 AM EDT eCW1 ([facility]) Chantix Starting Month Bonifacio 0.5 MG X 11 & 1 MG X 42 07/10/2021 12 :00:00 AM EDT eCW1 ([facility]) Acetaminophen 300 MG / Codeine Phosphate 30 MG Oral Ta blet 06/18/2021 12:00:00 AM EDT eCW1 ([facility]) methenamine hippurate 1000 MG Oral Tablet 06/16/2021 12:00:00 AM ED T eCW1 ([facility]) NITROFURANTOIN, MACROCRYSTALS 25 MG / Ni trofurantoin, Monohydrate 75 MG Oral Capsule [Macrobid] 06/16/2021 12:00:00 AM EDT eC W1 ([facility]) NITROFURANTOIN, MACROCRYSTALS 25 MG / Ni trofurantoin, Monohydrate 75 MG Oral Capsule [Macrobid] 06/16/2021 12:00:00 AM EDT eC W1 ([facility]) methenamine hippurate 1000 MG Oral Tablet 06/16/2021 12:00:00 AM ED T eCW1 ([facility]) Acetaminophen 300 MG / Codeine Phosphate 30 MG Oral Ta blet 05/29/2021 12:00:00 AM EDT eCW1 ([facility]) Acetaminophen 300 MG / Codeine Phosphate 30 MG Oral Ta blet 05/10/2021 12:00:00 AM EDT eCW1 ([facility]) anastrozole 1 MG Oral Tablet 03/26/2021 12:00:00 AM [facility] Levofloxacin 500 MG Oral Tablet 01/10/2021 12:00:00 AM EDT eCW1 ([facility]) Levofloxacin 500 MG Oral Tablet 01/10/2021 12:00:00 AM EDT eCW1 ([facility]) Levofloxacin 500 MG Oral Tablet 01/10/2021 12:00:00 AM EDT eCW1 ([facility]) Levofloxacin 500 MG Oral Tablet 01/10/2021 12:00:00 AM EDT eCW1 ([facility]) Levofloxacin 500 MG Oral Tablet 01/10/2021 12:00:00 AM EDT eCW1 ([facility]) 24 HR tolterodine tartrate 4 MG Extended Release Oral Capsule [Detrol] 01/08/2021 12:00:00 AM EDT eCW1 ([facility]) 24 HR tolterodine tartrate 4 MG Extended Release Oral Capsule [Detrol] 01/08/2021 12:00:00 AM EDT eCW1 ([facility]) 24 HR tolterodine tartrate 4 MG Extended Release Oral Capsule [Detrol] 01/08/2021 12:00:00 AM EDT eCW1 ([facility]) 24 HR tolterodine tartrate 4 MG Extended Release Oral Capsule [Detrol] 01/08/2021 12:00:00 AM EDT eCW1 ([facility]) 24 HR tolterodine tartrate 4 MG Extended Release Oral Capsule [Detrol] 01/08/2021 12:00:00 AM EDT eCW1 ([facility]) anastrozole 1 MG Oral Tablet 08/13/2020 12:00:00 AM [facility] Acetaminophen 300 MG / Codeine Phosphate 30 MG Oral Ta blet 07/19/2020 12:00:00 AM EDT eCW1 ([facility]) Acetaminophen 300 MG / Codeine Phosphate 30 MG Oral Ta blet 07/19/2020 12:00:00 AM EDT eCW1 ([facility]) Acetaminophen 300 MG / Codeine Phosphate 30 MG Oral Ta blet 07/19/2020 12:00:00 AM EDT eCW1 ([facility]) Acetaminophen 300 MG / Codeine Phosphate 30 MG Oral Ta blet 07/19/2020 12:00:00 AM EDT eCW1 ([facility]) Acetaminophen 300 MG / Codeine Phosphate 30 MG Oral Ta blet 07/19/2020 12:00:00 AM EDT eCW1 ([facility]) Acetaminophen 300 MG / Codeine Phosphate 30 MG Oral Ta blet 07/19/2020 12:00:00 AM EDT eCW1 ([facility]) Acetaminophen 300 MG / Codeine Phosphate 30 MG Oral Ta blet 07/19/2020 12:00:00 AM EDT eCW1 ([facility]) Acetaminophen 300 MG / Codeine Phosphate 30 MG Oral Ta blet 07/19/2020 12:00:00 AM EDT eCW1 ([facility]) Acetaminophen 300 MG / Codeine Phosphate 30 MG Oral Ta blet 07/19/2020 12:00:00 AM EDT eCW1 ([facility]) Acetaminophen 300 MG / Codeine Phosphate 30 MG Oral Ta blet 07/19/2020 12:00:00 AM EDT eCW1 ([facility]) Acetaminophen 300 MG / Codeine Phosphate 30 MG Oral Ta blet 07/19/2020 12:00:00 AM EDT eCW1 ([facility]) Acetaminophen 300 MG / Codeine Phosphate 30 MG Oral Ta blet 07/19/2020 12:00:00 AM EDT eCW1 ([facility]) Acetaminophen 300 MG / Codeine Phosphate 30 MG Oral Ta blet 07/19/2020 12:00:00 AM EDT eCW1 ([facility]) Acetaminophen 300 MG / Codeine Phosphate 30 MG Oral Ta blet 07/19/2020 12:00:00 AM EDT eCW1 ([facility]) Acetaminophen 300 MG / Codeine Phosphate 30 MG Oral Ta blet 07/19/2020 12:00:00 AM EDT eCW1 ([facility]) Acetaminophen 300 MG / Codeine Phosphate 30 MG Oral Ta blet 07/19/2020 12:00:00 AM EDT eCW1 ([facility]) Acetaminophen 300 MG / Codeine Phosphate 30 MG Oral Ta blet 07/19/2020 12:00:00 AM EDT eCW1 ([facility]) Acetaminophen 300 MG / Codeine Phosphate 30 MG Oral Ta blet 07/19/2020 12:00:00 AM EDT eCW1 ([facility]) Acetaminophen 300 MG / Codeine Phosphate 30 MG Oral Ta blet 07/19/2020 12:00:00 AM EDT eCW1 ([facility]) Acetaminophen 300 MG / Codeine Phosphate 30 MG Oral Ta blet 07/19/2020 12:00:00 AM EDT eCW1 ([facility]) Acetaminophen 300 MG / Codeine Phosphate 30 MG Oral Ta blet 07/19/2020 12:00:00 AM EDT eCW1 ([facility]) Acetaminophen 300 MG / Codeine Phosphate 30 MG Oral Ta blet 07/19/2020 12:00:00 AM EDT eCW1 ([facility]) Acetaminophen 300 MG / Codeine Phosphate 30 MG Oral Ta blet 07/19/2020 12:00:00 AM EDT eCW1 ([facility]) Acetaminophen 300 MG / Codeine Phosphate 30 MG Oral Ta blet 07/19/2020 12:00:00 AM EDT eCW1 ([facility]) Acetaminophen 300 MG / Codeine Phosphate 30 MG Oral Ta blet 07/19/2020 12:00:00 AM EDT eCW1 ([facility]) Acetaminophen 300 MG / Codeine Phosphate 30 MG Oral Ta blet 07/19/2020 12:00:00 AM EDT eCW1 ([facility]) Acetaminophen 300 MG / Codeine Phosphate 30 MG Oral Ta blet 07/19/2020 12:00:00 AM EDT eCW1 ([facility]) Lorazepam 0.5 MG Oral Tablet 07/11/2020 12:00:00 AM EDT eCW1 ([facility]) Lorazepam 0.5 MG Oral Tablet 07/11/2020 12:00:00 AM EDT eCW1 ([facility]) Lorazepam 0.5 MG Oral Tablet 07/11/2020 12:00:00 AM EDT eCW1 ([facility]) Lorazepam 0.5 MG Oral Tablet 07/11/2020 12:00:00 AM EDT eCW1 ([facility]) Lorazepam 0.5 MG Oral Tablet 07/11/2020 12:00:00 AM EDT eCW1 ([facility]) Lorazepam 0.5 MG Oral Tablet 07/11/2020 12:00:00 AM EDT eCW1 ([facility]) Lorazepam 0.5 MG Oral Tablet 07/11/2020 12:00:00 AM EDT eCW1 ([facility]) Lorazepam 0.5 MG Oral Tablet 07/11/2020 12:00:00 AM EDT eCW1 ([facility]) Lorazepam 0.5 MG Oral Tablet 07/11/2020 12:00:00 AM EDT eCW1 ([facility]) Lorazepam 0.5 MG Oral Tablet 07/11/2020 12:00:00 AM EDT eCW1 ([facility]) Lorazepam 0.5 MG Oral Tablet 07/11/2020 12:00:00 AM EDT eCW1 ([facility]) Lorazepam 0.5 MG Oral Tablet 07/11/2020 12:00:00 AM EDT eCW1 ([facility]) Lorazepam 0.5 MG Oral Tablet 07/11/2020 12:00:00 AM EDT eCW1 ([facility]) Lorazepam 0.5 MG Oral Tablet 07/11/2020 12:00:00 AM EDT eCW1 ([facility]) Lorazepam 0.5 MG Oral Tablet 07/11/2020 12:00:00 AM EDT eCW1 ([facility]) Lorazepam 0.5 MG Oral Tablet 07/11/2020 12:00:00 AM EDT eCW1 ([facility]) Lorazepam 0.5 MG Oral Tablet 07/11/2020 12:00:00 AM EDT eCW1 ([facility]) Lorazepam 0.5 MG Oral Tablet 07/11/2020 12:00:00 AM EDT eCW1 ([facility]) trospium chloride 20 MG Oral Tablet 07/11/2020 12:00:00 AM EDT eCW1 ([facility]) Lorazepam 0.5 MG Oral Tablet 07/11/2020 12:00:00 AM EDT eCW1 ([facility]) trospium chloride 20 MG Oral Tablet 07/11/2020 12:00:00 AM EDT eCW1 ([facility]) Lorazepam 0.5 MG Oral Tablet 07/11/2020 12:00:00 AM EDT eCW1 ([facility]) trospium chloride 20 MG Oral Tablet 07/11/2020 12:00:00 AM EDT eCW1 ([facility]) Lorazepam 0.5 MG Oral Tablet 07/11/2020 12:00:00 AM EDT eCW1 ([facility]) trospium chloride 20 MG Oral Tablet 07/11/2020 12:00:00 AM EDT eCW1 ([facility]) Lorazepam 0.5 MG Oral Tablet 07/11/2020 12:00:00 AM EDT eCW1 ([facility]) Lorazepam 0.5 MG Oral Tablet 07/11/2020 12:00:00 AM EDT eCW1 ([facility]) Lorazepam 0.5 MG Oral Tablet 07/11/2020 12:00:00 AM EDT eCW1 ([facility]) Lorazepam 0.5 MG Oral Tablet 07/11/2020 12:00:00 AM EDT eCW1 ([facility]) Lorazepam 0.5 MG Oral Tablet 07/11/2020 12:00:00 AM EDT eCW1 ([facility]) anastrozole 1 MG Oral Tablet 04/16/2020 12:00:00 AM [facility] anastrozole 1 MG Oral Tablet [facility] Vortioxetine HBr (TRINTELLIX PO) [facility]
[2021-07-29] MEDS ORDERED: LIDOCAINE 2% 100MG/5ML SDV (FOR ANES.) As Ordered ONE (09:48)
[2021-07-29] MEDS ORDERED: propofoL 200 MG/20 ML VIAL As Ordered ONE (09:48)
[2021-07-29] MEDS ORDERED: fentaNYL 100 MCG/2 ML INJECTION (J3010) As Ordered ONE (09:48)
[2021-07-29] MEDS ORDERED: MIDAZOLAM INJ 2MG/2ML VIAL (J2250 PER 1MG) As Ordered ONE (09:48)
[2021-07-29] MEDS ORDERED: LIDOCAINE 1% SDV 30ML VIAL As Ordered ONE (12:12)
[2021-07-29] MEDS ORDERED: ceFAZolin 1GM VIAL (J0690 PER 500MG) As Ordered ONE (12:44)
--- NOTE | 2021-07-29 13:49 | ROOPDOC ---
[facility] Report Of Operation Report of Operation DATE OF PROCEDURE: 07/29/21 PREPROCEDURE DIAGNOSES: [malfunctioning Interstim, overactive bladder]. POSTPROCEDURE DIAGNOSES: [same]. PROCEDURE PERFORMED: [removal (battery/generator and left lead) and placement (battery/generator and new right lead) Interstim, fluoroscopy]. SURGEON: [Renato Sim, WELL LOGGING MUD ANALYSIS CAPTAIN: [none], MD ANESTHESIA: [mac and local]. ESTIMATED BLOOD LOSS: Approximately [3] mL. COMPLICATIONS: [none]. REMARKS: [61yo wf with oab. Interstim placed in the past no longer working. Pt and Dr. Montague decided on plan - removal of malfunctioning Interstim and placement of new Interstim. Informed consent obtained. Risks discussed including infection, pain, bleeding, scarring, failure of surgery, need for more surgery, injury to normal tissue and others. No guarantees given. Because of availability Dr. Montague asked that I do the surgery.]. FINDINGS: SPECIMENS REMOVED: [Old Interstim battery/generator and left lead] PROCEDURE NOTE: . DESCRIPTION OF PROCEDURE: [I met with the patient before surgery in the preop area. Surgery discussed. Questions answered. Patient wished to proceed. Patient brought to the OR room. MAC anesthesia secured. MAC anesthesia with local worked well. Patient positioning was prone. Well-padded. Much care taken in positioning. Surgery done under coverage of an IV antibiotic. Patient was started on Levaquin preoperatively because of a positive urine culture. Prepped and draped in the usual sterile fashion. Timeout performed. Attention first directed to the old battery/generator. It was on the patient's left. Skin and deeper tissues over the device were infiltrated with local. A transverse incision was made about an inch in length. It was carried down using cautery. The device was encountered and delivered after sharp and blunt disse ction. The attached lead was cut with scissors. By pulling on the lead, I was able to determine where it led and where to make the next incision. A small vertical incision was made in the midline over the spine. Again, local was used. The incision was carried down using cautery. I was able to palpate the lead where it entered the spinal column. With a right angle clamp it was delivered. With a bit of blunt and sharp dissection the lead was removed in its entirety. Antibiotic-containing irrigation was used to irrigate the 2 incisions. At this point the old device was completely out. A new device was then placed. Fluoroscopy was used to locate the midline. The S3 foramina were identified as were the sciatic notches. A decision was made to place the new lead on the right side. The lead removed was on the left side. Under fluoroscopic guidance and after using local, the needle was advanced into the right S3 foramen. Positioning was confirmed using fluoroscopy and testing. Ultimately, after the usual steps, a lead was placed in the right S3 foramen. Again, positioning was confirmed using fluoroscopy and testing. The visualized responses to testing were excellent. The lead was tunneled to the old device site on the left and was then connected to the new device. The new device was tested. Fluoroscopy was used intermittently. Some images were saved. Once satisfied, the incisions were closed using 3-0 Vicryl for the deeper tissue and 4-0 Vicryl for the skin. Skin was closed with a subcuticular stitch. Before closing, the incisions were irrigated with antibiotic-containing irrigation. Hemostasis was secured. There were 3 incisions. The surgical field was cleaned and dried. Steri-Strips were placed. Patient tolerated everything well left the room in satisfactory condition. Counts were correct. Patient left the room with a new Interstim battery/generator on the left and a new lead on the right.]. OTIS SIM MD Jul 29, 2021 13:49
[2021-07-29] MEDS ORDERED: CEPH750C PO (13:53)
[2021-07-29] MEDS ORDERED: HYDR-3713 PO (13:53)
--- NOTE | 2021-07-29 14:44 | REP ---
INDICATION: INTERSTIM DEVICE REMOVAL AND REPLACEMENT. COMPARISON: None. TECHNIQUE: Two C-arm views pelvis. FINDINGS: A radiopaque lead is seen in the right pelvis. IMPRESSION: 28 seconds fluoroscopy time utilized. <Electronically signed by Fabio Escudero > 07/29/21 [id number]
[2021-07-29 14:55] VITALS: BP 159/84
== END 2021-07-29 15:08 | disposition home or self-care (01) ==
LOC: M SDC 09:35
PROVIDERS: ATTEND Urology
DX: R32 Unspecified urinary incontinence (principal); T85.193A Other mechanical complication of implanted electronic neurostimulator, generator, initial encounter; G43.909 Migraine, unspecified, not intractable, without status migrainosus; I10 Essential (primary) hypertension; E03.9 Hypothyroidism, unspecified; F17.218 Nicotine dependence, cigarettes, with other nicotine-induced disorders; F32.9 Major depressive disorder, single episode, unspecified; F41.9 Anxiety disorder, unspecified; Z85.3 Personal history of malignant neoplasm of breast; Z92.3 Personal history of irradiation; Z92.21 Personal history of antineoplastic chemotherapy; Z79.899 Other long term (current) drug therapy; Z88.2 Allergy status to sulfonamides; Z88.1 Allergy status to other antibiotic agents; Z91.018 Allergy to other foods
CPT/HCPCS: 64581; 64590; 76000; C1897; J0690; J2250; J3010

== ENCOUNTER → 2021-07-31 | Outpatient (CLI) | payer OTHER ==
[~2021-07-31] MED LIST changes: +CEPH750C PO; +HYDR-3713 PO; -LIDOCAINE 1% MDV 20ML VIAL SQ PRN; -LR 1,000 ML IV ONE; -ceFAZolin SOD 2 GM in IV 1 EA IV ONE
--- NOTE | 2021-07-31 12:18 | RADONC ---
Radiation Oncology Hx/FUP Radiation Oncology Hx/FUP Date of Service: Jul 31, 2021 Pt Identifier Joann Arzola is a 61 year old female seen for a followup visit today at the department of radiation oncology for a history of BL DCIS ER+/NH- HER2-; left breast 2015 s/p lumpectomy and adjuvant RT 40 Gy in 15 fractions WBI and 9 Gy in 6 fraction boost completed 11/21/16, then right breast 2019 s/p lumpectomy and adjuvant RT 48.6 Gy in 27 fraction WBI followed by 12 Gy in 6 fraction boost completed 03/27/20. Diagnosis/Treatment History Oncologic History As above Survivorship Test Due Next Last result Notes TSH, T4* 6m post-tx, then q1y N/A Carotid US* q10 y post-tx N/A Smoking cessation Assess annually if applicable N/A Screening CT chest q1y if eligible per USPSTF N/A Mammograms Min q1y, if breast conservation December negative CBC,CMP, Lipids q1y 2021 DEXA q2y if on AI 2021 Interval History Recently had an interstim placed for incontinence. Very sore from the surgery. Taking tylenol without much improvement. Reticent to take oxycodone. No breast complaints. No skin concerns. Having mammograms in December 2021. Tolerating anastrozole with mild hot flashes and mild joint pains. Current Therapy Anastrozole Stage pTisNX left (2015) and right (2019) breast stage 0 Social History: Non-smoker Non-drinker Allergies / Meds Allergies: Coded Allergies: Sulfa (Sulfonamide Antibiotics) (Verified Allergy, Intermediate, HIVES AND RED SKIN LESIONS, 07/25/21) ciprofloxacin (Verified Allergy, Intermediate, CIPRO IV-ITCHING,RED SKIN, 07/25/21) Kiwi (Verified Allergy, Unknown, THROAT BURNING, 07/25/21) Home Meds Active Scripts Cephalexin (Cephalexin) 750 Mg Capsule, 1 CAP PO BID for 7 Days, #14 CAP 0 Refills Prov:OTIS SIM MD 07/29/21 Hydrocodone/Acetaminophen (Hydrocodone-Acetamin 5-325 mg) 1 Each Tablet, 1 TAB PO Q6H PRN for pain MDD 12 Tablet(s), #10 TAB Prov:OTIS SIM MD 07/29/21 Reported Medications Esketamine HCl (Spravato) 84 Mg [place], 84 MG NS 1XWK, CONTAINER 07/25/21 [Nerve Blocks] No Conflict Check 07/25/21 Botulinum Toxin Type A (Botox) 100 Unit Vial, IM, INJ 07/25/21 Sumatriptan Succinate (Sumatriptan Succinate) 100 Mg Tablet, 100 MG PO PRN PRN for HEADACHE 07/25/21 Tizanidine HCl (Tizanidine HCl) 4 Mg Tablet, 4 MG PO TIDP PRN for MUSCLE SPASMS 07/25/21 Levothyroxine Sodium (LEVOTHYROXINE SODIUM) 50 Mcg Tablet, 100 MCG PO DAILY, TAB 07/25/21 Methylphenidate HCl (Ritalin LA) 30 Mg Cpbp.50.50, 30 MG PO BID 07/25/21 Buspirone HCl (Buspirone HCl) 10 Mg Tablet, 20 MG PO BID 07/25/21 Desvenlafaxine (Desvenlafaxine ER) 50 Mg Tab.er.24h, 50 MG PO DAILY, TAB 07/25/21 Clonazepam (Clonazepam) 1 Mg Tablet, 1 MG PO BID 1/2 TAB IN AM, 1 TAB AT NIGHT 07/25/21 Quetiapine Fumarate (Quetiapine Fumarate) 50 Mg Tablet, 75 MG PO DAILY 07/25/21 Anastrozole (Arimidex) 1 Mg Tablet, 1 MG PO DAILY, TAB 01/26/20 Promethazine HCl (Promethazine HCl) 25 Mg Tablet, 25 MG PO QIDP 06/08/19 Acetaminophen with Codeine (Acetaminophen-Cod #3 Tablet) 1 Each Tablet 03/07/19 Propranolol HCl (Propranolol HCl) 40 Mg Tablet, 40 MG PO BID 03/07/19 Levothyroxine Sodium (LEVOTHYROXINE SODIUM) 100 Mcg Tab, #30 06/01/17 Venlafaxine HCl (Venlafaxine HCl ER) 75 Mg Capcr, #30 06/01/17 Omeprazole (Omeprazole) 40 Mg Cap, 40 MG PO DAILYPRN PRN for HEARTBURN, #30 06/01/17 Discontinued Reported Medications Vit27,Calcium/Iron/FA (Trinatal Rx 1 Tablet) 1 Each Tablet, 1 TAB PO DAILY, TAB 01/26/20 Quetiapine Fumarate (Seroquel) 100 Mg Tablet, 100 MG PO DAILY, TAB 01/26/20 Cyanocobalamin (Vitamin B-12) (Vitamin B-12) 1,000 Mcg Capsule, 1 CAP PO DAILY for 30 Days, #30 CAP 01/26/20 Lorazepam (Ativan) 0.5 Mg Tablet 03/07/19 Oxybutynin Chloride (Oxybutynin Chloride ER) 15 Mg Tab.er.24 03/07/19 Amitriptyline HCl (Amitriptyline HCl) 100 Mg Tab, #30 06/01/17 Review of Systems Review of Systems Constitutional: Denies: Fatigue Eyes: Denies: Pain HEENT: Denies: Head Aches Breast: Denies: New Breast Lumps / Masses, Nipple Retraction, Breast Pain or Tenderness Gastrointestinal: Reports: Abdominal Pain Musculoskeletal: Reports: Joint pain Neurological: Denies: Weakness, Numbness Psych: Reports: Mood Normal Physical Examination Vital Signs Wt 180 lbs T 96.7 P 58 RR 16 BP 160/109 O2 95% Pain 4 Fatigue 0 General Exam: Alert, Cooperative, No Acute Distress Eye Exam: PERRLA, EOMI ENT EXAM: Atraumatic Chest Exam: Clear to auscultation Heart Exam: Rate Normal Breast Exam: Symmetric Bilaterally; Negative: Lumps or Masses, Nipple Retraction, Nipple Discharge, Skin Changes, Other Breast Findings Extremity Exam: Negative: Edema Skin Exam: Nl turgor and temperature Neuro Exam: Normal Gait, Normal Speech, Cranial Nerves 3-12 NL Psych Exam: Mental status NL Diagnostic and Laboratory Diagnostic Review Radiologic images, relevant labs and pathology reports were personally reviewed and discussed with Ms. Arzola. Assessment and Plan Impression Assessment Ms. Arzola is a 61 year old female with a history of BL DCIS ER+/NH- HER2-; left breast 2016 s/p lumpectomy and adjuvant RT 40 Gy in 15 fractions WBI and 9 Gy in 6 fraction boost completed 11/21/16, then right breast 2020 s/p lumpectomy and adjuvant RT 48.6 Gy in 27 fraction WBI followed by 12 Gy in 6 fraction boost completed 03/27/20. She is doing well from a breast health standpoint. She is current on her mammograms. She has no late sequelae of RT evident and she has YO on exam today. I will see her in 1 year. In the meantime I reminded her that she would be due for a DEXA next year due to being on an AI. She will raise this with her medical oncologist. Performance Status ECOG 0 Plan Follow up in 12 months Ms. Arzola was encouraged to call with questions or concerns in the interim period. Billing Statement Total time of [22] minutes was spent preparing for the visit [1], obtaining HPI [5], examining the patient [3], reviewing diagnostic tests [2], discussing management options [4], coordinating care [1], and writing this note [6]. FOUZIA CORREA MD Jul 31, 2021 12:18
== END ==
LOC: M ONCR 11:01
PROVIDERS: ATTEND General Practice
DX: D05.11 Intraductal carcinoma in situ of right breast (principal); D05.12 Intraductal carcinoma in situ of left breast; Z79.890 Hormone replacement therapy; Z79.891 Long term (current) use of opiate analgesic; Z79.899 Other long term (current) drug therapy; Z88.1 Allergy status to other antibiotic agents; Z88.2 Allergy status to sulfonamides; Z91.018 Allergy to other foods; Z92.3 Personal history of irradiation

== ENCOUNTER → 2021-11-27 | Outpatient (CLI) | payer OTHER ==
[~2021-11-27] MED LIST changes: +TIZA10TA PO; -TIZA4TAB4 PO
== END ==
LOC: M PAIN 10:30
PROVIDERS: ATTEND Anesthesiology
DX: M54.50 Low back pain, unspecified (principal); G89.29 Other chronic pain; R26.89 Other abnormalities of gait and mobility; G43.909 Migraine, unspecified, not intractable, without status migrainosus; E03.9 Hypothyroidism, unspecified; F17.210 Nicotine dependence, cigarettes, uncomplicated; Z86.59 Personal history of other mental and behavioral disorders; Z98.84 Bariatric surgery status; Z88.2 Allergy status to sulfonamides; Z91.018 Allergy to other foods; Z79.899 Other long term (current) drug therapy

== ENCOUNTER → 2021-12-30 | Outpatient (CLI) | payer OTHER | LOC: M PLAIMG 12:56 | PROVIDERS: ATTEND Psychiatry & Neurology Neurology | DX: R26.81 Unsteadiness on feet (principal); R53.1 Weakness ==

== ENCOUNTER → 2022-03-12 | Outpatient (REF) | payer OTHER ==
[~2022-03-12] MED LIST changes: -ACET1TAB16; +ACET300T48
[2022-03-12 16:25] LABS: HEMATOCRIT 41.7 % (36.0-47.0); HEMOGLOBIN 14.2 g/dl (12.0-15.5); MEAN CORPUSCULAR HEMOGLOBIN 32.1 pg (27.0-33.0); MEAN CORPUSCULAR HGB CONC 34.1 g/dl (32.0-36.5); MEAN CORPUSCULAR VOLUME 94.1 fl (80.0-96.0); PLATELET COUNT, AUTOMATED 233 10^3/uL (150-450); RED BLOOD COUNT 4.43 10^6/uL (4.00-5.40); WHITE BLOOD COUNT 4.8 10^3/uL (4.0-10.0)
[2022-03-12 16:46] LABS: FREE T4 1.39 NG/DL (0.76-1.46); THYROID STIMULATING HORMONE 2.39 uIU/ML (0.358-3.740)
== END ==
LOC: M SFHCCLAY 13:21
PROVIDERS: ATTEND Family Medicine
DX: R53.83 Other fatigue (principal); E03.9 Hypothyroidism, unspecified

== ENCOUNTER 2022-03-30 14:45 | Inpatient (IN) | payer OTHER, MEDICAID ==
[~2022-03-30] VITALS: Ht 162.6 cm; Wt 77.5 kg
[~2022-03-30 14:45] MED LIST changes: -ACET300T48; +ACET300T48 PO; -LEVO100T5; +LEVO100T5 PO
[2022-03-30] MEDS ORDERED: AMLO1TAB24 PO (15:04)
[2022-03-30] MEDS ORDERED: VENL37.598 PO (15:04)
[2022-03-30] MEDS ORDERED: VARE1TAB2 PO (15:04)
[2022-03-30] MEDS ORDERED: KETOROLAC 30 MG/ML 1ML VIAL IV ONE (15:50)
[2022-03-30] MEDS ORDERED: diazePAM 5MG TABLET PO ONE (16:30)
[2022-03-30] MEDS ORDERED: LIDOCAINE 5% (LIDODERM) PATCH TD ONE (16:30)
[2022-03-30] MEDS ORDERED: NORCO, ANEXSIA 5/325MG TABLET (HYDROcodone/ACETAMINOPHEN) PO ONE (18:30)
[2022-03-30] MEDS ORDERED: PREGABALIN 25 MG CAP (LYRICA) PO ONE (18:45)
[2022-03-30] MEDS ORDERED: **NOTE PATIENT COMMENT** MISC XX SCH (21:00)
[2022-03-30] MEDS ORDERED: MORPHINE 10 MG/ML 1ML VIAL IV ONE (21:15)
[2022-03-30 21:20] LABS: BASO % 0.8 % (0.0-1.0); EOS # 0.2 10^3/uL (0.0-0.5); EOS % 4.3 % (0.0-3.0); HEMATOCRIT 39.2 % (36.0-47.0); HEMOGLOBIN 13.3 g/dl (12.0-15.5); LYMPH # 1.2 10^3/uL (1.5-5.0); LYMPH % 23.3 % (24.0-44.0); MEAN CORPUSCULAR HEMOGLOBIN 32.1 pg (27.0-33.0); MEAN CORPUSCULAR HGB CONC 33.9 g/dl (32.0-36.5); MEAN CORPUSCULAR VOLUME 94.7 fl (80.0-96.0); MONO # 0.3 10^3/uL (0.0-0.8); MONO % 6.2 % (2.0-8.0); NEUTROPHILS # 3.4 10^3/uL (1.5-8.5); NEUTROPHILS % 65.2 % (36.0-66.0); PLATELET COUNT, AUTOMATED 228 10^3/uL (150-450); RED BLOOD COUNT 4.14 10^6/uL (4.00-5.40); WHITE BLOOD COUNT 5.1 10^3/uL (4.0-10.0)
[2022-03-30 21:39] LABS: ERYTHROCYTE SEDIMENTATION RATE 18 mm/hr (0-30)
[2022-03-30 21:42] LABS: BLOOD UREA NITROGEN 11 MG/DL (7-18); CALCIUM LEVEL 8.6 MG/DL (8.5-10.1); CARBON DIOXIDE LEVEL 30 MEQ/L (21-32); CHLORIDE LEVEL 106 MEQ/L (98-107); CREATININE FOR GFR 0.62 MG/DL (0.55-1.30); GLOMERULAR FILTRATION RATE > 60.0 (>51); GLUCOSE, FASTING 88 MG/DL (70-100); POTASSIUM SERUM 3.5 MEQ/L (3.5-5.1); SODIUM LEVEL 141 MEQ/L (136-145)
[2022-03-30] MEDS ORDERED: MAALOX 30 ML SUSP *UDC PO PRN (23:45)
[2022-03-30] MEDS ORDERED: MOM 30ML SUSPENSION UDC PO PRN (23:45)
[2022-03-31] MEDS ORDERED: METH20TA29 PO (00:18)
[2022-03-31] MEDS ORDERED: CLON1TAB8 PO (00:18)
[2022-03-31] MEDS ORDERED: METH-1103 PO (00:18)
[2022-03-31] MEDS ORDERED: MELA1TAB9 PO (00:22)
[2022-03-31] MEDS ORDERED: METH-855 PO (00:22)
[2022-03-31] MEDS ORDERED: SERO50TA PO (00:22)
[2022-03-31] MEDS ORDERED: FLON1SPR (00:23)
[2022-03-31] MEDS ORDERED: TUMERIC PO (00:23)
[2022-03-31] MEDS ORDERED: ZYRT10TA12 PO (00:23)
[2022-03-31] MEDS ORDERED: HOME MED LIST COMPLETE! XX SCH (00:25)
[2022-03-31] MEDS ORDERED: CETIRIZINE (ZyrTEC) 10 MG TAB PO PRN (01:00)
[2022-03-31] MEDS ORDERED: OMEPRAZOLE 20MG CAP PO PRN (01:00)
[2022-03-31] MEDS ORDERED: clonazePAM 0.5 MG TAB PO PRN (01:00)
[2022-03-31] MEDS: ACETAMINOPHEN TAB 650MG DOSE (2X325MG) PO PRN ×2 (02:06→05:32)
[2022-03-31] MEDS: QUEtiapine FUMARATE 25 MG TAB PO PRN (02:06)
[2022-03-31 02:15] VITALS: BP 148/82
[2022-03-31] MEDS ORDERED: **NOTE PATIENT COMMENT** MISC XX ONE (05:00)
[2022-03-31] MEDS: LEVOTHYROXINE 100MCG TABLET (0.1MG) PO SCH (05:31)
[2022-03-31] MEDS: PROMETHAZINE 25 MG TAB PO PRN ×3 (05:31→15:33)
[2022-03-31 05:52] LABS: BASO % 0.4 % (0.0-1.0); EOS # 0.3 10^3/uL (0.0-0.5); EOS % 5.5 % (0.0-3.0); HEMATOCRIT 38.7 % (36.0-47.0); HEMOGLOBIN 13.1 g/dl (12.0-15.5); LYMPH # 1.1 10^3/uL (1.5-5.0); LYMPH % 23.2 % (24.0-44.0); MEAN CORPUSCULAR HEMOGLOBIN 32.1 pg (27.0-33.0); MEAN CORPUSCULAR HGB CONC 33.9 g/dl (32.0-36.5); MEAN CORPUSCULAR VOLUME 94.9 fl (80.0-96.0); MONO # 0.3 10^3/uL (0.0-0.8); MONO % 7.1 % (2.0-8.0); NEUTROPHILS # 2.9 10^3/uL (1.5-8.5); NEUTROPHILS % 63.6 % (36.0-66.0); PLATELET COUNT, AUTOMATED 210 10^3/uL (150-450); RED BLOOD COUNT 4.08 10^6/uL (4.00-5.40); WHITE BLOOD COUNT 4.5 10^3/uL (4.0-10.0)
[2022-03-31 06:09] LABS: ALBUMIN 3.3 GM/DL (3.2-5.2); ALT/SGPT 16 U/L (12-78); BILIRUBIN,TOTAL 0.5 MG/DL (0.2-1.0); BLOOD UREA NITROGEN 11 MG/DL (7-18); CALCIUM LEVEL 8.5 MG/DL (8.5-10.1); CARBON DIOXIDE LEVEL 30 MEQ/L (21-32); CHLORIDE LEVEL 105 MEQ/L (98-107); CREATININE FOR GFR 0.65 MG/DL (0.55-1.30); GLOMERULAR FILTRATION RATE > 60.0 (>51); GLUCOSE, FASTING 90 MG/DL (70-100); POTASSIUM SERUM 3.4 MEQ/L (3.5-5.1); SODIUM LEVEL 141 MEQ/L (136-145); TOTAL PROTEIN 6.7 GM/DL (6.4-8.2)
[2022-03-31] MEDS ORDERED: POTASSIUM CHLORIDE 10MEQ SR TABLET PO ONE (06:50)
[2022-03-31] MEDS ORDERED: MORPHINE 2 MG/ML 1ML VIAL IV PRN (06:50)
[2022-03-31 07:47] VITALS: BP 147/89
[2022-03-31] MEDS: METHYLPHENIDATE 5 MG TAB PO SCH ×2 (08:00→14:00)
[2022-03-31] MEDS: PROPRANOLOL 20 MG TAB PO SCH ×2 (08:09→21:35)
[2022-03-31] MEDS: busPIRone 10 MG TAB PO SCH ×2 (08:09→21:35)
[2022-03-31] MEDS: DESVENLAFAXINE ER 50 MG TABLET (PRISTIQ) PO SCH (08:10)
[2022-03-31] MEDS: ENOXAPARIN 40MG/0.4ML SYRINGE (J1650 PER 10MG) SC SCH (08:10)
[2022-03-31] MEDS: amLODIPine 5 MG TAB PO SCH (08:10)
[2022-03-31] MEDS: VENLAFAXINE **XR** 37.5 MG CAPSULE PO SCH (08:10)
[2022-03-31] MEDS ORDERED: ANASTRAZOLE 1MG TABLET (PATIENT'S OWN MED) PO SCH (09:00)
[2022-03-31] MEDS: CEPHALEXIN 250MG CAPSULE PO SCH ×3 (12:20→21:34)
[2022-03-31] MEDS: VARENICLINE 1MG TABLET PO SCH ×2 (12:20→21:35)
[2022-03-31] MEDS ORDERED: SUMAtriptan SUCCINATE 25 MG TAB PO PRN (13:45)
[2022-03-31] MEDS ORDERED: FLUTICASONE PROP 0.05% NASAL SPRAY 16 GM (FLONASE) PRN (13:45)
[2022-03-31] MEDS ORDERED: ACETAMINOPH W/CODEINE #3 TAB UD PO PRN (13:45)
[2022-03-31 16:00] VITALS: BP 132/71
[2022-03-31] MEDS: traMADol 50 MG TAB PO PRN (18:45)
[2022-03-31 20:00] VITALS: BP 132/78
[2022-03-31] MEDS: clonazePAM 1 MG TAB PO SCH (21:34)
[2022-03-31] MEDS: PERCOCET 5MG/325MG TAB PO PRN (21:35)
[2022-04-01] VITALS (7 sets, daily range): BP systolic 98–118; BP diastolic 58–80
[2022-04-01] MEDS: QUEtiapine FUMARATE 25 MG TAB PO PRN ×2 (00:07→21:35)
[2022-04-01] MEDS: tiZANidine 4 MG TAB PO PRN ×2 (00:07→09:03)
[2022-04-01] MEDS: LEVOTHYROXINE 100MCG TABLET (0.1MG) PO SCH (06:59)
[2022-04-01] MEDS: METHYLPHENIDATE 5 MG TAB PO SCH ×2 (08:00→14:00)
[2022-04-01] MEDS: amLODIPine 5 MG TAB PO SCH (09:03)
[2022-04-01] MEDS: VARENICLINE 1MG TABLET PO SCH ×2 (09:03→21:36)
[2022-04-01] MEDS: DESVENLAFAXINE ER 50 MG TABLET (PRISTIQ) PO SCH (09:03)
[2022-04-01] MEDS: PROPRANOLOL 20 MG TAB PO SCH ×2 (09:04→21:36)
[2022-04-01] MEDS: CEPHALEXIN 250MG CAPSULE PO SCH ×4 (09:04→21:35)
[2022-04-01] MEDS: VENLAFAXINE **XR** 37.5 MG CAPSULE PO SCH (09:04)
[2022-04-01] MEDS: busPIRone 10 MG TAB PO SCH ×2 (09:04→21:36)
[2022-04-01] MEDS: traMADol 50 MG TAB PO PRN ×3 (09:05→21:36)
[2022-04-01] MEDS: ENOXAPARIN 40MG/0.4ML SYRINGE (J1650 PER 10MG) SC SCH (09:05)
[2022-04-01] MEDS: PERCOCET 5MG/325MG TAB PO PRN (10:51)
[2022-04-01] MEDS: clonazePAM 1 MG TAB PO SCH (21:37)
[2022-04-02 04:00] VITALS: BP 122/72
[2022-04-02] MEDS: traMADol 50 MG TAB PO PRN ×2 (04:18→10:59)
[2022-04-02] MEDS: LEVOTHYROXINE 100MCG TABLET (0.1MG) PO SCH (06:33)
[2022-04-02] MEDS: PERCOCET 5MG/325MG TAB PO PRN ×2 (07:05→21:11)
[2022-04-02] MEDS: METHYLPHENIDATE 5 MG TAB PO SCH ×2 (07:22→13:20)
[2022-04-02 07:50] VITALS: BP 110/95
[2022-04-02] MEDS: amLODIPine 5 MG TAB PO SCH (08:08)
[2022-04-02] MEDS: DESVENLAFAXINE ER 50 MG TABLET (PRISTIQ) PO SCH (08:08)
[2022-04-02] MEDS: busPIRone 10 MG TAB PO SCH ×2 (08:08→20:17)
[2022-04-02] MEDS: VARENICLINE 1MG TABLET PO SCH ×2 (08:08→20:17)
[2022-04-02] MEDS: CEPHALEXIN 250MG CAPSULE PO SCH ×4 (08:08→20:17)
[2022-04-02] MEDS: VENLAFAXINE **XR** 37.5 MG CAPSULE PO SCH (08:08)
[2022-04-02] MEDS: ENOXAPARIN 40MG/0.4ML SYRINGE (J1650 PER 10MG) SC SCH (08:09)
[2022-04-02] MEDS: PROPRANOLOL 20 MG TAB PO SCH ×2 (08:18→20:19)
[2022-04-02 16:21] VITALS: BP 122/74
[2022-04-02 20:11] VITALS: BP 134/85
[2022-04-02] MEDS: clonazePAM 1 MG TAB PO SCH (20:18)
[2022-04-02 22:30] VITALS: BP 130/79
[2022-04-02] MEDS: tiZANidine 4 MG TAB PO PRN (22:55)
[2022-04-03] MEDS: QUEtiapine FUMARATE 25 MG TAB PO PRN (01:24)
[2022-04-03] MEDS: LEVOTHYROXINE 100MCG TABLET (0.1MG) PO SCH (05:52)
[2022-04-03 06:00] VITALS: BP 129/72
[2022-04-03] MEDS: PERCOCET 5MG/325MG TAB PO PRN (06:08)
[2022-04-03] MEDS: busPIRone 10 MG TAB PO SCH (08:01)
[2022-04-03] MEDS: ENOXAPARIN 40MG/0.4ML SYRINGE (J1650 PER 10MG) SC SCH (08:01)
[2022-04-03] MEDS: CEPHALEXIN 250MG CAPSULE PO SCH (08:01)
[2022-04-03] MEDS: VARENICLINE 1MG TABLET PO SCH (08:02)
[2022-04-03] MEDS: PROPRANOLOL 20 MG TAB PO SCH ×2 (08:04→08:52)
[2022-04-03] MEDS: amLODIPine 5 MG TAB PO SCH (08:04)
[2022-04-03] MEDS: METHYLPHENIDATE 5 MG TAB PO SCH (08:05)
[2022-04-03] MEDS ORDERED: TRAM50TA2 PO (08:25)
[2022-04-03] MEDS ORDERED: PERCOCET PO (08:25)
[2022-04-03] MEDS: VENLAFAXINE **XR** 37.5 MG CAPSULE PO SCH (08:48)
[2022-04-03] MEDS: DESVENLAFAXINE ER 50 MG TABLET (PRISTIQ) PO SCH (08:48)
[2022-04-03 08:52] VITALS: BP 125/65
[2022-04-03] MEDS: traMADol 50 MG TAB PO PRN (10:43)
== END 2022-04-03 13:45 | disposition home health service (06) | DRG 347 ==
LOC: M ED 14:45 → EDBD 14:45 → M ED INP 23:42 → M PCU 03-31 01:16 → M MS5PR 04-02 22:24
PROVIDERS: ADMIT Family Medicine; ATTEND Family Medicine
DX: M51.36 Other intervertebral disc degeneration, lumbar region (principal); F32.9 Major depressive disorder, single episode, unspecified; I10 Essential (primary) hypertension; F41.9 Anxiety disorder, unspecified; M54.59 Other low back pain; R32 Unspecified urinary incontinence; Z79.899 Other long term (current) drug therapy; Z88.2 Allergy status to sulfonamides; Z91.018 Allergy to other foods; Z88.8 Allergy status to other drugs, medicaments and biological substances; G43.909 Migraine, unspecified, not intractable, without status migrainosus; Z87.442 Personal history of urinary calculi; Z90.49 Acquired absence of other specified parts of digestive tract; F17.200 Nicotine dependence, unspecified, uncomplicated; Z85.3 Personal history of malignant neoplasm of breast; Z92.3 Personal history of irradiation; K21.9 Gastro-esophageal reflux disease without esophagitis; M99.73 Connective tissue and disc stenosis of intervertebral foramina of lumbar region; M25.551 Pain in right hip; M25.552 Pain in left hip

== ENCOUNTER → 2022-04-30 | Outpatient (CLI) | payer OTHER ==
[~2022-04-30] MED LIST changes: +AMLO1TAB24 PO; +FLON1SPR; +MELA1TAB9 PO; +METH-1103 PO; +METH-855 PO; +METH20TA29 PO; +PERCOCET PO; +SERO50TA PO; +TRAM50TA2 PO; +TUMERIC PO; +VARE1TAB2 PO; +VENL37.598 PO; +ZYRT10TA12 PO
== END ==
LOC: M PAIN 09:30
PROVIDERS: ATTEND Nurse Practitioner Family
DX: M51.16 Intervertebral disc disorders with radiculopathy, lumbar region (principal); M48.061 Spinal stenosis, lumbar region without neurogenic claudication; G89.29 Other chronic pain; I10 Essential (primary) hypertension; G43.909 Migraine, unspecified, not intractable, without status migrainosus; E03.9 Hypothyroidism, unspecified; F17.210 Nicotine dependence, cigarettes, uncomplicated; Z85.9 Personal history of malignant neoplasm, unspecified; Z98.84 Bariatric surgery status; Z88.2 Allergy status to sulfonamides; Z91.018 Allergy to other foods; Z79.890 Hormone replacement therapy; Z79.899 Other long term (current) drug therapy

== ENCOUNTER → 2022-05-23 | Outpatient (CLI) | payer OTHER | LOC: M WHC 10:45 | PROVIDERS: ATTEND Nurse Practitioner Family | DX: M85.89 Other specified disorders of bone density and structure, multiple sites (principal) ==

== ENCOUNTER 2022-06-18 17:39 | Emergency (ER) | payer OTHER ==
[2022-06-18] MEDS ORDERED: NS 1,000 ML IV ONE (17:50)
[2022-06-18 18:34] LABS: BASO % 0.6 % (0.0-1.0); EOS # 0.1 10^3/uL (0.0-0.5); HEMATOCRIT 38.4 % (36.0-47.0); HEMOGLOBIN 13.5 g/dl (12.0-15.5); LYMPH # 1.2 10^3/uL (1.5-5.0); LYMPH % 34.6 % (24.0-44.0); MEAN CORPUSCULAR HEMOGLOBIN 32.4 pg (27.0-33.0); MEAN CORPUSCULAR HGB CONC 35.2 g/dl (32.0-36.5); MEAN CORPUSCULAR VOLUME 92.1 fl (80.0-96.0); MONO # 0.5 10^3/uL (0.0-0.8); MONO % 13.9 % (2.0-8.0); NEUTROPHILS # 1.6 10^3/uL (1.5-8.5); NEUTROPHILS % 47.6 % (36.0-66.0); PLATELET COUNT, AUTOMATED 221 10^3/uL (150-450); RED BLOOD COUNT 4.17 10^6/uL (4.00-5.40); WHITE BLOOD COUNT 3.3 10^3/uL (4.0-10.0)
[2022-06-18 18:57] LABS: RSV AMPLIFICATION NEGATIVE (NEGATIVE)
[2022-06-18 19:22] LABS: ALBUMIN 3.4 GM/DL (3.2-5.2); ALT/SGPT 15 U/L (12-78); BILIRUBIN,TOTAL 0.4 MG/DL (0.2-1.0); BLOOD UREA NITROGEN 11 MG/DL (7-18); CALCIUM LEVEL 9.2 MG/DL (8.5-10.1); CARBON DIOXIDE LEVEL 25 MEQ/L (21-32); CHLORIDE LEVEL 108 MEQ/L (98-107); CREATININE FOR GFR 0.59 MG/DL (0.55-1.30); GLOMERULAR FILTRATION RATE > 60.0 (>51); GLUCOSE, FASTING 101 MG/DL (70-100); POTASSIUM SERUM 3.4 MEQ/L (3.5-5.1); SODIUM LEVEL 140 MEQ/L (136-145)
[2022-06-18 20:30] VITALS: BP 139/85
== END 2022-06-18 20:50 | disposition home or self-care (01) ==
LOC: M ED 17:39 → EDBD 17:39 → M ED 20:50
DX: R53.81 Other malaise (principal); M54.50 Low back pain, unspecified; I10 Essential (primary) hypertension; I44.4 Left anterior fascicular block; F32.A Depression, unspecified; E03.9 Hypothyroidism, unspecified; F41.9 Anxiety disorder, unspecified; Z98.84 Bariatric surgery status; Z91.02 Food additives allergy status; Z88.1 Allergy status to other antibiotic agents; Z88.2 Allergy status to sulfonamides; Z87.891 Personal history of nicotine dependence; Z79.811 Long term (current) use of aromatase inhibitors; Z79.899 Other long term (current) drug therapy

== ENCOUNTER → 2022-07-27 | Outpatient (CLI) | payer OTHER | LOC: M LABSMTC 11:52 | PROVIDERS: ATTEND Anesthesiology | DX: Z01.812 Encounter for preprocedural laboratory examination (principal); Z20.822 Contact with and (suspected) exposure to COVID-19 ==

== ENCOUNTER → 2022-07-29 | Outpatient (CLI) | payer OTHER | LOC: M ONCR 13:03 | PROVIDERS: ATTEND General Practice | DX: Z08 Encounter for follow-up examination after completed treatment for malignant neoplasm (principal); Z85.3 Personal history of malignant neoplasm of breast; Z79.811 Long term (current) use of aromatase inhibitors; Z79.891 Long term (current) use of opiate analgesic; Z79.899 Other long term (current) drug therapy; Z88.1 Allergy status to other antibiotic agents; Z88.2 Allergy status to sulfonamides; Z91.014 Allergy to mammalian meats; Z92.3 Personal history of irradiation ==

== ENCOUNTER → 2022-07-31 | Outpatient (CLI) | payer OTHER ==
[~2022-07-31] MED LIST changes: +ISOVUE-M 300 61% 15ML VIAL As Ordered ONE; +LIDOCAINE 1% SDV 30ML VIAL As Ordered ONE; +NORCO, ANEXSIA 5/325MG TABLET (HYDROcodone/ACETAMINOPHEN) As Ordered ONE; +diazePAM 5MG TABLET As Ordered ONE; +methylPREDNISolone SUSP 40MG/ML 1ML VIAL (DEPO MEDROL) As Ordered ONE
== END ==
LOC: M PAIN 12:00
PROVIDERS: ATTEND Anesthesiology
DX: M51.16 Intervertebral disc disorders with radiculopathy, lumbar region (principal); G89.29 Other chronic pain; I10 Essential (primary) hypertension; G43.909 Migraine, unspecified, not intractable, without status migrainosus; E03.9 Hypothyroidism, unspecified; F17.210 Nicotine dependence, cigarettes, uncomplicated; Z86.59 Personal history of other mental and behavioral disorders; Z98.84 Bariatric surgery status; Z88.2 Allergy status to sulfonamides; Z91.018 Allergy to other foods; Z79.899 Other long term (current) drug therapy
CPT/HCPCS: 62323; J1030; Q9967

== ENCOUNTER → 2022-08-08 | Outpatient (REF) | payer OTHER ==
[~2022-08-08] MED LIST changes: -ISOVUE-M 300 61% 15ML VIAL As Ordered ONE; -LIDOCAINE 1% SDV 30ML VIAL As Ordered ONE; -NORCO, ANEXSIA 5/325MG TABLET (HYDROcodone/ACETAMINOPHEN) As Ordered ONE; -diazePAM 5MG TABLET As Ordered ONE; -methylPREDNISolone SUSP 40MG/ML 1ML VIAL (DEPO MEDROL) As Ordered ONE
[2022-08-08 17:25] LABS: HEMATOCRIT 42.4 % (36.0-47.0); HEMOGLOBIN 13.8 g/dl (12.0-15.5); MEAN CORPUSCULAR HEMOGLOBIN 32.1 pg (27.0-33.0); MEAN CORPUSCULAR HGB CONC 32.5 g/dl (32.0-36.5); MEAN CORPUSCULAR VOLUME 98.6 fl (80.0-96.0); PLATELET COUNT, AUTOMATED 259 10^3/uL (150-450); WHITE BLOOD COUNT 6.4 10^3/uL (4.0-10.0)
[2022-08-08 18:39] LABS: ALBUMIN 3.7 GM/DL (3.2-5.2); ALT/SGPT 17 U/L (12-78); BILIRUBIN,TOTAL 0.4 MG/DL (0.2-1.0); BLOOD UREA NITROGEN 11 MG/DL (7-18); CALCIUM LEVEL 9.7 MG/DL (8.8-10.2); CARBON DIOXIDE LEVEL 30 MEQ/L (21-32); CHLORIDE LEVEL 103 MEQ/L (98-107); CHOLESTEROL LEVEL 196 MG/DL (<200); CHOLESTEROL RISK RATIO 2.613 (<5); CREATININE FOR GFR 0.81 MG/DL (0.55-1.30); FREE T4 1.22 NG/DL (0.76-1.46); GLOMERULAR FILTRATION RATE > 60.0 (>45); GLUCOSE, FASTING 93 MG/DL (70-100); HDL CHOLESTEROL 75 MG/DL (>40); LDL CHOLESTEROL 100 MG/DL (<100); NON-HDL-C 121 MG/DL; POTASSIUM SERUM 4.6 MEQ/L (3.5-5.1); SODIUM LEVEL 138 MEQ/L (136-145); TOTAL PROTEIN 7.5 GM/DL (6.4-8.2); TRIGLYCERIDES LEVEL 103 MG/DL (<150)
== END ==
LOC: M SFHCCLAY 13:53
PROVIDERS: ATTEND Nurse Practitioner Family
DX: F17.210 Nicotine dependence, cigarettes, uncomplicated (principal); M48.061 Spinal stenosis, lumbar region without neurogenic claudication; E03.9 Hypothyroidism, unspecified; I11.9 Hypertensive heart disease without heart failure; R00.2 Palpitations

== ENCOUNTER → 2022-08-25 | Outpatient (CLI) | payer OTHER | LOC: M PAIN 13:15 | PROVIDERS: ATTEND Anesthesiology | DX: M48.061 Spinal stenosis, lumbar region without neurogenic claudication (principal); M51.16 Intervertebral disc disorders with radiculopathy, lumbar region; G89.29 Other chronic pain; I10 Essential (primary) hypertension; G43.909 Migraine, unspecified, not intractable, without status migrainosus; E03.9 Hypothyroidism, unspecified; F17.210 Nicotine dependence, cigarettes, uncomplicated; Z86.59 Personal history of other mental and behavioral disorders; Z98.84 Bariatric surgery status; Z88.2 Allergy status to sulfonamides; Z91.018 Allergy to other foods; Z79.890 Hormone replacement therapy; Z79.899 Other long term (current) drug therapy ==

== ENCOUNTER → 2022-10-27 | Outpatient (CLI) | payer OTHER | LOC: M CARPUL 10:15 | PROVIDERS: ATTEND Nurse Practitioner Family | DX: R00.2 Palpitations (principal) ==

== ENCOUNTER → 2022-11-06 | Outpatient (CLI) | payer OTHER | LOC: M LABSMTC 11:32 | PROVIDERS: ATTEND Anesthesiology | DX: Z01.812 Encounter for preprocedural laboratory examination (principal); Z20.822 Contact with and (suspected) exposure to COVID-19 ==

== ENCOUNTER → 2022-11-06 | Outpatient (CLI) | payer OTHER | LOC: M RAD 12:34 | PROVIDERS: ATTEND Nurse Practitioner Family | DX: Z12.2 Encounter for screening for malignant neoplasm of respiratory organs (principal); F17.210 Nicotine dependence, cigarettes, uncomplicated ==

== ENCOUNTER → 2022-11-10 | Outpatient (CLI) | payer OTHER ==
[~2022-11-10] MED LIST changes: +BUPIVACAINE HCL 0.25% 30ML VIAL As Ordered ONE; +ISOVUE-M 300 61% 15ML VIAL As Ordered ONE; +LIDOCAINE 1% SDV 30ML VIAL As Ordered ONE; +NORCO, ANEXSIA 5/325MG TABLET (HYDROcodone/ACETAMINOPHEN) As Ordered ONE; +diazePAM 5MG TABLET As Ordered ONE
== END ==
LOC: M PAIN 11:00
PROVIDERS: ATTEND Anesthesiology
DX: M51.16 Intervertebral disc disorders with radiculopathy, lumbar region (principal); G89.29 Other chronic pain; I10 Essential (primary) hypertension; G43.909 Migraine, unspecified, not intractable, without status migrainosus; E03.9 Hypothyroidism, unspecified; F17.210 Nicotine dependence, cigarettes, uncomplicated; Z86.59 Personal history of other mental and behavioral disorders; Z98.84 Bariatric surgery status; Z88.2 Allergy status to sulfonamides; Z91.018 Allergy to other foods; Z79.890 Hormone replacement therapy; Z79.899 Other long term (current) drug therapy
CPT/HCPCS: 64483; 64484; J1100; S0020

== ENCOUNTER 2022-11-22 16:17 | Emergency (ER) | payer OTHER ==
[~2022-11-22] VITALS: Ht 162.6 cm; Wt 75.9 kg
[~2022-11-22 16:17] MED LIST changes: -BUPIVACAINE HCL 0.25% 30ML VIAL As Ordered ONE; -ISOVUE-M 300 61% 15ML VIAL As Ordered ONE; -LIDOCAINE 1% SDV 30ML VIAL As Ordered ONE; -NORCO, ANEXSIA 5/325MG TABLET (HYDROcodone/ACETAMINOPHEN) As Ordered ONE; -diazePAM 5MG TABLET As Ordered ONE
[2022-11-22] MEDS ORDERED: PERCOCET 5MG/325MG TAB PO ONE (16:40)
[2022-11-22 19:00] VITALS: BP 156/85
[2022-11-22] MEDS ORDERED: OXYCODONE/APAP 5MG/325MG(HOME DOSE PACK) PO ONE (19:20)
[2022-11-22] MEDS ORDERED: PERC5TAB12 PO (19:24)
== END 2022-11-22 20:00 | disposition home or self-care (01) ==
LOC: EDBD 16:17 → M ED 16:17
DX: M51.36 Other intervertebral disc degeneration, lumbar region (principal); M16.12 Unilateral primary osteoarthritis, left hip; I10 Essential (primary) hypertension; Z87.442 Personal history of urinary calculi; F41.9 Anxiety disorder, unspecified; E03.9 Hypothyroidism, unspecified; Z98.84 Bariatric surgery status; Z88.1 Allergy status to other antibiotic agents; Z88.2 Allergy status to sulfonamides; Z91.018 Allergy to other foods; Z79.890 Hormone replacement therapy; Z79.83 Long term (current) use of bisphosphonates; Z79.899 Other long term (current) drug therapy

== ENCOUNTER → 2022-11-25 | Outpatient (CLI) | payer OTHER ==
[~2022-11-25] MED LIST changes: +PERC5TAB12 PO
== END ==
LOC: M PAIN 13:15
PROVIDERS: ATTEND Anesthesiology
DX: M51.16 Intervertebral disc disorders with radiculopathy, lumbar region (principal); M25.559 Pain in unspecified hip; G89.29 Other chronic pain; I10 Essential (primary) hypertension; G43.909 Migraine, unspecified, not intractable, without status migrainosus; E03.9 Hypothyroidism, unspecified; F17.210 Nicotine dependence, cigarettes, uncomplicated; Z86.59 Personal history of other mental and behavioral disorders; Z98.84 Bariatric surgery status; Z88.2 Allergy status to sulfonamides; Z91.018 Allergy to other foods; Z79.890 Hormone replacement therapy; Z79.899 Other long term (current) drug therapy

== ENCOUNTER → 2022-12-08 | Outpatient (CLI) | payer OTHER | LOC: M WHC 13:15 | PROVIDERS: ATTEND General Practice | DX: Z12.31 Encounter for screening mammogram for malignant neoplasm of breast (principal) ==

== ENCOUNTER → 2022-12-09 | Outpatient (CLI) | payer OTHER | LOC: M PAIN 15:15 | PROVIDERS: ATTEND Nurse Practitioner Family | DX: M70.62 Trochanteric bursitis, left hip (principal); G89.29 Other chronic pain; I10 Essential (primary) hypertension; G43.909 Migraine, unspecified, not intractable, without status migrainosus; E03.9 Hypothyroidism, unspecified; F17.210 Nicotine dependence, cigarettes, uncomplicated; Z86.59 Personal history of other mental and behavioral disorders; Z88.2 Allergy status to sulfonamides; Z91.018 Allergy to other foods; Z79.890 Hormone replacement therapy; Z79.899 Other long term (current) drug therapy ==

== ENCOUNTER → 2022-12-16 | Outpatient (CLI) | payer OTHER | LOC: M PAIN 14:45 | PROVIDERS: ATTEND Nurse Practitioner Family | DX: M70.62 Trochanteric bursitis, left hip (principal); G89.29 Other chronic pain; I10 Essential (primary) hypertension; G43.909 Migraine, unspecified, not intractable, without status migrainosus; E03.9 Hypothyroidism, unspecified; F17.210 Nicotine dependence, cigarettes, uncomplicated; Z86.59 Personal history of other mental and behavioral disorders; Z88.2 Allergy status to sulfonamides; Z91.018 Allergy to other foods; Z79.890 Hormone replacement therapy; Z79.899 Other long term (current) drug therapy ==

== ENCOUNTER → 2022-12-23 | Outpatient (CLI) | payer OTHER ==
[~2022-12-23] MED LIST changes: +BUPIVACAINE HCL 0.25% 30ML VIAL As Ordered ONE; +ISOVUE-M 300 61% 15ML VIAL As Ordered ONE; +LIDOCAINE 1% SDV 30ML VIAL As Ordered ONE; +TRIAMCINOLONE ACETONIDE SUSP 40MG/ML 1ML VIAL As Ordered ONE
== END ==
LOC: M PAIN 12:45
PROVIDERS: ATTEND Anesthesiology
DX: M70.62 Trochanteric bursitis, left hip (principal); I10 Essential (primary) hypertension; G43.909 Migraine, unspecified, not intractable, without status migrainosus; E03.9 Hypothyroidism, unspecified; F17.210 Nicotine dependence, cigarettes, uncomplicated; Z96.89 Presence of other specified functional implants; Z86.59 Personal history of other mental and behavioral disorders; Z88.2 Allergy status to sulfonamides; Z91.018 Allergy to other foods; Z79.890 Hormone replacement therapy; Z79.899 Other long term (current) drug therapy
CPT/HCPCS: 20610; 77002; J3301; Q9967; S0020

== ENCOUNTER → 2022-12-23 | Outpatient (CLI) | payer OTHER, MEDICAID ==
[~2022-12-23] MED LIST changes: -BUPIVACAINE HCL 0.25% 30ML VIAL As Ordered ONE; -ISOVUE-M 300 61% 15ML VIAL As Ordered ONE; -LIDOCAINE 1% SDV 30ML VIAL As Ordered ONE; -TRIAMCINOLONE ACETONIDE SUSP 40MG/ML 1ML VIAL As Ordered ONE
== END ==
LOC: M LABSMTC 12:00
PROVIDERS: ATTEND Anesthesiology
DX: Z01.812 Encounter for preprocedural laboratory examination (principal)

== ENCOUNTER → 2023-01-15 | Outpatient (CLI) | payer OTHER | LOC: M PAIN 14:30 | PROVIDERS: ATTEND Nurse Practitioner Family | DX: M70.62 Trochanteric bursitis, left hip (principal); G89.29 Other chronic pain; I10 Essential (primary) hypertension; G43.909 Migraine, unspecified, not intractable, without status migrainosus; E03.9 Hypothyroidism, unspecified; F17.210 Nicotine dependence, cigarettes, uncomplicated; Z86.59 Personal history of other mental and behavioral disorders; Z88.2 Allergy status to sulfonamides; Z91.018 Allergy to other foods; Z79.890 Hormone replacement therapy; Z79.899 Other long term (current) drug therapy ==

== ENCOUNTER → 2023-01-28 | Outpatient (REF) | payer OTHER ==
[2023-01-28 18:05] LABS: CHOLESTEROL RISK RATIO 2.67 (<5); HDL CHOLESTEROL 85.9 MG/DL (>40); LDL CHOLESTEROL 129.3 MG/DL (<100); NON-HDL-C 144.1 MG/DL
[2023-01-28 18:07] LABS: THYROID STIMULATING HORMONE 7.473 uIU/ML (0.55-4.78); TOTAL 25(OH) VITAMIN D 20.1 NG/ML (20.0-100.0)
== END ==
LOC: M SFHCCLAY 10:07
PROVIDERS: ATTEND Nurse Practitioner Family
DX: E78.5 Hyperlipidemia, unspecified (principal); E55.9 Vitamin D deficiency, unspecified; E03.9 Hypothyroidism, unspecified

== ENCOUNTER → 2023-02-19 | Outpatient (CLI) | payer OTHER ==
[~2023-02-19] MED LIST changes: +ABIL1TAB13 PO; +CARV6.25 PO; +DEXT1TAB19 PO
== END ==
LOC: M PAIN 11:15
PROVIDERS: ATTEND Nurse Practitioner Family
DX: M48.00 Spinal stenosis, site unspecified (principal); M51.16 Intervertebral disc disorders with radiculopathy, lumbar region; G89.29 Other chronic pain; I10 Essential (primary) hypertension; G43.909 Migraine, unspecified, not intractable, without status migrainosus; E03.9 Hypothyroidism, unspecified; F17.210 Nicotine dependence, cigarettes, uncomplicated; Z86.59 Personal history of other mental and behavioral disorders; Z88.2 Allergy status to sulfonamides; Z91.018 Allergy to other foods; Z79.890 Hormone replacement therapy; Z79.899 Other long term (current) drug therapy

== ENCOUNTER → 2023-03-05 | Outpatient (REF) | payer OTHER, MEDICAID | LOC: M SFHCWAGY 09:52 | PROVIDERS: ATTEND Nurse Practitioner Family | DX: Z12.4 Encounter for screening for malignant neoplasm of cervix (principal) ==

== ENCOUNTER 2023-03-11 12:15 | Day surgery (SDC) | payer OTHER ==
[~2023-03-11] VITALS: Ht 162.6 cm; Wt 72.8 kg
[~2023-03-11 12:15] MED LIST changes: +NS 1,000 ML IV ONE
[2023-03-11] MEDS ORDERED: propofoL 200 MG/20 ML VIAL As Ordered ONE ×2 (13:39→14:12)
[2023-03-11 14:36] VITALS: BP 119/64; TEMP 97.7; O2SAT 95
== END 2023-03-11 14:39 | disposition home or self-care (01) ==
LOC: M OPP 12:15
PROVIDERS: ATTEND Surgery
DX: R19.5 Other fecal abnormalities (principal); Z85.3 Personal history of malignant neoplasm of breast; K57.30 Diverticulosis of large intestine without perforation or abscess without bleeding; K64.0 First degree hemorrhoids; I10 Essential (primary) hypertension; E03.9 Hypothyroidism, unspecified; F41.9 Anxiety disorder, unspecified; F32.A Depression, unspecified; G43.909 Migraine, unspecified, not intractable, without status migrainosus; F17.210 Nicotine dependence, cigarettes, uncomplicated; Z92.21 Personal history of antineoplastic chemotherapy; Z92.3 Personal history of irradiation; Z98.84 Bariatric surgery status; Z88.1 Allergy status to other antibiotic agents; Z88.2 Allergy status to sulfonamides; Z91.018 Allergy to other foods; Z79.890 Hormone replacement therapy; Z79.899 Other long term (current) drug therapy

== ENCOUNTER → 2023-04-28 | Outpatient (CLI) | payer OTHER ==
[~2023-04-28] MED LIST changes: +ISOVUE-M 300 61% 15ML VIAL As Ordered ONE; +LIDOCAINE 1% SDV 30ML VIAL As Ordered ONE; +NORCO, ANEXSIA 5/325MG TABLET (HYDROcodone/ACETAMINOPHEN) As Ordered ONE; -NS 1,000 ML IV ONE; +diazePAM 5MG TABLET As Ordered ONE; +methylPREDNISolone SUSP 40MG/ML 1ML VIAL (DEPO MEDROL) As Ordered ONE
== END ==
LOC: M PAIN 13:00
PROVIDERS: ATTEND Anesthesiology
DX: M51.16 Intervertebral disc disorders with radiculopathy, lumbar region (principal); I10 Essential (primary) hypertension; F41.9 Anxiety disorder, unspecified; F32.A Depression, unspecified; G43.909 Migraine, unspecified, not intractable, without status migrainosus; E03.9 Hypothyroidism, unspecified; E55.9 Vitamin D deficiency, unspecified; N32.81 Overactive bladder; R32 Unspecified urinary incontinence; Z85.3 Personal history of malignant neoplasm of breast; Z87.442 Personal history of urinary calculi; F17.210 Nicotine dependence, cigarettes, uncomplicated; Z79.890 Hormone replacement therapy; Z79.899 Other long term (current) drug therapy; Z79.891 Long term (current) use of opiate analgesic; Z88.2 Allergy status to sulfonamides; Z91.018 Allergy to other foods
CPT/HCPCS: 62323; J1030; Q9967

== ENCOUNTER → 2023-04-29 | Outpatient (REF) | payer OTHER ==
[~2023-04-29] MED LIST changes: -ISOVUE-M 300 61% 15ML VIAL As Ordered ONE; -LIDOCAINE 1% SDV 30ML VIAL As Ordered ONE; -NORCO, ANEXSIA 5/325MG TABLET (HYDROcodone/ACETAMINOPHEN) As Ordered ONE; -diazePAM 5MG TABLET As Ordered ONE; -methylPREDNISolone SUSP 40MG/ML 1ML VIAL (DEPO MEDROL) As Ordered ONE
== END ==
LOC: M SFHCCLAY 15:36
PROVIDERS: ATTEND Nurse Practitioner Family
DX: Z53.9 Procedure and treatment not carried out, unspecified reason (principal)

== ENCOUNTER → 2023-05-29 | Outpatient (CLI) | payer OTHER | LOC: M PAIN 11:30 | PROVIDERS: ATTEND Nurse Practitioner Family | DX: M51.16 Intervertebral disc disorders with radiculopathy, lumbar region (principal); G89.29 Other chronic pain; I10 Essential (primary) hypertension; G43.909 Migraine, unspecified, not intractable, without status migrainosus; E03.9 Hypothyroidism, unspecified; F17.210 Nicotine dependence, cigarettes, uncomplicated; Z86.59 Personal history of other mental and behavioral disorders; Z88.2 Allergy status to sulfonamides; Z91.018 Allergy to other foods; Z79.890 Hormone replacement therapy; Z79.899 Other long term (current) drug therapy ==

== ENCOUNTER → 2023-06-12 | Outpatient (CLI) | payer OTHER, MEDICAID ==
[2023-06-12 18:28] LABS: BASO # 0.1 10^3/uL (0.0-0.2); BASO % 1.3 % (0.0-1.0); EOS # 0.3 10^3/uL (0.0-0.5); EOS % 5.3 % (0.0-3.0); HEMATOCRIT 37.2 % (36.0-47.0); HEMOGLOBIN 11.7 g/dl (12.0-15.5); LYMPH # 1.2 10^3/uL (1.5-5.0); LYMPH % 26.1 % (24.0-44.0); MEAN CORPUSCULAR HGB CONC 31.5 g/dl (32.0-36.5); MEAN CORPUSCULAR VOLUME 92.3 fl (80.0-96.0); MONO # 0.4 10^3/uL (0.0-0.8); MONO % 9.1 % (2.0-8.0); NEUTROPHILS # 2.8 10^3/uL (1.5-8.5); PLATELET COUNT, AUTOMATED 284 10^3/uL (150-450); RED BLOOD COUNT 4.03 10^6/uL (4.00-5.40); WHITE BLOOD COUNT 4.8 10^3/uL (4.0-10.0)
[2023-06-12 18:41] LABS: BLOOD UREA NITROGEN 10 MG/DL (9-23); CALCIUM LEVEL 8.6 MG/DL (8.3-10.6); CARBON DIOXIDE LEVEL 30 MMOL/L (20-31); CHLORIDE LEVEL 106 MMOL/L (98-107); CREATININE FOR GFR 0.69 MG/DL (0.55-1.30); GLOMERULAR FILTRATION RATE > 60.0 (>45); GLUCOSE, FASTING 81 MG/DL (74-106); SODIUM LEVEL 142 MMOL/L (136-145)
[2023-06-12 18:53] LABS: INR 0.94; PROTHROMBIN TIME 12.3 SECONDS (12.5-14.5)
== END ==
LOC: M WUC 15:26
PROVIDERS: ATTEND Nurse Practitioner Family
DX: M48.02 Spinal stenosis, cervical region (principal); G99.2 Myelopathy in diseases classified elsewhere

== ENCOUNTER → 2023-06-12 | Outpatient (CLI) | payer OTHER, MEDICAID ==
[2023-06-12 18:25] LABS: BASO # 0.1 10^3/uL (0.0-0.2); BASO % 1.5 % (0.0-1.0); EOS # 0.2 10^3/uL (0.0-0.5); EOS % 4.8 % (0.0-3.0); HEMOGLOBIN 11.7 g/dl (12.0-15.5); LYMPH # 1.2 10^3/uL (1.5-5.0); LYMPH % 25.7 % (24.0-44.0); MEAN CORPUSCULAR HEMOGLOBIN 29.1 pg (27.0-33.0); MEAN CORPUSCULAR HGB CONC 31.6 g/dl (32.0-36.5); MONO # 0.5 10^3/uL (0.0-0.8); MONO % 9.6 % (2.0-8.0); NEUTROPHILS # 2.8 10^3/uL (1.5-8.5); NEUTROPHILS % 58.4 % (36.0-66.0); PLATELET COUNT, AUTOMATED 285 10^3/uL (150-450); RED BLOOD COUNT 4.02 10^6/uL (4.00-5.40); WHITE BLOOD COUNT 4.8 10^3/uL (4.0-10.0)
[2023-06-12 18:42] LABS: BLOOD UREA NITROGEN 10 MG/DL (9-23); CALCIUM LEVEL 8.3 MG/DL (8.3-10.6); CARBON DIOXIDE LEVEL 30 MMOL/L (20-31); CHLORIDE LEVEL 105 MMOL/L (98-107); GLOMERULAR FILTRATION RATE > 60.0 (>45); GLUCOSE, FASTING 79 MG/DL (74-106); POTASSIUM SERUM 3.8 MMOL/L (3.5-5.1); SODIUM LEVEL 138 MMOL/L (136-145)
[2023-06-12 18:45] LABS: FREE T4 1.03 NG/DL (0.89-1.76)
== END ==
LOC: M WUC 15:23
PROVIDERS: ATTEND Nurse Practitioner Family
DX: E03.9 Hypothyroidism, unspecified (principal); I10 Essential (primary) hypertension; E78.5 Hyperlipidemia, unspecified; E55.9 Vitamin D deficiency, unspecified

== ENCOUNTER → 2023-06-15 | Outpatient (REF) | payer OTHER, MEDICAID ==
[2023-06-15 22:49] LABS: APPEARANCE, URINE CLEAR (CLEAR); BACTERIA, URINE AUTO NEGATIVE (NEGATIVE); BILIRUBIN, URINE AUTO NEGATIVE (NEGATIVE); BLOOD, URINE BLOOD NEGATIVE (NEGATIVE); COLOR, URINE STRAW (YELLOW); GLUCOSE, URINE (UA) AUTO NEGATIVE (NEGATIVE); KETONE, URINE AUTO NEGATIVE (NEGATIVE); LEUKOCYTE ESTERASE, URINE AUTO TRACE (NEGATIVE); MUCUS, URINE SMALL (NEGATIVE); NITRITE, URINE AUTO NEGATIVE (NEGATIVE); PROTEIN, URINE AUTO NEGATIVE (NEGATIVE); RBC, URINE AUTO 1 /HPF (0-3); SPECIFIC GRAVITY URINE AUTO 1.003 (1.002-1.035); SQUAMOUS EPITHELIAL CELL UR AU 0 /HPF (0-6); UROBILINOGEN, URINE AUTO 0.2 mg/dL (0.0-2.0); WBC, URINE AUTO 1 /HPF (0-3)
== END ==
LOC: M LAB REF 21:46
PROVIDERS: ATTEND Nurse Practitioner Family
DX: M48.02 Spinal stenosis, cervical region (principal); G99.2 Myelopathy in diseases classified elsewhere

== ENCOUNTER → 2023-07-31 | Outpatient (CLI) | payer OTHER ==
[~2023-07-31] MED LIST changes: -OXYB5TAB10; +OXYB5TAB11
== END ==
LOC: M ONCR 13:02
PROVIDERS: ATTEND General Practice
DX: Z08 Encounter for follow-up examination after completed treatment for malignant neoplasm (principal); Z85.3 Personal history of malignant neoplasm of breast; R92.30 Dense breasts, unspecified; Z71.2 Person consulting for explanation of examination or test findings; Z79.51 Long term (current) use of inhaled steroids; Z79.811 Long term (current) use of aromatase inhibitors; Z79.899 Other long term (current) drug therapy; Z88.1 Allergy status to other antibiotic agents; Z88.2 Allergy status to sulfonamides; Z91.018 Allergy to other foods; Z92.3 Personal history of irradiation; Z98.890 Other specified postprocedural states

== ENCOUNTER → 2023-08-24 | Outpatient (CLI) | payer OTHER | LOC: M PAIN 11:30 | PROVIDERS: ATTEND Nurse Practitioner Family | DX: M48.061 Spinal stenosis, lumbar region without neurogenic claudication (principal); G89.29 Other chronic pain; F17.210 Nicotine dependence, cigarettes, uncomplicated; Z98.84 Bariatric surgery status; Z88.2 Allergy status to sulfonamides; Z91.018 Allergy to other foods; Z79.899 Other long term (current) drug therapy ==

== ENCOUNTER → 2023-09-01 | Outpatient (CLI) | payer OTHER | LOC: M PAIN 12:15 | PROVIDERS: ATTEND Nurse Practitioner Family | DX: Z79.891 Long term (current) use of opiate analgesic (principal) ==

== ENCOUNTER → 2023-10-29 | Outpatient (REF) | payer OTHER ==
[2023-10-29 17:37] LABS: BASO # 0.1 10^3/uL (0.0-0.2); BASO % 0.9 % (0.0-1.0); EOS # 0.2 10^3/uL (0.0-0.5); EOS % 2.9 % (0.0-3.0); HEMATOCRIT 40.2 % (36.0-47.0); HEMOGLOBIN 13.6 g/dl (12.0-15.5); LYMPH # 1.1 10^3/uL (1.5-5.0); LYMPH % 19.4 % (24.0-44.0); MEAN CORPUSCULAR HEMOGLOBIN 31.3 pg (27.0-33.0); MEAN CORPUSCULAR HGB CONC 33.8 g/dl (32.0-36.5); MEAN CORPUSCULAR VOLUME 92.4 fl (80.0-96.0); MONO # 0.5 10^3/uL (0.0-0.8); MONO % 9.1 % (2.0-8.0); NEUTROPHILS # 3.7 10^3/uL (1.5-8.5); NEUTROPHILS % 67.5 % (36.0-66.0); PLATELET COUNT, AUTOMATED 239 10^3/uL (150-450); RED BLOOD COUNT 4.35 10^6/uL (4.00-5.40); WHITE BLOOD COUNT 5.5 10^3/uL (4.0-10.0)
[2023-10-29 18:09] LABS: FERRITIN 29.3 NG/ML (7.3-270.7)
[2023-10-29 18:10] LABS: THYROID STIMULATING HORMONE 0.799 uIU/ML (0.55-4.78)
[2023-10-29 18:11] LABS: BLOOD UREA NITROGEN 14 MG/DL (9-23); CALCIUM LEVEL 8.9 MG/DL (8.3-10.6); CARBON DIOXIDE LEVEL 31 MMOL/L (20-31); CHLORIDE LEVEL 108 MMOL/L (98-107); CHOLESTEROL LEVEL 205 MG/DL (<200); CHOLESTEROL RISK RATIO 2.38 (<5); CREATININE FOR GFR 0.66 MG/DL (0.55-1.30); FREE T4 1.33 NG/DL (0.89-1.76); GLOMERULAR FILTRATION RATE > 60.0 (>45); GLUCOSE, FASTING 87 MG/DL (74-106); HDL CHOLESTEROL 85.9 MG/DL (>40); IRON (FE) 120 UG/DL (50-170); LDL CHOLESTEROL 106.1 MG/DL (<100); NON-HDL-C 119.1 MG/DL; PERCENT SATURATION 43.3 % (13.2-45.0); POTASSIUM SERUM 4.2 MMOL/L (3.5-5.1); SODIUM LEVEL 143 MMOL/L (136-145); TOTAL IRON BINDING CAPACITY 277 UG/DL (250-425); TRIGLYCERIDES LEVEL 65 MG/DL (<150)
[2023-10-29 18:13] LABS: VITAMIN B12 LEVEL 562 PG/ML (211-911)
[2023-10-29 18:14] LABS: FOLATE > 24.00 NG/ML (>5.4)
== END ==
LOC: M SFHCCLAY 14:38
PROVIDERS: ATTEND Nurse Practitioner Family
DX: D64.9 Anemia, unspecified (principal); E78.5 Hyperlipidemia, unspecified; I10 Essential (primary) hypertension; E03.9 Hypothyroidism, unspecified

== ENCOUNTER → 2023-11-25 | Outpatient (CLI) | payer OTHER ==
[~2023-11-25] MED LIST changes: -OXYB5TAB11; +OXYB5TAB14
== END ==
LOC: M PAIN 11:45
PROVIDERS: ATTEND Anesthesiology
DX: M51.16 Intervertebral disc disorders with radiculopathy, lumbar region (principal); G89.29 Other chronic pain; I10 Essential (primary) hypertension; F41.9 Anxiety disorder, unspecified; F32.A Depression, unspecified; G43.909 Migraine, unspecified, not intractable, without status migrainosus; E03.9 Hypothyroidism, unspecified; E55.9 Vitamin D deficiency, unspecified; E66.9 Obesity, unspecified; F17.210 Nicotine dependence, cigarettes, uncomplicated; Z68.33 Body mass index [BMI] 33.0-33.9, adult; Z79.891 Long term (current) use of opiate analgesic; Z79.890 Hormone replacement therapy; Z79.899 Other long term (current) drug therapy; Z88.2 Allergy status to sulfonamides; Z91.018 Allergy to other foods

== ENCOUNTER → 2023-12-25 | Outpatient (CLI) | payer OTHER ==
[~2023-12-25] MED LIST changes: -MELA1TAB9 PO; +MELA5TAB58 PO
== END ==
LOC: M PAIN 11:15
PROVIDERS: ATTEND Nurse Practitioner Family
DX: M96.1 Postlaminectomy syndrome, not elsewhere classified (principal); G89.29 Other chronic pain; I10 Essential (primary) hypertension; E66.9 Obesity, unspecified; F17.210 Nicotine dependence, cigarettes, uncomplicated; Z68.33 Body mass index [BMI] 33.0-33.9, adult; Z88.2 Allergy status to sulfonamides; Z91.018 Allergy to other foods; Z79.891 Long term (current) use of opiate analgesic; Z79.899 Other long term (current) drug therapy

== ENCOUNTER → 2024-01-20 | Outpatient (CLI) | payer OTHER | LOC: M WHC 07:08 | PROVIDERS: ATTEND General Practice | DX: D05.11 Intraductal carcinoma in situ of right breast (principal); D05.12 Intraductal carcinoma in situ of left breast ==

== ENCOUNTER → 2024-02-01 | Outpatient (CLI) | payer OTHER ==
[~2024-02-01] MED LIST changes: +PROHANCE 279.3MG/ML 15ML VIAL As Ordered ONE; +PROHANCE 279.3MG/ML 5ML VIAL As Ordered ONE
== END ==
LOC: M RAD 08:55
PROVIDERS: ATTEND Nurse Practitioner Family
DX: D05.11 Intraductal carcinoma in situ of right breast (principal); D05.12 Intraductal carcinoma in situ of left breast; M48.02 Spinal stenosis, cervical region; M48.04 Spinal stenosis, thoracic region; M50.30 Other cervical disc degeneration, unspecified cervical region; M43.22 Fusion of spine, cervical region
CPT/HCPCS: 72156; A9576

== ENCOUNTER → 2024-02-23 | Outpatient (CLI) | payer OTHER ==
[~2024-02-23] MED LIST changes: -PROHANCE 279.3MG/ML 15ML VIAL As Ordered ONE; -PROHANCE 279.3MG/ML 5ML VIAL As Ordered ONE
== END ==
LOC: M PAIN 11:45
PROVIDERS: ATTEND Nurse Practitioner Family
DX: M51.16 Intervertebral disc disorders with radiculopathy, lumbar region (principal); Z79.891 Long term (current) use of opiate analgesic; G89.29 Other chronic pain; I10 Essential (primary) hypertension; E03.9 Hypothyroidism, unspecified

== ENCOUNTER → 2024-04-12 | Outpatient (CLI) | payer OTHER ==
[~2024-04-12] MED LIST changes: +ISOVUE-M 300 61% 15ML VIAL As Ordered ONE; +LIDOCAINE 1% SDV 30ML VIAL As Ordered ONE; +NORCO, ANEXSIA 5/325MG TABLET (HYDROcodone/ACETAMINOPHEN) As Ordered ONE; +dexAMETHasone 10MG/1ML VIAL PRES.FREE As Ordered ONE; +diazePAM 5MG TABLET As Ordered ONE
== END ==
LOC: M PAIN 12:30
PROVIDERS: ATTEND Anesthesiology
DX: M50.13 Cervical disc disorder with radiculopathy, cervicothoracic region (principal); G89.29 Other chronic pain; I10 Essential (primary) hypertension; F41.9 Anxiety disorder, unspecified; F32.A Depression, unspecified; G43.909 Migraine, unspecified, not intractable, without status migrainosus; E03.9 Hypothyroidism, unspecified; E55.9 Vitamin D deficiency, unspecified; E66.9 Obesity, unspecified; F17.210 Nicotine dependence, cigarettes, uncomplicated; Z68.32 Body mass index [BMI] 32.0-32.9, adult; Z79.890 Hormone replacement therapy; Z79.891 Long term (current) use of opiate analgesic; Z79.899 Other long term (current) drug therapy; Z88.2 Allergy status to sulfonamides; Z91.018 Allergy to other foods
CPT/HCPCS: 62321; J1100; Q9967

== ENCOUNTER → 2024-04-26 | Outpatient (CLI) | payer OTHER ==
[~2024-04-26] MED LIST changes: -NORCO, ANEXSIA 5/325MG TABLET (HYDROcodone/ACETAMINOPHEN) As Ordered ONE; -diazePAM 5MG TABLET As Ordered ONE
== END ==
LOC: M PAIN 08:15
PROVIDERS: ATTEND Anesthesiology
DX: M51.16 Intervertebral disc disorders with radiculopathy, lumbar region (principal); G89.29 Other chronic pain; F17.210 Nicotine dependence, cigarettes, uncomplicated; Z79.899 Other long term (current) drug therapy; Z85.3 Personal history of malignant neoplasm of breast; Z98.84 Bariatric surgery status; Z80.8 Family history of malignant neoplasm of other organs or systems; Z88.2 Allergy status to sulfonamides; Z91.018 Allergy to other foods
CPT/HCPCS: 62323; J1100; Q9967

== ENCOUNTER → 2024-04-28 | Outpatient (REF) | payer OTHER ==
[~2024-04-28] MED LIST changes: -ISOVUE-M 300 61% 15ML VIAL As Ordered ONE; -LIDOCAINE 1% SDV 30ML VIAL As Ordered ONE; -dexAMETHasone 10MG/1ML VIAL PRES.FREE As Ordered ONE
[2024-04-28 19:30] LABS: BASO # 0.1 10^3/uL (0.0-0.2); BASO % 0.9 % (0.0-1.0); EOS # 0.2 10^3/uL (0.0-0.5); EOS % 2.4 % (0.0-3.0); HEMATOCRIT 38.4 % (36.0-47.0); HEMOGLOBIN 13.1 g/dl (12.0-15.5); LYMPH # 1.9 10^3/uL (1.5-5.0); LYMPH % 28.2 % (24.0-44.0); MEAN CORPUSCULAR HGB CONC 34.1 g/dl (32.0-36.5); MEAN CORPUSCULAR VOLUME 96.7 fl (80.0-96.0); MONO # 0.5 10^3/uL (0.0-0.8); MONO % 7.3 % (2.0-8.0); PLATELET COUNT, AUTOMATED 242 10^3/uL (150-450); RED BLOOD COUNT 3.97 10^6/uL (4.00-5.40); WHITE BLOOD COUNT 6.6 10^3/uL (4.0-10.0)
[2024-04-28 19:55] LABS: FREE T4 1.35 NG/DL (0.89-1.76); THYROID STIMULATING HORMONE 1.421 uIU/ML (0.55-4.78)
[2024-04-28 19:56] LABS: ALBUMIN 3.6 G/DL (3.2-5.2); ALKALINE PHOSPHATASE 105 U/L (46-116); ALT/SGPT 16 U/L (7.0-40); AST/SGOT 11 U/L (<34); BILIRUBIN,TOTAL 0.4 MG/DL (0.3-1.2); BLOOD UREA NITROGEN 13 MG/DL (9-23); CALCIUM LEVEL 9.2 MG/DL (8.3-10.6); CARBON DIOXIDE LEVEL 32 MMOL/L (20-31); CHLORIDE LEVEL 110 MMOL/L (98-107); CHOLESTEROL LEVEL 196 MG/DL (<200); CHOLESTEROL RISK RATIO 2.63 (<5); CREATININE FOR GFR 0.77 MG/DL (0.55-1.30); GLOMERULAR FILTRATION RATE > 60.0 (>45); GLUCOSE, FASTING 89 MG/DL (74-106); HDL CHOLESTEROL 74.3 MG/DL (>40); LDL CHOLESTEROL 105.1 MG/DL (<100); NON-HDL-C 121.7 MG/DL; POTASSIUM SERUM 4.5 MMOL/L (3.5-5.1); SODIUM LEVEL 143 MMOL/L (136-145); TOTAL PROTEIN 6.3 G/DL (5.7-8.2); TRIGLYCERIDES LEVEL 83 MG/DL (<150)
== END ==
LOC: M SFHCCLAY 11:26
PROVIDERS: ATTEND Nurse Practitioner Family
DX: E78.5 Hyperlipidemia, unspecified (principal); D64.9 Anemia, unspecified; I10 Essential (primary) hypertension; E03.9 Hypothyroidism, unspecified

== ENCOUNTER → 2024-05-13 | Outpatient (CLI) | payer OTHER | LOC: M PAIN 11:00 | PROVIDERS: ATTEND Nurse Practitioner Family | DX: M96.1 Postlaminectomy syndrome, not elsewhere classified (principal); M48.02 Spinal stenosis, cervical region; G89.29 Other chronic pain; I10 Essential (primary) hypertension; E03.9 Hypothyroidism, unspecified; F41.9 Anxiety disorder, unspecified; F32.A Depression, unspecified; G43.909 Migraine, unspecified, not intractable, without status migrainosus; E55.9 Vitamin D deficiency, unspecified; E66.9 Obesity, unspecified; N32.81 Overactive bladder; F17.210 Nicotine dependence, cigarettes, uncomplicated; Z68.34 Body mass index [BMI] 34.0-34.9, adult; Z79.890 Hormone replacement therapy; Z79.891 Long term (current) use of opiate analgesic; Z79.899 Other long term (current) drug therapy; Z88.2 Allergy status to sulfonamides; Z91.018 Allergy to other foods ==

== ENCOUNTER → 2024-05-24 | Outpatient (CLI) | payer OTHER | LOC: M PAIN 11:45 | PROVIDERS: ATTEND Nurse Practitioner Family | DX: M51.16 Intervertebral disc disorders with radiculopathy, lumbar region (principal); G89.29 Other chronic pain; I10 Essential (primary) hypertension; F41.9 Anxiety disorder, unspecified; F32.A Depression, unspecified; G43.909 Migraine, unspecified, not intractable, without status migrainosus; E03.9 Hypothyroidism, unspecified; E55.9 Vitamin D deficiency, unspecified; E66.9 Obesity, unspecified; N32.81 Overactive bladder; F17.210 Nicotine dependence, cigarettes, uncomplicated; Z68.34 Body mass index [BMI] 34.0-34.9, adult; Z79.891 Long term (current) use of opiate analgesic; Z79.899 Other long term (current) drug therapy; Z88.2 Allergy status to sulfonamides; Z91.018 Allergy to other foods ==

== ENCOUNTER → 2024-06-07 | Outpatient (CLI) | payer OTHER | LOC: M RAD 13:26 | PROVIDERS: ATTEND Nurse Practitioner Family | DX: Z12.2 Encounter for screening for malignant neoplasm of respiratory organs (principal); F17.210 Nicotine dependence, cigarettes, uncomplicated ==

== ENCOUNTER → 2024-07-12 | Outpatient (CLI) | payer OTHER | LOC: M PAIN 11:00 | PROVIDERS: ATTEND Nurse Practitioner Family | DX: M96.1 Postlaminectomy syndrome, not elsewhere classified (principal); M48.02 Spinal stenosis, cervical region; G89.29 Other chronic pain; I10 Essential (primary) hypertension; F41.9 Anxiety disorder, unspecified; F32.A Depression, unspecified; G43.909 Migraine, unspecified, not intractable, without status migrainosus; E03.9 Hypothyroidism, unspecified; E55.9 Vitamin D deficiency, unspecified; E66.9 Obesity, unspecified; N32.81 Overactive bladder; F17.210 Nicotine dependence, cigarettes, uncomplicated; Z68.33 Body mass index [BMI] 33.0-33.9, adult; Z91.018 Allergy to other foods; Z79.890 Hormone replacement therapy; Z79.891 Long term (current) use of opiate analgesic; Z79.899 Other long term (current) drug therapy; Z88.2 Allergy status to sulfonamides ==

== ENCOUNTER → 2024-07-25 | Outpatient (CLI) | payer OTHER | LOC: M WHC 12:31 | PROVIDERS: ATTEND General Practice | DX: D05.11 Intraductal carcinoma in situ of right breast (principal); D05.12 Intraductal carcinoma in situ of left breast; N60.02 Solitary cyst of left breast; R92.343 Mammographic extreme density, bilateral breasts ==

== ENCOUNTER → 2024-08-03 | Outpatient (CLI) | payer OTHER | LOC: M ONCR 12:50 | PROVIDERS: ATTEND General Practice | DX: Z08 Encounter for follow-up examination after completed treatment for malignant neoplasm (principal); Z85.3 Personal history of malignant neoplasm of breast; Z92.3 Personal history of irradiation; Z92.29 Personal history of other drug therapy; Z88.1 Allergy status to other antibiotic agents; Z88.2 Allergy status to sulfonamides; Z91.018 Allergy to other foods; Z79.51 Long term (current) use of inhaled steroids; Z79.899 Other long term (current) drug therapy; Z98.890 Other specified postprocedural states ==

== ENCOUNTER → 2024-10-11 | Outpatient (CLI) | payer OTHER | LOC: M PAIN 14:00 | PROVIDERS: ATTEND Nurse Practitioner Family | DX: M96.1 Postlaminectomy syndrome, not elsewhere classified (principal); Z79.891 Long term (current) use of opiate analgesic; M51.16 Intervertebral disc disorders with radiculopathy, lumbar region; M48.02 Spinal stenosis, cervical region; G89.29 Other chronic pain; I10 Essential (primary) hypertension; F41.9 Anxiety disorder, unspecified; F32.A Depression, unspecified; G43.909 Migraine, unspecified, not intractable, without status migrainosus; E03.9 Hypothyroidism, unspecified; E55.9 Vitamin D deficiency, unspecified; E66.9 Obesity, unspecified; Z87.891 Personal history of nicotine dependence; Z79.890 Hormone replacement therapy; Z79.899 Other long term (current) drug therapy; Z88.2 Allergy status to sulfonamides; Z91.018 Allergy to other foods ==

== ENCOUNTER → 2024-10-21 | Outpatient (REF) | payer OTHER ==
[2024-10-21 18:31] LABS: FERRITIN 220.5 NG/ML (7.3-270.7); FOLATE > 24.00 NG/ML (>5.4); TOTAL IRON BINDING CAPACITY 214 UG/DL (250-425)
[2024-10-21 18:32] LABS: ALBUMIN 3.7 G/DL (3.2-5.2); ALKALINE PHOSPHATASE 98 U/L (35-104); ALT/SGPT 15 U/L (7.0-40); AST/SGOT 12 U/L (<34); BILIRUBIN,TOTAL 0.6 MG/DL (0.3-1.2); BLOOD UREA NITROGEN 8 MG/DL (9-23); CARBON DIOXIDE LEVEL 33 MMOL/L (20-31); CHLORIDE LEVEL 106 MMOL/L (98-107); CHOLESTEROL LEVEL 179 MG/DL (<200); CHOLESTEROL RISK RATIO 2.55 (<5); GLOMERULAR FILTRATION RATE > 60.0 (>45); GLUCOSE, FASTING 93 MG/DL (74-106); IRON (FE) 127 UG/DL (50-170); LDL CHOLESTEROL 97.6 MG/DL (<100); PERCENT SATURATION 59.3 % (13.2-45.0); POTASSIUM SERUM 3.7 MMOL/L (3.5-5.1); PTH INTACT 86.4 PG/ML (18.5-88.0); SODIUM LEVEL 145 MMOL/L (136-145); THYROID STIMULATING HORMONE 0.054 uIU/ML (0.55-4.78); TOTAL PROTEIN 6.7 G/DL (5.7-8.2); TRIGLYCERIDES LEVEL 57 MG/DL (<150)
[2024-10-21 18:33] LABS: FREE T4 1.84 NG/DL (0.89-1.76); VITAMIN B12 LEVEL 830 PG/ML (211-911)
[2024-10-21 18:35] LABS: BASO % 0.6 % (0.0-1.0); EOS # 0.1 10^3/uL (0.0-0.5); EOS % 2.3 % (0.0-3.0); HEMATOCRIT 40.4 % (36.0-47.0); HEMOGLOBIN 13.3 g/dl (12.0-15.5); LYMPH % 20.8 % (24.0-44.0); MEAN CORPUSCULAR HEMOGLOBIN 31.9 pg (27.0-33.0); MEAN CORPUSCULAR HGB CONC 32.9 g/dl (32.0-36.5); MEAN CORPUSCULAR VOLUME 96.9 fl (80.0-96.0); MONO # 0.4 10^3/uL (0.0-0.8); MONO % 7.6 % (2.0-8.0); NEUTROPHILS # 3.2 10^3/uL (1.5-8.5); NEUTROPHILS % 68.5 % (36.0-66.0); PLATELET COUNT, AUTOMATED 243 10^3/uL (150-450); RED BLOOD COUNT 4.17 10^6/uL (4.00-5.40); WHITE BLOOD COUNT 4.7 10^3/uL (4.0-10.0)
== END ==
LOC: M SFHCCLAY 11:36
PROVIDERS: ATTEND Nurse Practitioner Family
DX: K43.9 Ventral hernia without obstruction or gangrene (principal); E83.59 Other disorders of calcium metabolism; N29 Other disorders of kidney and ureter in diseases classified elsewhere; Z98.84 Bariatric surgery status

== ENCOUNTER → 2024-11-16 | Outpatient (REF) | payer OTHER, MEDICAID ==
[2024-11-16 14:44] LABS: APPEARANCE, URINE HAZY (CLEAR); BACTERIA, URINE AUTO 1+ (NEGATIVE); BILIRUBIN, URINE AUTO NEGATIVE (NEGATIVE); BLOOD, URINE BLOOD 1+ (NEGATIVE); COLOR, URINE YELLOW (YELLOW); GLUCOSE, URINE (UA) AUTO NEGATIVE (NEGATIVE); KETONE, URINE AUTO NEGATIVE (NEGATIVE); LEUKOCYTE ESTERASE, URINE AUTO 2+ (NEGATIVE); NITRITE, URINE AUTO NEGATIVE (NEGATIVE); PROTEIN, URINE AUTO NEGATIVE (NEGATIVE); RBC, URINE AUTO 1 /HPF (0-3); SPECIFIC GRAVITY URINE AUTO 1.004 (1.002-1.035); SQUAMOUS EPITHELIAL CELL UR AU 0 /HPF (0-6); UROBILINOGEN, URINE AUTO 0.2 mg/dL (0.0-2.0); WBC, URINE AUTO 8 /HPF (0-3)
== END ==
LOC: M SMT 12:56
PROVIDERS: ATTEND Specialist
DX: N32.81 Overactive bladder (principal)

== ENCOUNTER → 2024-12-15 | Outpatient (REF) | payer OTHER ==
[2024-12-15 18:59] LABS: FREE T4 1.48 NG/DL (0.89-1.76); THYROID STIMULATING HORMONE 0.304 uIU/ML (0.55-4.78)
== END ==
LOC: M SFHCCLAY 11:19
PROVIDERS: ATTEND Nurse Practitioner Family
DX: E03.9 Hypothyroidism, unspecified (principal)

== ENCOUNTER → 2025-06-20 | Outpatient (CLI) | payer OTHER ==
[~2025-06-20] MED LIST changes: +METH-1100 PO; -METH-855 PO
== END ==
LOC: M RAD 16:46
PROVIDERS: ATTEND Nurse Practitioner Family
DX: Z12.2 Encounter for screening for malignant neoplasm of respiratory organs (principal); F17.210 Nicotine dependence, cigarettes, uncomplicated; J84.10 Pulmonary fibrosis, unspecified; K43.9 Ventral hernia without obstruction or gangrene; Z98.84 Bariatric surgery status

== ENCOUNTER → 2025-08-18 | Outpatient (REF) | payer OTHER ==
[2025-08-18 17:32] LABS: APPEARANCE, URINE CLOUDY (CLEAR); BACTERIA, URINE AUTO 1+ (NEGATIVE); BILIRUBIN, URINE AUTO NEGATIVE (NEGATIVE); BLOOD, URINE BLOOD NEGATIVE (NEGATIVE); GLUCOSE, URINE (UA) AUTO NEGATIVE (NEGATIVE); KETONE, URINE AUTO NEGATIVE (NEGATIVE); LEUKOCYTE ESTERASE, URINE AUTO 3+ (NEGATIVE); MUCUS, URINE SMALL (NEGATIVE); NITRITE, URINE AUTO POSITIVE (NEGATIVE); PROTEIN, URINE AUTO NEGATIVE (NEGATIVE); RBC, URINE AUTO 3 /HPF (0-3); SPECIFIC GRAVITY URINE AUTO 1.009 (1.002-1.035); SQUAMOUS EPITHELIAL CELL UR AU 1 /HPF (0-6); UROBILINOGEN, URINE AUTO 0.2 mg/dL (0.0-2.0); WBC, URINE AUTO 60 /HPF (0-3)
== END ==
LOC: M SMT 17:05
PROVIDERS: ATTEND Urology
DX: N39.0 Urinary tract infection, site not specified (principal)

== ENCOUNTER → 2025-09-05 | Outpatient (CLI) | payer OTHER | LOC: M PLALAB 16:21 | PROVIDERS: ATTEND Nurse Practitioner Family | DX: Z79.891 Long term (current) use of opiate analgesic (principal) | CPT/HCPCS: 36415; 80307; G0480 ==

== ENCOUNTER → 2025-09-11 | Outpatient (REF) | payer OTHER ==
[2025-09-11 16:01] LABS: APPEARANCE, URINE HAZY (CLEAR); BACTERIA, URINE AUTO 1+ (NEGATIVE); BILIRUBIN, URINE AUTO NEGATIVE (NEGATIVE); BLOOD, URINE BLOOD 1+ (NEGATIVE); GLUCOSE, URINE (UA) AUTO NEGATIVE (NEGATIVE); KETONE, URINE AUTO NEGATIVE (NEGATIVE); LEUKOCYTE ESTERASE, URINE AUTO 3+ (NEGATIVE); NITRITE, URINE AUTO POSITIVE (NEGATIVE); PROTEIN, URINE AUTO NEGATIVE (NEGATIVE); RBC, URINE AUTO 3 /HPF (0-3); SPECIFIC GRAVITY URINE AUTO 1.005 (1.002-1.035); SQUAMOUS EPITHELIAL CELL UR AU 0 /HPF (0-6); UROBILINOGEN, URINE AUTO 0.2 mg/dL (0.0-2.0); WBC, URINE AUTO 43 /HPF (0-3)
== END ==
LOC: M SMT 15:13
PROVIDERS: ATTEND Urology
DX: N39.0 Urinary tract infection, site not specified (principal)

== ENCOUNTER → 2025-09-12 | Outpatient (CLI) | payer OTHER | LOC: M WHC 10:08 | PROVIDERS: ATTEND General Practice | DX: R92.333 Mammographic heterogeneous density, bilateral breasts (principal); D05.11 Intraductal carcinoma in situ of right breast; D05.12 Intraductal carcinoma in situ of left breast ==

== ENCOUNTER → 2025-09-13 | Outpatient (CLI) | payer OTHER | LOC: M ONCR 11:23 | PROVIDERS: ATTEND General Practice | DX: Z08 Encounter for follow-up examination after completed treatment for malignant neoplasm (principal); Z85.3 Personal history of malignant neoplasm of breast; Z92.3 Personal history of irradiation; Z88.1 Allergy status to other antibiotic agents; Z88.2 Allergy status to sulfonamides; Z91.018 Allergy to other foods; Z79.51 Long term (current) use of inhaled steroids; Z79.899 Other long term (current) drug therapy ==